=== PATIENT | male | born 1960 | race Hispanic/Latino ===

== ENCOUNTER 2017-04-09 13:18 | Inpatient (IN) | payer OTHER ==
[2017-04-09 13:51] VITALS: BMI 35.1
[2017-04-09] MEDS ORDERED: Albuterol-Ipratrop 3 mg / 0.5 (3 ml) UD IH STA ×2 (14:30→17:25)
--- NOTE | 2017-04-09 14:30 | ED PDOC ---
Arrival/HPI - General Chief Complaint: Flu-like Symptoms Time Seen by Provider: 04/09/17 13:49 Historian: Patient, Spouse - History of Present Illness Narrative History of Present Illness (Text): 04/09/17 14:07 A 56 year old male, whose past medical history includes diabetes mellitus, renal failure, CAD with stents, presents to the emergency department with a worsening cough. The patient and his report that they were in the [facility] on Tuesday (6 days ago) when the patient began to feel his first sign of sickness , which includes sneezing and coughing. His notes they were surrounded by family members who currently had URI, strep throat, and other sickness. 4-5 days ago the patient was asymptomatic, but 3 days ago he began to have rhinorrhea, temperature of 102.0 and chills around 16:00. 2 days ago the patient 's states that his fever broke and went back to normal 98.0. The patient went to the hospital in the [facility] 2 days ago and the doctor advised the patient to remain in the hospital, but the patient refused to stay because he wanted to go home. The patient states he had a fever of 101.4 this morning and has had diarrhea, which began today. Associated to the patient's cough he also has minor chest discomfort and back pain, he also feels shortness of breath. He denies any nausea, vomiting, palpitations, hemtauria, headache, sore throat, or any other complaints at this time. Distributor Sales Consultant: Dr. Cee Time/Duration: < week (6 days) Symptom Onset: Gradual Symptom Course: Unchanged Activities at Onset: Light Context: Other (Vacation in the [facility]) Past Medical History - Provider Review Nursing Documentation Reviewed: Yes - Infectious Disease Hx of Infectious Diseases: None - Tetanus Immunization Tetanus Immunization: Unknown - Cardiac Hx Hypertension: Yes Other/Comment: 2 cardiac stent 2002, 2004 - Neurological Hx Paralysis: No - Renal Hx Renal Disorder: Yes Other/Comment: membrane nephritis - Endocrine/Metabolic Hx Endocrine Disorders: Yes Hx Diabetes Mellitus Type 2: Yes - Hematological/Oncological Hx Blood Transfusions: Yes (2010) Hx Blood Transfusion Reaction: No - Musculoskeletal/Rheumatological Hx Musculoskeletal Disorders: No - Psychiatric Hx Emotional Abuse: No Hx Physical Abuse: No Hx Substance Use: No - Surgical History Hx Appendectomy: Yes Hx Joint Replacement: Yes (hip) - Anesthesia Hx Anesthesia Reactions: No Hx Malignant Hyperthermia: No - Suicidal Assessment Feels Threatened In Home Enviroment: No Family/Social History - Physician Review Nursing Documentation Reviewed: Yes Family/Social History: No Known Family HX, Unknown Family HX Smoking Status: Never Smoked Hx Alcohol Use: Yes (SOCIALLY) Hx Substance Use: No Hx Substance Use Treatment: No Allergies/Home Meds Allergies/Adverse Reactions: Allergies No Known Allergies Allergy (Verified 08/25/13 11:09) Home Medications: Home Meds Medication Instructions Recorded Confirmed Aspirin [Aspir 81] 81 tab PO DAILY 08/25/13 04/09/17 Cholecalciferol [Vitamin D 1000 IU] 5,000 units PO MWF 12/07/14 04/09/17 Clopidogrel [Plavix] 75 mg PO DAILY 12/07/14 04/09/17 Esomeprazole Magnesium [Nexium] 40 mg PO BRK 12/07/14 04/09/17 Febuxostat [Uloric] 40 mg PO DAILY 12/07/14 04/09/17 Furosemide [Lasix] 160 mg PO BID 12/07/14 04/09/17 Metoprolol Succinate [Toprol Xl] 50 mg PO DAILY 12/07/14 04/09/17 Folic Acid 1 mg PO DAILY 02/06/16 04/09/17 Insulin Degludec [Tresiba 20 unit SQ [facility] 02/06/16 04/09/17 Flextouch U-100] Liraglutide [Victoza 2-Ross] 1.8 mg SQ QAM 02/06/16 04/09/17 Magnesium Oxide [Magnesium] 800 mg PO DAILY 02/06/16 04/09/17 Rosuvastatin Calcium [Crestor] 20 mg PO DAILY 02/06/16 04/09/17 Cyanocobalamin (Vitamin B-12) 1,000 mcg SQ Q2W 04/22/16 04/09/17 [Cyanocobalamin Injection] Bumetanide [Bumex] 1 mg PO BID 04/09/17 04/09/17 Cyclosporine [Cyclosporine] 04/09/17 Sodium Bicarbonate [Sodium 2 tab PO BID 04/09/17 04/09/17 Bicarbonate] predniSONE [Prednisone] 40 mg PO Q2 04/09/17 04/09/17 Review of Systems - Review of Systems Constitutional: Fatigue, Fevers Eyes: absent: Vision Changes ENT: Rhinorrhea. absent: Hearing Changes, Sore Throat Respiratory: SOB, Cough Cardiovascular: Chest Pain, GORMAN Gastrointestinal: Diarrhea. absent: Abdominal Pain, Nausea, Vomiting Genitourinary Male: absent: Hematuria Musculoskeletal: Back Pain Neurological: absent: Headache, Dizziness Endocrine: absent: Diaphoresis Physical Exam - Physical Exam Narrative Physical Exam (Text): 04/09/17 14:20 Head: Atraumatic. Normocephalic. Eyes: PERRL. EOMI. Conjunctivae are not pale. ENT: Mucous membranes are moist and intact. Oropharynx is clear and symmetric. Neck: Supple. Full ROM. No JVD. No lymphadenopathy. Cardiovascular: Regular rate. Regular rhythm. Systolic murmur. Pulmonary/Chest: Diffuse bilateral rhonci. No respiratory distress. Abdominal: Soft and non-distended. There is no tenderness. No rebound, guarding, or rigidity. No organomegaly. Good bowel sounds. Back: No CVA tenderness. Extremities: Lower extremity is bilaterally equal, non pitting edema. No edema. No cyanosis. No clubbing. Full range of motion in all extremities. No calf tenderness. Skin: Skin is diaphoretic. No petechiae. No purpura. Neurological: Alert, awake, and oriented to person, place, time, and situation. Normal speech. Motor and sensory exam intact. Psychiatric: Good eye contact. Normal interaction, affect, and behavior. Vital Signs Reviewed: Yes Vital Signs Temp Pulse Resp BP Pulse Ox 04/09/17 20:40 99.9 F H 99 H 16 145/96 H 99 04/09/17 19:00 71 18 165/74 H 95 04/09/17 17:32 98.1 F 04/09/17 17:00 75 18 168/89 H 95 04/09/17 15:12 79 18 179/94 H 95 04/09/17 13:19 97.8 F 84 18 163/111 H 93 L Temperature: Afebrile Blood Pressure: Hypertensive Pulse: Regular Respiratory Rate: Normal Appearance: Positive for: Non-Toxic, Comfortable, Ill-Appearing Pain Distress: Mild Mental Status: Positive for: Alert and Oriented X 3 Medical Decision Making ED Course and Treatment: 04/09/17 14:36 Impression: A 56 year old male with a worsening cough. Differential Diagnosis included but are not limited to: CHF vs. Pneumonia vs. OH Plan: -- EKG -- Chest X-ray -- Labs -- Duoneb -- Urinalysis -- Reassess and disposition Prior Visits: Notes and results from previous visits were reviewed. The patient was last seen in the emergency department on 09/18/16 for flu like symptoms. The patient was discharged home. Progress Notes: Patient's history and exam reviewed. On exam he has diffuse rhonchi, sats 93% on room air but is breathing comfortably, although productive cough noted. Denies chest pain. Denies acute leg pain or edema, states "it's about the same" . Chest xray obtained. Patient placed on oxygen nasal cannula and nebulizer with improved sats. Chest X-ray Tree Sapper : Denny Zuluaga MD Report Date : 04/09/2017 15:08:13 HISTORY:cough, fever COMPARISON:09/18/2016 FINDINGS: LUNGS:Bilateral lower lobe opacities concerning for pneumonia. PLEURA:No significant pleural effusion identified. No pneumothorax apparent. CARDIOVASCULAR:Normal. OSSEOUS STRUCTURES:No significant abnormalities. VISUALIZED UPPER ABDOMEN:Normal. OTHER FINDINGS:Bilateral lower lobe opacities concerning for pneumonia. IMPRESSION:No active disease. 04/09/17 15:50 Paperwork provided by patient from [facility] on 04/07/17. Results show: -- BNP: 274 -- Toponin: 0.07 -- Glucose: 124 -- Blood Urea Nitrogen: 57 -- Creatinine: 2.40 -- Sodium: 139 -- Potassium: 4.2 -- Chloride: 111 -- Venous Total CO2: 18 -- Anion Gap: 10 -- Calcium: 8.3 -- Total Protein: 5.7 -- GFR: 30 -- Albumin: 2.7 -- Alkaline Phosphatase: 57 -- Total Bilirubin: 0.5 -- ALT: 14 -- AST: 13 -- White Blood Cell: 10.4 -- Red Blood Cell: 3.10 -- Hemoglobin: 10.0 -- Hematocrit: 28.8 -- Mean Corpusucular Volume: 93 -- Mean Corpusucular HGB: 32 -- Mean Corpusucular HGB Concentration: 35 -- Red Cell Distribution Width: 12.9 -- Platelet: 137 -- Mean Platelet Volume: 9.5 -- Granulocytes Percent: 78 -- Lymphocytes Percent: 13 -- Monocytes Percent: 8 -- Eosinophils percent: 1 -- Basophils Percent: 0 -- Nucleated RBCS: 0 -- Granulocytes Absolute Count: 8.1 -- Lymphocytes Absolute Count: 1.3 -- Monocytes Absolute Count: 0.8 -- Eosinophils Absolute Count: 0.1 -- Basophils Absolute Count: 0.0 On re-evaluation, patient resting comfortably, currently denies chest pain or discomfort. Chest xray reading reviewed with patient, discussed possibility of pneumonia, also cannot exclude component of pulmonary vascular congestion/chf. Labs reveal that patient has creatinine at his previous baseline. Troponin indeterminate, but no acute EKG changes or chest pain currently. IV antibiotics ordered. Initial lactate and WBC unremarkable, although hx of fevers suggestive of component of pneumonia. Case d/w Dr. Talavera, covering for PMD Dr. Prince. Patient admitted for pneumonia, r/o chf, cardiac disease given significant past risk factors. - Lab Interpretations Lab Results: 04/09/17 15:00 04/09/17 15:00 Lab Results 04/09/17 15:00: Sodium 139, Chloride 113 H, Potassium 4.2, Carbon Dioxide 16 L, Anion Gap 14, BUN 80 H, Creatinine 3.2 H, Est GFR ( Amer) 24, Est GFR ( Non-Af Amer) 20, Random Glucose 243 H, Calcium 8.5, Total Bilirubin 0.3, AST 22 , ALT 40, Alkaline Phosphatase 82, Lactate Dehydrogenase 832 H, Total Creatine Kinase 476 H, CK-MB (CK-2) 4.5 H, CK-MB (CK-2) % Cancelled, Troponin I 0.07 D, NT-Pro-B Natriuret Pep 2900 H, Total Protein 6.2, Albumin 3.0, Globulin 3.1, Albumin/Globulin Ratio 1.0 L 04/09/17 15:00: PT 10.5, INR 0.97, APTT 27.4 04/09/17 15:00: WBC 10.1 D, RBC 3.24 L, Hgb 10.2 L, Hct 29.8 L, MCV 92.0, MCH 31.5, MCHC 34.2, RDW 12.5, Plt Count 188, MPV 10.6, Gran % 73.8 H, Lymph % (Auto ) 15.4 L, Talbot % (Auto) 9.2 H, Eos % (Auto) 1.4 L, Baso % (Auto) 0.2, Gran # 7.45 H, Lymph # 1.6, Talbot # 0.9 H, Eos # 0.1, Baso # 0.02 04/09/17 14:45: pO2 77 H, VBG pH 7.32, VBG pCO2 31.0 L, VBG HCO3 16.0 L, VBG Total CO2 17.0 L, VBG O2 Sat (Calc) 97.2 H, VBG Base Excess -8.9 L, VBG Potassium 4.4, Sodium 138.0, Chloride 112.0 H, Glucose 253 H, Lactate 0.9, FiO2 21.0, Venous Blood Potassium 4.4 - RAD Interpretation Radiology Orders: 04/09/17 14:28 CHEST TWO VIEWS (PA/LAT) [RAD] Stat 04/09/17 15:49 DUPLEX LOWER EXTRM VEIN BILAT [US] Stat - Medication Orders Current Medication Orders: Albuterol/Ipratropium (Duoneb 3 Mg/0.5 Mg (3 Ml) Ud) 3 ml IH Q6H [facility] Last Admin: 04/10/17 08:14 Dose: 3 ml Aspirin (Ecotrin) 81 mg PO DAILY [facility] Last Admin: 04/10/17 09:43 Dose: 81 mg Bumetanide (Bumex) 1 mg PO BID [facility] Last Admin: 04/10/17 09:43 Dose: 1 mg Cholecalciferol (Vitamin D) 5,000 iu PO MWF [facility] Clopidogrel Bisulfate (Plavix) 75 mg PO DAILY [facility] Last Admin: 04/10/17 09:44 Dose: 75 mg Doxycycline Hyclate (Doryx) 100 mg PO Q12 [facility] PRN Reason: Protocol Stop: 04/19/17 22:01 Folic Acid (Folic Acid) 1 mg PO DAILY [facility] Last Admin: 04/10/17 09:44 Dose: 1 mg Cefepime HCl (Maxipime 1gm) 1 gm in 100 mls @ 100 mls/hr IVPB Q24H [facility] PRN Reason: Protocol Stop: 04/19/17 10:31 Insulin Detemir (Levemir) 20 unit SC [facility] Last Admin: 04/10/17 09:56 Dose: 20 unit Insulin Human Regular (Humulin R Low) 0 units SC [facility] PRN Reason: Protocol Losartan Potassium (Cozaar) 50 mg PO DAILY [facility] Magnesium Oxide (Mag-Ox) 800 mg PO DAILY [facility] Last Admin: 04/10/17 09:44 Dose: 800 mg Metoprolol Succinate (Toprol Xl) 50 mg PO DAILY [facility] Last Admin: 04/10/17 09:44 Dose: 50 mg Prednisone (Prednisone Tab) 10 mg PO QOTHERDAY [facility] Sodium Bicarbonate (Sodium Bicarbonate Tab) 1,300 mg PO BID [facility] Sodium Polystyrene Sulfonate (Kayexalate Oral Susp) 15 gm PO QOTHERDAY [facility] Discontinued Medications Albuterol/Ipratropium (Duoneb 3 Mg/0.5 Mg (3 Ml) Ud) 3 ml IH STAT STA Stop: 04/09/17 14:31 Last Admin: 04/09/17 14:40 Dose: 3 ml Albuterol/Ipratropium (Duoneb 3 Mg/0.5 Mg (3 Ml) Ud) 3 ml IH STAT STA Stop: 04/09/17 17:26 Last Admin: 04/09/17 17:30 Dose: 3 ml Furosemide (Lasix) 160 mg PO BID [facility] Azithromycin (Zithromax 500mg In Ns) 500 mg in 250 mls @ 166.667 mls/hr IVPB STAT [facility] PRN Reason: Protocol Stop: 04/09/17 16:51 Last Admin: 04/09/17 16:34 Dose: 166.667 mls/hr Ceftriaxone Sodium (Rocephin 1 Gram Ivpb) 1 gm in 100 mls @ 200 mls/hr IVPB ONCE [facility] PRN Reason: Protocol Stop: 04/09/17 15:52 Last Admin: 04/09/17 15:41 Dose: 200 mls/hr Sodium Bicarbonate (Sodium Bicarbonate Tab) 650 mg PO BID [facility] Last Admin: 04/10/17 09:44 Dose: 650 mg - PA / CONTENT DIRECTOR / Resident Statement / has reviewed & agrees with the documentation as recorded. MD/ has examined the patient and agrees with the treatment plan. - Scribe Statement The provider has reviewed the documentation as recorded by the Shira Wilson Provider Scribe Attestation: All medical record entries made by the Scribe were at my direction and personally dictated by me. I have reviewed the chart and agree that the record accurately reflects my personal performance of the history, physical exam, medical decision making, and the department course for this patient. I have also personally directed, reviewed, and agree with the discharge instructions and disposition. Disposition/Present on Arrival - Present on Arrival Any Indicators Present on Arrival: Yes History of DVT/PE: No History of Uncontrolled Diabetes: Yes Urinary Catheter: No History of Decub. Ulcer: No History Surgical Site Infection Following: None - Disposition Have Diagnosis and Disposition been Completed?: Yes Diagnosis: Pneumonia, CHF (congestive heart failure) Disposition: HOSPITALIZED Disposition Time: 15:30 Patient Plan: Admission Patient Problems: Current Active Problems Problem Status Onset CHF (congestive heart failure) Acute Pneumonia Acute Condition: SERIOUS
--- NOTE | 2017-04-09 15:09 | RAD ---
HISTORY: cough, fever COMPARISON: 09/18/2016 TECHNIQUE: Chest PA and lateral FINDINGS: LUNGS: Bilateral lower lobe opacities concerning for pneumonia. PLEURA: No significant pleural effusion identified. No pneumothorax apparent. CARDIOVASCULAR: Normal. OSSEOUS STRUCTURES: No significant abnormalities. VISUALIZED UPPER ABDOMEN: Normal. OTHER FINDINGS: Bilateral lower lobe opacities concerning for pneumonia. IMPRESSION: No active disease.
[2017-04-09] MEDS ORDERED: cefTRIAXone 1 gm 100 ML IVPB STA (15:19)
[2017-04-09] MEDS ORDERED: Azithromycin 500MG/NS 250ml 250 ML IVPB STA (15:19)
[2017-04-09 15:21] LABS: VENOUS BLOOD GAS BASE EXCESS -8.9 mmol/L (0.0-2.0); VENOUS BLOOD PH 7.32 (7.32-7.43)
[2017-04-09 15:22] LABS: BILIRUBIN,TOTAL 0.3 mg/dL (0.2-1.3); CALCIUM 8.5 mg/dL (8.4-10.5); POTASSIUM 4.2 mmol/L (3.6-5.0); TOTAL PROTEIN 6.2 g/dL (5.8-8.3)
[2017-04-09] MEDS ORDERED: Azithromycin 500MG/NS 250ml 500 MG/250 ML BAG IVPB STA (15:22)
[2017-04-09 15:23] LABS: BASO # 0.02 K/mm3 (0.0-2.0); BASO % 0.2 % (0.0-3.0); EOS # 0.1 (0.0-0.7); EOS % 1.4 % (1.5-5.0); GRAN # 7.45 (1.4-6.5); GRAN % 73.8 % (50.0-68.0); HEMATOCRIT 29.8 % (42.0-52.0); LYMPH # 1.6 (1.2-3.4); LYMPH % 15.4 % (22.0-35.0); MEAN CORPUSCULAR HEMOGLOBIN 31.5 pg (25.0-35.0); MEAN CORPUSCULAR HGB CONC 34.2 g/dl (31.0-37.0); MEAN PLATELET VOLUME 10.6 fl (7.0-11.0); MONO # 0.9 (0.1-0.6); MONO % 9.2 % (1.0-6.0); RED CELL DISTRIBUTION WIDTH 12.5 % (11.5-14.5); WHITE BLOOD COUNT 10.1 10^3/ul (4.5-11.0)
[2017-04-09] MEDS ORDERED: cefTRIAXone 1 gm 1 GM/100 ML BAG IVPB STA (15:23)
[2017-04-09 15:30] LABS: INR 0.97 (0.93-1.08); PARTIAL THROMBOPLASTIN TIME 27.4 Seconds (23.7-30.8)
[2017-04-09 15:32] LABS: TROPONIN I 0.07 ng/mL
[2017-04-09 16:26] LABS: ARTERIAL BLOOD GAS HCO3 13.6 mmol/L (21-28); ARTERIAL BLOOD GAS O2 CAPACITY 12.6 mL/dl (16-24); ARTERIAL BLOOD GAS O2 CONTENT 12.3 ML/dl (15-23); ARTERIAL BLOOD GAS PH 7.38 (7.35-7.45); ARTERIAL BLOOD HGB O2 SAT 96.4 % (95.0-98.0); CARBOXYHEMOGLOBIN 1.5 % (0.5-1.5); HHB 2.1 % (0-5)
[2017-04-09 16:56] LABS: URINE BILIRUBIN NEGATIVE (NEGATIVE); URINE BLOOD MODERATE (NEGATIVE); URINE GLUCOSE (UA) >=1000 mg/dL (NEGATIVE); URINE KETONE NEGATIVE (NEGATIVE); URINE LEUKOCYTE ESTERASE NEGATIVE Leu/uL (NEGATIVE); URINE PROTEIN >=300 mg/dL (<30 mg/dL); URINE UROBILINOGEN 0.2 E.U./dL (<1 E.U./dL)
[2017-04-09 16:57] LABS: URINE APPEARANCE CLEAR (CLEAR); URINE COLOR YELLOW (YELLOW)
[2017-04-09 17:20] LABS: URINE BACTERIA FEW (NEG)
[2017-04-09] MEDS: Albuterol-Ipratrop 3 mg / 0.5 (3 ml) UD IH SCH (19:30)
[2017-04-10] MEDS: Albuterol-Ipratrop 3 mg / 0.5 (3 ml) UD IH SCH ×4 (01:45→20:20)
--- NOTE | 2017-04-10 06:38 | HP ---
HISTORY OF PRESENT ILLNESS: The patient is seen in the emergency room. He is a white male. He presented with cough, fever, shortness of breath, neck pain, and chest pain. The patient feels sick. He had been treated for respiratory infection in the [facility] area two days ago. He was advised for hospitalization, but he refused at that time. In the emergency room, he complains of some distress with breathing associated with shortness of breath. The patient's past history is significant, in that he has history of appendectomy. The patient has had left hip replacement in the past. The patient has had 2 angioplasties according to his story. He has had chronic respiratory infection in the past, he has renal insufficiency and apparently, a suggestion of nephrotic syndrome in the past. He has been followed by recycling sorter in this town, I do not have the privilege of knowing his name right now. The patient's primary care physician is Dr. Kobe Prince; I am covering for Dr. Prince. The patient also has no allergies as far as I know. He is very pleasant and answers all questions. PHYSICAL EXAMINATION: GENERAL: The patient is a male who is about 266 pounds and his height is 6 feet and he is lying in the bed pretty much flat without much distress. He appears to be in some minimal distress, but his color is pale. VITAL SIGNS: Pulse is 98, blood pressure is 168/89, respirations 18, O2 saturation 95% on room air, his temperature as mentioned 98.1, even though the patient has had fever he says when he was at home. HEENT: Head is normocephalic. The patient's eyes and ears seem to be clinically normal. NECK: Thyroid is not enlarged. There is no elevation of the JVP. Carotid pulses are present. No lymphadenopathy noted in the neck. LUNGS: Trachea is central. Breath sounds are vesicular. There are rhonchi and crepitations bilaterally, left greater than right. HEART: NSR. S1 and S2 present. No clinical murmurs. ABDOMEN: Soft, no tenderness. Liver and spleen not palpable. The patient dose not have any symptoms such as rectal bleeding or symptoms of constipation. CENTRAL NERVOUS SYSTEM: He is conscious, rational, and oriented. His cranial nerves are intact. Sensory and motor functions are within normal limits. Cerebral function seem to be within normal limits, except that the patient has restless legs where he keeps flapping his legs constantly while lying down. LABORATORY DATA: His blood work that is done in the hospital in the emergency room shows a white count of 10,100, his hemoglobin is 10.2, the patient's differential shows shift to the left. The patient's chemistry; the blood sugar is 243, he is diabetic, he is on insulin and Victoza. The patient's BUN is 80, creatinine 3.2, which suggests that he has chronic renal insufficiency. The patient's natriuretic peptide is elevated to 1900. He has history of cardiac disease. He might be having superimposed congestive heart failure. The patient was being treated with a diuretic even prior to being in the hospital right now. MEDICATIONS: The patient's medication list consists of albuterol and ipratropium which is DuoNeb q.6 hours. The patient is getting Rocephin 1 g IV q.24 hours, azithromycin 500 mg IV daily. The patient's other medications, the patient will be placed on sodium bicarbonate 2 tablets p.o. b.i.d. The patient is on Bumex 1 mg b.i.d. The patient is on prednisone 40 mg q.12 hours, the patient is on vitamin B12, he is on Plavix 75 mg daily, he is on vitamin D, aspirin 81 mg daily, metoprolol 50 mg daily, magnesium oxide 800 mg daily. The patient is on Victoza 1.8 mg daily, the patient is on Lasix 160 mg p.o. b.i.d. and this is in addition to his Bumex. He is on Uloric for uric acid elevation and gout 40 mg daily. The patient is on Nexium 40 mg daily, calcium, rosuvastatin which is Crestor 20 mg daily, and cyclosporin which is an immunosuppressive medication. The patient's chest x-ray shows evidence of opacities on both lungs, lower base area of the lungs. IMPRESSION AND PLAN: The patient is admitted with diagnosis of pneumonia, congestive heart failure, renal failure. The patient has history of hypertension, and the patient has other diagnoses such as coronary artery disease, the patient has gout, the patient has general immune deficiency. He has had blood transfusion in the past, he admitted to that. He has had surgery as we know and his clinical condition seems to be stable at this time. He will be admitted to the telemetry floor. He will be seen by the consultants from infectious disease and also Dr. Chowdhury and Dr. Castillo, cardiologists, to follow up on his cardiac condition. We will probably consult a residential mortgage underwriter tomorrow to follow up on his pulmonary condition. We will see him in the morning tomorrow and continue current management. Caroline Ordonez MD [email or web address]
[2017-04-10] MEDS: Metoprolol Succinate 50 mg XL Tab PO SCH (09:44)
[2017-04-10] MEDS: Magnesium Oxide 400 mg Tab UD PO SCH (09:44)
[2017-04-10] MEDS: Insulin Detemir 100 units/ml Vial (Levemir) SC SCH ×2 (09:56→21:55)
--- NOTE | 2017-04-10 11:00 | CARD ---
APPROVED REPORT EKG Measurement Heart [id number] DC [id number] <Conclusion> Normal sinus rhythm T wave abnormality, consider inferior ischemia VS Repolarizing abnormality Abnormal ECG
[2017-04-10] MEDS: Insulin Reg-LOW-Coverage SC SCH ×3 (12:09→21:55)
[2017-04-10] MEDS: Cefepime 1gm in NS 100ml 1 GM/100 ML BAG IVPB SCH (12:09)
--- NOTE | 2017-04-10 14:37 | PN ---
DATE: LOCATION: The patient is in the room 270, bed 1. SUBJECTIVE: The patient was admitted yesterday with cold, shortness of breath, chest pain. The patient had evaluation in emergency room and found to have bilateral pneumonia. The patient has past history of renal failure, coronary artery disease. The patient has history of diabetes mellitus. The patient is being treated for renal insufficiency and nephrotic syndrome. This morning, the patient is resting in bed, relatively comfortable. PHYSICAL EXAMINATION: VITAL SIGNS: His pulse is 95, blood pressure 148/98, respirations are 20, O2 saturation is 90% oxygen on room air. The patient's temperature is 97.5. HEENT: Head is normocephalic. NECK: JVP is flat. LUNGS: Trachea is central, bilateral crepitations, rhonchi heard in basal parts of the lung bilaterally. HEART: Normal sinus rhythm. S1 and S2 present. Sinus tachycardia. ABDOMEN: Soft. Liver and spleen not palpable. No tenderness. CENTRAL NERVOUS SYSTEM: He is conscious, rational, oriented. No focal neurological deficits are noted at this time. MEDICATIONS: Consists of Bumex, the patient is on DuoNeb, aspirin, folic acid, Lasix, magnesium oxide, Plavix, sodium bicarbonate, metoprolol, and Vitamin D. ASSESSMENT AND PLAN: The patient is also treated with antibiotic. I think they discontinued antibiotic at this time, we will have to restart the patient on antibiotic. We will continue current management. We will have Pulmonary, Cardiac, infectious disease and Renal consultation on the patient. We will follow up. Caroline Ordonez MD ALLEGRA
--- NOTE | 2017-04-10 15:33 | US ---
HISTORY: Leg pain and swelling. Evaluate for DVT PHYSICIAN(S): Denny Julian MD. TECHNIQUE: Duplex sonography and color-flow Doppler with graded compression were used to evaluate the deep venous systems of both lower extremities. The tibial veins are not well seen due to edema FINDINGS: The visualized deep venous systems of both lower extremities are sonographically normal and compressible. Normal wave forms and augmentation are seen. There is no sonographic evidence for deep venous thrombosis in the visualized segments of both lower extremities. IMPRESSION: No sonographic evidence for deep venous thrombosis in the visualized segments of both lower extremities.
[2017-04-10] MEDS ORDERED: Levalbuterol 0.63 MG/3 ML Inhal Soln UD IH PRN (15:36)
[2017-04-10] MEDS: Atovaquone 750 mg/5 ml Susp UD PO SCH (17:13)
--- NOTE | 2017-04-11 01:19 | CON ---
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 Patient reports vacationing in the [facility] and having started to develop cough with shortness of breath about 6 days ago, also with associated fevers as high as 101, and chills. Went to ER in the [facility] and was advised to stay overnight for further evaluation for possible CHF exacerbation but patient declined and subsequently left this facility the same day. Patient also reporting chest tightness, worsening dyspnea on exertion, otherwise leg swelling has been relatively stable. Patient reports being compliant with all of his medications, although he does not know the names of them. Per patient's , the patient's pill box is for the most part empty indicating that he has been compliant with his medications. PAST MEDICAL HISTORY: As above. Patient with membranous nephropathy diagnosed several years ago, repeat biopsy, renal biopsy done in 2016 due to worsening renal function, again showing primary membranous nephropathy. Patient was at one point on Cytoxan, and has completed a full dose. Previous advertising intern attempted to treat membranous nephropathy with Rituxan last year, however, patient developed what appeared to be an anaphylactic reaction after either the second or third dose. Any further doses were currently held. Patient was then changed to tacrolimus which he has been on up until about 2 months ago when we took over his care and switched him to cyclosporin 100 mg q. 12 hours and prednisone 10 mg every other day with some improvement in proteinuria, however, renal function has overall worsened. Patient also restarted on ARB, Diovan about over a month ago 160 mg daily and put on Kayexalate every other day to manage hyperkalemia. SOCIAL HISTORY: Previous smoker. FAMILY HISTORY: Diabetes, father with kidney disease. REVIEW OF SYSTEMS: CONSTITUTIONAL: Fevers, chills. Appetite has been okay. HEENT: Reports blurry vision, reporting recent epistaxis. RESPIRATORY: As per HPI. CARDIOVASCULAR: As per HPI. GI: Has some episodes of diarrhea last week but was self limited. : No difficulty urinating, no dysuria. 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 No other joint pain or back pain. SKIN: Intermittent pruritus, none currently. No rashes. NEUROLOGICAL: Denies any dizziness. VITALS: This morning, blood pressure 148/98, heart rate 95, respirations 20, temperature 97.5, O2 sat 93% on room air. LABORATORY DATA: Labs from yesterday, CBC: WBC 10.1, hemoglobin 10.2, hematocrit 29.8, platelets 188. Chemistry panel: Sodium 139, potassium 4.2, chloride 113, bicarb 16, BUN 80, creatinine 3.2, glucose 243, calcium 8.5, LDH 832, proBNP 2900. ABG done on room air, pH 7.38, pCO2 23, pO2 71. Chest x-ray, directly visualized bilateral lower lobe opacities. ASSESSMENT AND PLAN: 1. Chronic kidney disease stage III B/IV. Relatively stable serum creatinine over the past 1 month. Volume status is also relatively stable. Mild metabolic acidosis in the setting of advanced chronic kidney disease. No indication for renal replacement therapy at this time. Continue to monitor renal function daily. Avoid NSAIDS. 2. Membranous nephropathy. Patient was biopsy proven primary membranous nephropathy with nephrotic range proteinuria. Currently on cyclosporin 100 mg q. 12 hours and prednisolone 10 mg every other day. Improvement in proteinuria from approximately 9 grams to 6 grams on random urine protein creatinine ratio. 3. We will hold cyclosporin for now in the setting of acute infection. Continue prednisone 10 mg every other day. Check cyclosporin level. 3. Hypertensive chronic kidney disease. Blood pressure elevated. Patient had been on Bumex 4 mg b.i.d., metoprolol XL 50 mg daily and losartan 160 mg daily at home. We will increase current Bumex dose to 2 mg b.i.d. We will restart ARB with losartan 50 mg daily. 4. Nephrotic syndrome. Appears to be improving. We will continue ARB with losartan 50 mg daily. We will restart Kayexalate at home dose 15 grams every other day starting tomorrow. 5. Chronic kidney disease mineral bone disease. Patient had been on bicarb supplementation, currently with metabolic acidosis, increased sodium bicarbonate to 650 mg 2 tablets b.i.d. 6. Anemia secondary to advanced chronic kidney disease. Recent iron studies showing patient is iron replete. Hemoglobin is at goal of 10 or 11 for advanced chronic kidney disease. We will hold off on any EPO for now. 7. Pneumonia/sepsis. Patient is currently on ceftriaxone and azithromycin. No renal dosages were needed. Discussed case with infectious disease advanced manufacturing consultant as patient has been on immunocompromising medications (cyclosporin). Infectious diseases to consider starting empiric treatment for PCP although appears unlikely as patient is already improving on current antibiotics. Stu Moses MD
[2017-04-11] MEDS: Albuterol-Ipratrop 3 mg / 0.5 (3 ml) UD IH SCH (01:37)
--- NOTE | 2017-04-11 04:32 | CON ---
DATE: 04/10/2017 REASON FOR THE CONSULTATION: Cardiac evaluation, 8 beats of VT, admitted with pneumonia, history of coronary artery disease. BRIEF CLINICAL HISTORY: This is a 56-year-old male with past medical history significant for coronary artery disease, status post stent 12 to 13 years ago, diabetes, hypertension, hyperlipidemia, obesity, body mass index 33.9 kg/m2, who was on vacation in [facility] He got first a runny nose, then nosebleed, and then got short of breath, went to the hospital, and was advised medical admission, but the patient refused and came here, admitted here with pneumonia and shortness of breath. Chest x-ray consistent with bilateral pneumonia. He had 8 beats of VT, so cardiac consult was called. PAST MEDICAL HISTORY: Significant for coronary artery disease, status post stent done by me 12 years ago, diabetes, hypertension, hyperlipidemia, obesity, chronic renal insufficiency. SOCIAL HISTORY: Quit smoking 12 years ago. Denies any history of alcohol abuse. FAMILY HISTORY: Significant for coronary artery disease, status post PTCA in the past. CURRENT MEDICATIONS: The patient was taking at home sodium bicarbonate, Bumex, prednisone, cyanocobalamin, Plavix 75 mg daily, aspirin 81 mg daily, magnesium oxide, insulin, and cyclosporine. PREVIOUS CARDIAC WORKUP: As follows: The patient's most recent echocardiogram on 06/28/2014 showed left ventricular size is normal, function is mildly impaired, calculated ejection fraction reported as 60%, apical hypokinesis noted, aortic valve is calcified with open valve, right ventricle reported as normal. PAST SURGICAL HISTORY: Significant for left hip replacement, appendectomy, history of two stents in the past, bilateral inguinal herniorrhaphy, colonoscopy, EGD, and renal biopsy. ALLERGIES: NO KNOWN DRUG ALLERGY. REVIEW OF SYSTEMS: As per HPI. PHYSICAL EXAMINATION VITAL SIGNS: Temperature afebrile, heart rate 88, and blood pressure 147/87. HEENT: PERRLA. Extraocular muscles intact. NECK: Supple. No carotid bruits or thyromegaly. CHEST: Clear to auscultation. HEART: S1 and S2 regular. ABDOMEN: Soft. EXTREMITIES: Clubbing and cyanosis negative. LABORATORY DATA: EKG shows normal sinus, no acute ST-T changes noted, 10 beats of VT noted. Blood workup as follows: WBC 10.8, hemoglobin 10.8, hematocrit 29.8, and platelet count 188. Chemistry shows sodium 139, potassium 4.0, chloride 113, carbon dioxide 16, anion gap of 14, BUN 80, creatinine 3.2. Troponin 0.07. In 2015, the patient's creatinine in January was 2. Since 2001, the patient has had renal insufficiency. Prior to that, in 2014, the patient's creatinine was 1.2. IMPRESSION: 1. Acute kidney injury on chronic renal insufficiency. As far as we go back on the labs, on 12/07/2014, creatinine was 1.2. On 02/09/2016, creatinine was 2 and creatinine clearance was 35 mL, now it is 20 mL, stage IV to V chronic kidney disease. 2. Diabetes. 3. Hypertension. 4. Hyperlipidemia. 5. Obesity. 6. Coronary artery disease, status post percutaneous transluminal coronary angioplasty 12 years ago. 7. Admitted with bilateral pneumonia, anemia, and diabetes. RECOMMENDATIONS: Aggressively treat pneumonia, we will give gentle diuretics, keep negative fluid balance. BNP is also elevated at 2900. Avoid DuoNeb treatment. We will put on Lovenox to prevent going into AFib/flutter and arrhythmia. Monitor electrolytes closely. Once the respiratory status stabilizes, consider stress test to rule out any ischemia. We will get lipid profile, TSH, hemoglobin A1c. We will follow with you. Thank you Dr. Ordonez for providing us the opportunity in taking care of the patient. Wanda Chowdhury MD
--- NOTE | 2017-04-11 05:41 | CON ---
DATE: 04/10/2017 CHIEF COMPLAINT: Weakness from several days. HISTORY OF PRESENT ILLNESS: This is a 56-year-old male with past medical history of diabetes mellitus, renal disease, coronary artery disease. He has been complaining of cough and weakness from several days and he states that he had low-grade fevers, no chills, no chest pain, cough is nonproductive. He did have a fever at home. He was in the hospital in [facility], he states approximately 2 days ago. He did not want to stay in the hospital and wanted to go home. He dined any abdomen pain, diarrhea or constipation, dysuria or frequency. PAST MEDICAL HISTORY: Significant for diabetes mellitus, coronary artery disease, renal disease. PAST SURGICAL HISTORY: Significant for appendectomy, cardiac cath, stent placement, inguinal hernia repair and left hip replacement. MEDICATIONS AT HOME: Patient is on prednisone 40 mg; vitamin B12; Plavix; aspirin; metoprolol; magnesium; Lasix, Nexium; Crestor, which is rosuvastatin; cyclosporine. Dr. Ordonez's history and physical examination is available and reviewed. PHYSICAL EXAMINATION GENERAL: The patient is in bed, no acute distress, appears washed out. VITAL SIGNS: Temperature of 99.9, hear rate of 118, respiratory rate of 20, blood pressure is 140/90. HEENT: Unremarkable. NECK: Supple. LUNGS: Decreased breath sounds. HEART: Normal S1 and S2. ABDOMEN: Soft, nontender, no organomegaly, no rebound, no guarding, no masses. LABORATORY EXAMINATION: Reveals a white count of 10,000, hemoglobin of 10, platelets of 188, and 73% granulocytosis. Chemistry reveals a BUN of 80, creatinine of 3.2, LDH is 832, CK is 476. The BNP is 2900. Glucose is 207. Urine analysis reveals 2 to 5 wbc's, greater than 300 protein, and moderate blood. The patient had a chest x-ray, bilateral lower opacities concerning for pneumonia. Blood cultures and urine cultures have been ordered. ASSESSMENT AND PLAN: This is a 56-year-old male with diabetes, coronary artery disease, renal disease, and nephrotic syndrome with congestive heart failure, obesity, history of kidney stones, and recent hospitalization, presenting with weakness, low-grade fevers, tachycardia, and hypoxia with: 1. Bilateral health-associated pneumonia. The urine Legionella antigen has been ordered. Blood culture, urine culture, and sputum cultures have been ordered and patient was given ceftriaxone, azithromycin. We will start the patient on Maxipime,doxycycline and ordered procalcitonin. Sputum cultures have been drawn and we will order complement levels. Pending initial workup results, we will order a C3 and C4, and we will make further recommendations upon availability of initial results. Patient does have an elevated BNP, CPK, and mildly elevated LDH, A 40 mg prednisone was recently started. The patient has not been on a prolonged prednisone use. We will make further recommendations. Brendon Walker MD
[2017-04-11] MEDS ORDERED: Metoprolol 1 mg/ml Inj IVP PRN (06:04)
[2017-04-11 07:39] LABS: BASO # 0.02 K/mm3 (0.0-2.0); BASO % 0.2 % (0.0-3.0); EOS # 0.2 (0.0-0.7); EOS % 2.7 % (1.5-5.0); GRAN # 6.08 (1.4-6.5); GRAN % 68.5 % (50.0-68.0); HEMATOCRIT 31.4 % (42.0-52.0); LYMPH # 1.8 (1.2-3.4); LYMPH % 20.3 % (22.0-35.0); MEAN CELL VOLUME 92.4 fl (80.0-105.0); MEAN CORPUSCULAR HEMOGLOBIN 31.8 pg (25.0-35.0); MEAN CORPUSCULAR HGB CONC 34.4 g/dl (31.0-37.0); MEAN PLATELET VOLUME 10.6 fl (7.0-11.0); MONO # 0.7 (0.1-0.6); MONO % 8.3 % (1.0-6.0); RED CELL DISTRIBUTION WIDTH 12.4 % (11.5-14.5); WHITE BLOOD COUNT 8.9 10^3/ul (4.5-11.0)
[2017-04-11 08:01] LABS: ALB/GLOB RATIO 0.9 (1.1-1.8); BILIRUBIN,TOTAL 0.2 mg/dL (0.2-1.3); CALCIUM 8.7 mg/dL (8.4-10.5); MAGNESIUM 2.3 mg/dL (1.7-2.2); PHOSPHOROUS 5.9 mg/dL (2.5-4.5); TOTAL PROTEIN 6.6 g/dL (5.8-8.3)
[2017-04-11] MEDS: Insulin Reg-LOW-Coverage SC SCH ×4 (08:27→22:52)
--- NOTE | 2017-04-11 09:10 | CP.PCM.PN ---
<Gabby Shoemaker - Last Filed: 04/11/17 13:18> Subjective - Date & Time of Evaluation Date of Evaluation: 04/11/17 Time of Evaluation: 09:06 - Subjective Subjective: PGY-2 Nephrology progress note for Dr. Moses Patient seen and examined at bedside. No acute distress. Patient states that he feels overall better. He continues to have cough ands congestion worst when laying down. He report bilateral lower extremity edema. He denies any dysuria, abd pain, n/v/d/c. Patient states that he is tolerating diet well. Objective - Vital Signs/Intake and Output Vital Signs (last 24 hours): Temp Pulse Resp BP Pulse Ox 97.9 F 80 22 173/91 H 95 04/11/17 06:00 04/11/17 06:21 04/11/17 06:00 04/11/17 06:21 04/11/17 06:00 Intake and Output: 04/11/17 04/11/17 06:59 18:59 Intake Total 240 Output Total 300 Balance -60 - Medications Medications: Current Medications Aspirin (Ecotrin) 81 mg PO DAILY [facility] Last Admin: 04/10/17 09:43 Dose: 81 mg Atovaquone (Mepron) 750 mg PO BID [facility] Stop: 04/19/17 18:01 Last Admin: 04/10/17 17:13 Dose: 750 mg Bumetanide (Bumex) 2 mg PO BID [facility] Last Admin: 04/10/17 17:23 Dose: 2 mg Cholecalciferol (Vitamin D) 5,000 iu PO F [facility] Clopidogrel Bisulfate (Plavix) 75 mg PO DAILY [facility] Last Admin: 04/10/17 09:44 Dose: 75 mg Doxycycline Hyclate (Doryx) 100 mg PO Q12 [facility] PRN Reason: Protocol Stop: 04/19/17 22:01 Last Admin: 04/10/17 21:55 Dose: 100 mg Folic Acid (Folic Acid) 1 mg PO DAILY [facility] Last Admin: 04/10/17 09:44 Dose: 1 mg Hydralazine HCl (Apresoline) 25 mg PO QID [facility] Cefepime HCl (Maxipime 1gm) 1 gm in 100 mls @ 100 mls/hr IVPB Q24H [facility] PRN Reason: Protocol Stop: 04/19/17 10:31 Last Admin: 04/10/17 12:09 Dose: 100 mls/hr Insulin Detemir (Levemir) 20 unit SC [facility] Last Admin: 04/10/17 21:55 Dose: 20 unit Insulin Human Regular (Humulin R Low) 0 units SC ACHS [facility] PRN Reason: Protocol Last Admin: 04/11/17 08:27 Dose: Not Given Levalbuterol HCl (Xopenex) 0.63 mg IH [id number] PRN PRN Reason: Shortness of Breath Last Admin: 04/11/17 06:10 Dose: 0.63 mg Losartan Potassium (Cozaar) 50 mg PO DAILY [facility] Last Admin: 04/10/17 12:09 Dose: 50 mg Magnesium Oxide (Mag-Ox) 800 mg PO DAILY [facility] Last Admin: 04/10/17 09:44 Dose: 800 mg Metoprolol Succinate (Toprol Xl) 50 mg PO DAILY [facility] Last Admin: 04/10/17 09:44 Dose: 50 mg Metoprolol Tartrate (Lopressor) 5 mg IVP Q6H PRN PRN Reason: Systolic Blood Pressure Last Admin: 04/11/17 06:21 Dose: 5 mg Prednisone (Prednisone Tab) 10 mg PO QOTHERDAY [facility] Last Admin: 04/10/17 12:09 Dose: 10 mg Sodium Bicarbonate (Sodium Bicarbonate Tab) 1,300 mg PO BID [facility] Last Admin: 04/10/17 17:12 Dose: 1,300 mg Sodium Polystyrene Sulfonate (Kayexalate Oral Susp) 15 gm PO QOTHERDAY [facility] - Labs Labs: 04/11/17 07:10 04/11/17 07:10 PT 10.5 Seconds (9.9-11.8) 04/09/17 15:00 INR 0.97 (0.93-1.08) 04/09/17 15:00 APTT 27.4 Seconds (23.7-30.8) 04/09/17 15:00 - Constitutional Appears: Well, No Acute Distress - Head Exam Head Exam: ATRAUMATIC, NORMOCEPHALIC - Eye Exam Eye Exam: Normal appearance - ENT Exam ENT Exam: Mucous Membranes Moist - Respiratory Exam Respiratory Exam: Rales, Rhonchi, NORMAL BREATHING PATTERN. absent: Respiratory Distress - Cardiovascular Exam Cardiovascular Exam: REGULAR RHYTHM, +S1, +S2. absent: Tachycardia, Murmur - GI/Abdominal Exam GI & Abdominal Exam: Soft, Normal Bowel Sounds. absent: Firm, Guarding, Tenderness - Extremities Exam Extremities Exam: absent: Tenderness Additional comments: +1 pitting edema bilaterally - Back Exam Back Exam: NORMAL INSPECTION. 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 Plan: 1. CKD stage IIIB - stable - mild metabolic acidosis - cont sodium bicarb - renal US official read pending, r/o thrombosis - cont to monitor renal function - avoid NSAIDs 2. membranous nephropathy - biopsy proven primary membranous nephropathy with nephrotic range proteinuria. - cont to hold cyclosporin 100mg q12 hr - cont prednisone 10mg every other day 3. HTN - BP elevated - increase bumex to 3mg BID - metoprolol XL 50mg daily and losartan 160mg daily - start hydralazine 25mg BID PO 4. nephrotic syndrome - cont lorsartan 50 daily - start kayexalate to maintain potassium level 5. CKD mineral bone disease - cont with sodium bicarb 650 2 tabs bid 6. anemia 2/2 CKD - stable, at goal - cont to monitor 7. PNE - cont abx, ceftriaxone and azithromycin, no renal dosage required - ID following <Stu Moses - Last Filed: 04/12/17 10:53> Objective - Vital Signs/Intake and Output Vital Signs (last 24 hours): Temp Pulse Resp BP Pulse Ox 98.4 F 64 19 157/79 H 97 04/12/17 06:00 04/12/17 06:00 04/12/17 06:00 04/12/17 06:00 04/12/17 06:00 Intake and Output: 04/12/17 04/12/17 06:59 18:59 Intake Total 240 Output Total 275 Balance -35 - Medications Medications: Current Medications Acetylcysteine (Acetylcysteine 20%) 4 ml [facility] [id number] [facility] Aspirin (Ecotrin) 81 mg PO DAILY [facility] Last Admin: 04/11/17 09:31 Dose: 81 mg Atorvastatin Calcium (Lipitor) 20 mg PO DIN [facility] Last Admin: 04/11/17 17:36 Dose: 20 mg Atovaquone (Mepron) 750 mg PO BID [facility] Stop: 04/19/17 18:01 Last Admin: 04/11/17 17:37 Dose: 750 mg Bumetanide (Bumex) 3 mg PO BID [facility] Last Admin: 04/11/17 17:36 Dose: 3 mg Calcium Acetate (Phoslo) 667 mg PO WM [facility] Cholecalciferol (Vitamin D) 5,000 iu PO MWF [facility] Last Admin: 04/11/17 09:29 Dose: 5,000 iu Clopidogrel Bisulfate (Plavix) 75 mg PO DAILY [facility] Last Admin: 04/11/17 09:31 Dose: 75 mg Doxycycline Hyclate (Doryx) 100 mg PO Q12 [facility] PRN Reason: Protocol Stop: 04/19/17 22:01 Last Admin: 04/11/17 22:38 Dose: 100 mg Folic Acid (Folic Acid) 1 mg PO DAILY [facility] Last Admin: 04/11/17 09:32 Dose: 1 mg Hydralazine HCl (Apresoline) 25 mg PO QID [facility] Last Admin: 04/11/17 22:38 Dose: 25 mg Cefepime HCl (Maxipime 1gm) 1 gm in 100 mls @ 100 mls/hr IVPB Q24H [facility] PRN Reason: Protocol Stop: 04/19/17 10:31 Last Admin: 04/11/17 09:32 Dose: 100 mls/hr Iron Sucrose 200 mg/ Sodium (Chloride) 110 mls @ 110 mls/hr IVPB DAILY [facility] Stop: 04/14/17 10:59 Insulin Detemir (Levemir) 20 unit SC [facility] Last Admin: 04/11/17 23:27 Dose: Not Given Insulin Human Regular (Humulin R Low) 0 units SC ACHS [facility] PRN Reason: Protocol Last Admin: 04/12/17 08:02 Dose: Not Given Levalbuterol HCl (Xopenex) 0.63 mg IH [id number] Levalbuterol HCl (Xopenex) 0.63 mg IH Q2H PRN PRN Reason: Shortness of Breath Losartan Potassium (Cozaar) 50 mg PO DAILY [facility] Last Admin: 04/11/17 09:32 Dose: 50 mg Metoprolol Succinate (Toprol Xl) 50 mg PO DAILY [facility] Last Admin: 04/11/17 09:31 Dose: 50 mg Metoprolol Tartrate (Lopressor) 5 mg IVP Q6H PRN PRN Reason: Systolic Blood Pressure Last Admin: 04/11/17 06:21 Dose: 5 mg Pantoprazole Sodium (Protonix Ec Tab) 40 mg PO 0600 [facility] Prednisone (Prednisone Tab) 10 mg PO QOTHERDAY [facility] Last Admin: 04/10/17 12:09 Dose: 10 mg Sodium Bicarbonate (Sodium Bicarbonate Tab) 1,300 mg PO BID [facility] Last Admin: 04/11/17 17:37 Dose: 1,300 mg Sodium Polystyrene Sulfonate (Kayexalate Oral Susp) 15 gm PO QOTHERDAY [facility] Last Admin: 04/11/17 09:33 Dose: 15 gm - Labs Labs: 04/12/17 06:50 04/12/17 06:50 PT 10.5 Seconds (9.9-11.8) 04/09/17 15:00 INR 0.97 (0.93-1.08) 04/09/17 15:00 APTT 27.4 Seconds (23.7-30.8) 04/09/17 15:00 Attending/Attestation - Attestation I have personally seen and examined this patient.: Yes I have fully participated in the care of the patient.: Yes I have reviewed all pertinent clinical information, including history, physical exam and plan: Yes Notes (Text): Patient seen and examined with resident; I agree with the note above with the following additions/edits: Patient being treated by us for membranous nephropathy, worsening renal function over past 1+ year; now admitted with pneumonia; Renal function remains at recent baseline; stable electrolyte status; HTN uncontrolled; 2+ leg edema but overall is improved; patient had been on higher doses of diuretics at home with bumex 4 mg bid; now increased to 3 mg bid ; hydralazine 25 mg QID added; On mepron empirically due to immunocompromised status; otherwise getting ceftriaxone and azithromycin for CAP, no renal dose adjustment needed; Renal duplex ordered to look for possibility of renal vein thrombosis in setting of worsening renal function but showed patent renal veins; Regarding membranous nephropathy, holding cyclosporine until PNA improved; continuing with prednisone every other day; Getting cardiac eval, will f/u;
[2017-04-11] MEDS: Magnesium Oxide 400 mg Tab UD PO SCH (09:28)
[2017-04-11] MEDS: Metoprolol Succinate 50 mg XL Tab PO SCH (09:31)
[2017-04-11] MEDS: Cefepime 1gm in NS 100ml 1 GM/100 ML BAG IVPB SCH (09:32)
[2017-04-11] MEDS: Atovaquone 750 mg/5 ml Susp UD PO SCH ×2 (09:33→17:37)
[2017-04-11] MEDS: Insulin Detemir 100 units/ml Vial (Levemir) SC SCH ×2 (09:33→23:27)
[2017-04-11] MEDS: Sod Polystyrene Sulf 15 gm/60 ml Oral Susp PO SCH (09:33)
--- NOTE | 2017-04-11 10:09 | CP.PCM.PN ---
Subjective - Date & Time of Evaluation Date of Evaluation: 04/11/17 Time of Evaluation: 06:50 - Subjective Subjective: Internal medicine progress note for Dr. Ordonez covering for Dr. Caridad Salinas, PGY-1 Pt S & E at bedside. Pt reports some chest tightness, improved cough, inability to sleep lying down/ poor sleep quality. Denies N/V/F/C, SOB, ab pain, CP. Tolerating diet, currently NPO for imaging. Objective - Vital Signs/Intake and Output Vital Signs (last 24 hours): Temp Pulse Resp BP Pulse Ox 97.9 F 85 22 169/93 H 95 04/11/17 06:00 04/11/17 09:32 04/11/17 06:00 04/11/17 09:32 04/11/17 06:00 Intake and Output: 04/11/17 04/11/17 06:59 18:59 Intake Total 240 Output Total 300 Balance -60 - Medications Medications: Current Medications Aspirin (Ecotrin) 81 mg PO DAILY [facility] Last Admin: 04/11/17 09:31 Dose: 81 mg Atovaquone (Mepron) 750 mg PO BID [facility] Stop: 04/19/17 18:01 Last Admin: 04/11/17 09:33 Dose: 750 mg Bumetanide (Bumex) 2 mg PO BID [facility] Last Admin: 04/11/17 09:28 Dose: 2 mg Cholecalciferol (Vitamin D) 5,000 iu PO MWF [facility] Last Admin: 04/11/17 09:29 Dose: 5,000 iu Clopidogrel Bisulfate (Plavix) 75 mg PO DAILY [facility] Last Admin: 04/11/17 09:31 Dose: 75 mg Doxycycline Hyclate (Doryx) 100 mg PO Q12 [facility] PRN Reason: Protocol Stop: 04/19/17 22:01 Last Admin: 04/11/17 09:30 Dose: 100 mg Folic Acid (Folic Acid) 1 mg PO DAILY [facility] Last Admin: 04/11/17 09:32 Dose: 1 mg Hydralazine HCl (Apresoline) 25 mg PO QID [facility] Last Admin: 04/11/17 09:32 Dose: 25 mg Cefepime HCl (Maxipime 1gm) 1 gm in 100 mls @ 100 mls/hr IVPB Q24H [facility] PRN Reason: Protocol Stop: 04/19/17 10:31 Last Admin: 04/11/17 09:32 Dose: 100 mls/hr Insulin Detemir (Levemir) 20 unit SC [facility] Last Admin: 04/11/17 09:33 Dose: 20 unit Insulin Human Regular (Humulin R Low) 0 units SC [facility] PRN Reason: Protocol Last Admin: 04/11/17 08:27 Dose: Not Given Levalbuterol HCl (Xopenex) 0.63 mg IH [id number] PRN PRN Reason: Shortness of Breath Last Admin: 04/11/17 06:10 Dose: 0.63 mg Losartan Potassium (Cozaar) 50 mg PO DAILY [facility] Last Admin: 04/11/17 09:32 Dose: 50 mg Magnesium Oxide (Mag-Ox) 800 mg PO DAILY [facility] Last Admin: 04/11/17 09:28 Dose: 800 mg Metoprolol Succinate (Toprol Xl) 50 mg PO DAILY [facility] Last Admin: 04/11/17 09:31 Dose: 50 mg Metoprolol Tartrate (Lopressor) 5 mg IVP Q6H PRN PRN Reason: Systolic Blood Pressure Last Admin: 04/11/17 06:21 Dose: 5 mg Prednisone (Prednisone Tab) 10 mg PO QOTHERDAY [facility] Last Admin: 04/10/17 12:09 Dose: 10 mg Sodium Bicarbonate (Sodium Bicarbonate Tab) 1,300 mg PO BID [facility] Last Admin: 04/11/17 09:28 Dose: 1,300 mg Sodium Polystyrene Sulfonate (Kayexalate Oral Susp) 15 gm PO QOTHERDAY [facility] Last Admin: 04/11/17 09:33 Dose: 15 gm - Labs Labs: 04/11/17 07:10 04/11/17 07:10 PT 10.5 Seconds (9.9-11.8) 04/09/17 15:00 INR 0.97 (0.93-1.08) 04/09/17 15:00 APTT 27.4 Seconds (23.7-30.8) 04/09/17 15:00 - Constitutional Appears: Non-toxic, No Acute Distress - Head Exam Head Exam: ATRAUMATIC, NORMAL INSPECTION, NORMOCEPHALIC - Eye Exam Eye Exam: EOMI, Normal appearance - ENT Exam ENT Exam: Mucous Membranes Moist, Normal Exam - Neck Exam Neck Exam: Full ROM - Respiratory Exam Respiratory Exam: Wheezes (mild, B/L), NORMAL BREATHING PATTERN. absent: Accessory Muscle Use, Decreased Breath Sounds, Clear to Ausculation Bilateral, Prolonged Expiratory Phase, Rales, Rhonchi, Respiratory Distress - Cardiovascular Exam Cardiovascular Exam: REGULAR RHYTHM, +S1, +S2 - GI/Abdominal Exam GI & Abdominal Exam: Soft, Normal Bowel Sounds. absent: Distended, Firm, Guarding, Tenderness, Hernia (diastasis recti) - Extremities Exam Extremities Exam: Pedal Edema (1+ pitting edema) - Neurological Exam Neurological Exam: Alert, Awake, CN II-XII Intact, Oriented x3 - Psychiatric Exam Psychiatric exam: Normal Affect, Normal Mood - Skin Skin Exam: Dry, Intact, Normal Color, Warm Assessment and Plan - Assessment and Plan (Free Text) Assessment: 56YO M w/PMH sig for DM, HTN, CAD, immune deficiency, CKD/renal failure admitted with SOB 2/2 pneumonia. Plan: Pneumonia No leukocytosis Afebrile D dimer 1.74 Procalc 0.44 Supplemental O2 w/humidifer Target SpO2>90% FU BD glucan assay Blood cx- G+ cocci clusters in anaerobic bottle only Urine cx- neg FU Sputum cx Legionella neg Cont Mepron Cont Doxycycline Cont Cefepime Xopenex Prednisone ID following Intermittent epistaxis Humidify O2 Monitor CKD/renal failure BUN 68 Cr 2.9 Hyperphosphatemia - 5.9 Hypermagnesemia-2.3 FU renal U/S FU random Cr FU microalbumin FU cyclosporin A trough FU total protein Cont Bumex Cont Vitamin D supplementation Cont Folic acid Mg Ox- holding Nephro following- Kayexelate Qeveryother day, NaHCO3 tabs HTN BP uncontrolled Hydralazine Cozaar Toprol XL Lopressor PRN CAD ASA Plavix Lipid panel: TG 280, Chol 230, LDL 112, HDL 41 TSH 1.30 FU A1c FU echo Cardio following LE pain- improved Doppler neg B/L DM Levemire ISS Accuchecks FU A1c Hx Immune deficiency C3 162- WNL C4 32.6- WNL ID following GI/DVT ppx SCDs TEDs Dispo OOBTC Ambulate Renal diet Will DW attending Rita, PGY-1
--- NOTE | 2017-04-11 13:52 | PN ---
DATE: 04/11/2017 SUBJECTIVE: The patient is in the [facility] in [place]. The patient was admitted with the diagnosis of pneumonia. The patient has history of coronary artery disease, renal failure. The patient is a diabetic also. The patient is seen this morning. He is lying comfortably in the bed. He says that he feels better than he did a couple of days ago. PHYSICAL EXAMINATION: VITAL SIGNS: His pulse is 80, blood pressure 173/91, respirations are 22, oxygen is 95% on room air, his temperature is 97.9. LUNGS: There are crepitations bilaterally. There is rhonchi. HEART: Normal sinus rhythm. S1 and S2 present. ABDOMEN: Soft. Liver and spleen not palpable. CENTRAL NERVOUS SYSTEM: No focal neurological deficits at this time. EXTREMITIES: The patient's leg edema is present, but it is less that it was at the time of admission. ASSESSMENT AND PLAN: The patient is continuing antibiotic treatment, oxygen, respiratory treatment, treatment for diabetes mellitus. The patient was evaluated by Dr. Stu Moses; he is a linux un[employer] administrator. He knows the patient and he will evaluate and treat the patient for the renal insufficiency, the patient has at this time. The oracle reports developer had seen the patient and advised conservative management at this point while the pneumonia is being treated. The patient's general condition is improving. The patient's overall prognosis is guarded, but we will continue current management. All his medications will be continued. The patient is on Bumex 2 mg b.i.d. The patient is on losartan 50 mg daily. The patient is on doxycycline q.12 hours, Duoneb q.6 hours, aspirin 81 mg daily, folic acid 1 mg daily. Insulin coverage for diabetes. The patient is on Kayexalate for renal conservation of potassium level. The patient has elevated potassium and Kayexalate is the medication that is used to remove the potassium from the body. The patient is on metoprolol IV q.6 hours p.r.n. for tachycardia, magnesium oxide, and Maxipime 1 g q.8 hours. The patient is on Mepron 750 mg b.i.d., Plavix 75 mg daily, prednisone 10 mg daily, sodium bicarbonate 1300 mg p.o. b.i.d., metoprolol 50 mg daily. The patient is on vitamin D. The patient is on Xopenex. We will have to clarify whether the patient is on Duoneb and Xopenex; one of which has to be discontinued, we will do that. Caroline Ordonez MD [email or web address]
--- NOTE | 2017-04-11 14:29 | US ---
PROCEDURE: Bilateral renal vein duplex ultrasound CLINICAL HISTORY: Evaluate for renal vein thrombosis. PHYSICIAN(S): Denny Julian M.D. TECHNIQUE: Duplex sonography with color-flow Doppler was used to evaluate the visualized segments of the main renal veins. FINDINGS: The kidneys are normal and symmetric in appearance. The renal parenchyma is normal in thickness but somewhat echogenic. No evidence of hydronephrosis or solid renal mass is appreciated. The main renal veins are well visualized and patent. No thrombus is seen. IMPRESSION: 1. Patent main hepatic veins bilaterally
--- NOTE | 2017-04-11 16:15 | CARD ---
APPROVED REPORT EXAM: Two-dimensional and M-mode echocardiogram with Doppler and color Doppler. INDICATION Cardiac Disease: CAD CMP,S/P PTCA 2D DIMENSIONS Left Atrium (2D)5.1 (1.6-4.0cm)IVSd1.2 (0.7-1.1cm) LVDd5.2 (3.9-5.9cm)LVOT Diameter2.1 (1.8-2.4cm) PWd1.3 (0.7-1.1cm)LVDs3.6 (2.5-4.0cm) FS (%) 31.4 %LVEF (%)59.0 (>50%) M-Mode DIMENSIONS Aortic Root3.40 (2.2-3.7cm)Aortic Cusp Exc.1.30 (1.5-2.0cm) Aortic Valve AoV Peak Zdyqklxn295.0cm/sAoV VTI59.7cmAO Peak GR.32mmHg LVOT Peak Dsoluuwk701.0cm/sLVOT VTI24.00cmAO Mean GR.20mmHg NIKO (VMAX)1.74fp2RGX (VTI)1.39cm2 Mitral Valve MV E Gxmvwuvj19.7cm/sMV A Sfhshqtw260.0cm/sE/A ratio0.9 TDI Lateral E' Peak V6.24cm/sMedial E' Peak V6.53cm/sE/Lateral E'15.8 E/Medial E'15.1 Pulmonary Valve PV Peak Emuwsabq13.1cm/sPV Peak Grad.4mmHg Tricuspid Valve TR Peak Bzgwxweu588tp/sRAP JCYZVMCX32ytIrYO Peak Gr.24mmHg [id number] LEFT VENTRICLE The left ventricle is normal size. There is mild concentric left ventricular hypertrophy. The left ventricular function is normal.EF-55-60% There is normal LV segmental wall motion. Transmitral Doppler flow pattern is Grade III-reversible restrictive diastolic dysfunction. No left ventricle thrombus noted on this study. There is no ventricular septal defect visualized. There is no left ventricular aneurysm. There is no mass noted in the left ventricle. RIGHT VENTRICLE The right ventricle is normal size. There is normal right ventricular wall thickness. The right ventricular systolic function is normal. ATRIA The left atrium is mildly dilated. The right atrium size is normal. The interatrial septum is intact with no evidence for an atrial septal defect. AORTIC VALVE The aortic valve is calcified but opens well. There is trace aortic regurgitation. There is mild to moderate valvular aortic stenosis.NIKO 1.4 cm2 There is no aortic valvular vegetation. MITRAL VALVE The mitral valve is thickened but opens well. Mitral annular calcification is mild. Mitral regurgitation is mild. There is no mitral valve stenosis. There is no evidence of mitral valve prolapse. TRICUSPID VALVE The tricuspid valve leaflets are thickened , but open well. There is mild tricuspid regurgitation.RVSP-34 mmof Hg. There is no tricuspid valve stenosis. There is no tricuspid valve prolapse or vegetation. PULMONIC VALVE The pulmonic valve is borderline thickened. There is trace pulmonic valvular regurgitation. There is no pulmonic valvular stenosis. GREAT VESSELS The aortic root is normal in size. The ascending aorta is normal in size. The pulmonary artery is normal. The IVC is normal in size and collapses >50% with inspiration. PERICARDIAL EFFUSION There is no pleural effusion. Trivial Pericardial effusion <Conclusion> The left ventricle is normal size. There is mild concentric left ventricular hypertrophy. The left ventricular function is normal.EF-55-60% There is trace aortic regurgitation. There is mild to moderate valvular aortic stenosis.NIKO 1.4 cm2 Mitral regurgitation is mild. There is mild tricuspid regurgitation.RVSP-34 mmof Hg. The IVC is normal in size and collapses >50% with inspiration. Trivial Pericardial effusion. no vegetation or thrombus noted.
--- NOTE | 2017-04-11 17:52 | PN ---
REASON FOR CONSULTATION: Followup cardiac evaluation, 8 beats of VT, admitted with pneumonia, history of coronary artery disease. SUBJECTIVE: The patient denies any chest pain. Denies any shortness of breath. Denies any palpitation. Shortness of breath is significantly improved. OBJECTIVE GENERAL: The patient is lying flat on the bed, is at the bedside, not in apparent distress. PHYSICAL EXAMINATION VITAL SIGNS: Temperature afebrile, heart rate 80, blood pressure 188/88. HEENT: PERRLA. Extraocular muscles intact. NECK: Supple. No carotid bruits or thyromegaly. CHEST: Clear to auscultation. HEART: S1 and S2 regular. ABDOMEN: Soft. EXTREMITIES: Clubbing and cyanosis negative. LABORATORY DATA: Blood workup as follows: WBC 8.9, hemoglobin 10.8, hematocrit 31.4, platelet count 199. Chemistry shows sodium 141, potassium 4, chloride 113, carbon dioxide 15, anion gap of 17, BUN 68, creatinine 2.9. Triglycerides 280, cholesterol 230, LDL 112, HDL 41. TSH 1.3. Troponin 0.07. IMPRESSION: A 56-year-old male with past medical history of coronary artery disease, status post percutaneous transluminal coronary angioplasty in the past, 2 stents; admitted with pneumonia, bilateral; [id number] renal insufficiency; hypertension; diabetes; noncompliance with the medication; so far, no evidence of acute KS; hypertension; hyperlipidemia; obesity; bilateral pneumonia. RECOMMENDATION: Continue DVT prophylaxis to 100, aggressive control of blood pressure, avoid nephrotoxic medication, continue hydralazine as ordered by Dr. Moses, robotic machine operator. We will put beta arlen, avoid Duoneb nebulizer treatment. We will put Xopenex to prevent tachycardia. Once the patient is stable, able to lay flat, we will get stress test for risk stratification noncompliance, possibly tomorrow. I discussed with the patient. Follow up echo. We will put 20 mg of atorvastatin daily. Keep n.p.o. after midnight for stress test in the morning. We will discontinue magnesium as today's mag level is 2.3. We will repeat lab in the morning. We will follow with you. Thank you, Dr. Talavera/Dr. Prince, for providing us the opportunity in taking care of the patient. Wanda Chowdhury MD [facility] # [id number]
[2017-04-12 03:14] LABS: CREATININE, RANDOM URINE 36 mg/dL (20-370)
--- NOTE | 2017-04-12 06:48 | CP.PCM.PN ---
<Giovana Esteban - Last Filed: 04/12/17 10:58> Subjective - Date & Time of Evaluation Date of Evaluation: 04/12/17 Time of Evaluation: 06:48 - Subjective Subjective: Medicine Progress Note for Dima Bonilla PGY2 Patient seen and examined at bedside. As per nursing, there were no acute overnight events. He reports having SOB when lying flat as well as dry cough. He denies CP, n/v/d, constipation, fever or chills. He is scheduled for stress test this am. Objective - Vital Signs/Intake and Output Vital Signs (last 24 hours): Temp Pulse Resp BP Pulse Ox 98.4 F 64 19 157/79 H 97 04/12/17 06:00 04/12/17 06:00 04/12/17 06:00 04/12/17 06:00 04/12/17 06:00 Intake and Output: 04/11/17 04/12/17 18:59 06:59 Intake Total 660 240 Output Total 275 Balance 660 -35 - Medications Medications: Current Medications Aspirin (Ecotrin) 81 mg PO DAILY [facility] Last Admin: 04/11/17 09:31 Dose: 81 mg Atorvastatin Calcium (Lipitor) 20 mg PO DIN [facility] Last Admin: 04/11/17 17:36 Dose: 20 mg Atovaquone (Mepron) 750 mg PO BID [facility] Stop: 04/19/17 18:01 Last Admin: 04/11/17 17:37 Dose: 750 mg Bumetanide (Bumex) 3 mg PO BID [facility] Last Admin: 04/11/17 17:36 Dose: 3 mg Cholecalciferol (Vitamin D) 5,000 iu PO MWF [facility] Last Admin: 04/11/17 09:29 Dose: 5,000 iu Clopidogrel Bisulfate (Plavix) 75 mg PO DAILY [facility] Last Admin: 04/11/17 09:31 Dose: 75 mg Doxycycline Hyclate (Doryx) 100 mg PO Q12 [facility] PRN Reason: Protocol Stop: 04/19/17 22:01 Last Admin: 04/11/17 22:38 Dose: 100 mg Folic Acid (Folic Acid) 1 mg PO DAILY [facility] Last Admin: 04/11/17 09:32 Dose: 1 mg Hydralazine HCl (Apresoline) 25 mg PO QID [facility] Last Admin: 04/11/17 22:38 Dose: 25 mg Cefepime HCl (Maxipime 1gm) 1 gm in 100 mls @ 100 mls/hr IVPB Q24H [facility] PRN Reason: Protocol Stop: 04/19/17 10:31 Last Admin: 04/11/17 09:32 Dose: 100 mls/hr Insulin Detemir (Levemir) 20 unit SC [facility] Last Admin: 04/11/17 23:27 Dose: Not Given Insulin Human Regular (Humulin R Low) 0 units SC [facility] PRN Reason: Protocol Last Admin: 04/11/17 22:52 Dose: Not Given Levalbuterol HCl (Xopenex) 0.63 mg IH [id number] PRN PRN Reason: Shortness of Breath Last Admin: 04/11/17 06:10 Dose: 0.63 mg Losartan Potassium (Cozaar) 50 mg PO DAILY [facility] Last Admin: 04/11/17 09:32 Dose: 50 mg Metoprolol Succinate (Toprol Xl) 50 mg PO DAILY [facility] Last Admin: 04/11/17 09:31 Dose: 50 mg Metoprolol Tartrate (Lopressor) 5 mg IVP Q6H PRN PRN Reason: Systolic Blood Pressure Last Admin: 04/11/17 06:21 Dose: 5 mg Prednisone (Prednisone Tab) 10 mg PO QOTHERDAY [facility] Last Admin: 04/10/17 12:09 Dose: 10 mg Sodium Bicarbonate (Sodium Bicarbonate Tab) 1,300 mg PO BID [facility] Last Admin: 04/11/17 17:37 Dose: 1,300 mg Sodium Polystyrene Sulfonate (Kayexalate Oral Susp) 15 gm PO QOTHERDAY [facility] Last Admin: 04/11/17 09:33 Dose: 15 gm - Labs Labs: 04/11/17 07:10 04/11/17 07:10 PT 10.5 Seconds (9.9-11.8) 04/09/17 15:00 INR 0.97 (0.93-1.08) 04/09/17 15:00 APTT 27.4 Seconds (23.7-30.8) 04/09/17 15:00 - Constitutional Appears: No Acute Distress - Head Exam Head Exam: ATRAUMATIC, NORMAL INSPECTION, NORMOCEPHALIC - Eye Exam Eye Exam: Normal appearance, PERRL Pupil Exam: NORMAL ACCOMODATION - ENT Exam ENT Exam: Mucous Membranes Moist - Respiratory Exam Respiratory Exam: Rhonchi (in all quadrants ), NORMAL BREATHING PATTERN. absent : Rales, Wheezes - Cardiovascular Exam Cardiovascular Exam: REGULAR RHYTHM, +S1, +S2. absent: Gallop, Rubs, Murmur - GI/Abdominal Exam GI & Abdominal Exam: Soft, Normal Bowel Sounds. absent: Rigid, Tenderness, Mass , Rebound - Extremities Exam Extremities Exam: Pedal Edema. absent: Calf Tenderness - Neurological Exam Neurological Exam: Alert, Awake, CN II-XII Intact, Oriented x3 - Psychiatric Exam Psychiatric exam: Normal Affect, Normal Mood - Skin Skin Exam: Dry, Normal Color, Warm Assessment and Plan - Assessment and Plan (Free Text) Assessment: This is a 56Y M with PMH of DM, HTN, CKD, CAD and immune deficiency admitted for SOB secondary to pneumonia. Patient also noted to have episode of V.tach 2 days ago. Plan: 1. Pneumonia - Repeat CXR showed improvement of pneumonia but some lung scarring on L- see full report for more detail - Afebrile, no leukocytosis - Continue Atovaquone, Cefepime and Doxy - ID Consulted- recs appreciated - Continue Xopenex, Mucomyst - Continue supplemental O2, Maintain spo2>90 2. Positive blood culture - second BC positive for staph - repeat BC, repeat septic work up (urine culture, u/a) - Follow up CT chest/abd/pelvis - ID consulted 3. Anemia - Hgb: 9.9, most likely anemia of chronic disease - Will obtain iron studies, folate, vit b12, EPO - Continue Folic Acid - no overt signs of bleeding - check stool for occult blood - Venofer x 3 days 4. Vtach - 8 beats 2 days ago - Stress test this am - Cardio consulted- recs appreciated - Continue Toprol - Echo showed EF 55-60%, mild- mod aortic stenosis, Mild MR, TR 5. Transaminitis - Hep panel ordered - GI consulted - CT abd/pelvis ordered - Abd U/S ordered 6. 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 CAD - Continue ASA, Plavix, Lipitor - Cardio consulted- recs appreciated - Stress test today 8. HTN - Continue Toprol, Bumex, Hydralazine, Cozaar - Lopressor Prn 9. DM - Levemir - BGM ACHS - ISS - HgbA1c 7.5 10. Vit D deficiency - Continue Vit D Gi ppx: Protonix DVT ppx: SCDs Dispo: Patient will have stress test today. Follow up septic work up. Upon d/c patient will follow up with Dr. Prince and cardiology. Case seen, discussed and reviewed with attending. Dima Esteban PGY2 <Kobe Prince U - Last Filed: 05/11/17 21:16> Objective - Vital Signs/Intake and Output Vital Signs (last 24 hours): Temp Pulse Resp BP Pulse Ox 97.8 F 94 H 20 124/79 95 04/14/17 12:00 04/14/17 12:00 04/14/17 12:00 04/14/17 12:00 04/14/17 06:00 - Labs Labs: 04/14/17 06:30 04/14/17 06:30 PT 10.5 Seconds (9.9-11.8) 04/09/17 15:00 INR 0.97 (0.93-1.08) 04/09/17 15:00 APTT 27.4 Seconds (23.7-30.8) 04/09/17 15:00 Attending/Attestation - Attestation I have personally seen and examined this patient.: Yes I have fully participated in the care of the patient.: Yes I have reviewed all pertinent clinical information, including history, physical exam and plan: Yes
[2017-04-12 07:11] LABS: HEMATOCRIT 29.3 % (42.0-52.0); MEAN CELL VOLUME 91.8 fl (80.0-105.0); MEAN CORPUSCULAR HGB CONC 33.8 g/dl (31.0-37.0); MEAN PLATELET VOLUME 10.2 fl (7.0-11.0); RED CELL DISTRIBUTION WIDTH 12.3 % (11.5-14.5); WHITE BLOOD COUNT 8.4 10^3/ul (4.5-11.0)
--- NOTE | 2017-04-12 07:24 | CP.PCM.PN ---
<Stu Moses - Last Filed: 04/12/17 16:07> Objective - Vital Signs/Intake and Output Vital Signs (last 24 hours): Temp Pulse Resp BP Pulse Ox 98.2 F 76 21 118/61 97 04/12/17 12:00 04/12/17 14:36 04/12/17 12:00 04/12/17 14:36 04/12/17 06:00 Intake and Output: 04/12/17 04/12/17 06:59 18:59 Intake Total 240 Output Total 275 Balance -35 - Medications Medications: Current Medications Acetylcysteine (Acetylcysteine 20%) 4 ml IH [id number] [facility] Last Admin: 04/12/17 14:08 Dose: 4 ml Aspirin (Ecotrin) 81 mg PO DAILY [facility] Last Admin: 04/12/17 11:26 Dose: 81 mg Atorvastatin Calcium (Lipitor) 20 mg PO DIN [facility] Last Admin: 04/11/17 17:36 Dose: 20 mg Atovaquone (Mepron) 750 mg PO BID [facility] Stop: 04/19/17 18:01 Last Admin: 04/12/17 11:27 Dose: 750 mg Bumetanide (Bumex) 3 mg PO BID [facility] Last Admin: 04/12/17 11:25 Dose: 3 mg Calcium Acetate (Phoslo) 667 mg PO WM [facility] Last Admin: 04/12/17 14:50 Dose: Not Given Cholecalciferol (Vitamin D) 5,000 iu PO MWF [facility] Last Admin: 04/11/17 09:29 Dose: 5,000 iu Clopidogrel Bisulfate (Plavix) 75 mg PO DAILY [facility] Last Admin: 04/12/17 11:24 Dose: 75 mg Doxycycline Hyclate (Doryx) 100 mg PO Q12 [facility] PRN Reason: Protocol Stop: 04/19/17 22:01 Last Admin: 04/12/17 11:24 Dose: 100 mg Folic Acid (Folic Acid) 1 mg PO DAILY [facility] Last Admin: 04/12/17 11:23 Dose: 1 mg Hydralazine HCl (Apresoline) 25 mg PO QID [facility] Last Admin: 04/12/17 14:36 Dose: 25 mg Cefepime HCl (Maxipime 1gm) 1 gm in 100 mls @ 100 mls/hr IVPB Q24H [facility] PRN Reason: Protocol Stop: 04/19/17 10:31 Last Admin: 04/12/17 11:23 Dose: 100 mls/hr Iron Sucrose 200 mg/ Sodium (Chloride) 110 mls @ 110 mls/hr IVPB DAILY [facility] Stop: 04/14/17 10:59 Last Admin: 04/12/17 14:37 Dose: 110 mls/hr Insulin Detemir (Levemir) 20 unit SC AMHS [facility] Last Admin: 04/12/17 11:57 Dose: Not Given Insulin Human Regular (Humulin R Low) 0 units SC ACHS [facility] PRN Reason: Protocol Last Admin: 04/12/17 12:00 Dose: Not Given Levalbuterol HCl (Xopenex) 0.63 mg IH [id number] [facility] Last Admin: 04/12/17 13:55 Dose: 0.63 mg Levalbuterol HCl (Xopenex) 0.63 mg IH Q2H PRN PRN Reason: Shortness of Breath Last Admin: 04/12/17 11:16 Dose: 0.63 mg Losartan Potassium (Cozaar) 100 mg PO DAILY [facility] Metoprolol Succinate (Toprol Xl) 50 mg PO DAILY [facility] Last Admin: 04/12/17 11:23 Dose: 50 mg Metoprolol Tartrate (Lopressor) 5 mg IVP Q6H PRN PRN Reason: Systolic Blood Pressure Last Admin: 04/11/17 06:21 Dose: 5 mg Pantoprazole Sodium (Protonix Ec Tab) 40 mg PO 0600 [facility] Prednisone (Prednisone Tab) 10 mg PO QOTHERDAY [facility] Last Admin: 04/12/17 11:26 Dose: 10 mg Sodium Bicarbonate (Sodium Bicarbonate Tab) 1,300 mg PO BID [facility] Last Admin: 04/12/17 11:26 Dose: 1,300 mg Sodium Polystyrene Sulfonate (Kayexalate Oral Susp) 15 gm PO QOTHERDAY [facility] Last Admin: 04/11/17 09:33 Dose: 15 gm - Labs Labs: 04/12/17 06:50 04/12/17 06:50 PT 10.5 Seconds (9.9-11.8) 04/09/17 15:00 INR 0.97 (0.93-1.08) 04/09/17 15:00 APTT 27.4 Seconds (23.7-30.8) 04/09/17 15:00 Attending/Attestation - Attestation I have personally seen and examined this patient.: Yes I have fully participated in the care of the patient.: Yes I have reviewed all pertinent clinical information, including history, physical exam and plan: Yes Notes (Text): Patient seen and examined; I agree with the resident's note as above with the following additions/edits: Patient being treated by us as outpatient for membranous nephropathy; has advanced CKD with renal function having worsened over past year; now admitted with PNA; Patient reporting cough and intermittent shortness of breath that prevented him from sleeping well overnight; Renal function stable during this admission; stable lytes; put on kayexalate due to hyperkalemia issues previously, will hold for now as K controlled; Hypertensive CKD, BP improved with addition of hydralazine although not at goal ; bumex increased to 3 mg bid (although was on 4 mg at home); will increase losartan to 100 mg daily; avoiding over-diuresis as this will worsen renal function; Patient underwent stress test today, awaiting results; Membranous nephropathy with nephrotic syndrome, cyclosporine currently on hold due to PNA; continuing prednisone 10 mg every other day; will speak to ID about timing of restarting cyclosporine; Currently on cefepime 1g q24h for PNA, correctly dosed for advanced renal insufficiency; 04/12/17 16:07 <Gabby Shoemaker - Last Filed: 04/13/17 08:53> Subjective - Date & Time of Evaluation Date of Evaluation: 04/12/17 Time of Evaluation: 07:21 - Subjective Subjective: PGY-2 Nephrology progress note for Dr. Moses Patient seen and examined at bedside. No acute distress. Patient states that over all he feels worse today. He states that he is more short of breath and cough has not improved. He denies fever, chills, n/v, abd pain, dysuria. Objective - Vital Signs/Intake and Output Vital Signs (last 24 hours): Temp Pulse Resp BP Pulse Ox 98.4 F 64 19 157/79 H 97 04/12/17 06:00 04/12/17 06:00 04/12/17 06:00 04/12/17 06:00 04/12/17 06:00 Intake and Output: 04/12/17 04/12/17 06:59 18:59 Intake Total 240 Output Total 275 Balance -35 - Medications Medications: Current Medications Aspirin (Ecotrin) 81 mg PO DAILY [facility] Last Admin: 04/11/17 09:31 Dose: 81 mg Atorvastatin Calcium (Lipitor) 20 mg PO DIN [facility] Last Admin: 04/11/17 17:36 Dose: 20 mg Atovaquone (Mepron) 750 mg PO BID [facility] Stop: 04/19/17 18:01 Last Admin: 04/11/17 17:37 Dose: 750 mg Bumetanide (Bumex) 3 mg PO BID [facility] Last Admin: 04/11/17 17:36 Dose: 3 mg Cholecalciferol (Vitamin D) 5,000 iu PO MWF [facility] Last Admin: 04/11/17 09:29 Dose: 5,000 iu Clopidogrel Bisulfate (Plavix) 75 mg PO DAILY [facility] Last Admin: 04/11/17 09:31 Dose: 75 mg Doxycycline Hyclate (Doryx) 100 mg PO Q12 [facility] PRN Reason: Protocol Stop: 04/19/17 22:01 Last Admin: 04/11/17 22:38 Dose: 100 mg Folic Acid (Folic Acid) 1 mg PO DAILY [facility] Last Admin: 04/11/17 09:32 Dose: 1 mg Hydralazine HCl (Apresoline) 25 mg PO QID [facility] Last Admin: 04/11/17 22:38 Dose: 25 mg Cefepime HCl (Maxipime 1gm) 1 gm in 100 mls @ 100 mls/hr IVPB Q24H [facility] PRN Reason: Protocol Stop: 04/19/17 10:31 Last Admin: 04/11/17 09:32 Dose: 100 mls/hr Insulin Detemir (Levemir) 20 unit SC AMHS [facility] Last Admin: 04/11/17 23:27 Dose: Not Given Insulin Human Regular (Humulin R Low) 0 units SC ACHS [facility] PRN Reason: Protocol Last Admin: 04/11/17 22:52 Dose: Not Given Levalbuterol HCl (Xopenex) 0.63 mg IH [id number] PRN PRN Reason: Shortness of Breath Last Admin: 04/11/17 06:10 Dose: 0.63 mg Losartan Potassium (Cozaar) 50 mg PO DAILY [facility] Last Admin: 04/11/17 09:32 Dose: 50 mg Metoprolol Succinate (Toprol Xl) 50 mg PO DAILY [facility] Last Admin: 04/11/17 09:31 Dose: 50 mg Metoprolol Tartrate (Lopressor) 5 mg IVP Q6H PRN PRN Reason: Systolic Blood Pressure Last Admin: 04/11/17 06:21 Dose: 5 mg Prednisone (Prednisone Tab) 10 mg PO QOTHERDAY [facility] Last Admin: 04/10/17 12:09 Dose: 10 mg Sodium Bicarbonate (Sodium Bicarbonate Tab) 1,300 mg PO BID [facility] Last Admin: 04/11/17 17:37 Dose: 1,300 mg Sodium Polystyrene Sulfonate (Kayexalate Oral Susp) 15 gm PO QOTHERDAY [facility] Last Admin: 04/11/17 09:33 Dose: 15 gm - Labs Labs: 04/12/17 06:50 04/11/17 07:10 PT 10.5 Seconds (9.9-11.8) 04/09/17 15:00 INR 0.97 (0.93-1.08) 04/09/17 15:00 APTT 27.4 Seconds (23.7-30.8) 04/09/17 15:00 - Constitutional Appears: No Acute Distress - Head Exam Head Exam: ATRAUMATIC, NORMOCEPHALIC - Eye Exam Eye Exam: Normal appearance - ENT Exam ENT Exam: Mucous Membranes Moist - Respiratory Exam Respiratory Exam: Wheezes, NORMAL BREATHING PATTERN. absent: Decreased Breath Sounds, Rhonchi, Respiratory Distress - Cardiovascular Exam Cardiovascular Exam: REGULAR RHYTHM, +S1, +S2. absent: Tachycardia, Murmur - GI/Abdominal Exam GI & Abdominal Exam: Soft, Normal Bowel Sounds. absent: Firm, Guarding, Tenderness - Extremities Exam Extremities Exam: absent: Tenderness Additional comments: +1 pitting edema bilateral LE - Neurological Exam Neurological Exam: Alert, Awake, Oriented x3 - Skin Skin Exam: Dry, Intact, Normal Color, Warm Assessment and Plan - Assessment and Plan (Free Text) Assessment: 56 yo male with PMH of CKD stage IIIb secondary to membranous nephropathy, HTN, DM present with pneumonia. Plan: 1. CKD stage IIIB - stable - metabolic acidosis improved - cont sodium bicarb - renal duplex showed patent main renal veins bilateral - cont to monitor renal function - avoid NSAIDs 2. 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 - cont to hold cyclosporin 100mg q12 hr - cont prednisone 10mg every other day 3. HTN - BP elevated - cont bumex to 3mg BID - cont home medications of metoprolol XL 50mg daily - cont losartan 160mg daily - cont hydralazine 25mg BID PO 4. nephrotic syndrome - cont lorsartan 50 daily - cont kayexalate every other day to maintain potassium level 5. CKD mineral bone disease - cont with sodium bicarb 650 2 tabs bid 6. anemia 2/2 CKD - stable, at goal - cont to monitor 7. PNE - cont abx, ceftriaxone and azithromycin, no renal dosage required - ID following
[2017-04-12 07:25] LABS: ALB/GLOB RATIO 0.9 (1.1-1.8); BILIRUBIN,TOTAL 0.2 mg/dL (0.2-1.3); CALCIUM 8.7 mg/dL (8.4-10.5); POTASSIUM 4.1 mmol/L (3.6-5.0); TOTAL PROTEIN 6.2 g/dL (5.8-8.3)
[2017-04-12] MEDS: Insulin Reg-LOW-Coverage SC SCH ×4 (08:02→22:05)
--- NOTE | 2017-04-12 08:13 | RAD ---
HISTORY: SOB/rhonchi on exam COMPARISON: 04/09/2017 FINDINGS: LUNGS: The patchy bibasilar opacities are largely cleared No interval consolidation suggested. Left inferolateral linear scarring and/or discoid atelectasis - similar. PLEURA: No significant pleural effusion identified, no pneumothorax apparent. CARDIOVASCULAR: Top-normal heart size. Central pulmonary venous congestion probable. Possibility of minimal bronchiectasis right suprahilar region and a tiny cystic emphysematous changes possible here and left perihilar region. Current appearance more notable OSSEOUS STRUCTURES: Moderate thoracic spondylosis VISUALIZED UPPER ABDOMEN: Normal. OTHER FINDINGS: None. IMPRESSION: The patchy bibasilar infiltrates have largely cleared. Minimal residual discoid atelectasis scarring left lung base. The central pulmonary venous status is probably minimally increased -possibly on a chronic basis. No william pleural effusion
[2017-04-12] MEDS ORDERED: Aminophylline 25 mg/ml Inj ONE (08:29)
[2017-04-12] MEDS ORDERED: Pantoprazole 40 mg EC Tab PO STA (08:30)
[2017-04-12 08:45] LABS: RETIC% 1.34 % (0.5-1.5)
[2017-04-12 09:01] LABS: ALB/GLOB RATIO 0.9 (1.1-1.8); ALKALINE PHOSPHATASE 90 U/L (38-133); ALT/SGPT 57 U/L (7-56); AST/SGOT 67 U/L (15-59); BILIRUBIN,DIRECT 0.2 mg/dL (0.0-0.4); BILIRUBIN,TOTAL 0.2 mg/dL (0.2-1.3); TOTAL PROTEIN 6.2 g/dL (5.8-8.3)
[2017-04-12 09:09] LABS: IRON 45 ug/dL (45-180)
[2017-04-12] MEDS: Levalbuterol 0.63 MG/3 ML Inhal Soln UD IH PRN ×2 (11:16→23:55)
[2017-04-12] MEDS: Acetylcysteine 20% Inhal Soln (4ml) IH SCH ×4 (11:16→23:54)
[2017-04-12] MEDS: Metoprolol Succinate 50 mg XL Tab PO SCH (11:23)
[2017-04-12] MEDS: Cefepime 1gm in NS 100ml 1 GM/100 ML BAG IVPB SCH (11:23)
[2017-04-12] MEDS: Atovaquone 750 mg/5 ml Susp UD PO SCH ×2 (11:27→17:58)
[2017-04-12] MEDS: Insulin Detemir 100 units/ml Vial (Levemir) SC SCH ×2 (11:57→22:04)
[2017-04-12 13:03] LABS: FOLATE > 20.0 ng/mL
--- NOTE | 2017-04-12 13:54 | US ---
HISTORY: transaminitis COMPARISON: None. TECHNIQUE: Sonographic evaluation of the abdomen. FINDINGS: LIVER: Measures 19 point sick cm. Increased echogenicity of the liver parenchyma. No mass. No intrahepatic bile duct dilatation. GALLBLADDER: Unremarkable. No gallstones. COMMON BILE DUCT: Measures 7 mm. No stones. No dilatation. PANCREAS: Unremarkable as visualized. Limited exam dated obscuring bowel gas No gross mass. No ductal dilatation. RIGHT KIDNEY: Measures 10.9 x 5.7 x 6.5cm. Normal echogenicity. No calculus, mass, or hydronephrosis. Midpole right renal cyst 10 x 8 x 10 mm LEFT KIDNEY: Measures 11.5 x 6.6 x 6.8cm. Normal echogenicity. No calculus, mass, or hydronephrosis. Two left renal cysts upper pole 18 x 13 x 14 mm and midpole 14 x 10 x 12 mm SPLEEN: Normal in size and contour. No mass. AORTA: No aneurysmal dilatation. Maximum dimension 1.8 cm IVC: Unremarkable. OTHER FINDINGS: None. IMPRESSION: Bilateral renal cysts. No hydronephrosis Hepatomegaly with diffuse increased echogenicity. Hepatic steatosis versus other hepatic parenchymal pathology. No focal mass is. No dilated ducts. No gallbladder pathology noted
[2017-04-12] MEDS: Levalbuterol 0.63 MG/3 ML Inhal Soln UD IH SCH ×2 (13:55→20:13)
--- NOTE | 2017-04-12 14:49 | CT ---
PROCEDURE: CT Chest, Abdomen and Pelvis without intravenous contrast HISTORY: ANEMIA/BACTEREMIA COMPARISON: None. TECHNIQUE: Radiation dose: Total exam DLP = 1312 mGy-cm. This CT exam was performed using one or more of the following dose reduction techniques: Automated exposure control, adjustment of the mA and/or kV according to patient size, and/or use of iterative reconstruction technique. FINDINGS: CT CHEST WITHOUT CONTRAST: LUNGS: Minimal patchy infiltrates are seen in the periphery of both lungs. There is also some peribronchial thickening. Findings are consistent with bronchitis and early pneumonia MEDIASTINUM: Unremarkable. Normal caliber aorta and pulmonary arterial trunk. Normal size heart. LYMPH NODES: Unremarkable. PLEURA: Unremarkable. No pneumothorax. No pleural fluid. BONES: Unremarkable. OTHER FINDINGS: None. CT ABDOMEN AND PELVIS: LIVER: Unremarkable. No gross lesion or ductal dilatation. GALLBLADDER AND BILE DUCTS: Unremarkable. PANCREAS: Unremarkable. No gross lesion or ductal dilatation. SPLEEN: Unremarkable. ADRENALS: Unremarkable. No mass. KIDNEYS AND URETERS: Unremarkable. No hydronephrosis. No solid mass. VASCULATURE: Unremarkable. No aortic aneurysm. BOWEL: Unremarkable. No obstruction. No gross mural thickening. APPENDIX: Normal appendix. PERITONEUM: Unremarkable. No free fluid. No free air. LYMPH NODES: Unremarkable. No enlarged lymph nodes. BLADDER: Unremarkable. REPRODUCTIVE: Unremarkable. BONES: No acute fracture. OTHER FINDINGS: None. IMPRESSION: Minimal patchy infiltrates are seen in the periphery of both lungs. There is also some peribronchial thickening. Findings are consistent with bronchitis and early pneumonia No intra-abdominal findings
--- NOTE | 2017-04-12 15:12 | PN ---
DATE: 04/12/2017 SUBJECTIVE: The patient is seen in stress lab sitting up in the wheelchair. Overnight nurse's notes were reviewed. PHYSICAL EXAMINATION: GENERAL: The patient is seen sitting up in the chair. VITAL SIGNS: T-max is 99.2. Telemetry shows sinus rhythm, sinus tachycardia, heart rate in the 90s, low 100s, 74, 72. Blood pressure was 173/91, 169/93, 188/89, 156/105, 156/90, 135/82. Respirations 18. O2 sat 93%. HEAD: Normocephalic, atraumatic. HEENT: Shows pinkish pale conjunctivae. Dry oral mucosa. NECK: No neck rigidity. CHEST: Kyphosis. LUNGS: Shows positive rhonchi, crepitus, crackles bilaterally; more pronounced at the base. ABDOMEN: Distended and obese. Positive bowel sounds. GENITALIA: Male. RECTAL: Deferred. EXTREMITIES: Shows 2+ pitting edema of the lower extremity. MUSCULOSKELETAL: Shows a body mass index of 34. NEUROLOGIC: Cranial nerves II-XII limited. Gait examination could not be tested. The patient is sitting up in the wheelchair. LABORATORY DATA: CBC shows WBC 8.4, hemoglobin and hematocrit 9.9 and 29.3, platelets 231. Reticulocyte 1.34. Sodium 140, potassium 4.1, chloride 109, CO2 24, anion gap 11, BUN 64, and creatinine 3.0. GFR of 26. Glucose 113, 166, 139, calcium 8.7, phosphorous 6.0, iron 45, TIBC 268, and saturation 17. AST is 67 from admission AST of 22. ALT is 57 from 35. Urine pH 6.0, specific gravity 1.225, protein greater than 300, and blood moderate. Blood cultures, Staph aureus coagulase negative. Chest x-ray on admission and from 04/12/2017 reviewed. Echocardiogram reviewed. IMPRESSION AND PLAN: 1. Bibasilar healthcare-associated pneumonia, atelectasis with bronchiectasis. 2. Questionable congestive heart failure. 3. Chronic kidney disease stage IIIB/IV. 4. Nephrotic syndrome with membranous nephropathy. 5. Hypertensive chronic kidney disease. 6. Questionable sepsis. 7. Sinus tachycardia. 8. Hypertension. 9. Hypoxemia. 10. Staphylococcus coagulase-negative bacteremia. 11. Normocytic anemia with granulocytosis. 12. Uncontrolled type I insulin requiring diabetes mellitus with hemoglobin A1c of 7.5. 13. Hyperphosphatemia. 14. Iron deficiency with anemia of chronic disease. 15. Transaminitis. 16. Hypertriglyceridemia and hypercholesterolemia with elevated LDL. 17. Questionable and possible volume overload versus. 18. Hypertensive cardiovascular disease. 19. Moderate aortic valvular stenosis. 20. Mild tricuspid regurgitation with right ventricular systolic pressure of 34 mmHg. 21. Concentric left ventricular hypertrophy. 22. Inferolateral coronary ischemia. 23. Proteinuria. 24. Microscopic hematuria. The patient has been ordered iron studies. We have ordered CMP, LFTs, magnesium, phosphorous, ESR, CBC ordered. Repeat blood cultures ordered. Current consultation of Infectious Disease, Nephrology, and Cardiology. The patient is on Xopenex and Mucomyst nebulizer. The patient is currently on hydralazine 25 q.i.d., Bumex 3 mg twice a day, Cozaar 50 mg daily, doxycycline 100 mg p.o. q.12 hours, Ecotrin 81 mg daily, folic acid 1 mg daily, Humulin low dose sliding scale coverage before meals and bedtime, IV Venofer started 200 mg daily 3 doses, Levemir 20 units twice a day, Lipitor 20 mg daily, Lopressor 5 mg IV q.6 hours p.r.n. cefepime 1 g IV q.24 hours, Mepron 750 mg twice a day, PhosLo 667 mg with meals, Plavix 75 mg daily, prednisone 10 mg every other day, Protonix 40 mg daily. The patient is on sodium bicarbonate 1300 mg twice a day, Toprol XL 50 mg, vitamin D 5000 units Tuesday, Tuesday, and Tuesday, and Xopenex 0.63 every 6 hours. The patient has been ordered ultrasound of the abdomen for the evaluation of transaminitis. CT chest, abdomen, and pelvis has been ordered for evaluation anemia and bacteremia. Chest PT. Incentive spirometry. Renal diet. Stool for occult blood ordered. At present, the patient's medications will be adjusted and titrated depending upon the patient's hemodynamics, clinical examination, and the patient's condition. The patient is presently undergoing stress test, which will be reviewed, when available. Dictated and electronically signed, not read. Kobe Prince MD
--- NOTE | 2017-04-12 16:05 | PN ---
DATE: 04/12/2017 REASON FOR CONSULTATION: Followup cardiac evaluation, 8 beats of VT, admitted with pneumonia, coronary artery disease and noncompliance to the medication. SUBJECTIVE: The patient denies any chest pain, any palpitation, mild shortness of breath, improving. OBJECTIVE: GENERAL: Lying flat on the bed. He is scheduled for a stress test today. VITAL SIGNS: Temperature afebrile, heart rate 64, blood pressure 157/79. HEENT: PERRLA. Extraocular muscles intact. NECK: Supple. No carotid bruits or thyromegaly. CHEST: Clear to auscultation. Air entry decreased at both bases. HEART: S1 and S2 regular. ABDOMEN: Soft. EXTREMITIES: Clubbing and cyanosis negative. Chest x-ray resolution of patchy infiltrate bilateral. LABORATORY DATA: Blood workup as follows; WBC 8.4, hemoglobin 9.8. hematocrit 29.3, platelet count 231. Chemistry shows sodium 140, potassium 4.2, chloride 109, carbon dioxide 24, anion gap of 11, BUN 64, creatinine 3. IMPRESSION: A 56-year-old male, noncompliant with the medication, admitted with bilateral pneumonia, history of coronary artery disease, status post stent 12 years ago. history of chronic kidney disease, acute on chronic renal insufficiency, hypertension, diabetes, noncompliance with medication. No evidence of acute myocardial infarction, hypertension, hyperlipidemia, anemia of the chronic disease. Admitted with bilateral pneumonia. Echo yesterday was done that showed ejection fraction 55%-60%, trace aortic regurgitation, [id number], aortic estimated valve area 1.4 cm2, mild mitral regurgitation, mild tricuspid regurgitation, systolic pressure 34. RECOMMENDATIONS: For risk stratification, we will do the stress test today even it is positive, at least we will get an idea how much this can be burdened. If the patient's stress test shows abnormality, we will hold the cardiac catheterization because of the acute on chronic renal insufficiency, but we will monitor closely. Aggressively treat pneumonia, insisted weight reduction, aggressive control of diabetes and hypertension. Lifestyle modification, risk factors and compliance with the medication is warranted. Monitor renal function closely. We will follow with you. In the interim, continue baby aspirin, continue losartan, continue metoprolol. We will follow with you. I will do a stress test today, further recommendation after the stress test. As mentioned, if the stress test is positive, but is not a significant ischemic burden,then will avoid cardiac catheterization because the patient has acute on chronic renal insufficiency, creatinine clearance was 20 mL like stage IV to V chronic kidney disease. We will hold off the catheterization if needed and remains asymptomatic because cardiac catheterization can throw the patient into acute renal failure and may need the dialysis. We will follow closely and monitor and follow the stress test. Further recommendation will be after the stress test. Wanda Chowdhury MD
--- NOTE | 2017-04-12 16:14 | CARD ---
APPROVED REPORT Protocol: LEXISCAN Test Type: Lexiscan Sestamibi Stress Test Attending Physician: Dr. Wanda Chowdhury Referring Physician: Dr. Kobe Prince Test Indications: Chest Pain Height:6 ft 0 in Weight:257lbs Medications: Aspirin, Lipitor, Mepron, Bumex, Maxipime, Plavix, Doryx, Folic Acid, Apresoline, Insulin, Xopenex, Cozaar, Toprol, Prednisone, Sodium Bicarb Medical History: 56 y/o male with a history of diabetes, htn, hyperlipidemia, former smoerk, s/p PTCA Target HR: 162 bpm Resting ECG: normal Resting Heart Rate: 64 bpm Resting Blood Pressure: 160/82mmHg Submaximum (85%): 138 bpm PROCEDURE Pharmacologic stress testing was performed using 0.4mg per 5ml of regadenoson given intravenously over 7-10 seconds. Reversal agent aminophyline 100 mg, given intravenously for Dyspnea. POST EXERCISE Reason for Termination: Protocol completed Target HR: No Max HR: 100 bpm 67% of Maximum Predicted HR: 162 bpm Exercise duration: 02:00 min:sec, 0 Stage Exercise capacity: 1.0METs Max Blood Pressure: 160/82mmHg Blood Pressure response to exercise: normal resting BP - appropriate response Heart Rate response to exercise: appropriate Chest Pain: No, none Angina index: 0 Arrhythmia: Yes, ventricular premature beats, occ ST Change: No, none Deviation: 0 mm INTERPRETATION Stress EKG Conclusion: Negative IV Lexiscan , nuclear scan to follow. Signed by Wanda Chowdhury Electronically Approved: 04/12/2017 11:05:59 EXAM: Myocardial Perfusion REST/STRESS Stress Test Type: Pharmacologic Imaging Protocol Rest Spect myocardial perfusion imaging was performed in supine position 45 minutes following the injection of 10.6 mCi of Tc-99 Myoview. At peak stress, the patient was injected intravenously with 30.7mCi of Tc-99 tetrofosmin after an infusion time of 0 minutes and 10 seconds. Gated Stress Spect was performed 80 minutes after intravenous Tc-99 Myoview injection. The images were gated to evaluate regional wall motion and calculate ventricular ejection fraction.Images were reconstructed using backfilter projection method in short horizontal and verticle long axis. Spect slices were generated. LV Perfusion The quality of the study is good. The left ventricle is mildly enlarged in size with thickened myocardium. The right ventricle is unremarkable. The lung uptake is normal. The distribution of tracer reveals moderately and diffusely decreased perfusion in the inferior wall on the stress study. The remainder of the LV myocardium is unremarkable. The rest myocardial perfusion study shows no significant change. Wall Motion Wall motion study shows good contractility of the left ventricle. LVEF = 59%. Conclusion 1. Essentially normal SPECT myocardial perfusion study. 2. Fixed, inferior defect is most likely due to diaphrgmatic attenuation. 3. Normal gated wall motion and thicknening of the left ventricle.
[2017-04-13] MEDS: Acetylcysteine 20% Inhal Soln (4ml) IH SCH ×5 (01:20→23:42)
[2017-04-13] MEDS: Levalbuterol 0.63 MG/3 ML Inhal Soln UD IH SCH ×4 (02:00→20:26)
[2017-04-13] MEDS: Pantoprazole 40 mg EC Tab PO SCH (05:18)
[2017-04-13 05:58] VITALS: O2SAT 95
[2017-04-13 06:51] LABS: HEMATOCRIT 27.2 % (42.0-52.0); MEAN CELL VOLUME 91.6 fl (80.0-105.0); MEAN CORPUSCULAR HEMOGLOBIN 31.3 pg (25.0-35.0); MEAN CORPUSCULAR HGB CONC 34.2 g/dl (31.0-37.0); RED CELL DISTRIBUTION WIDTH 12.2 % (11.5-14.5); WHITE BLOOD COUNT 6.9 10^3/ul (4.5-11.0)
--- NOTE | 2017-04-13 06:59 | CP.PCM.PN ---
<Giovana Esteban - Last Filed: 04/13/17 10:29> Subjective - Date & Time of Evaluation Date of Evaluation: 04/13/17 Time of Evaluation: 06:51 - Subjective Subjective: Medicine Progress Note for Dima Bonilla PGY2 Patient seen and examined at bedside. As per nursing, there were no acute overnight events. He reports his SOB has improved, but still has a cough. Patient also complains of constipation. He denies CP, n/v/d, numbness/tingling, palpitations, fever or chills. Objective - Vital Signs/Intake and Output Vital Signs (last 24 hours): Temp Pulse Resp BP Pulse Ox 97.6 F 94 H 18 153/86 H 95 04/13/17 05:57 04/13/17 05:57 04/13/17 05:57 04/13/17 05:57 04/13/17 05:57 Intake and Output: 04/12/17 04/13/17 18:59 06:59 Intake Total 540 Output Total 2 Balance 538 - Medications Medications: Current Medications Acetylcysteine (Acetylcysteine 20%) 4 ml IH [id number] [facility] Last Admin: 04/13/17 01:20 Dose: Not Given Aspirin (Ecotrin) 81 mg PO DAILY [facility] Last Admin: 04/12/17 11:26 Dose: 81 mg Atorvastatin Calcium (Lipitor) 20 mg PO DIN [facility] Last Admin: 04/12/17 17:57 Dose: 20 mg Atovaquone (Mepron) 750 mg PO BID [facility] Stop: 04/19/17 18:01 Last Admin: 04/12/17 17:58 Dose: 750 mg Bumetanide (Bumex) 3 mg PO BID [facility] Last Admin: 04/12/17 17:57 Dose: 3 mg Calcium Acetate (Phoslo) 667 mg PO WM [facility] Last Admin: 04/12/17 17:57 Dose: 667 mg Cholecalciferol (Vitamin D) 5,000 iu PO MWF [facility] Last Admin: 04/11/17 09:29 Dose: 5,000 iu Clopidogrel Bisulfate (Plavix) 75 mg PO DAILY [facility] Last Admin: 04/12/17 11:24 Dose: 75 mg Doxycycline Hyclate (Doryx) 100 mg PO Q12 [facility] PRN Reason: Protocol Stop: 04/19/17 22:01 Last Admin: 04/12/17 22:05 Dose: 100 mg Folic Acid (Folic Acid) 1 mg PO DAILY [facility] Last Admin: 04/12/17 11:23 Dose: 1 mg Hydralazine HCl (Apresoline) 25 mg PO QID [facility] Last Admin: 04/12/17 22:04 Dose: 25 mg Cefepime HCl (Maxipime 1gm) 1 gm in 100 mls @ 100 mls/hr IVPB Q24H [facility] PRN Reason: Protocol Stop: 04/19/17 10:31 Last Admin: 04/12/17 11:23 Dose: 100 mls/hr Iron Sucrose 200 mg/ Sodium (Chloride) 110 mls @ 110 mls/hr IVPB DAILY [facility] Stop: 04/14/17 10:59 Last Admin: 04/12/17 14:37 Dose: 110 mls/hr Insulin Detemir (Levemir) 20 unit SC AMHS [facility] Last Admin: 04/12/17 22:04 Dose: 20 unit Insulin Human Regular (Humulin R Low) 0 units SC ACHS [facility] PRN Reason: Protocol Last Admin: 04/12/17 22:05 Dose: Not Given Levalbuterol HCl (Xopenex) 0.63 mg IH [id number] [facility] Last Admin: 04/12/17 20:13 Dose: 0.63 mg Levalbuterol HCl (Xopenex) 0.63 mg IH Q2H PRN PRN Reason: Shortness of Breath Last Admin: 04/12/17 23:55 Dose: 0.63 mg Losartan Potassium (Cozaar) 100 mg PO DAILY [facility] Metoprolol Succinate (Toprol Xl) 50 mg PO DAILY [facility] Last Admin: 04/12/17 11:23 Dose: 50 mg Metoprolol Tartrate (Lopressor) 5 mg IVP Q6H PRN PRN Reason: Systolic Blood Pressure Last Admin: 04/11/17 06:21 Dose: 5 mg Pantoprazole Sodium (Protonix Ec Tab) 40 mg PO 0600 [facility] Last Admin: 04/13/17 05:18 Dose: 40 mg Prednisone (Prednisone Tab) 10 mg PO QOTHERDAY [facility] Last Admin: 04/12/17 11:26 Dose: 10 mg Sodium Bicarbonate (Sodium Bicarbonate Tab) 1,300 mg PO BID [facility] Last Admin: 04/12/17 17:57 Dose: 1,300 mg Sodium Polystyrene Sulfonate (Kayexalate Oral Susp) 15 gm PO QOTHERDAY [facility] Last Admin: 04/11/17 09:33 Dose: 15 gm - Labs Labs: 04/12/17 06:50 04/12/17 06:50 PT 10.5 Seconds (9.9-11.8) 04/09/17 15:00 INR 0.97 (0.93-1.08) 04/09/17 15:00 APTT 27.4 Seconds (23.7-30.8) 04/09/17 15:00 - Constitutional Appears: No Acute Distress - Head Exam Head Exam: ATRAUMATIC, NORMAL INSPECTION, NORMOCEPHALIC - Eye Exam Eye Exam: Normal appearance, PERRL Pupil Exam: NORMAL ACCOMODATION, PERRL - ENT Exam ENT Exam: Mucous Membranes Moist - Neck Exam Neck Exam: Full ROM - Respiratory Exam Respiratory Exam: Rales, Rhonchi, NORMAL BREATHING PATTERN. absent: Clear to Ausculation Bilateral - Cardiovascular Exam Cardiovascular Exam: Tachycardia, REGULAR RHYTHM, +S1, +S2. absent: Gallop, Rubs, Murmur - GI/Abdominal Exam GI & Abdominal Exam: Soft, Normal Bowel Sounds. absent: Rigid, Tenderness, Mass , Rebound - Extremities Exam Extremities Exam: Pedal Edema. absent: Calf Tenderness - Neurological Exam Neurological Exam: Alert, Awake, CN II-XII Intact, Oriented x3 - Psychiatric Exam Psychiatric exam: Normal Affect, Normal Mood - Skin Skin Exam: Dry, Intact, Normal Color, Warm Assessment and Plan - Assessment and Plan (Free Text) Assessment: This is a 56Y M with PMH of DM, HTN, CKD, CAD and immune deficiency admitted for SOB secondary to pneumonia. Patient also noted to have episode of V.tach a few days ago. Plan: 1. Pneumonia- improving - Afebrile, no leukocytosis - CT chest showed bronchitis/early pneumonia - Legionella negative - Continue Atovaquone, Cefepime and Doxy - ID Consulted- recs appreciated - Continue Xopenex, Mucomyst - Continue supplemental O2, Maintain spo2>90 2. Positive blood culture - second BC positive for staph- most likely contamination - repeat BC pending, repeat septic work up - CT chest/abd/pelvis positive for bronchitis/early pneumonia - ID consulted- recs appreciated - ESR elevated 3. Anemia - Hgb: 9.3 - Iron studies showed anemia of chronic disease - B12, Folate normal, EPO pending - Continue Folic Acid - no overt signs of bleeding - stool for occult blood - Venofer x 2 more days 4. Vtach - 8 beats a few days ago - no more episodes thus far - Stress test was negative - Cardio consulted- recs appreciated - Continue Toprol, Lipitor, ASA - Echo showed EF 55-60%, mild- mod aortic stenosis, Mild MR, TR 5. Transaminitis - resolved - Hep panel pending - GI consulted - CT abd/pelvis did not show any abnormalities - Abd U/S showed hepatomegaly with hepatic steatosis 6. CKD - Cr: 3.2 - secondary to membranous nephropathy seen on previous Bx - Nephro consulted- recs appreciated - Continue Prednisone every other day - Continue sodium bicarb, Phoslo - No NSAIDs as per nephro - Bumex and kayexylate d/c - Lasix 40q8h added for edema 7. CAD - Continue ASA, Plavix, Lipitor - Cardio consulted- recs appreciated - Cardio recommended diet and exercise - Stress test normal 8. HTN - Continue Toprol, Hydralazine - Cozaar increased - Lopressor Prn - Lasix 40q8h added 9. DM - Levemir 30U AM, 20U HS - BGM ACHS - ISS - HgbA1c 7.5 10. Vit D deficiency - Continue Vit D Gi ppx: Protonix DVT ppx: SCDs Dispo: Patient will need repeat blood cultures. He will be d/c home and follow up with Dr. Prince as outpatient. Case seen, discussed and reviewed with attending. Dima Esteban PGY2 <Kobe Prince U - Last Filed: 05/11/17 21:17> Objective - Vital Signs/Intake and Output Vital Signs (last 24 hours): Temp Pulse Resp BP Pulse Ox 97.8 F 94 H 20 124/79 95 04/14/17 12:00 04/14/17 12:00 04/14/17 12:00 04/14/17 12:00 04/14/17 06:00 - Labs Labs: 04/14/17 06:30 04/14/17 06:30 PT 10.5 Seconds (9.9-11.8) 04/09/17 15:00 INR 0.97 (0.93-1.08) 04/09/17 15:00 APTT 27.4 Seconds (23.7-30.8) 04/09/17 15:00 Attending/Attestation - Attestation I have personally seen and examined this patient.: Yes I have fully participated in the care of the patient.: Yes I have reviewed all pertinent clinical information, including history, physical exam and plan: Yes
[2017-04-13 07:15] LABS: BILIRUBIN,DIRECT 0.2 mg/dL (0.0-0.4); BILIRUBIN,TOTAL 0.2 mg/dL (0.2-1.3); CALCIUM 8.3 mg/dL (8.4-10.5); MAGNESIUM 1.8 mg/dL (1.7-2.2); PHOSPHOROUS 6.9 mg/dL (2.5-4.5); POTASSIUM 3.7 mmol/L (3.6-5.0); TOTAL PROTEIN 5.9 g/dL (5.8-8.3)
--- NOTE | 2017-04-13 08:47 | CP.PCM.PN ---
<Josesito Shoemakeriha - Last Filed: 04/13/17 11:19> Subjective - Date & Time of Evaluation Date of Evaluation: 04/13/17 Time of Evaluation: 08:44 - Subjective Subjective: PGY-2 Nephrology progress note for Dr. Moses Patient seen and examined at bedside. No acute distress. Patient states he fell mildly better. He reports improvement with cough and sob. He denies chest pain , fever, chills, abd pain, n/v, dysuria. Objective - Vital Signs/Intake and Output Vital Signs (last 24 hours): Temp Pulse Resp BP Pulse Ox 97.6 F 94 H 18 153/86 H 95 04/13/17 05:57 04/13/17 05:57 04/13/17 05:57 04/13/17 05:57 04/13/17 05:57 Intake and Output: 04/13/17 04/13/17 06:59 18:59 Intake Total 540 Output Total 2 Balance 538 - Medications Medications: Current Medications Acetylcysteine (Acetylcysteine 20%) 4 ml IH [id number] [facility] Last Admin: 04/13/17 07:40 Dose: 4 ml Aspirin (Ecotrin) 81 mg PO DAILY [facility] Last Admin: 04/12/17 11:26 Dose: 81 mg Atorvastatin Calcium (Lipitor) 20 mg PO DIN [facility] Last Admin: 04/12/17 17:57 Dose: 20 mg Atovaquone (Mepron) 750 mg PO BID [facility] Stop: 04/19/17 18:01 Last Admin: 04/12/17 17:58 Dose: 750 mg Bumetanide (Bumex) 3 mg PO BID [facility] Last Admin: 04/12/17 17:57 Dose: 3 mg Calcium Acetate (Phoslo) 667 mg PO WM [facility] Last Admin: 04/12/17 17:57 Dose: 667 mg Cholecalciferol (Vitamin D) 5,000 iu PO MWF [facility] Last Admin: 04/11/17 09:29 Dose: 5,000 iu Clopidogrel Bisulfate (Plavix) 75 mg PO DAILY [facility] Last Admin: 04/12/17 11:24 Dose: 75 mg Doxycycline Hyclate (Doryx) 100 mg PO Q12 [facility] PRN Reason: Protocol Stop: 04/19/17 22:01 Last Admin: 04/12/17 22:05 Dose: 100 mg Folic Acid (Folic Acid) 1 mg PO DAILY [facility] Last Admin: 04/12/17 11:23 Dose: 1 mg Hydralazine HCl (Apresoline) 25 mg PO QID [facility] Last Admin: 04/12/17 22:04 Dose: 25 mg Cefepime HCl (Maxipime 1gm) 1 gm in 100 mls @ 100 mls/hr IVPB Q24H [facility] PRN Reason: Protocol Stop: 04/19/17 10:31 Last Admin: 04/12/17 11:23 Dose: 100 mls/hr Iron Sucrose 200 mg/ Sodium (Chloride) 110 mls @ 110 mls/hr IVPB DAILY [facility] Stop: 04/14/17 10:59 Last Admin: 04/12/17 14:37 Dose: 110 mls/hr Insulin Detemir (Levemir) 20 unit SC AMHS [facility] Last Admin: 04/12/17 22:04 Dose: 20 unit Insulin Human Regular (Humulin R Low) 0 units SC [facility] PRN Reason: Protocol Last Admin: 04/12/17 22:05 Dose: Not Given Levalbuterol HCl (Xopenex) 0.63 mg IH [id number] [facility] Last Admin: 04/13/17 07:40 Dose: 0.63 mg Levalbuterol HCl (Xopenex) 0.63 mg IH Q2H PRN PRN Reason: Shortness of Breath Last Admin: 04/12/17 23:55 Dose: 0.63 mg Losartan Potassium (Cozaar) 100 mg PO DAILY [facility] Metoprolol Succinate (Toprol Xl) 50 mg PO DAILY [facility] Last Admin: 04/12/17 11:23 Dose: 50 mg Metoprolol Tartrate (Lopressor) 5 mg IVP Q6H PRN PRN Reason: Systolic Blood Pressure Last Admin: 04/11/17 06:21 Dose: 5 mg Pantoprazole Sodium (Protonix Ec Tab) 40 mg PO 0600 [facility] Last Admin: 04/13/17 05:18 Dose: 40 mg Prednisone (Prednisone Tab) 10 mg PO QOTHERDAY [facility] Last Admin: 04/12/17 11:26 Dose: 10 mg Sodium Bicarbonate (Sodium Bicarbonate Tab) 1,300 mg PO BID [facility] Last Admin: 04/12/17 17:57 Dose: 1,300 mg Sodium Polystyrene Sulfonate (Kayexalate Oral Susp) 15 gm PO QOTHERDAY [facility] Last Admin: 04/11/17 09:33 Dose: 15 gm - Labs Labs: 04/13/17 06:15 04/13/17 06:15 PT 10.5 Seconds (9.9-11.8) 04/09/17 15:00 INR 0.97 (0.93-1.08) 04/09/17 15:00 APTT 27.4 Seconds (23.7-30.8) 04/09/17 15:00 - Constitutional Appears: Well, No Acute Distress - Head Exam Head Exam: ATRAUMATIC, NORMOCEPHALIC - Eye Exam Eye Exam: Normal appearance - ENT Exam ENT Exam: Mucous Membranes Moist - Respiratory Exam Respiratory Exam: Rales, Rhonchi (bilateral bases ), NORMAL BREATHING PATTERN. absent: Decreased Breath Sounds, Wheezes, Respiratory Distress - Cardiovascular Exam Cardiovascular Exam: REGULAR RHYTHM, +S1, +S2. absent: Tachycardia, Murmur - GI/Abdominal Exam GI & Abdominal Exam: Soft, Normal Bowel Sounds. absent: Distended, Firm, Tenderness - Extremities Exam Additional comments: +1 pitting edema bilateral LE - Back Exam Back Exam: NORMAL INSPECTION. 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 Plan: 1. CKD stage IIIB - cr mildly elevtaed - metabolic acidosis improved - cont sodium bicarb - renal duplex showed patent main renal veins bilateral - cont to monitor renal function - avoid NSAIDs 2. 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 - cont to hold cyclosporin from 160mg q12 - cont prednisone 10mg every other day 3. HTN - BP elevated - cont bumex to 3mg BID - cont home medications of metoprolol XL 50mg daily - losartan increased to 100mg daily - cont hydralazine 25mg BID PO 4. nephrotic syndrome - cont lorsartan 50 daily - cont kayexalate every other day to maintain potassium level 5. CKD mineral bone disease - cont with sodium bicarb 650 2 tabs bid 6. anemia 2/2 CKD - mildly decreased - cont to monitor 7. PNE - cont abx, ceftriaxone and azithromycin, no renal dosage required - ID following - cxr from yesterday showed improvement of bibasilar infiltrates <Stu Moses - Last Filed: 04/13/17 19:39> Objective - Vital Signs/Intake and Output Vital Signs (last 24 hours): Temp Pulse Resp BP Pulse Ox 98 F 66 19 157/84 H 95 04/13/17 16:48 04/13/17 16:48 04/13/17 16:48 04/13/17 16:48 04/13/17 05:57 Intake and Output: 04/13/17 04/14/17 18:59 06:59 Intake Total 900 Output Total 402 Balance 498 - Medications Medications: Current Medications Acetylcysteine (Acetylcysteine 20%) 4 ml IH [id number] [facility] Last Admin: 04/13/17 13:21 Dose: 4 ml Aspirin (Ecotrin) 81 mg PO DAILY [facility] Last Admin: 04/13/17 09:57 Dose: 81 mg Atorvastatin Calcium (Lipitor) 20 mg PO DIN [facility] Last Admin: 04/13/17 17:54 Dose: 20 mg Atovaquone (Mepron) 750 mg PO BID [facility] Stop: 04/19/17 18:01 Last Admin: 04/13/17 17:54 Dose: 750 mg Calcium Acetate (Phoslo) 1,334 mg PO WM [facility] Cholecalciferol (Vitamin D) 5,000 iu PO MWF [facility] Last Admin: 04/13/17 09:57 Dose: 5,000 iu Clopidogrel Bisulfate (Plavix) 75 mg PO DAILY [facility] Last Admin: 04/13/17 09:56 Dose: 75 mg Docusate Sodium (Colace) 100 mg PO DAILY [facility] Last Admin: 04/13/17 09:57 Dose: 100 mg Doxycycline Hyclate (Doryx) 100 mg PO Q12 [facility] PRN Reason: Protocol Stop: 04/19/17 22:01 Last Admin: 04/13/17 10:24 Dose: 100 mg Folic Acid (Folic Acid) 1 mg PO DAILY [facility] Last Admin: 04/13/17 10:24 Dose: 1 mg Furosemide (Lasix) 40 mg IVP Q8 [facility] Last Admin: 04/13/17 15:30 Dose: 40 mg Hydralazine HCl (Apresoline) 25 mg PO QID [facility] Last Admin: 04/13/17 17:54 Dose: 25 mg Cefepime HCl (Maxipime 1gm) 1 gm in 100 mls @ 100 mls/hr IVPB Q24H [facility] PRN Reason: Protocol Stop: 04/19/17 10:31 Last Admin: 04/13/17 10:06 Dose: 100 mls/hr Iron Sucrose 200 mg/ Sodium (Chloride) 110 mls @ 110 mls/hr IVPB DAILY [facility] Stop: 04/14/17 10:59 Last Admin: 04/13/17 09:58 Dose: 110 mls/hr Insulin Detemir (Levemir) 30 unit SC QAM [facility] Last Admin: 04/13/17 10:56 Dose: 30 unit Insulin Detemir (Levemir) 20 unit SC HS [facility] Insulin Human Regular (Humulin R Low) 0 units SC ACHS [facility] PRN Reason: Protocol Last Admin: 04/13/17 17:57 Dose: 3 units Levalbuterol HCl (Xopenex) 0.63 mg IH [id number] [facility] Last Admin: 04/13/17 13:21 Dose: 0.63 mg Levalbuterol HCl (Xopenex) 0.63 mg IH Q2H PRN PRN Reason: Shortness of Breath Last Admin: 04/12/17 23:55 Dose: 0.63 mg Losartan Potassium (Cozaar) 50 mg PO DAILY [facility] Metoprolol Succinate (Toprol Xl) 50 mg PO DAILY [facility] Last Admin: 04/13/17 09:57 Dose: 50 mg Metoprolol Tartrate (Lopressor) 5 mg IVP Q6H PRN PRN Reason: Systolic Blood Pressure Last Admin: 04/11/17 06:21 Dose: 5 mg Pantoprazole Sodium (Protonix Ec Tab) 40 mg PO 0600 [facility] Last Admin: 04/13/17 05:18 Dose: 40 mg Polyethylene Glycol (Miralax) 17 gm PO BID [facility] Last Admin: 04/13/17 17:54 Dose: 17 gm Prednisone (Prednisone Tab) 10 mg PO QOTHERDAY [facility] Last Admin: 04/12/17 11:26 Dose: 10 mg Sodium Bicarbonate (Sodium Bicarbonate Tab) 1,300 mg PO BID [facility] Last Admin: 04/13/17 17:54 Dose: 1,300 mg - Labs Labs: 04/13/17 06:15 04/13/17 06:15 PT 10.5 Seconds (9.9-11.8) 04/09/17 15:00 INR 0.97 (0.93-1.08) 04/09/17 15:00 APTT 27.4 Seconds (23.7-30.8) 04/09/17 15:00 Attending/Attestation - Attestation I have personally seen and examined this patient.: Yes I have fully participated in the care of the patient.: Yes I have reviewed all pertinent clinical information, including history, physical exam and plan: Yes Notes (Text): Patient seen and examined; I agree with the resident's note as above with the following additions/edits: 56 yo M being managed by our outpatient nephrology service for membranous nephropathy and advanced CKD, admitted for PNA; nephrology following for CKD management; Patient with rhonchi bilaterally on exam but in no resp distress; lower ext edema is stable; CKD IV with renal function relatively stable; stable electrolyte status, kayexalate stopped; patient and his confirm gross dietary indiscretion as outpatient, likely explains why able to control K inpatient without need for kayexalate; patient counseled in this regard as he is on meds that will further pre-dispose to hyperkalemia; Hypertensive CKD; volume status relatively stable with BP control improved ( although not yet at goal); IMPORTANT NOT TO PUSH PATIENT INTO FURTHER RENAL FAILURE WITH AGGRESSIVE DIURESIS AND INCREASED WILLI BLOCKADE; patient will need to tolerate some degree of lower ext edema in this regard; will decrease losartan back to 50 mg daily (note that losartan dose wasn't charted yesterday) ; Regarding membranous nephropathy w/ nephrotic syndrome, cyclosporine was started in January with modest improvement in proteinuria from 9 g to 6 g; will need to restart as outpatient which will further increase serum creatinine; meds need to be balanced carefully with goal toward preserving renal function and temporarily holding off need for hemodialysis which will likely be needed within the next 6 mo to 1 yr; discussion already underway with patient regarding transplantation and HD; Renal function worsening since past year no other etiology apparent; normal complements essentially rule out any immune complex mediated process; CKD mineral bone disease with mild secondary hyperparathyroidism per levels earlier this month; phos elevated, increasing phoslo to 2 tabs; Anemia of CKD as well as iron deficiency; on IV iron, GI consulted for colonoscopy; we will start EPO once BP controlled; 04/13/17 19:37
[2017-04-13] MEDS: Insulin Reg-LOW-Coverage SC SCH ×4 (08:49→22:02)
[2017-04-13] MEDS: Metoprolol Succinate 50 mg XL Tab PO SCH (09:57)
[2017-04-13] MEDS: POLYETHYLENE GLYCOL 3350 17 GM/Dose PACKET PO SCH ×2 (09:57→17:54)
[2017-04-13] MEDS: Atovaquone 750 mg/5 ml Susp UD PO SCH ×2 (09:58→17:54)
[2017-04-13] MEDS: Sod Polystyrene Sulf 15 gm/60 ml Oral Susp PO SCH (10:05)
[2017-04-13] MEDS: Cefepime 1gm in NS 100ml 1 GM/100 ML BAG IVPB SCH (10:06)
[2017-04-13] MEDS: Insulin Detemir 100 units/ml Vial (Levemir) SC SCH (10:56)
--- NOTE | 2017-04-13 12:00 | CP.PCM.PN ---
Subjective - Date & Time of Evaluation Date of Evaluation: 04/13/17 Time of Evaluation: 09:55 - Subjective Subjective: Patient is feeling better, has less cough, no fevers overnight, no nausea, no SOB at rest. Objective - Vital Signs/Intake and Output Vital Signs (last 24 hours): Temp Pulse Resp BP Pulse Ox 97.6 F 94 H 18 153/86 H 95 04/13/17 05:57 04/13/17 05:57 04/13/17 05:57 04/13/17 10:14 04/13/17 05:57 Intake and Output: 04/13/17 04/13/17 06:59 18:59 Intake Total 540 Output Total 2 Balance 538 - Medications Medications: Current Medications Acetylcysteine (Acetylcysteine 20%) 4 ml IH [id number] [facility] Last Admin: 04/13/17 07:40 Dose: 4 ml Aspirin (Ecotrin) 81 mg PO DAILY [facility] Last Admin: 04/13/17 09:57 Dose: 81 mg Atorvastatin Calcium (Lipitor) 20 mg PO DIN [facility] Last Admin: 04/12/17 17:57 Dose: 20 mg Atovaquone (Mepron) 750 mg PO BID [facility] Stop: 04/19/17 18:01 Last Admin: 04/13/17 09:58 Dose: 750 mg Calcium Acetate (Phoslo) 667 mg PO WM [facility] Last Admin: 04/13/17 09:01 Dose: 667 mg Cholecalciferol (Vitamin D) 5,000 iu PO MWF [facility] Last Admin: 04/13/17 09:57 Dose: 5,000 iu Clopidogrel Bisulfate (Plavix) 75 mg PO DAILY [facility] Last Admin: 04/13/17 09:56 Dose: 75 mg Docusate Sodium (Colace) 100 mg PO DAILY [facility] Last Admin: 04/13/17 09:57 Dose: 100 mg Doxycycline Hyclate (Doryx) 100 mg PO Q12 [facility] PRN Reason: Protocol Stop: 04/19/17 22:01 Last Admin: 04/13/17 10:24 Dose: 100 mg Folic Acid (Folic Acid) 1 mg PO DAILY [facility] Last Admin: 04/13/17 10:24 Dose: 1 mg Furosemide (Lasix) 40 mg IVP Q8 [facility] Last Admin: 04/13/17 10:14 Dose: 40 mg Hydralazine HCl (Apresoline) 25 mg PO QID [facility] Last Admin: 04/13/17 10:24 Dose: 25 mg Cefepime HCl (Maxipime 1gm) 1 gm in 100 mls @ 100 mls/hr IVPB Q24H [facility] PRN Reason: Protocol Stop: 04/19/17 10:31 Last Admin: 04/13/17 10:06 Dose: 100 mls/hr Iron Sucrose 200 mg/ Sodium (Chloride) 110 mls @ 110 mls/hr IVPB DAILY [facility] Stop: 04/14/17 10:59 Last Admin: 04/13/17 09:58 Dose: 110 mls/hr Insulin Detemir (Levemir) 30 unit SC QAM [facility] Last Admin: 04/13/17 10:56 Dose: 30 unit Insulin Detemir (Levemir) 20 unit SC HS [facility] Insulin Human Regular (Humulin R Low) 0 units SC ACHS [facility] PRN Reason: Protocol Last Admin: 04/13/17 08:49 Dose: Not Given Levalbuterol HCl (Xopenex) 0.63 mg IH [id number] [facility] Last Admin: 04/13/17 07:40 Dose: 0.63 mg Levalbuterol HCl (Xopenex) 0.63 mg IH Q2H PRN PRN Reason: Shortness of Breath Last Admin: 04/12/17 23:55 Dose: 0.63 mg Losartan Potassium (Cozaar) 100 mg PO DAILY [facility] Last Admin: 04/13/17 09:57 Dose: 100 mg Metoprolol Succinate (Toprol Xl) 50 mg PO DAILY [facility] Last Admin: 04/13/17 09:57 Dose: 50 mg Metoprolol Tartrate (Lopressor) 5 mg IVP Q6H PRN PRN Reason: Systolic Blood Pressure Last Admin: 04/11/17 06:21 Dose: 5 mg Pantoprazole Sodium (Protonix Ec Tab) 40 mg PO 0600 [facility] Last Admin: 04/13/17 05:18 Dose: 40 mg Polyethylene Glycol (Miralax) 17 gm PO BID [facility] Last Admin: 04/13/17 09:57 Dose: 17 gm Prednisone (Prednisone Tab) 10 mg PO QOTHERDAY [facility] Last Admin: 04/12/17 11:26 Dose: 10 mg Sodium Bicarbonate (Sodium Bicarbonate Tab) 1,300 mg PO BID [facility] Last Admin: 04/13/17 09:56 Dose: 1,300 mg - Labs Labs: 04/13/17 06:15 04/13/17 06:15 PT 10.5 Seconds (9.9-11.8) 04/09/17 15:00 INR 0.97 (0.93-1.08) 04/09/17 15:00 APTT 27.4 Seconds (23.7-30.8) 04/09/17 15:00 - Constitutional Appears: Non-toxic, No Acute Distress - Head Exam Head Exam: NORMAL INSPECTION - ENT Exam ENT Exam: Mucous Membranes Moist - Neck Exam Neck Exam: absent: Meningismus - Respiratory Exam Respiratory Exam: Rales (scattered) - Cardiovascular Exam Cardiovascular Exam: +S1, +S2 - GI/Abdominal Exam GI & Abdominal Exam: Soft. absent: Tenderness Assessment and Plan - Assessment and Plan (Free Text) Plan: Assessment Bilateral healthcare-associated pneumonia with acute bronchitis, slowly improving coagulase negative staph in 1 out of 4 blood cx bottles, probably contamination DM HTN obesity with BMI 32 CAD chronic renal failure history of nephrolithiasis Plan continue Cefepime and Doxycycline (day 4) to complete 4-7 days of therapy; follow up Pulmonary evaluation follow up repeat blood cx which were taken yesterday will monitor clinically
--- NOTE | 2017-04-13 15:44 | CP.PCM.CON ---
<Yin Gorman - Last Filed: 04/13/17 16:00> History of Present Illness - History of Present Illness History of Present Illness: Gastroenterology Fellow/PGY5 Consult Note 56 year old male with history of prior polysubstance abuse, CAD s/p stents, CKD , and membranous nephropathy presenting with cough. Patient notes recent trip out of the country and sick contact with family members having similar symptoms of cough, runny nose, and shortness of breath. He notes improving shortness of breath and cough. Tolerating regular diet. Notes sobriety for fifteen years as well as tobacco and cocaine cessation. Denies nausea, vomiting, hematemesis, abdominal pain, distension, diarrhea, constipation, melena, hematochezia, or weight loss. Prior EGD and colonoscopy over five years ago endorsed to be normal. Family- mother-ovarian cancer; denies colorectal cancer Social -sobriety 15 years, prior "large amounts" of daily beer/liquor intake for over 10 years, prior tobacco use and snorting of cocaine- quit 15 years Surgery-cardiac stents, left hip replacement Review of Systems - Review of Systems Review of Systems: 12-point review of systems negative except for as above Past Patient History - Infectious Disease Hx of Infectious Diseases: None - Tetanus Immunizations Tetanus Immunization: Unknown - Past Social History Smoking Status: Never Smoked - CARDIAC Hx Hypertension: Yes Other/Comment: 2 cardiac stent 2002, 2004 - PULMONARY Hx Respiratory Disorders: Yes Hx Pneumonia: Yes - NEUROLOGICAL Hx Paralysis: No - HEENT Hx HEENT Problems: No - RENAL Hx Chronic Kidney Disease: Yes Other/Comment: membrane nephritis - ENDOCRINE/METABOLIC Hx Endocrine Disorders: Yes Hx Diabetes Mellitus Type 2: Yes - HEMATOLOGICAL/ONCOLOGICAL Hx Blood Transfusions: Yes (2010) Hx Blood Transfusion Reaction: No - INTEGUMENTARY Hx Dermatological Problems: No - MUSCULOSKELETAL/RHEUMATOLOGICAL Hx Musculoskeletal Disorders: No - GASTROINTESTINAL Hx Gastrointestinal Disorders: No - GENITOURINARY/GYNECOLOGICAL Hx Genitourinary Disorders: No - PSYCHIATRIC Hx Emotional Abuse: No Hx Physical Abuse: No Hx Substance Use: No - SURGICAL HISTORY Hx Appendectomy: Yes Hx Joint Replacement: Yes (hip) - ANESTHESIA Hx Anesthesia Reactions: No Hx Malignant Hyperthermia: No Meds Allergies/Adverse Reactions: Allergies Allergy/AdvReac Type Severity Reaction Status Date / Time No Known Allergies Allergy Verified 08/25/13 11:09 - Medications Medications: Current Medications Acetylcysteine (Acetylcysteine 20%) 4 ml IH [id number] [facility] Last Admin: 04/13/17 13:21 Dose: 4 ml Aspirin (Ecotrin) 81 mg PO DAILY [facility] Last Admin: 04/13/17 09:57 Dose: 81 mg Atorvastatin Calcium (Lipitor) 20 mg PO DIN [facility] Last Admin: 04/12/17 17:57 Dose: 20 mg Atovaquone (Mepron) 750 mg PO BID [facility] Stop: 04/19/17 18:01 Last Admin: 04/13/17 09:58 Dose: 750 mg Calcium Acetate (Phoslo) 667 mg PO WM [facility] Last Admin: 04/13/17 12:05 Dose: 667 mg Cholecalciferol (Vitamin D) 5,000 iu PO MWF [facility] Last Admin: 04/13/17 09:57 Dose: 5,000 iu Clopidogrel Bisulfate (Plavix) 75 mg PO DAILY [facility] Last Admin: 04/13/17 09:56 Dose: 75 mg Docusate Sodium (Colace) 100 mg PO DAILY [facility] Last Admin: 04/13/17 09:57 Dose: 100 mg Doxycycline Hyclate (Doryx) 100 mg PO Q12 [facility] PRN Reason: Protocol Stop: 04/19/17 22:01 Last Admin: 04/13/17 10:24 Dose: 100 mg Folic Acid (Folic Acid) 1 mg PO DAILY [facility] Last Admin: 04/13/17 10:24 Dose: 1 mg Furosemide (Lasix) 40 mg IVP Q8 [facility] Last Admin: 04/13/17 15:30 Dose: 40 mg Hydralazine HCl (Apresoline) 25 mg PO QID [facility] Last Admin: 04/13/17 15:29 Dose: 25 mg Cefepime HCl (Maxipime 1gm) 1 gm in 100 mls @ 100 mls/hr IVPB Q24H [facility] PRN Reason: Protocol Stop: 04/19/17 10:31 Last Admin: 04/13/17 10:06 Dose: 100 mls/hr Iron Sucrose 200 mg/ Sodium (Chloride) 110 mls @ 110 mls/hr IVPB DAILY [facility] Stop: 04/14/17 10:59 Last Admin: 04/13/17 09:58 Dose: 110 mls/hr Insulin Detemir (Levemir) 30 unit SC QAM [facility] Last Admin: 04/13/17 10:56 Dose: 30 unit Insulin Detemir (Levemir) 20 unit SC HS [facility] Insulin Human Regular (Humulin R Low) 0 units SC ACHS [facility] PRN Reason: Protocol Last Admin: 04/13/17 12:04 Dose: 3 units Levalbuterol HCl (Xopenex) 0.63 mg IH [id number] [facility] Last Admin: 04/13/17 13:21 Dose: 0.63 mg Levalbuterol HCl (Xopenex) 0.63 mg IH Q2H PRN PRN Reason: Shortness of Breath Last Admin: 04/12/17 23:55 Dose: 0.63 mg Losartan Potassium (Cozaar) 100 mg PO DAILY [facility] Last Admin: 04/13/17 09:57 Dose: 100 mg Metoprolol Succinate (Toprol Xl) 50 mg PO DAILY [facility] Last Admin: 04/13/17 09:57 Dose: 50 mg Metoprolol Tartrate (Lopressor) 5 mg IVP Q6H PRN PRN Reason: Systolic Blood Pressure Last Admin: 04/11/17 06:21 Dose: 5 mg Pantoprazole Sodium (Protonix Ec Tab) 40 mg PO 0600 [facility] Last Admin: 04/13/17 05:18 Dose: 40 mg Polyethylene Glycol (Miralax) 17 gm PO BID [facility] Last Admin: 04/13/17 09:57 Dose: 17 gm Prednisone (Prednisone Tab) 10 mg PO QOTHERDAY [facility] Last Admin: 04/12/17 11:26 Dose: 10 mg Sodium Bicarbonate (Sodium Bicarbonate Tab) 1,300 mg PO BID [facility] Last Admin: 04/13/17 09:56 Dose: 1,300 mg Physical Exam - Constitutional Appears: Non-toxic, No Acute Distress - Head Exam Head Exam: ATRAUMATIC, NORMOCEPHALIC - Eye Exam Eye Exam: EOMI, PERRL Pupil Exam: PERRL. absent: Miosis, Mydriatic - ENT Exam ENT Exam: Mucous Membranes Moist, Normal Oropharynx - Neck Exam Neck exam: Positive for: Full Rom, Normal Inspection - Respiratory Exam Respiratory Exam: Clear to Auscultation Bilateral. absent: Rales, Rhonchi, Wheezes - Cardiovascular Exam Cardiovascular Exam: RRR, +S1, +S2. absent: Gallop, Rubs - GI/Abdominal Exam GI & Abdominal Exam: Normal Bowel Sounds, Soft. absent: Distended, Firm, Guarding, Organomegaly, Rebound, Rigid, Tenderness - Extremities Exam Extremities exam: Positive for: normal inspection. Negative for: pedal edema - Neurological Exam Neurological exam: Alert - Psychiatric Exam Psychiatric exam: Normal Affect, Normal Mood - Skin Skin Exam: Dry, Intact, Normal Color, Warm Results - Vital Signs Recent Vital Signs: Last Vital Signs Temp 97.9 F 04/13/17 12:00 Pulse 68 04/13/17 13:20 Resp 19 04/13/17 12:00 BP 132/66 04/13/17 15:30 Pulse Ox 95 04/13/17 05:57 - Labs Result Diagrams: 04/13/17 06:15 04/13/17 06:15 Labs: Laboratory Results - last 24 hr 04/12/17 04/12/17 04/12/17 08:30 16:22 21:24 WBC RBC Hgb Hct MCV MCH MCHC RDW Plt Count MPV Sodium Potassium Chloride Carbon Dioxide Anion Gap BUN Creatinine Est GFR ( Amer) Est GFR (Non-Af Amer) POC Glucose (mg/dL) 257 H 250 H Random Glucose Calcium Phosphorus Magnesium Erythropoietin 10.4 Total Bilirubin Direct Bilirubin AST ALT Alkaline Phosphatase Total Protein Albumin Globulin Albumin/Globulin Ratio Hepatitis A IgM Ab Hep Bs Antigen Hep B Core IgM Ab Hepatitis C Antibody 04/13/17 04/13/17 04/13/17 06:15 06:15 06:15 WBC 6.9 RBC 2.97 L Hgb 9.3 L Hct 27.2 L MCV 91.6 MCH 31.3 MCHC 34.2 RDW 12.2 Plt Count 226 MPV 10.0 Sodium 139 Potassium 3.7 Chloride 106 Carbon Dioxide 25 Anion Gap 12 BUN 69 H Creatinine 3.2 H Est GFR ( Amer) 24 Est GFR (Non-Af Amer) 20 POC Glucose (mg/dL) Random Glucose 119 H Calcium 8.3 L Phosphorus 6.9 H Magnesium 1.8 Erythropoietin Total Bilirubin 0.2 Direct Bilirubin 0.2 AST 31 ALT 46 Alkaline Phosphatase 80 Total Protein 5.9 Albumin 2.9 L Globulin 3.0 Albumin/Globulin Ratio 1.0 L Hepatitis A IgM Ab Negative Hep Bs Antigen Negative Hep B Core IgM Ab Negative Hepatitis C Antibody Negative 04/13/17 07:18 WBC RBC Hgb Hct MCV MCH MCHC RDW Plt Count MPV Sodium Potassium Chloride Carbon Dioxide Anion Gap BUN Creatinine Est GFR ( Amer) Est GFR (Non-Af Amer) POC Glucose (mg/dL) 140 H Random Glucose Calcium Phosphorus Magnesium Erythropoietin Total Bilirubin Direct Bilirubin AST ALT Alkaline Phosphatase Total Protein Albumin Globulin Albumin/Globulin Ratio Hepatitis A IgM Ab Hep Bs Antigen Hep B Core IgM Ab Hepatitis C Antibody Assessment & Plan - Assessment and Plan (Free Text) Assessment: 56 year old male with history of prior polysubstance abuse, CAD s/p stents, CKD , and membranous nephropathy presenting with cough. Active treatment of HCAP with GI consultation for anemia. Prior EGD and colonoscopy over five years ago endorsed to be normal. Plan: >no overt GI blood loss >continue to monitor H/H >iron panel normal >on cefepime and doxycyline for HCAP >prior EGD/colonoscopy over 5 years ago >would benefit from elective outpatient EGD /colonoscopy once medically optimized and pulmonary status improved >will require cardiac clearance to hold Plavix for elective endoscopy evaluation >will follow clinical course <Paz Hansen MD - Last Filed: 04/13/17 17:04> Meds - Medications Medications: Current Medications Acetylcysteine (Acetylcysteine 20%) 4 ml IH [id number] [facility] Last Admin: 04/13/17 13:21 Dose: 4 ml Aspirin (Ecotrin) 81 mg PO DAILY [facility] Last Admin: 04/13/17 09:57 Dose: 81 mg Atorvastatin Calcium (Lipitor) 20 mg PO DIN [facility] Last Admin: 04/12/17 17:57 Dose: 20 mg Atovaquone (Mepron) 750 mg PO BID [facility] Stop: 04/19/17 18:01 Last Admin: 04/13/17 09:58 Dose: 750 mg Calcium Acetate (Phoslo) 667 mg PO WM [facility] Last Admin: 04/13/17 12:05 Dose: 667 mg Cholecalciferol (Vitamin D) 5,000 iu PO MWF [facility] Last Admin: 04/13/17 09:57 Dose: 5,000 iu Clopidogrel Bisulfate (Plavix) 75 mg PO DAILY [facility] Last Admin: 04/13/17 09:56 Dose: 75 mg Docusate Sodium (Colace) 100 mg PO DAILY [facility] Last Admin: 04/13/17 09:57 Dose: 100 mg Doxycycline Hyclate (Doryx) 100 mg PO Q12 [facility] PRN Reason: Protocol Stop: 04/19/17 22:01 Last Admin: 04/13/17 10:24 Dose: 100 mg Folic Acid (Folic Acid) 1 mg PO DAILY [facility] Last Admin: 04/13/17 10:24 Dose: 1 mg Furosemide (Lasix) 40 mg IVP Q8 [facility] Last Admin: 04/13/17 15:30 Dose: 40 mg Hydralazine HCl (Apresoline) 25 mg PO QID [facility] Last Admin: 04/13/17 15:29 Dose: 25 mg Cefepime HCl (Maxipime 1gm) 1 gm in 100 mls @ 100 mls/hr IVPB Q24H [facility] PRN Reason: Protocol Stop: 04/19/17 10:31 Last Admin: 04/13/17 10:06 Dose: 100 mls/hr Iron Sucrose 200 mg/ Sodium (Chloride) 110 mls @ 110 mls/hr IVPB DAILY [facility] Stop: 04/14/17 10:59 Last Admin: 04/13/17 09:58 Dose: 110 mls/hr Insulin Detemir (Levemir) 30 unit SC QAM [facility] Last Admin: 04/13/17 10:56 Dose: 30 unit Insulin Detemir (Levemir) 20 unit SC HS [facility] Insulin Human Regular (Humulin R Low) 0 units SC ACHS [facility] PRN Reason: Protocol Last Admin: 04/13/17 12:04 Dose: 3 units Levalbuterol HCl (Xopenex) 0.63 mg IH [id number] [facility] Last Admin: 04/13/17 13:21 Dose: 0.63 mg Levalbuterol HCl (Xopenex) 0.63 mg IH Q2H PRN PRN Reason: Shortness of Breath Last Admin: 04/12/17 23:55 Dose: 0.63 mg Losartan Potassium (Cozaar) 100 mg PO DAILY [facility] Last Admin: 04/13/17 09:57 Dose: 100 mg Metoprolol Succinate (Toprol Xl) 50 mg PO DAILY [facility] Last Admin: 04/13/17 09:57 Dose: 50 mg Metoprolol Tartrate (Lopressor) 5 mg IVP Q6H PRN PRN Reason: Systolic Blood Pressure Last Admin: 04/11/17 06:21 Dose: 5 mg Pantoprazole Sodium (Protonix Ec Tab) 40 mg PO 0600 [facility] Last Admin: 04/13/17 05:18 Dose: 40 mg Polyethylene Glycol (Miralax) 17 gm PO BID [facility] Last Admin: 04/13/17 09:57 Dose: 17 gm Prednisone (Prednisone Tab) 10 mg PO QOTHERDAY [facility] Last Admin: 04/12/17 11:26 Dose: 10 mg Sodium Bicarbonate (Sodium Bicarbonate Tab) 1,300 mg PO BID [facility] Last Admin: 04/13/17 09:56 Dose: 1,300 mg Results - Vital Signs Recent Vital Signs: Last Vital Signs Temp 98 F 04/13/17 16:48 Pulse 66 04/13/17 16:48 Resp 19 04/13/17 16:48 BP 157/84 H 04/13/17 16:48 Pulse Ox 95 04/13/17 05:57 - Labs Result Diagrams: 04/13/17 06:15 04/13/17 06:15 Labs: Laboratory Results - last 24 hr 04/12/17 04/12/17 04/12/17 08:30 16:22 21:24 WBC RBC Hgb Hct MCV MCH MCHC RDW Plt Count MPV Sodium Potassium Chloride Carbon Dioxide Anion Gap BUN Creatinine Est GFR ( Amer) Est GFR (Non-Af Amer) POC Glucose (mg/dL) 257 H 250 H Random Glucose Calcium Phosphorus Magnesium Erythropoietin 10.4 Total Bilirubin Direct Bilirubin AST ALT Alkaline Phosphatase C-React Prot High Sens Total Protein Albumin Globulin Albumin/Globulin Ratio Hepatitis A IgM Ab Hep Bs Antigen Hep B Core IgM Ab Hepatitis C Antibody 04/13/17 04/13/17 04/13/17 06:15 06:15 06:15 WBC 6.9 RBC 2.97 L Hgb 9.3 L Hct 27.2 L MCV 91.6 MCH 31.3 MCHC 34.2 RDW 12.2 Plt Count 226 MPV 10.0 Sodium 139 Potassium 3.7 Chloride 106 Carbon Dioxide 25 Anion Gap 12 BUN 69 H Creatinine 3.2 H Est GFR ( Amer) 24 Est GFR (Non-Af Amer) 20 POC Glucose (mg/dL) Random Glucose 119 H Calcium 8.3 L Phosphorus 6.9 H Magnesium 1.8 Erythropoietin Total Bilirubin 0.2 Direct Bilirubin 0.2 AST 31 ALT 46 Alkaline Phosphatase 80 C-React Prot High Sens Total Protein 5.9 Albumin 2.9 L Globulin 3.0 Albumin/Globulin Ratio 1.0 L Hepatitis A IgM Ab Negative Hep Bs Antigen Negative Hep B Core IgM Ab Negative Hepatitis C Antibody Negative 04/13/17 04/13/17 04/13/17 07:18 10:52 11:01 WBC RBC Hgb Hct MCV MCH MCHC RDW Plt Count MPV Sodium Potassium Chloride Carbon Dioxide Anion Gap BUN Creatinine Est GFR ( Amer) Est GFR (Non-Af Amer) POC Glucose (mg/dL) 140 H 276 H Random Glucose Calcium Phosphorus Magnesium Erythropoietin Total Bilirubin Direct Bilirubin AST ALT Alkaline Phosphatase C-React Prot High Sens > 15.00 H Total Protein Albumin Globulin Albumin/Globulin Ratio Hepatitis A IgM Ab Hep Bs Antigen Hep B Core IgM Ab Hepatitis C Antibody 04/13/17 04/13/17 16:01 16:07 WBC RBC Hgb Hct MCV MCH MCHC RDW Plt Count MPV Sodium Potassium Chloride Carbon Dioxide Anion Gap BUN Creatinine Est GFR ( Amer) Est GFR (Non-Af Amer) POC Glucose (mg/dL) 103 251 H Random Glucose Calcium Phosphorus Magnesium Erythropoietin Total Bilirubin Direct Bilirubin AST ALT Alkaline Phosphatase C-React Prot High Sens Total Protein Albumin Globulin Albumin/Globulin Ratio Hepatitis A IgM Ab Hep Bs Antigen Hep B Core IgM Ab Hepatitis C Antibody Attending/Attestation - Attestation I have personally seen and examined this patient.: Yes I have fully participated in the care of the patient.: Yes I have reviewed all pertinent clinical information: Yes Notes (Text): 04/13/17 17:02 Patient seen with GI fellow on rounds. This is s a 56 year old male with history of prior poly substance abuse, CAD s/p stents, CKD, and membranous nephropathy presenting with cough. in setting of treatment of HCAP. GI consultation for anemia. Prior EGD and colonoscopy over five years ago endorsed to be normal. Currently no overt signs or symptoms of GI bleeding. Consider outpatient EGD/ colonoscopy once medically optimized. Will require to hold plavix for 5-7 days for the procedures
--- NOTE | 2017-04-13 15:55 | PN ---
DATE: 04/13/2017 SUBJECTIVE: The patient is seen in room 270, bed 1. The patient was sitting up in the bed. The patient does not appear to be in any distress. Telemetry shows sinus rhythm. OBJECTIVE: VITAL SIGNS: T-max is 98.7. Heart rate is 94, 58, 62 and 74. Blood pressure of 153/86, 145/70, 144/80, and 138/74. Yesterday his blood pressure was 177/103. Yesterday's blood pressure 190/98 and 160/91. Respirations 18 and O2 saturations 95%, 93%, and 97%. INTAKE AND OUTPUT: Intake and output is not documented correctly. HEENT: Head examination is normocephalic and atraumatic. HEENT examination shows pinkish pale conjunctivae. No oropharyngeal lesion. No neck rigidity. CHEST: Kyphosis. LUNGS: Still sores, crackles, rales, bronchi bilaterally. CARDIOVASCULAR: S1 and S2, regular rhythm. ABDOMEN: Protuberant. Positive bowel sounds. GENITALIA: Male. RECTAL: Deferred. EXTREMITIES: Dense pitting edema of the lower extremity. MUSCULOSKELETAL: Shows a body mass index of 32. GAIT: Not tested. DIAGNOSTIC STUDIES: 04/13, WBC 6.9, hemoglobin/hematocrit of 9.3 and 27.2. ESR is 141. Sodium is 139, potassium is 3.7, chloride is 106, CO2 of 25, anion gap of 12, BUN of 69, creatinine of 3.2, and GFR of 24. Glucose of 140, 250, 257, calcium of 8.3, phosphorus of 6.9, and magnesium of 1.8. Iron of 45, TIBC of 260, saturation of 17, transferrin of 231 and transferrin to a ferritin of 236. Repeat blood cultures are pending. Blood cultures from 04/09/[address] chest, abdomen, and pelvis, stress test, abdominal sonogram reviewed and explained to the patient. IMPRESSION AND PLAN: The patient was seen by Cardiology and Infectious Diseases. 1. Bibasilar bilateral community acquired versus healthcare-associated pneumonia, infiltrated with peribronchial thickening, and bronchitis. 2. Left ventricular ejection fraction of 59% on stress test. 3. Hepatomegaly with hepatic steatosis and bilateral renal cysts. 4. Concentric left ventricular hypertrophy. 5. Moderate valvular aortic stenosis. 6. Mild mitral regurgitation. 7. Mild tricuspid regurgitation with right ventricular systolic pressure of 34 mmHg. 8. Moderate valvular aortic stenosis. 9. Coagulase-negative Staphylococcus bacteremia versus contamination. 10. Hypertension. 11. Hypoxemia. 12. Low grade fever. 13. Normocytic anemia with granulocytosis. 14. Elevated erythrocyte sedimentation rate of 141. 15. Hypoxemia. 16. Uncontrolled insulin requiring diabetes mellitus with hemoglobin A1c of 7.5. 17. Chronic kidney disease stage III/IV. 18. Hyperphosphatemia. 19. Secondary hyperparathyroidism. 20. Transaminitis. 21. Hypercholesterolemia. 22. Hypertriglyceridemia. 23. Proteinuria, microscopic hematuria, and nephrotic range proteinuria. 24. Questionable coagulase negative Staphylococcus bacteremia versus contamination. 25. Morbid obesity. 26. Questionable inferior ischemic changes on the electrocardiogram. 27. History of noncompliance. 28. Insulin requiring diabetes mellitus. 1. Bibasilar healthcare-associated pneumonia, atelectasis with bronchiectasis. 2. Questionable congestive heart failure. 3. Chronic kidney disease stage IIIB/IV. 4. Nephrotic syndrome with membranous nephropathy. 5. Hypertensive chronic kidney disease. 6. Questionable sepsis. 7. Sinus tachycardia. 8. Hypertension. 9. Hypoxemia. 10. Staphylococcus coagulase-negative bacteremia. 11. Normocytic anemia with granulocytosis. 12. Uncontrolled type I insulin requiring diabetes mellitus with hemoglobin A1c of 7.5. 13. Hyperphosphatemia. 14. Iron deficiency with anemia of chronic disease. 15. Transaminitis. 16. Hypertriglyceridemia and hypercholesterolemia with elevated LDL. 17. Questionable and possible volume overload versus. 18. Hypertensive cardiovascular disease. 19. Moderate aortic valvular stenosis. 20. Mild tricuspid regurgitation with right ventricular systolic pressure of 34 mmHg. 21. Concentric left ventricular hypertrophy. 22. Inferolateral coronary ischemia. 23. Proteinuria. 24. Microscopic hematuria. PLAN: The patient has been ordered CRP, hepatitis serology has been ordered. CMP, LFT, magnesium, phosphorus, RICK, erythropoietin, PTH, and rheumatoid factor has been ordered. Repeat CBC ordered. Repeat blood culture results pending and consults of Infectious Disease, Nephrology, Cardiology, and Gastroenterology, the patient has requested from Gastroenterology. CURRENT MEDICATIONS: Mucomyst nebulizer every 6 hours with Xopenex nebulizer every 6 hours and Xopenex q. 2 hours. p.r.n., hydralazine 25 q.i.d., Colace 100 daily, Cozaar 100 mg daily, doxycycline 100 mg p.o. q. 12 hours, Ecotrin 81 mg daily, folic acid 1 mg daily, Humulin low dose sliding scale coverage before meals and bedtime, Venofer 200 mg daily x3, the patient's Bumex is changed to Lasix 40 IV q. 8 hours, Levemir 30 units q. a.m., and Levemir 20 units at bedtime has been increased because of persistent hyperglycemia. Lipitor 20 mg daily, Lopressor 5 mg IV q. 6 hours p.r.n., cefepime 1 g IV q. 24 hours, Mepron 750 mg twice a day, Miralax 17 grams twice a day, PhosLo 667 mg with meals, Plavix 75 mg daily, prednisone 10 mg every other day, Protonix 40 mg daily, sodium bicarbonate 1300 mg twice a day, Toprol XL 50 mg daily, vitamin D 5000 units Tuesday, Tuesday, and Tuesday. The patient chest PT. Incentive spirometry. Renal diet. SCDs, SUSAN stockings, and out of bed. Occult blood ordered. The patient has been updated about his condition, diagnoses, treatment plan, and management plan which he acknowledged an understanding. The patient has been advised about and updated about his diagnostic test results and recommendations by all the physicians involved in the care of the patient. We will await further recommendations from Infectious Disease, Nephrology, and Gastroenterology. Dictated and electronically signed, not read. Kobe Prince MD [email or web address]
--- NOTE | 2017-04-13 17:53 | CON ---
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 I have been asked to see this patient for colonoscopy. The patient was found to be anemic. He denies any abdominal pain, nausea, vomiting, rectal bleeding, melena, chest pain, hematuria. Chest x-ray in the emergency room revealed bilateral lower lobe infiltrates, possibly secondary to pneumonia. 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 PAST SURGICAL HISTORY: Notable for right hip replacement. SOCIAL HISTORY: He consumes alcohol socially. He denies cigarette smoking. FAMILY HISTORY: Noncontributory. REVIEW OF SYSTEMS: A 14-point review of systems is notable for cough and fever. PHYSICAL EXAMINATION: GENERAL: Well-developed male lying in bed, in no acute distress. VITAL SIGNS: Reveal temperature of 97.6, blood pressure 153/86, heart rate 94. HEENT: Reveal sclerae to be white. Conjunctivae pale. NECK: Supple. CHEST: Lungs reveal scattered rhonchi at the bases. HEART: Exam reveals regular rate and rhythm. ABDOMEN: Soft, protuberant, nontender. EXTREMITIES: Show no edema. LABORATORY DATA: Reveal hemoglobin 9.3, white blood cell count 6.9. Chemistries reveal BUN 69, creatinine 3.2. AST, ALT, alk phos were all normal. Ferritin is normal at 236. Iron saturation is at 17. 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 He has not had a colonoscopy in many years. RECOMMENDATIONS: I will arrange for the patient to have an elective colonoscopy once his pneumonia is completely treated and this can be done electively as an outpatient. Rojelio Lucas MD [facility] # [id number] [employer]
[2017-04-13 20:21] LABS: (1-3)-B-D GLUCAN <31 pg/mL
[2017-04-13] MEDS ORDERED: Insulin Detemir 100 units/ml Vial (Levemir) SC SCH (22:00)
[2017-04-13] MEDS: Levalbuterol 0.63 MG/3 ML Inhal Soln UD IH PRN (23:43)
[2017-04-14 01:08] VITALS: RESP 20
[2017-04-14] MEDS: Levalbuterol 0.63 MG/3 ML Inhal Soln UD IH SCH ×3 (01:35→14:12)
[2017-04-14] MEDS: Acetylcysteine 20% Inhal Soln (4ml) IH SCH ×3 (01:35→14:11)
--- NOTE | 2017-04-14 02:09 | PN ---
DATE: 04/13/2017 LOCATION: Room 270, bed 1. REASON FOR CONSULTATION: Follow up of coronary artery disease, 8-beat VT, noncompliant with medication. SUBJECTIVE: The patient is sitting comfortably in bed without any chest pain, shortness of breath, or palpitations. PHYSICAL EXAMINATION: VITAL SIGNS: Blood pressure 132/66, respirations 18, pulse 70. The patient is afebrile. HEENT: Head is normocephalic. Eyes: Pupils are normal, conjunctivae are slightly pale. NECK: JVP low. Carotids equal. THORAX: AP diameter normal. LUNGS: Clear. CARDIOVASCULAR: S1 and S2. ABDOMEN: Soft. No tenderness. No organomegaly. Bowel sounds normal. EXTREMITIES: No clubbing, no cyanosis. LABORATORY DATA: WBC 6.9, hemoglobin 9.3, hematocrit 27.2, platelets 226. Sodium is 139, potassium is 3.7, BUN 69, creatinine 3.2, random sugar 251. Calcium of 8.3, phosphorus of 6.9, and magnesium of 1.8. Total protein 5.9, albumin 2.9. The patient had stress test on 04/12/2017 which showed normal myocardial perfusion study with LV ejection fraction of 59%. Echo was done on 04/11/2017 which showed normal-sized LV, mild concentric LV hypertrophy, trace aortic regurgitation, mild to moderate valvular aortic stenosis, aortic valve area of 1.4 cm2, mild mitral regurgitation, mild tricuspid regurgitation, RVSP 34 mmHg. DIAGNOSES: Bilateral pneumonia; history of coronary artery disease, status post stent 12 years ago; acute on chronic renal insufficiency; hypertension; diabetes; anemia; noncompliant patient, does not follow with physician and also with medications; and mild to moderate aortic stenosis. RECOMMENDATION AND PLAN: The patient's stress test is negative. Continue to treat the pneumonia. Also advised the patient to lose weight, aggressive control of diabetes and hypertension, lifestyle modifications, risk factor modification, and compliance with medication and followup. The patient is on hydralazine 25 q.i.d., Cozaar 100 daily, Doryx 100 mg q.12 hours, aspirin 81 mg daily, folic acid 1 mg daily, Venofer 200 mg IV piggyback daily, furosemide 40 mg IV q.8 hours, insulin as ordered, Lipitor 20 mg daily, Mepron 750 p.o. b.i.d., Plavix 75 daily, prednisone 10 mg p.o. alternate days, Protonix 40 daily, Toprol XL 50 mg daily, and Xopenex hand nebulizer therapy. We will follow. Wanda Castillo MD
[2017-04-14] MEDS: Pantoprazole 40 mg EC Tab PO SCH (05:39)
--- NOTE | 2017-04-14 07:02 | CP.PCM.PN ---
Subjective - Date & Time of Evaluation Date of Evaluation: 04/14/17 Time of Evaluation: 07:02 - Subjective Subjective: Medicine Progress Note for Dima Bonilla PGY2 Patient seen and examined at bedside. As per nursing, there were no acute overnight events. He feels well today. His SOB is much better and has a cough with clear mucus. He denies CP, SOB, n/v/d, numbness/tingling, palpitations, constipation, fever or chills. Objective - Vital Signs/Intake and Output Vital Signs (last 24 hours): Temp Pulse Resp BP Pulse Ox 98.5 F 56 L 20 142/73 95 04/14/17 06:00 04/14/17 06:00 04/14/17 06:00 04/14/17 06:00 04/14/17 06:00 Intake and Output: 04/14/17 04/14/17 06:59 18:59 Intake Total 120 Balance 120 - Medications Medications: Current Medications Acetylcysteine (Acetylcysteine 20%) 4 ml IH [id number] [facility] Last Admin: 04/14/17 01:35 Dose: Not Given Aspirin (Ecotrin) 81 mg PO DAILY [facility] Last Admin: 04/13/17 09:57 Dose: 81 mg Atorvastatin Calcium (Lipitor) 20 mg PO DIN [facility] Last Admin: 04/13/17 17:54 Dose: 20 mg Atovaquone (Mepron) 750 mg PO BID [facility] Stop: 04/19/17 18:01 Last Admin: 04/13/17 17:54 Dose: 750 mg Calcium Acetate (Phoslo) 1,334 mg PO [facility] Cholecalciferol (Vitamin D) 5,000 iu PO MWF [facility] Last Admin: 04/13/17 09:57 Dose: 5,000 iu Clopidogrel Bisulfate (Plavix) 75 mg PO DAILY [facility] Last Admin: 04/13/17 09:56 Dose: 75 mg Docusate Sodium (Colace) 100 mg PO DAILY [facility] Last Admin: 04/13/17 09:57 Dose: 100 mg Doxycycline Hyclate (Doryx) 100 mg PO Q12 [facility] PRN Reason: Protocol Stop: 04/19/17 22:01 Last Admin: 04/13/17 22:00 Dose: 100 mg Folic Acid (Folic Acid) 1 mg PO DAILY [facility] Last Admin: 04/13/17 10:24 Dose: 1 mg Furosemide (Lasix) 40 mg IVP Q8 [facility] Last Admin: 04/13/17 15:30 Dose: 40 mg Hydralazine HCl (Apresoline) 25 mg PO QID [facility] Last Admin: 04/13/17 22:01 Dose: 25 mg Cefepime HCl (Maxipime 1gm) 1 gm in 100 mls @ 100 mls/hr IVPB Q24H [facility] PRN Reason: Protocol Stop: 04/19/17 10:31 Last Admin: 04/13/17 10:06 Dose: 100 mls/hr Iron Sucrose 200 mg/ Sodium (Chloride) 110 mls @ 110 mls/hr IVPB DAILY [facility] Stop: 04/14/17 10:59 Last Admin: 04/13/17 09:58 Dose: 110 mls/hr Insulin Detemir (Levemir) 30 unit SC QAM [facility] Last Admin: 04/13/17 10:56 Dose: 30 unit Insulin Detemir (Levemir) 20 unit SC HS [facility] Last Admin: 04/13/17 22:01 Dose: 20 unit Insulin Human Regular (Humulin R Low) 0 units SC ACHS [facility] PRN Reason: Protocol Last Admin: 04/13/17 22:02 Dose: Not Given Levalbuterol HCl (Xopenex) 0.63 mg IH [id number] [facility] Last Admin: 04/14/17 01:35 Dose: Not Given Levalbuterol HCl (Xopenex) 0.63 mg IH Q2H PRN PRN Reason: Shortness of Breath Last Admin: 04/13/17 23:43 Dose: 0.63 mg Losartan Potassium (Cozaar) 50 mg PO DAILY [facility] Metoprolol Succinate (Toprol Xl) 50 mg PO DAILY [facility] Last Admin: 04/13/17 09:57 Dose: 50 mg Metoprolol Tartrate (Lopressor) 5 mg IVP Q6H PRN PRN Reason: Systolic Blood Pressure Last Admin: 04/11/17 06:21 Dose: 5 mg Pantoprazole Sodium (Protonix Ec Tab) 40 mg PO 0600 [facility] Last Admin: 04/14/17 05:39 Dose: 40 mg Polyethylene Glycol (Miralax) 17 gm PO BID [facility] Last Admin: 04/13/17 17:54 Dose: 17 gm Prednisone (Prednisone Tab) 10 mg PO QOTHERDAY [facility] Last Admin: 04/12/17 11:26 Dose: 10 mg Sodium Bicarbonate (Sodium Bicarbonate Tab) 1,300 mg PO BID [facility] Last Admin: 04/13/17 17:54 Dose: 1,300 mg - Labs Labs: 04/13/17 06:15 04/13/17 06:15 PT 10.5 Seconds (9.9-11.8) 04/09/17 15:00 INR 0.97 (0.93-1.08) 04/09/17 15:00 APTT 27.4 Seconds (23.7-30.8) 04/09/17 15:00 - Constitutional Appears: No Acute Distress - Head Exam Head Exam: ATRAUMATIC, NORMAL INSPECTION, NORMOCEPHALIC - Eye Exam Eye Exam: Normal appearance, PERRL Pupil Exam: NORMAL ACCOMODATION - ENT Exam ENT Exam: Mucous Membranes Moist - Neck Exam Neck Exam: Full ROM - Respiratory Exam Respiratory Exam: Rales, Rhonchi, NORMAL BREATHING PATTERN. absent: Wheezes - Cardiovascular Exam Cardiovascular Exam: REGULAR RHYTHM, +S1, +S2. absent: Gallop, Rubs, Murmur - GI/Abdominal Exam GI & Abdominal Exam: Soft, Normal Bowel Sounds. absent: Rigid, Tenderness, Mass , Rebound - Extremities Exam Extremities Exam: Pedal Edema (trace). absent: Calf Tenderness - Neurological Exam Neurological Exam: Alert, Awake, CN II-XII Intact, Oriented x3 - Psychiatric Exam Psychiatric exam: Normal Affect, Normal Mood - Skin Skin Exam: Dry, Normal Color, Warm Assessment and Plan - Assessment and Plan (Free Text) Assessment: This is a 56Y M with PMH of DM, HTN, CKD, CAD and immune deficiency admitted for SOB secondary to pneumonia. Patient also noted to have episode of V.tach a few days ago without any further episodes. Plan: 1. Pneumonia- improving - Afebrile, no leukocytosis - CT chest showed bronchitis/early pneumonia - Legionella negative - Continue Atovaquone, Cefepime and Doxy - ID Consulted- recs appreciated - Continue Xopenex, Mucomyst - Continue supplemental O2, Maintain spo2>90 2. Positive blood culture - second BC positive for staph- most likely contamination - repeat BC pending, repeat septic work up - CT chest/abd/pelvis positive for bronchitis/early pneumonia - ID consulted- recs appreciated - ESR elevated 3. Anemia - Hgb: 9.3 - Iron studies showed anemia of chronic disease - B12, Folate normal, EPO pending - Continue Folic Acid - no overt signs of bleeding - stool for occult blood - Venofer x 2 more days 4. Vtach - 8 beats a few days ago - no more episodes thus far - Stress test was negative - Cardio consulted- recs appreciated - Continue Toprol, Lipitor, ASA - Echo showed EF 55-60%, mild- mod aortic stenosis, Mild MR, TR 5. Transaminitis - resolved - Hep panel pending - GI consulted - CT abd/pelvis did not show any abnormalities - Abd U/S showed hepatomegaly with hepatic steatosis 6. CKD - Cr: 3.2 - secondary to membranous nephropathy seen on previous Bx - Nephro consulted- recs appreciated - Continue Prednisone every other day - Continue sodium bicarb, Phoslo - No NSAIDs as per nephro - Bumex and kayexylate d/c - Lasix 40q8h added for edema 7. CAD - Continue ASA, Plavix, Lipitor - Cardio consulted- recs appreciated - Cardio recommended diet and exercise - Stress test normal 8. HTN - Continue Toprol, Hydralazine - Cozaar increased - Lopressor Prn - Lasix 40q8h added 9. DM - Levemir 30U AM, 20U HS - BGM ACHS - ISS - HgbA1c 7.5 10. Vit D deficiency - Continue Vit D Gi ppx: Protonix DVT ppx: SCDs Dispo: Patient will need repeat blood cultures. He will be d/c home and follow up with Dr. Prince as outpatient. Case seen, discussed and reviewed with attending. Dima Esteban PGY2
[2017-04-14 07:22] LABS: HEMATOCRIT 28.6 % (42.0-52.0); MEAN CELL VOLUME 91.7 fl (80.0-105.0); MEAN CORPUSCULAR HEMOGLOBIN 31.1 pg (25.0-35.0); MEAN CORPUSCULAR HGB CONC 33.9 g/dl (31.0-37.0); MEAN PLATELET VOLUME 10.1 fl (7.0-11.0); RED CELL DISTRIBUTION WIDTH 12.3 % (11.5-14.5)
[2017-04-14 07:37] LABS: ALB/GLOB RATIO 0.9 (1.1-1.8); BILIRUBIN,DIRECT 0.3 mg/dL (0.0-0.4); BILIRUBIN,TOTAL 0.3 mg/dL (0.2-1.3); CALCIUM 8.5 mg/dL (8.4-10.5); MAGNESIUM 1.8 mg/dL (1.7-2.2); POTASSIUM 3.7 mmol/L (3.6-5.0); TOTAL PROTEIN 6.1 g/dL (5.8-8.3)
[2017-04-14 07:43] LABS: PHOSPHOROUS 6.3 mg/dL (2.5-4.5)
[2017-04-14] MEDS: Insulin Reg-LOW-Coverage SC SCH ×2 (08:50→11:54)
--- NOTE | 2017-04-14 09:33 | CP.PCM.PN ---
Subjective - Date & Time of Evaluation Date of Evaluation: 04/14/17 Time of Evaluation: 09:30 - Subjective Subjective: PGY-2 Nephrology progress note for Dr. Moses Patient was seen and examined at bedside. No acute distress. Patient states he feels better, his cough and sob have improved. He denies fever, chills, n/v. Patient is tolerating diet. Objective - Vital Signs/Intake and Output Vital Signs (last 24 hours): Temp Pulse Resp BP Pulse Ox 98.5 F 56 L 20 142/73 95 04/14/17 06:00 04/14/17 06:00 04/14/17 06:00 04/14/17 06:00 04/14/17 06:00 Intake and Output: 04/14/17 04/14/17 06:59 18:59 Intake Total 120 Balance 120 - Medications Medications: Current Medications Acetylcysteine (Acetylcysteine 20%) 4 ml IH [id number] [facility] Last Admin: 04/14/17 08:03 Dose: 4 ml Aspirin (Ecotrin) 81 mg PO DAILY [facility] Last Admin: 04/13/17 09:57 Dose: 81 mg Atorvastatin Calcium (Lipitor) 20 mg PO DIN [facility] Last Admin: 04/13/17 17:54 Dose: 20 mg Atovaquone (Mepron) 750 mg PO BID [facility] Stop: 04/19/17 18:01 Last Admin: 04/13/17 17:54 Dose: 750 mg Calcium Acetate (Phoslo) 1,334 mg PO WM [facility] Last Admin: 04/14/17 08:52 Dose: 1,334 mg Cholecalciferol (Vitamin D) 5,000 iu PO MWF [facility] Last Admin: 04/13/17 09:57 Dose: 5,000 iu Clopidogrel Bisulfate (Plavix) 75 mg PO DAILY [facility] Last Admin: 04/13/17 09:56 Dose: 75 mg Docusate Sodium (Colace) 100 mg PO DAILY [facility] Last Admin: 04/13/17 09:57 Dose: 100 mg Doxycycline Hyclate (Doryx) 100 mg PO Q12 [facility] PRN Reason: Protocol Stop: 04/19/17 22:01 Last Admin: 04/13/17 22:00 Dose: 100 mg Folic Acid (Folic Acid) 1 mg PO DAILY [facility] Last Admin: 04/13/17 10:24 Dose: 1 mg Furosemide (Lasix) 40 mg IVP Q8 [facility] Last Admin: 04/13/17 15:30 Dose: 40 mg Hydralazine HCl (Apresoline) 25 mg PO QID [facility] Last Admin: 04/13/17 22:01 Dose: 25 mg Cefepime HCl (Maxipime 1gm) 1 gm in 100 mls @ 100 mls/hr IVPB Q24H [facility] PRN Reason: Protocol Stop: 04/19/17 10:31 Last Admin: 04/13/17 10:06 Dose: 100 mls/hr Iron Sucrose 200 mg/ Sodium (Chloride) 110 mls @ 110 mls/hr IVPB DAILY [facility] Stop: 04/14/17 10:59 Last Admin: 04/13/17 09:58 Dose: 110 mls/hr Insulin Detemir (Levemir) 30 unit SC QAM [facility] Last Admin: 04/13/17 10:56 Dose: 30 unit Insulin Detemir (Levemir) 20 unit SC HS [facility] Last Admin: 04/13/17 22:01 Dose: 20 unit Insulin Human Regular (Humulin R Low) 0 units SC ACHS [facility] PRN Reason: Protocol Last Admin: 04/14/17 08:50 Dose: Not Given Levalbuterol HCl (Xopenex) 0.63 mg IH [id number] [facility] Last Admin: 04/14/17 08:03 Dose: 0.63 mg Levalbuterol HCl (Xopenex) 0.63 mg IH Q2H PRN PRN Reason: Shortness of Breath Last Admin: 04/13/17 23:43 Dose: 0.63 mg Losartan Potassium (Cozaar) 50 mg PO DAILY [facility] Metoprolol Succinate (Toprol Xl) 50 mg PO DAILY [facility] Last Admin: 04/13/17 09:57 Dose: 50 mg Metoprolol Tartrate (Lopressor) 5 mg IVP Q6H PRN PRN Reason: Systolic Blood Pressure Last Admin: 04/11/17 06:21 Dose: 5 mg Pantoprazole Sodium (Protonix Ec Tab) 40 mg PO 0600 [facility] Last Admin: 04/14/17 05:39 Dose: 40 mg Polyethylene Glycol (Miralax) 17 gm PO BID [facility] Last Admin: 04/13/17 17:54 Dose: 17 gm Prednisone (Prednisone Tab) 10 mg PO QOTHERDAY [facility] Last Admin: 04/12/17 11:26 Dose: 10 mg Sodium Bicarbonate (Sodium Bicarbonate Tab) 1,300 mg PO BID [facility] Last Admin: 04/13/17 17:54 Dose: 1,300 mg - Labs Labs: 04/14/17 06:30 04/14/17 06:30 PT 10.5 Seconds (9.9-11.8) 04/09/17 15:00 INR 0.97 (0.93-1.08) 04/09/17 15:00 APTT 27.4 Seconds (23.7-30.8) 04/09/17 15:00 - Constitutional Appears: Well, No Acute Distress - Head Exam Head Exam: ATRAUMATIC, NORMOCEPHALIC - Eye Exam Eye Exam: Normal appearance - ENT Exam ENT Exam: Mucous Membranes Moist - Respiratory Exam Respiratory Exam: Rhonchi, Wheezes, NORMAL BREATHING PATTERN. absent: Decreased Breath Sounds, Respiratory Distress - Cardiovascular Exam Cardiovascular Exam: REGULAR RHYTHM, +S1, +S2. absent: Tachycardia, Murmur - GI/Abdominal Exam GI & Abdominal Exam: Soft, Normal Bowel Sounds. absent: Distended, Firm, Tenderness - Extremities Exam Additional comments: trace pitting edema - Back Exam Back Exam: NORMAL INSPECTION. 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 Plan: 1. CKD stage IIIB - cr mildly elevated from yesterday, most likely due to lasix or increased cozaar - cont sodium bicarb - renal duplex showed patent main renal veins bilateral - cont to monitor renal function - avoid NSAIDs 2. 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 - cont to hold cyclosporin from 160mg q12 - cont prednisone 10mg every other day 3. HTN - BP improved - patient was started on lasix IV, evening dose held yesterday - upon discharge will cont bumex PO - home medications of metoprolol XL 50mg daily - losartan 50mg daily - hydralazine 25mg BID PO 4. nephrotic syndrome - lorsartan 50mg daily - home med kayexalate held, potassium wnl - cont to monitor 5. CKD mineral bone disease - cont with sodium bicarb 650 2 tabs bid 6. anemia 2/2 CKD - cont to monitor 7. PNE - cont abx, ceftriaxone and azithromycin, no renal dosage required - ID following - cxr on 04/12 showed improvement of bibasilar infiltrates
--- NOTE | 2017-04-14 10:13 | CP.PCM.PN ---
Subjective - Date & Time of Evaluation Date of Evaluation: 04/14/17 Time of Evaluation: 08:40 - Subjective Subjective: Comfortable in bed, breathing better, still having cough but slowly getting better, no fevers overnight. Objective - Vital Signs/Intake and Output Vital Signs (last 24 hours): Temp Pulse Resp BP Pulse Ox 98.6 F 92 H 20 143/78 95 04/14/17 00:01 04/14/17 06:00 04/14/17 00:01 04/14/17 00:01 04/13/17 05:57 Intake and Output: 04/13/17 04/14/17 18:59 06:59 Intake Total 900 120 Output Total 402 Balance 498 120 - Medications Medications: Current Medications Acetylcysteine (Acetylcysteine 20%) 4 ml IH [id number] [facility] Last Admin: 04/14/17 01:35 Dose: Not Given Aspirin (Ecotrin) 81 mg PO DAILY [facility] Last Admin: 04/13/17 09:57 Dose: 81 mg Atorvastatin Calcium (Lipitor) 20 mg PO DIN [facility] Last Admin: 04/13/17 17:54 Dose: 20 mg Atovaquone (Mepron) 750 mg PO BID [facility] Stop: 04/19/17 18:01 Last Admin: 04/13/17 17:54 Dose: 750 mg Calcium Acetate (Phoslo) 1,334 mg PO WM [facility] Cholecalciferol (Vitamin D) 5,000 iu PO MWF [facility] Last Admin: 04/13/17 09:57 Dose: 5,000 iu Clopidogrel Bisulfate (Plavix) 75 mg PO DAILY [facility] Last Admin: 04/13/17 09:56 Dose: 75 mg Docusate Sodium (Colace) 100 mg PO DAILY [facility] Last Admin: 04/13/17 09:57 Dose: 100 mg Doxycycline Hyclate (Doryx) 100 mg PO Q12 [facility] PRN Reason: Protocol Stop: 04/19/17 22:01 Last Admin: 04/13/17 22:00 Dose: 100 mg Folic Acid (Folic Acid) 1 mg PO DAILY [facility] Last Admin: 04/13/17 10:24 Dose: 1 mg Furosemide (Lasix) 40 mg IVP Q8 [facility] Last Admin: 04/13/17 15:30 Dose: 40 mg Hydralazine HCl (Apresoline) 25 mg PO QID [facility] Last Admin: 04/13/17 22:01 Dose: 25 mg Cefepime HCl (Maxipime 1gm) 1 gm in 100 mls @ 100 mls/hr IVPB Q24H [facility] PRN Reason: Protocol Stop: 04/19/17 10:31 Last Admin: 04/13/17 10:06 Dose: 100 mls/hr Iron Sucrose 200 mg/ Sodium (Chloride) 110 mls @ 110 mls/hr IVPB DAILY [facility] Stop: 04/14/17 10:59 Last Admin: 04/13/17 09:58 Dose: 110 mls/hr Insulin Detemir (Levemir) 30 unit SC QAM [facility] Last Admin: 04/13/17 10:56 Dose: 30 unit Insulin Detemir (Levemir) 20 unit SC HS [facility] Last Admin: 04/13/17 22:01 Dose: 20 unit Insulin Human Regular (Humulin R Low) 0 units SC ACHS [facility] PRN Reason: Protocol Last Admin: 04/13/17 22:02 Dose: Not Given Levalbuterol HCl (Xopenex) 0.63 mg IH [id number] [facility] Last Admin: 04/14/17 01:35 Dose: Not Given Levalbuterol HCl (Xopenex) 0.63 mg IH Q2H PRN PRN Reason: Shortness of Breath Last Admin: 04/13/17 23:43 Dose: 0.63 mg Losartan Potassium (Cozaar) 50 mg PO DAILY [facility] Metoprolol Succinate (Toprol Xl) 50 mg PO DAILY [facility] Last Admin: 04/13/17 09:57 Dose: 50 mg Metoprolol Tartrate (Lopressor) 5 mg IVP Q6H PRN PRN Reason: Systolic Blood Pressure Last Admin: 04/11/17 06:21 Dose: 5 mg Pantoprazole Sodium (Protonix Ec Tab) 40 mg PO 0600 [facility] Last Admin: 04/14/17 05:39 Dose: 40 mg Polyethylene Glycol (Miralax) 17 gm PO BID [facility] Last Admin: 04/13/17 17:54 Dose: 17 gm Prednisone (Prednisone Tab) 10 mg PO QOTHERDAY [facility] Last Admin: 04/12/17 11:26 Dose: 10 mg Sodium Bicarbonate (Sodium Bicarbonate Tab) 1,300 mg PO BID [facility] Last Admin: 04/13/17 17:54 Dose: 1,300 mg - Labs Labs: 04/13/17 06:15 04/13/17 06:15 PT 10.5 Seconds (9.9-11.8) 04/09/17 15:00 INR 0.97 (0.93-1.08) 04/09/17 15:00 APTT 27.4 Seconds (23.7-30.8) 04/09/17 15:00 - Constitutional Appears: Non-toxic, No Acute Distress - Head Exam Head Exam: NORMAL INSPECTION - ENT Exam ENT Exam: Mucous Membranes Moist - Neck Exam Neck Exam: absent: Lymphadenopathy, Meningismus - Respiratory Exam Respiratory Exam: Decreased Breath Sounds, Rales (scattered) - Cardiovascular Exam Cardiovascular Exam: +S1, +S2 - GI/Abdominal Exam GI & Abdominal Exam: Soft. absent: Tenderness Assessment and Plan - Assessment and Plan (Free Text) Plan: Assessment Bilateral healthcare-associated pneumonia with acute bronchitis, slowly improving coagulase negative staph in 1 out of 4 blood cx bottles, probably contamination DM HTN obesity with BMI 32 CAD chronic renal failure history of nephrolithiasis Plan continue Cefepime and Doxycycline (day 5) to complete 4-7 days of therapy; continue systemic steroids and nebulizer treatment repeat blood cx are negative will continue to monitor clinically
--- NOTE | 2017-04-14 10:48 | CP.PCM.DIS ---
<Giovana Esteban - Last Filed: 04/14/17 10:37> Provider - Provider Date of Admission: 04/09/17 15:57 Attending physician: Kobe Prince MD Primary care physician: NO PRIMARY CARE PROVIDER Consults: GI: Azael Heme: Druck ID: [id number] Nephro: Josué Time Spent in preparation of Discharge (in minutes): 35 Hospital Course - Lab Results Lab Results: Micro Results 04/12/17 14:00 Blood-Venous Blood Culture - Preliminary NO GROWTH AFTER 24 HOURS 04/12/17 14:11 Blood-Venous Blood Culture - Preliminary NO GROWTH AFTER 24 HOURS 04/09/17 16:39 Urine Urine Culture - Final No Growth (<1,000 CFU/ML) Most Recent Lab Values WBC 7.0 10^3/ul (4.5-11.0) 04/14/17 06:30 RBC 3.12 10^6/uL (3.5-6.1) L 04/14/17 06:30 Hgb 9.7 g/dL (14.0-18.0) L 04/14/17 06:30 Hct 28.6 % (42.0-52.0) L 04/14/17 06:30 MCV 91.7 fl (80.0-105.0) 04/14/17 06:30 MCH 31.1 pg (25.0-35.0) 04/14/17 06:30 MCHC 33.9 g/dl (31.0-37.0) 04/14/17 06:30 RDW 12.3 % (11.5-14.5) 04/14/17 06:30 Plt Count 241 10^3/uL (120.0-450.0) 04/14/17 06:30 MPV 10.1 fl (7.0-11.0) 04/14/17 06:30 Gran % 68.5 % (50.0-68.0) H 04/11/17 07:10 Lymph % (Auto) 20.3 % (22.0-35.0) L 04/11/17 07:10 [place] % (Auto) 8.3 % (1.0-6.0) H 04/11/17 07:10 Eos % (Auto) 2.7 % (1.5-5.0) 04/11/17 07:10 Baso % (Auto) 0.2 % (0.0-3.0) 04/11/17 07:10 Gran # 6.08 (1.4-6.5) 04/11/17 07:10 Lymph # 1.8 (1.2-3.4) 04/11/17 07:10 [place] # 0.7 (0.1-0.6) H 04/11/17 07:10 Eos # 0.2 (0.0-0.7) 04/11/17 07:10 Baso # 0.02 K/mm3 (0.0-2.0) 04/11/17 07:10 ESR 141 mm/hr (0.00-15.0) H 04/12/17 07:30 Retic Count 1.34 % (0.5-1.5) 04/12/17 06:30 PT 10.5 Seconds (9.9-11.8) 04/09/17 15:00 INR 0.97 (0.93-1.08) 04/09/17 15:00 APTT 27.4 Seconds (23.7-30.8) 04/09/17 15:00 D-Dimer, Quantitative 1.74 mg/L FEU (0-0.50) H 04/10/17 12:03 pCO2 23 mm/Hg (35-45) L 04/09/17 16:15 pO2 71.0 mm/Hg (80-100) L 04/09/17 16:15 HCO3 13.6 mmol/L (21-28) L 04/09/17 16:15 ABG pH 7.38 (7.35-7.45) 04/09/17 16:15 ABG Total CO2 14.3 mmol.L (22-28) L 04/09/17 16:15 ABG O2 Saturation 97.9 % (95-98) 04/09/17 16:15 ABG O2 Content 12.3 ML/dl (15-23) L 04/09/17 16:15 ABG Base Excess -10.1 mmol/L (-2.0-3.0) L 04/09/17 16:15 ABG Hemoglobin 9.0 g/dL (11.7-17.4) L 04/09/17 16:15 ABG Carboxyhemoglobin 1.5 % (0.5-1.5) 04/09/17 16:15 POC ABG HHb (Measured) 2.1 % (0-5) 04/09/17 16:15 ABG Methemoglobin 0.0 % (0.0-3.0) 04/09/17 16:15 ABG O2 Capacity 12.6 mL/dl (16-24) L 04/09/17 16:15 VBG pH 7.32 (7.32-7.43) 04/09/17 14:45 VBG pCO2 31.0 (40-60) L 04/09/17 14:45 VBG HCO3 16.0 mmol/l (21-28) L 04/09/17 14:45 VBG Total CO2 17.0 mmol.L (22-28) L 04/09/17 14:45 VBG O2 Sat (Calc) 97.2 % (40-65) H 04/09/17 14:45 VBG Base Excess -8.9 mmol/L (0.0-2.0) L 04/09/17 14:45 VBG Potassium 4.4 mmol/L (3.6-5.2) 04/09/17 14:45 Hgb O2 Saturation 96.4 % (95.0-98.0) 04/09/17 16:15 Sodium 138.0 mmol/L (132-148) 04/09/17 14:45 Chloride 112.0 mmol/L (98-107) H 04/09/17 14:45 Glucose 253 mg/dl (75-110) H 04/09/17 14:45 Lactate 0.9 mmol/L (0.7-2.1) 04/09/17 14:45 FiO2 21.0 % 04/09/17 16:15 Sodium 140 mmol/L (132-148) 04/14/17 06:30 Potassium 3.7 mmol/L (3.6-5.0) 04/14/17 06:30 Chloride 107 mmol/L (95-110) 04/14/17 06:30 Carbon Dioxide 24 mmol/L (21-33) 04/14/17 06:30 Anion Gap 13 (10-20) 04/14/17 06:30 BUN 71 mg/dL (7-21) H 04/14/17 06:30 Creatinine 3.5 mg/dL (0.5-1.4) H 04/14/17 06:30 Est GFR ( Amer) 22 04/14/17 06:30 Est GFR (Non-Af Amer) 18 04/14/17 06:30 POC Glucose (mg/dL) 114 mg/dL (65-110) H 04/14/17 07:16 Random Glucose 85 mg/dL (70-110) 04/14/17 06:30 Hemoglobin A1c 7.5 % (4.2-6.5) H 04/11/17 07:20 Calcium 8.5 mg/dL (8.4-10.5) 04/14/17 06:30 Phosphorus 6.3 mg/dL (2.5-4.5) H 04/14/17 06:30 Magnesium 1.8 mg/dL (1.7-2.2) 04/14/17 06:30 Iron 45 ug/dL (45-180) 04/12/17 08:30 TIBC 268 ug/dL (261-462) 04/12/17 08:30 % Saturation 17 % (20-55) L 04/12/17 08:30 Transferrin 231.38 mg/dL (206-381) 04/12/17 08:30 Erythropoietin 10.4 mIU/mL (2.6-18.5) 04/12/17 08:30 Ferritin 236.0 ng/mL 04/12/17 08:30 Total Bilirubin 0.3 mg/dL (0.2-1.3) 04/14/17 06:30 Direct Bilirubin 0.3 mg/dL (0.0-0.4) 04/14/17 06:30 AST 33 U/L (15-59) 04/14/17 06:30 ALT 50 U/L (7-56) 04/14/17 06:30 Alkaline Phosphatase 89 U/L (38-133) 04/14/17 06:30 Lactate Dehydrogenase 832 U/L (333-699) H 04/09/17 15:00 Total Creatine Kinase 476 U/L (35-230) H 04/09/17 15:00 CK-MB (CK-2) 4.5 ng/mL (0.0-3.6) H 04/09/17 15:00 CK-MB (CK-2) % Cancelled 04/09/17 15:00 Troponin I 0.07 ng/mL D 04/09/17 15:00 C-React Prot High Sens > 15.00 mg/L (1.00-3.00) H 04/13/17 10:52 NT-Pro-B Natriuret Pep 2900 pg/mL (0-450) H 04/09/17 15:00 Total Protein 6.1 g/dL (5.8-8.3) 04/14/17 06:30 Albumin 3.0 g/dL (3.0-4.8) 04/14/17 06:30 Globulin 3.1 gm/dL 04/14/17 06:30 Albumin/Globulin Ratio 0.9 (1.1-1.8) L 04/14/17 06:30 Triglycerides 280 mg/dL (35-160) H 04/11/17 07:10 Cholesterol 230 mg/dL (130-200) H 04/11/17 07:10 LDL Cholesterol Direct 112 mg/dL (0-129) 04/11/17 07:10 HDL Cholesterol 41 mg/dL (29-60) 04/11/17 07:10 Vitamin B12 913 pg/mL (239-931) 04/12/17 08:30 Folate > 20.0 ng/mL 04/12/17 08:30 Procalcitonin 0.44 NG/ML (0.19-0.49) 04/10/17 12:03 TSH 3rd Generation 1.30 mIU/mL (0.46-4.68) 04/11/17 07:10 Venous Blood Potassium 4.4 mmol/L (3.6-5.2) 04/09/17 14:45 Urine Color Yellow (YELLOW) 04/09/17 16:39 Urine Appearance Clear (CLEAR) 04/09/17 16:39 Urine pH 6.0 (4.7-8.0) 04/09/17 16:39 Ur Specific [place] 1.025 (1.005-1.035) 04/09/17 16:39 Urine Protein >=300 mg/dL (<30 mg/dL) H 04/09/17 16:39 Urine Glucose (UA) >=1000 mg/dL (NEGATIVE) 04/09/17 16:39 Urine Ketones Negative mg/dL (NEGATIVE) 04/09/17 16:39 Urine Blood Moderate (NEGATIVE) H 04/09/17 16:39 Urine Nitrate Negative (NEGATIVE) 04/09/17 16:39 Urine Bilirubin Negative (NEGATIVE) 04/09/17 16:39 Urine Urobilinogen 0.2 E.U./dL (<1 E.U./dL) 04/09/17 16:39 Ur Leukocyte Esterase Negative Nadine/uL (NEGATIVE) 04/09/17 16:39 Urine RBC 2 - 5 /hpf (0-2) 04/09/17 16:39 Urine WBC 2 - 5 /hpf (0-6) 04/09/17 16:39 Ur Epithelial Cells 1 - 3 /hpf (0-5) 04/09/17 16:39 Urine Bacteria Few (NEG) 04/09/17 16:39 U Random Total Protein 8036 mg/g creat (22-128) H 04/10/17 20:50 Cyclosporine 59.2 mcg/L L 04/10/17 12:03 Complement C3 162.0 mg/dL (88.0-165.0) 04/10/17 12:03 Complement C4 32.6 mg/dL (14.0-44.0) 04/10/17 12:03 Hepatitis A IgM Ab Negative (NEGATIVE) 04/13/17 06:15 Hep Bs Antigen Negative (NEGATIVE) 04/13/17 06:15 Hep B Core IgM Ab Negative (NEGATIVE) 04/13/17 06:15 Hepatitis C Antibody Negative (NEGATIVE) 04/13/17 06:15 Ur L.pneumophila Ag Negative (NEGATIVE) 04/10/17 03:30 Beta-(1,3)-D-Glucan <31 pg/mL 04/10/17 12:03 B-(1,3)-D-Glucan Intrp Negative 04/10/17 12:03 - Hospital Course Hospital Course: This is a 56Y M with PMH of DM, HTN, CKD, CAD and immune deficiency admitted for SOB secondary to pneumonia. ID was consulted for the pneumonia. Patient was placed on antibiotics and improved. Chest CT showed bronchitis/early pneumonia bibasilar. Patient was also on nebulizer as well. Of note, patient had one positive blood culture. This could have been secondary to contamination. Repeat blood cultures were negative. Septic work up was negative. He was also noted to have anemia which was found to be anemia of chronic disease. GI was consulted said patient's previous colonoscopy was negative, but recommends outpatient colonoscopy. He also had transaminitis which resolved, hep panel was negative, He was also noted to have an episode of V.tach. Echo showed showed EF 55-60%, mild- mod aortic stenosis, Mild MR, TR. He had a stress test which was also negative. Cardiology was consulted and recommended to continue current medications as well as diet and exercise. 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 He sees Josué regularly. Dr. Moses recommended patient can be d/c home and continue his home medications. He has an appointment with Josué on next Tuesday. As per ID, patient will be d/c on Vantin and Doxycycline for 5 more days. He will follow up with Dr. Prince (PMD) next week. Medications as per OCT. - Date & Time of H&P Date of H&P: 04/09/17 Time of H&P: 21:00 Discharge Exam - Head Exam Head Exam: NORMAL INSPECTION - Eye Exam Eye Exam: Normal appearance, PERRL Pupil Exam: NORMAL ACCOMODATION - ENT Exam ENT Exam: Mucous Membranes Moist - Respiratory Exam Respiratory Exam: Rhonchi (diffuse but improved), NORMAL BREATHING PATTERN. absent: Wheezes, Respiratory Distress - Cardiovascular Exam Cardiovascular Exam: REGULAR RHYTHM, +S1, +S2. absent: Gallop, Rubs, Systolic Murmur - GI/Abdominal Exam GI & Abdominal Exam: Normal Bowel Sounds, Soft, Unremarkable. absent: Guarding , Mass, Rebound, Rigid, Tenderness - Extremities Exam Extremities exam: normal inspection - Neurological Exam Neurological exam: Alert, CN II-XII Intact, Normal Gait, Oriented x3 - Psychiatric Exam Psychiatric exam: Normal Affect, Normal Mood - Skin Skin Exam: Dry, Intact, Normal Color, Warm Discharge Plan - Discharge Medications Prescriptions: Acetylcysteine 20% 4 ml IH [id number] #60 Losartan [Cozaar] 50 mg PO DAILY #30 tab Doxycycline Hyclate [Doryx] 100 mg PO BID #10 cap Doxycycline Hyclate [Doryx] 100 mg PO Q12 #10 cap Atovaquone [Mepron] 750 mg PO BID #14 packet Polyethylene Glycol 3350 [Miralax] 17 gm PO BID #120 packet Calcium Acetate [Phoslo] 1,334 mg PO WM #120 tab Sodium Bicarbonate Tab 1,300 mg PO BID #120 tab Cefpodoxime [Vantin] 200 mg PO BID #10 tab Levalbuterol [Xopenex] 0.63 mg IH [id number] #120 - Follow Up Plan Condition: SERIOUS Disposition: HOME/ ROUTINE Instructions: Heart Failure (DC), Viral Pneumonia (DC) Additional Instructions: DISCHARGE HOME FOLLOW UP , , WITHIN 1 WEEK DISCHARGE MEDS PER UPDATED AMBULATORY ORDERS. COPY OF RENAL, MODERATE CARB, LOW CHOLESTEROL DIET TO PATIENT UPON DISCHARGE. Referrals: Alli Yun MD [Medical Doctor] - Kobe Prince MD [Staff Provider] - 1 Week (DISCHARGE HOME FOLLOW UP , , WITHIN 1 WEEK DISCHARGE MEDS PER UPDATED AMBULATORY ORDERS. COPY OF RENAL, MODERATE CARB, LOW CHOLESTEROL DIET TO PATIENT UPON DISCHARGE.) Derek Addison MD [Staff Provider] - <Kobe Prince - Last Filed: 05/11/17 21:17> Provider - Provider Date of Admission: 04/09/17 15:57 Attending physician: Kobe Prince MD Primary care physician: NO PRIMARY CARE PROVIDER Hospital Course - Lab Results Lab Results: Micro Results 04/12/17 14:00 Blood-Venous Blood Culture - Final NO GROWTH AFTER 5 DAYS 04/12/17 14:00 Blood-Venous Gram Stain - Final TEST NOT PERFORMED 04/12/17 14:11 Blood-Venous Blood Culture - Final NO GROWTH AFTER 5 DAYS 04/12/17 14:11 Blood-Venous Gram Stain - Final TEST NOT PERFORMED 04/09/17 16:39 Urine Urine Culture - Final No Growth (<1,000 CFU/ML) Most Recent Lab Values WBC 7.0 10^3/ul (4.5-11.0) 04/14/17 06:30 RBC 3.12 10^6/uL (3.5-6.1) L 04/14/17 06:30 Hgb 9.7 g/dL (14.0-18.0) L 04/14/17 06:30 Hct 28.6 % (42.0-52.0) L 04/14/17 06:30 MCV 91.7 fl (80.0-105.0) 04/14/17 06:30 MCH 31.1 pg (25.0-35.0) 04/14/17 06:30 MCHC 33.9 g/dl (31.0-37.0) 04/14/17 06:30 RDW 12.3 % (11.5-14.5) 04/14/17 06:30 Plt Count 241 10^3/uL (120.0-450.0) 04/14/17 06:30 MPV 10.1 fl (7.0-11.0) 04/14/17 06:30 Gran % 68.5 % (50.0-68.0) H 04/11/17 07:10 Lymph % (Auto) 20.3 % (22.0-35.0) L 04/11/17 07:10 [place] % (Auto) 8.3 % (1.0-6.0) H 04/11/17 07:10 Eos % (Auto) 2.7 % (1.5-5.0) 04/11/17 07:10 Baso % (Auto) 0.2 % (0.0-3.0) 04/11/17 07:10 Gran # 6.08 (1.4-6.5) 04/11/17 07:10 Lymph # 1.8 (1.2-3.4) 04/11/17 07:10 [place] # 0.7 (0.1-0.6) H 04/11/17 07:10 Eos # 0.2 (0.0-0.7) 04/11/17 07:10 Baso # 0.02 K/mm3 (0.0-2.0) 04/11/17 07:10 ESR 141 mm/hr (0.00-15.0) H 04/12/17 07:30 Retic Count 1.34 % (0.5-1.5) 04/12/17 06:30 PT 10.5 Seconds (9.9-11.8) 04/09/17 15:00 INR 0.97 (0.93-1.08) 04/09/17 15:00 APTT 27.4 Seconds (23.7-30.8) 04/09/17 15:00 D-Dimer, Quantitative 1.74 mg/L FEU (0-0.50) H 04/10/17 12:03 pCO2 23 mm/Hg (35-45) L 04/09/17 16:15 pO2 71.0 mm/Hg (80-100) L 04/09/17 16:15 HCO3 13.6 mmol/L (21-28) L 04/09/17 16:15 ABG pH 7.38 (7.35-7.45) 04/09/17 16:15 ABG Total CO2 14.3 mmol.L (22-28) L 04/09/17 16:15 ABG O2 Saturation 97.9 % (95-98) 04/09/17 16:15 ABG O2 Content 12.3 ML/dl (15-23) L 04/09/17 16:15 ABG Base Excess -10.1 mmol/L (-2.0-3.0) L 04/09/17 16:15 ABG Hemoglobin 9.0 g/dL (11.7-17.4) L 04/09/17 16:15 ABG Carboxyhemoglobin 1.5 % (0.5-1.5) 04/09/17 16:15 POC ABG HHb (Measured) 2.1 % (0-5) 04/09/17 16:15 ABG Methemoglobin 0.0 % (0.0-3.0) 04/09/17 16:15 ABG O2 Capacity 12.6 mL/dl (16-24) L 04/09/17 16:15 VBG pH 7.32 (7.32-7.43) 04/09/17 14:45 VBG pCO2 31.0 (40-60) L 04/09/17 14:45 VBG HCO3 16.0 mmol/l (21-28) L 04/09/17 14:45 VBG Total CO2 17.0 mmol.L (22-28) L 04/09/17 14:45 VBG O2 Sat (Calc) 97.2 % (40-65) H 04/09/17 14:45 VBG Base Excess -8.9 mmol/L (0.0-2.0) L 04/09/17 14:45 VBG Potassium 4.4 mmol/L (3.6-5.2) 04/09/17 14:45 Hgb O2 Saturation 96.4 % (95.0-98.0) 04/09/17 16:15 Sodium 138.0 mmol/L (132-148) 04/09/17 14:45 Chloride 112.0 mmol/L (98-107) H 04/09/17 14:45 Glucose 253 mg/dl (75-110) H 04/09/17 14:45 Lactate 0.9 mmol/L (0.7-2.1) 04/09/17 14:45 FiO2 21.0 % 04/09/17 16:15 Sodium 140 mmol/L (132-148) 04/14/17 06:30 Potassium 3.7 mmol/L (3.6-5.0) 04/14/17 06:30 Chloride 107 mmol/L (95-110) 04/14/17 06:30 Carbon Dioxide 24 mmol/L (21-33) 04/14/17 06:30 Anion Gap 13 (10-20) 04/14/17 06:30 BUN 71 mg/dL (7-21) H 04/14/17 06:30 Creatinine 3.5 mg/dL (0.5-1.4) H 04/14/17 06:30 Est GFR ( Amer) 22 04/14/17 06:30 Est GFR (Non-Af Amer) 18 04/14/17 06:30 POC Glucose (mg/dL) 232 mg/dL (65-110) H 04/14/17 11:31 Random Glucose 85 mg/dL (70-110) 04/14/17 06:30 Hemoglobin A1c 7.5 % (4.2-6.5) H 04/11/17 07:20 Calcium 8.5 mg/dL (8.4-10.5) 04/14/17 06:30 Phosphorus 6.3 mg/dL (2.5-4.5) H 04/14/17 06:30 Magnesium 1.8 mg/dL (1.7-2.2) 04/14/17 06:30 Iron 45 ug/dL (45-180) 04/12/17 08:30 TIBC 268 ug/dL (261-462) 04/12/17 08:30 % Saturation 17 % (20-55) L 04/12/17 08:30 Transferrin 231.38 mg/dL (206-381) 04/12/17 08:30 Erythropoietin 10.4 mIU/mL (2.6-18.5) 04/12/17 08:30 Ferritin 236.0 ng/mL 04/12/17 08:30 Total Bilirubin 0.3 mg/dL (0.2-1.3) 04/14/17 06:30 Direct Bilirubin 0.3 mg/dL (0.0-0.4) 04/14/17 06:30 AST 33 U/L (15-59) 04/14/17 06:30 ALT 50 U/L (7-56) 04/14/17 06:30 Alkaline Phosphatase 89 U/L (38-133) 04/14/17 06:30 Lactate Dehydrogenase 832 U/L (333-699) H 04/09/17 15:00 Total Creatine Kinase 476 U/L (35-230) H 04/09/17 15:00 CK-MB (CK-2) 4.5 ng/mL (0.0-3.6) H 04/09/17 15:00 CK-MB (CK-2) % Cancelled 04/09/17 15:00 Troponin I 0.07 ng/mL D 04/09/17 15:00 C-React Prot High Sens > 15.00 mg/L (1.00-3.00) H 04/13/17 10:52 NT-Pro-B Natriuret Pep 2900 pg/mL (0-450) H 04/09/17 15:00 Total Protein 6.1 g/dL (5.8-8.3) 04/14/17 06:30 Albumin 3.0 g/dL (3.0-4.8) 04/14/17 06:30 Globulin 3.1 gm/dL 04/14/17 06:30 Albumin/Globulin Ratio 0.9 (1.1-1.8) L 04/14/17 06:30 Triglycerides 280 mg/dL (35-160) H 04/11/17 07:10 Cholesterol 230 mg/dL (130-200) H 04/11/17 07:10 LDL Cholesterol Direct 112 mg/dL (0-129) 04/11/17 07:10 HDL Cholesterol 41 mg/dL (29-60) 04/11/17 07:10 Vitamin B12 913 pg/mL (239-931) 04/12/17 08:30 25-OH Vitamin D Total 13.0 NG/ML (30.0-100.0) L 04/14/17 06:30 Folate > 20.0 ng/mL 04/12/17 08:30 Procalcitonin 0.44 NG/ML (0.19-0.49) 04/10/17 12:03 TSH 3rd Generation 1.30 mIU/mL (0.46-4.68) 04/11/17 07:10 PTH Intact Whole Molec 81 pg/mL (14-64) H 04/13/17 10:58 Venous Blood Potassium 4.4 mmol/L (3.6-5.2) 04/09/17 14:45 Urine Color Yellow (YELLOW) 04/09/17 16:39 Urine Appearance Clear (CLEAR) 04/09/17 16:39 Urine pH 6.0 (4.7-8.0) 04/09/17 16:39 Ur Specific [place] 1.025 (1.005-1.035) 04/09/17 16:39 Urine Protein >=300 mg/dL (<30 mg/dL) H 04/09/17 16:39 Urine Glucose (UA) >=1000 mg/dL (NEGATIVE) 04/09/17 16:39 Urine Ketones Negative mg/dL (NEGATIVE) 04/09/17 16:39 Urine Blood Moderate (NEGATIVE) H 04/09/17 16:39 Urine Nitrate Negative (NEGATIVE) 04/09/17 16:39 Urine Bilirubin Negative (NEGATIVE) 04/09/17 16:39 Urine Urobilinogen 0.2 E.U./dL (<1 E.U./dL) 04/09/17 16:39 Ur Leukocyte Esterase Negative Nadine/uL (NEGATIVE) 04/09/17 16:39 Urine RBC 2 - 5 /hpf (0-2) 04/09/17 16:39 Urine WBC 2 - 5 /hpf (0-6) 04/09/17 16:39 Ur Epithelial Cells 1 - 3 /hpf (0-5) 04/09/17 16:39 Urine Bacteria Few (NEG) 04/09/17 16:39 U Random Total Protein 8036 mg/g creat (22-128) H 04/10/17 20:50 Cyclosporine 59.2 mcg/L L 04/10/17 12:03 Rheumatoid Factor 12 IU/mL (<14) 04/13/17 10:52 RICK Screen Negative (Negative) 04/13/17 10:52 Complement C3 162.0 mg/dL (88.0-165.0) 04/10/17 12:03 Complement C4 32.6 mg/dL (14.0-44.0) 04/10/17 12:03 Hepatitis A IgM Ab Negative (NEGATIVE) 04/13/17 06:15 Hep Bs Antigen Negative (NEGATIVE) 04/13/17 06:15 Hep B Core IgM Ab Negative (NEGATIVE) 04/13/17 06:15 Hepatitis C Antibody Negative (NEGATIVE) 04/13/17 06:15 Ur L.pneumophila Ag Negative (NEGATIVE) 04/10/17 03:30 Beta-(1,3)-D-Glucan <31 pg/mL 04/10/17 12:03 B-(1,3)-D-Glucan Intrp Negative 04/10/17 12:03 Attending/Attestation - Attestation I have personally seen and examined this patient.: Yes I have fully participated in the care of the patient.: Yes I have reviewed all pertinent clinical information, including history, physical exam and plan: Yes
[2017-04-14] MEDS: Metoprolol Succinate 50 mg XL Tab PO SCH (11:27)
[2017-04-14] MEDS: Cefepime 1gm in NS 100ml 1 GM/100 ML BAG IVPB SCH (11:28)
[2017-04-14] MEDS: POLYETHYLENE GLYCOL 3350 17 GM/Dose PACKET PO SCH (11:29)
[2017-04-14] MEDS: Atovaquone 750 mg/5 ml Susp UD PO SCH (11:29)
[2017-04-14 11:31] VITALS: BP 124/79
--- NOTE | 2017-04-14 11:39 | CP.PCM.PN ---
<SherifYin - Last Filed: 04/14/17 11:35> Subjective - Date & Time of Evaluation Date of Evaluation: 04/14/17 Time of Evaluation: 11:35 - Subjective Subjective: Gastroenterology Fellow/PGY5 Progress Note Patient denies abdominal pain. Tolerating regular diet. Bowel movement yesterday. 12-point review of systems negative except for as above. Objective - Vital Signs/Intake and Output Vital Signs (last 24 hours): Temp Pulse Resp BP Pulse Ox 98.5 F 102 H 20 124/79 95 04/14/17 06:00 04/14/17 11:27 04/14/17 06:00 04/14/17 11:27 04/14/17 06:00 Intake and Output: 04/14/17 04/14/17 06:59 18:59 Intake Total 120 Balance 120 - Medications Medications: Current Medications Acetylcysteine (Acetylcysteine 20%) 4 ml IH [id number] [facility] Last Admin: 04/14/17 08:03 Dose: 4 ml Aspirin (Ecotrin) 81 mg PO DAILY [facility] Last Admin: 04/14/17 11:27 Dose: 81 mg Atorvastatin Calcium (Lipitor) 20 mg PO DIN [facility] Last Admin: 04/13/17 17:54 Dose: 20 mg Atovaquone (Mepron) 750 mg PO BID [facility] Stop: 04/19/17 18:01 Last Admin: 04/14/17 11:29 Dose: 750 mg Calcium Acetate (Phoslo) 1,334 mg PO WM [facility] Last Admin: 04/14/17 08:52 Dose: 1,334 mg Cholecalciferol (Vitamin D) 5,000 iu PO MWF [facility] Last Admin: 04/13/17 09:57 Dose: 5,000 iu Clopidogrel Bisulfate (Plavix) 75 mg PO DAILY [facility] Last Admin: 04/14/17 11:26 Dose: 75 mg Docusate Sodium (Colace) 100 mg PO DAILY [facility] Last Admin: 04/14/17 11:26 Dose: 100 mg Doxycycline Hyclate (Doryx) 100 mg PO Q12 [facility] PRN Reason: Protocol Stop: 04/19/17 22:01 Last Admin: 04/14/17 11:26 Dose: 100 mg Folic Acid (Folic Acid) 1 mg PO DAILY [facility] Last Admin: 04/14/17 11:27 Dose: 1 mg Furosemide (Lasix) 40 mg IVP Q8 [facility] Last Admin: 04/13/17 15:30 Dose: 40 mg Hydralazine HCl (Apresoline) 25 mg PO QID [facility] Last Admin: 04/14/17 11:27 Dose: 25 mg Cefepime HCl (Maxipime 1gm) 1 gm in 100 mls @ 100 mls/hr IVPB Q24H [facility] PRN Reason: Protocol Stop: 04/19/17 10:31 Last Admin: 04/14/17 11:28 Dose: 100 mls/hr Insulin Detemir (Levemir) 30 unit SC QAM [facility] Last Admin: 04/13/17 10:56 Dose: 30 unit Insulin Detemir (Levemir) 20 unit SC HS [facility] Last Admin: 04/13/17 22:01 Dose: 20 unit Insulin Human Regular (Humulin R Low) 0 units SC ACHS [facility] PRN Reason: Protocol Last Admin: 04/14/17 08:50 Dose: Not Given Levalbuterol HCl (Xopenex) 0.63 mg IH [id number] [facility] Last Admin: 04/14/17 08:03 Dose: 0.63 mg Levalbuterol HCl (Xopenex) 0.63 mg IH Q2H PRN PRN Reason: Shortness of Breath Last Admin: 04/13/17 23:43 Dose: 0.63 mg Losartan Potassium (Cozaar) 50 mg PO DAILY [facility] Last Admin: 04/14/17 11:26 Dose: 50 mg Metoprolol Succinate (Toprol Xl) 50 mg PO DAILY [facility] Last Admin: 04/14/17 11:27 Dose: 50 mg Metoprolol Tartrate (Lopressor) 5 mg IVP Q6H PRN PRN Reason: Systolic Blood Pressure Last Admin: 04/11/17 06:21 Dose: 5 mg Pantoprazole Sodium (Protonix Ec Tab) 40 mg PO 0600 [facility] Last Admin: 04/14/17 05:39 Dose: 40 mg Polyethylene Glycol (Miralax) 17 gm PO BID [facility] Last Admin: 04/14/17 11:29 Dose: 17 gm Prednisone (Prednisone Tab) 10 mg PO QOTHERDAY [facility] Last Admin: 04/14/17 11:29 Dose: 10 mg Sodium Bicarbonate (Sodium Bicarbonate Tab) 1,300 mg PO BID [facility] Last Admin: 04/14/17 11:26 Dose: 1,300 mg - Labs Labs: 04/14/17 06:30 04/14/17 06:30 PT 10.5 Seconds (9.9-11.8) 04/09/17 15:00 INR 0.97 (0.93-1.08) 04/09/17 15:00 APTT 27.4 Seconds (23.7-30.8) 04/09/17 15:00 - Constitutional Appears: Non-toxic, No Acute Distress - Head Exam Head Exam: ATRAUMATIC, NORMOCEPHALIC - Eye Exam Eye Exam: EOMI, PERRL Pupil Exam: PERRL. absent: Miosis, Mydriatic - ENT Exam ENT Exam: Mucous Membranes Moist, Normal Oropharynx - Neck Exam Neck Exam: Full ROM, Normal Inspection - Respiratory Exam Respiratory Exam: Clear to Ausculation Bilateral. absent: Rales, Rhonchi, Wheezes - Cardiovascular Exam Cardiovascular Exam: RRR, +S1. absent: Gallop, Rubs - GI/Abdominal Exam GI & Abdominal Exam: Soft, Normal Bowel Sounds. absent: Distended, Firm, Guarding, Rigid, Tenderness, Organomegaly, Rebound - Extremities Exam Extremities Exam: Normal Inspection. absent: Pedal Edema - Neurological Exam Neurological Exam: Alert, Awake - Psychiatric Exam Psychiatric exam: Normal Affect, Normal Mood - Skin Skin Exam: Dry, Intact, Normal Color, Warm Assessment and Plan - Assessment and Plan (Free Text) Assessment: 56 year old male with history of prior polysubstance abuse, CAD s/p stents, CKD , and membranous nephropathy presenting with cough. Active treatment of HCAP with GI consultation for anemia. Prior EGD and colonoscopy over five years ago endorsed to be normal. Plan: >H/H stable >no overt GI blood loss >tolerating diet >outpatient EGD /colonoscopy once medically optimized and pulmonary status improved >will require cardiac clearance to hold Plavix for elective endoscopy evaluation >thank you for opportunity to participate in the care of this patient. Contact with questions or concerns. <Basil Steele - Last Filed: 04/14/17 11:50> Objective - Vital Signs/Intake and Output Vital Signs (last 24 hours): Temp Pulse Resp BP Pulse Ox 98.5 F 102 H 20 124/79 95 04/14/17 06:00 04/14/17 11:27 04/14/17 06:00 04/14/17 11:27 04/14/17 06:00 Intake and Output: 04/14/17 04/14/17 06:59 18:59 Intake Total 120 Balance 120 - Medications Medications: Current Medications Acetylcysteine (Acetylcysteine 20%) 4 ml IH [id number] [facility] Last Admin: 04/14/17 08:03 Dose: 4 ml Aspirin (Ecotrin) 81 mg PO DAILY [facility] Last Admin: 04/14/17 11:27 Dose: 81 mg Atorvastatin Calcium (Lipitor) 20 mg PO DIN [facility] Last Admin: 04/13/17 17:54 Dose: 20 mg Atovaquone (Mepron) 750 mg PO BID [facility] Stop: 04/19/17 18:01 Last Admin: 04/14/17 11:29 Dose: 750 mg Calcium Acetate (Phoslo) 1,334 mg PO WM [facility] Last Admin: 04/14/17 08:52 Dose: 1,334 mg Cholecalciferol (Vitamin D) 5,000 iu PO MWF [facility] Last Admin: 04/13/17 09:57 Dose: 5,000 iu Clopidogrel Bisulfate (Plavix) 75 mg PO DAILY [facility] Last Admin: 04/14/17 11:26 Dose: 75 mg Docusate Sodium (Colace) 100 mg PO DAILY [facility] Last Admin: 04/14/17 11:26 Dose: 100 mg Doxycycline Hyclate (Doryx) 100 mg PO Q12 [facility] PRN Reason: Protocol Stop: 04/19/17 22:01 Last Admin: 04/14/17 11:26 Dose: 100 mg Folic Acid (Folic Acid) 1 mg PO DAILY [facility] Last Admin: 04/14/17 11:27 Dose: 1 mg Furosemide (Lasix) 40 mg IVP Q8 [facility] Last Admin: 04/13/17 15:30 Dose: 40 mg Hydralazine HCl (Apresoline) 25 mg PO QID [facility] Last Admin: 04/14/17 11:27 Dose: 25 mg Cefepime HCl (Maxipime 1gm) 1 gm in 100 mls @ 100 mls/hr IVPB Q24H [facility] PRN Reason: Protocol Stop: 04/19/17 10:31 Last Admin: 04/14/17 11:28 Dose: 100 mls/hr Insulin Detemir (Levemir) 30 unit SC QAM [facility] Last Admin: 04/13/17 10:56 Dose: 30 unit Insulin Detemir (Levemir) 20 unit SC HS [facility] Last Admin: 04/13/17 22:01 Dose: 20 unit Insulin Human Regular (Humulin R Low) 0 units SC ACHS [facility] PRN Reason: Protocol Last Admin: 04/14/17 08:50 Dose: Not Given Levalbuterol HCl (Xopenex) 0.63 mg IH [id number] [facility] Last Admin: 04/14/17 08:03 Dose: 0.63 mg Levalbuterol HCl (Xopenex) 0.63 mg IH Q2H PRN PRN Reason: Shortness of Breath Last Admin: 04/13/17 23:43 Dose: 0.63 mg Losartan Potassium (Cozaar) 50 mg PO DAILY [facility] Last Admin: 04/14/17 11:26 Dose: 50 mg Metoprolol Succinate (Toprol Xl) 50 mg PO DAILY [facility] Last Admin: 04/14/17 11:27 Dose: 50 mg Metoprolol Tartrate (Lopressor) 5 mg IVP Q6H PRN PRN Reason: Systolic Blood Pressure Last Admin: 04/11/17 06:21 Dose: 5 mg Pantoprazole Sodium (Protonix Ec Tab) 40 mg PO 0600 [facility] Last Admin: 04/14/17 05:39 Dose: 40 mg Polyethylene Glycol (Miralax) 17 gm PO BID [facility] Last Admin: 04/14/17 11:29 Dose: 17 gm Prednisone (Prednisone Tab) 10 mg PO QOTHERDAY [facility] Last Admin: 04/14/17 11:29 Dose: 10 mg Sodium Bicarbonate (Sodium Bicarbonate Tab) 1,300 mg PO BID [facility] Last Admin: 04/14/17 11:26 Dose: 1,300 mg - Labs Labs: 04/14/17 06:30 04/14/17 06:30 PT 10.5 Seconds (9.9-11.8) 04/09/17 15:00 INR 0.97 (0.93-1.08) 04/09/17 15:00 APTT 27.4 Seconds (23.7-30.8) 04/09/17 15:00 Attending/Attestation - Attestation I have personally seen and examined this patient.: Yes I have fully participated in the care of the patient.: Yes I have reviewed all pertinent clinical information, including history, physical exam and plan: Yes Notes (Text): 04/14/17 11:49 56 year old male with h/o substance abuse, cad s/p stents, on plavix with chronic anemia without bleeding. 1. Anemia Plan: -recommend outpatient egd/colonoscopcy when he can stop plavix for 5-7 days preop -advised re: possible etiologies of anemia including malignancy and he agrees to pursue evaluation
[2017-04-14] MEDS: Insulin Detemir 100 units/ml Vial (Levemir) SC SCH (11:54)
[2017-04-14 12:22] VITALS: PULSE 94; TEMP 97.8
--- NOTE | 2017-04-14 21:14 | DS ---
HISTORY OF PRESENT ILLNESS: The patient is seen ambulating in the [facility] where the patient is accompanied by his . The patient states that all his symptoms since the day of admission when he presented on with cough and shortness of breath, sneezing and coughing symptoms have improved. The patient's overnight nurses' notes were reviewed. The patient is seen and examined with the registered medical transcriptionist. PHYSICAL EXAMINATION: VITAL SIGNS: T-max 98.6, telemetry shows sinus rhythm, heart rate in the 70s, 80s, blood pressure 143/72, 157/84, 132/66, respiration 20, O2 saturation is 95%. HEENT: Head examination is normocephalic, atraumatic. HEENT examination shows pinkish pale conjunctivae, anicteric sclerae. No oropharyngeal lesion. NECK: No neck rigidity. CHEST: Kyphosis. LUNGS: Examination shows significant improvement in rhonchi, crackles and rales. The patient has significantly reduced rales, rhonchi and crackles. No wheezing. CARDIOVASCULAR: Shows S1 and S2, regular rhythm. ABDOMEN: Obese, protuberant. Positive bowel sounds. GENITALIA: Male. RECTAL: Deferred. EXTREMITIES: Show significantly reduced pitting edema of the lower extremities, down to less than 1+ pitting edema as compared to 2+ pitting edema yesterday. MUSCULOSKELETAL: Shows a body mass index of 32.5. NEUROLOGIC: Cranial nerves II through XII intact. Gait examination is independent. DIAGNOSTICS: April 14: WBC 7.0, hemoglobin and hematocrit are 9.7 and 28.6, platelets 241. ESR is 141. Sodium 140, potassium 3.7, chloride 107, CO2 of 24, anion gap 13, BUN 71, creatinine 3.5, GFR is 22. Glucose 114, 245, 85, 188, 251, 103. Phosphorus 6.3. C-reactive protein is greater than 15. Hepatitis A, B and C serologies are negative. Urine, Legionella and pneumophila was negative. Repeat blood cultures are negative. Home IV milrinone. FINAL IMPRESSION, PLAN AND DISCHARGE DIAGNOSES: 1. Bilateral healthcare-associated pneumonia with acute bronchitis. 2. Coagulase-negative Staphylococcus aureus bacteremia versus contamination. 3. Morbid obesity. 4. Hypertension. 5. Tachycardia. 6. Normocytic iron deficiency anemia. 7. Chronic kidney disease, stage IIIB/IV. 8. Elevated C-reactive protein of greater than 15. 9. Transaminitis. 10. Hypercholesterolemia, hypertriglyceridemia. 11. Elevated beta-natriuretic peptide, questionable diastolic congestive heart failure. 12. Proteinuria. 13. Microscopic hematuria. 14. Nephrotic range proteinuria. 15. Hematuria. 16. Bilateral renal cysts. 17. Hepatic steatosis and hepatomegaly. 18. Left ventricular ejection fraction of 59% with concentric left ventricular hypertrophy. 19. Moderate valvular aortic stenosis with aortic valve area of 1.4 cm2. 20. Mild mitral annular calcification and mild mitral regurgitation. 21. Mild tricuspid regurgitation with right ventricular systolic pressure of 34 mmHg. 22. Moderate valvular aortic stenosis. 23. Bibasilar patchy infiltrate pneumonia with peribronchial thickening and bronchitis. 1. Bibasilar bilateral community acquired versus healthcare-associated pneumonia, infiltrated with peribronchial thickening, and bronchitis. 2. Left ventricular ejection fraction of 59% on stress test. 3. Hepatomegaly with hepatic steatosis and bilateral renal cysts. 4. Concentric left ventricular hypertrophy. 5. Moderate valvular aortic stenosis. 6. Mild mitral regurgitation. 7. Mild tricuspid regurgitation with right ventricular systolic pressure of 34 mmHg. 8. Moderate valvular aortic stenosis. 9. Coagulase-negative Staphylococcus bacteremia versus contamination. 10. Hypertension. 11. Hypoxemia. 12. Low grade fever. 13. Normocytic anemia with granulocytosis. 14. Elevated erythrocyte sedimentation rate of 141. 15. Hypoxemia. 16. Uncontrolled insulin requiring diabetes mellitus with hemoglobin A1c of 7.5. 17. Chronic kidney disease stage III/IV. 18. Hyperphosphatemia. 19. Secondary hyperparathyroidism. 20. Transaminitis. 21. Hypercholesterolemia. 22. Hypertriglyceridemia. 23. Proteinuria, microscopic hematuria, and nephrotic range proteinuria. 24. Questionable coagulase negative Staphylococcus bacteremia versus contamination. 25. Morbid obesity. 26. Questionable inferior ischemic changes on the electrocardiogram. 27. History of noncompliance. 28. Insulin requiring diabetes mellitus. 1. Bibasilar healthcare-associated pneumonia, atelectasis with bronchiectasis. 2. Questionable congestive heart failure. 3. Chronic kidney disease stage IIIB/IV. 4. Nephrotic syndrome with membranous nephropathy. 5. Hypertensive chronic kidney disease. 6. Questionable sepsis. 7. Sinus tachycardia. 8. Hypertension. 9. Hypoxemia. 10. Staphylococcus coagulase-negative bacteremia. 11. Normocytic anemia with granulocytosis. 12. Uncontrolled type I insulin requiring diabetes mellitus with hemoglobin A1c of 7.5. 13. Hyperphosphatemia. 14. Iron deficiency with anemia of chronic disease. 15. Transaminitis. 16. Hypertriglyceridemia and hypercholesterolemia with elevated LDL. 17. Questionable and possible volume overload versus. 18. Hypertensive cardiovascular disease. 19. Moderate aortic valvular stenosis. 20. Mild tricuspid regurgitation with right ventricular systolic pressure of 34 mmHg. 21. Concentric left ventricular hypertrophy. 22. Inferolateral coronary ischemia. 23. Proteinuria. 24. Microscopic hematuria. DISCHARGE MEDICATIONS: As per ambulatory orders, Mucomyst nebulizer every 6 hours, aspirin 81 mg daily, Mepron 750 mg twice a day, Bumex 1 mg twice a day, PhosLo 1334 mg with meals, Vantin 200 mg twice a day for 5 days, vitamin D 5000 units Tuesday, Tuesday and Tuesday, Plavix 75 mg daily, vitamin B12 at 1000 mcg once a month, cyclosporine [address] Redmond, doxycycline 100 mg twice a day, Nexium 40 mg daily, Uloric 40 mg daily, folic acid 1 mg daily, Tresiba insulin 20 units a.m. and at bedtime, Xopenex nebulizer 0.63 mg every 6 hours, Victoza 1.8 mg daily, Cozaar 50 mg daily, magnesium 800 mg daily, Toprol-XL 50 mg daily, MiraLax 17 g twice a day, prednisone 20 mg every other day, Crestor 20 mg daily, sodium bicarbonate 1300 mg twice a day. The patient's prednisone has been decreased to 10 mg every other day. The patient is discharged home with all discharge instructions, medications and treatment plan. Treatment plan explained to the patient and the patient's at length. All questions and concerns answered. Time spent in the entire discharge process more than 45 minutes. Dictated and electronically signed, not read. Kobe Prince MD [facility]
--- NOTE | 2017-04-14 22:50 | PN ---
DATE: 04/14/2017 LOCATION: The patient in room 270, bed 1. REASON FOR CONSULTATION: Followup coronary artery disease, 8 beats of ventricular tachycardia, noncompliant. SUBJECTIVE: The patient is sitting in bed comfortably without chest pain, shortness of breath, palpitation. PHYSICAL EXAMINATION: VITAL SIGNS: Blood pressure 124/79, respirations 20, pulse 94, temperature 97.8. HEENT: Head is normocephalic. Eyes; pupils are normal. Conjunctiva slightly pale. NECK: JVP low. Carotids equal. Thorax; AP diameter normal. LUNGS: Clear. CARDIOVASCULAR: S1 and S2. ABDOMEN: Protuberant. No organomegaly. EXTREMITIES: No clubbing, no cyanosis. LABORATORY DATA: WBC 7.0, hemoglobin 9.7, hematocrit 28.6, platelets 241. Sodium is 140, potassium is 3.7, BUN 71 and creatinine 3.5. Random sugar 232. AST, ALT normal. Total protein and albumin normal. DIAGNOSES: Bilateral pneumonia, history of coronary artery disease, status post stent 12 years ago, acute on chronic renal insufficiency, hypertension, diabetes, anemia, obesity, noncompliant patient. PLAN: The patient's nuclear stress test is negative with normal ejection fraction and the patient has been advised to lose weight and to be complaint with medication and followup. In the meantime, we will continue present therapy and we will follow with you. Wanda Castillo MD
== END 2017-04-14 15:10 | disposition home or self-care (01) | DRG 194 ==
LOC: ED 13:18 → ERH 15:57 → 2RSO 21:06
PROVIDERS: ADMIT Internal Medicine; ATTEND Internal Medicine
PROC: 3E0F7GC Introduction of Other Therapeutic Substance into Respiratory Tract, Via Natural or Artificial Opening (ICD-10-PCS; principal; 2017-04-10)
DX: J18.9 Pneumonia, unspecified organism (principal); N17.9 Acute kidney failure, unspecified; I47.2 Ventricular tachycardia; D84.9 Immunodeficiency, unspecified; E87.2 Acidosis; I13.0 Hypertensive heart and chronic kidney disease with heart failure and stage 1 through stage 4 chronic kidney disease, or unspecified chronic kidney disease; N18.4 Chronic kidney disease, stage 4 (severe); I50.30 Unspecified diastolic (congestive) heart failure; R16.0 Hepatomegaly, not elsewhere classified; J47.0 Bronchiectasis with acute lower respiratory infection; N25.81 Secondary hyperparathyroidism of renal origin; N02.2 Recurrent and persistent hematuria with diffuse membranous glomerulonephritis; I08.3 Combined rheumatic disorders of mitral, aortic and tricuspid valves; E11.22 Type 2 diabetes mellitus with diabetic chronic kidney disease; I25.10 Atherosclerotic heart disease of native coronary artery without angina pectoris; D63.1 Anemia in chronic kidney disease; R09.02 Hypoxemia; K59.00 Constipation, unspecified; E83.39 Other disorders of phosphorus metabolism; E83.41 Hypermagnesemia; E87.5 Hyperkalemia; E11.65 Type 2 diabetes mellitus with hyperglycemia; E78.1 Pure hyperglyceridemia; E78.00 Pure hypercholesterolemia, unspecified; N28.1 Cyst of kidney, acquired; K76.0 Fatty (change of) liver, not elsewhere classified; D50.9 Iron deficiency anemia, unspecified; R79.82 Elevated C-reactive protein (CRP); Y95 Nosocomial condition; Z79.4 Long term (current) use of insulin; E66.01 Morbid (severe) obesity due to excess calories; Z68.33 Body mass index [BMI] 33.0-33.9, adult; Z91.14 Patient's other noncompliance with medication regimen; Z91.19 Patient's noncompliance with other medical treatment and regimen; Z79.02 Long term (current) use of antithrombotics/antiplatelets; Z96.642 Presence of left artificial hip joint; Z87.442 Personal history of urinary calculi; Z95.5 Presence of coronary angioplasty implant and graft; Z87.891 Personal history of nicotine dependence

== ENCOUNTER 2017-09-01 15:53 | Inpatient (IN) | payer BC, OTHER ==
[2017-09-01 16:22] VITALS: BMI 35.9
--- NOTE | 2017-09-01 16:45 | ED PDOC ---
Arrival/HPI - General Chief Complaint: Lower Extremity Problem/Injury Time Seen by Provider: 09/01/17 16:30 Historian: Patient - History of Present Illness Narrative History of Present Illness (Text): 09/01/17 16:42 A 57 year old male, whose past medical history includes kidney failure, chronic edema and anemia on iron injections, sent into the emergency department by PMD for worsening lower extremity swelling. Patient denies any fever, chills, nausea , vomiting, abdominal pain, chest pain, shortness of breath or any other complaints. PMD: Dr. Prince Time/Duration: Prior to Arrival Symptom Course: Unchanged Context: Other Past Medical History - Provider Review Nursing Documentation Reviewed: Yes - Infectious Disease Hx of Infectious Diseases: None - Tetanus Immunization Tetanus Immunization: Unknown - Cardiac Hx Cardiac Disorders: Yes Hx Congestive Heart Failure: Yes Hx Hypertension: Yes Hx Pacemaker: No - Pulmonary Hx Respiratory Disorders: Yes Hx Pneumonia: Yes - Neurological Hx Paralysis: No - HEENT Hx HEENT Disorder: No - Renal Hx Renal Disorder: Yes Other/Comment: membrane nephritis - Endocrine/Metabolic Hx Endocrine Disorders: Yes Hx Diabetes Mellitus Type 2: Yes - Hematological/Oncological Hx Blood Transfusions: Yes (2010) Hx Blood Transfusion Reaction: No - Integumentary Hx Dermatological Disorder: No - Musculoskeletal/Rheumatological Hx Musculoskeletal Disorders: No - Gastrointestinal Hx Gastrointestinal Disorders: No - Genitourinary/Gynecological Hx Genitourinary Disorders: No - Psychiatric Hx Emotional Abuse: No Hx Physical Abuse: No Hx Substance Use: No - Surgical History Hx Cardiac Catheterization: Yes Hx Coronary Stent: Yes (x2) - Anesthesia Hx Anesthesia: Yes Hx Anesthesia Reactions: No Hx Malignant Hyperthermia: No - Suicidal Assessment Feels Threatened In Home Enviroment: No Family/Social History - Physician Review Nursing Documentation Reviewed: Yes Family/Social History: No Known Family HX Smoking Status: Never Smoked Hx Alcohol Use: Yes (SOCIALLY) Hx Substance Use: No Hx Substance Use Treatment: No Allergies/Home Meds Allergies/Adverse Reactions: Allergies rituximab Allergy (Mild, Verified 09/01/17 16:22) RASH Home Medications: Home Meds Medication Instructions Recorded Confirmed Aspirin [Aspir 81] 81 tab PO DAILY 08/25/13 09/01/17 Cholecalciferol [Vitamin D 1000 IU] 50,000 units PO MWF 12/07/14 09/01/17 Clopidogrel [Plavix] 75 mg PO DAILY 12/07/14 09/01/17 Febuxostat [Uloric] 40 mg PO PRN 12/07/14 09/01/17 Folic Acid 1 mg PO DAILY 02/06/16 09/01/17 Insulin Degludec [Tresiba 20 unit SQ AMHS 02/06/16 09/01/17 Flextouch U-100] Liraglutide [Victoza 2-Ross] 1.8 mg SQ QAM 02/06/16 09/01/17 Rosuvastatin Calcium [Crestor] 10 mg PO QAM 02/06/16 09/01/17 Cyanocobalamin (Vitamin B-12) 1,000 mcg SQ Q30D 04/22/16 09/01/17 [Cyanocobalamin Injection] Bumetanide [Bumex] 2 mg PO BID 04/09/17 09/01/17 Cyclosporine 200 mg PO BID 04/09/17 09/01/17 predniSONE [predniSONE Tab] 10 mg PO QOTHERDAY 04/09/17 09/01/17 Colesevelam HCl [Welchol] 3 tab PO BID 06/20/17 09/01/17 Patiromer Calcium Sorbitex 16.8 gm PO DAILY 06/20/17 09/01/17 [Veltassa] Sodium Bicarbonate Tab 650 mg PO BID 06/20/17 09/01/17 Carvedilol [Coreg] 12.5 mg PO BID 06/23/17 09/01/17 Esomeprazole Magnesium [Nexium] 40 mg PO DAILY 06/23/17 09/01/17 Magnesium Oxide [Mag-Oxide 200 mg PO BID 07/18/17 09/01/17 Magnesium] Review of Systems - Physician Review All systems were reviewed & negative as marked: Yes - Review of Systems Constitutional: absent: Fevers, Night Sweats Respiratory: absent: SOB Cardiovascular: Edema (Bilateral lower extremity swelling). absent: Chest Pain Gastrointestinal: absent: Abdominal Pain, Nausea, Vomiting Physical Exam Vital Signs Reviewed: Yes Vital Signs Temp Pulse Resp BP Pulse Ox 09/01/17 18:09 60 18 160/70 H 98 09/01/17 16:18 98.7 F 60 18 155/77 H 98 Temperature: Afebrile Blood Pressure: Hypertensive Pulse: Regular Respiratory Rate: Normal Appearance: Positive for: Well-Appearing, Non-Toxic, Comfortable Pain Distress: None Mental Status: Positive for: Alert and Oriented X 3 - Systems Exam Head: Present: Atraumatic, Normocephalic Pupils: Present: PERRL Extroacular Muscles: Present: EOMI Conjunctiva: Present: Normal Ears: Present: Normal Mouth: Present: Moist Mucous Membranes Pharnyx: Present: Normal. No: ERYTHEMA, EXUDATE Neck: Present: Normal Range of Motion Respiratory/Chest: Present: Clear to Auscultation, Good Air Exchange. No: Respiratory Distress, Accessory Muscle Use Cardiovascular: Present: Regular Rate and Rhythm, Normal S1, S2. No: Murmurs Abdomen: Present: Normal Bowel Sounds. No: Tenderness, Distention, Peritoneal Signs Back: Present: Normal Inspection Upper Extremity: Present: Normal Inspection. No: Cyanosis, Edema Lower Extremity: Present: NORMAL PULSES, Swelling (Extreme swelling to bilateral lower extremities up to thighs, Lower ankles weeping clear fluid, skin thickened ), Neurovascularly Intact. No: Temperature Abnormalties Neurological: Present: GCS=15, CN II-XII Intact, Speech Normal Skin: Present: Warm, Dry, Normal Color. No: Rashes Psychiatric: Present: Alert, Oriented x 3, Normal Insight, Normal Concentration Medical Decision Making ED Course and Treatment: 09/01/17 16:42 Impression: A 57 year old male with worsening lower extremity swelling. Plan: -- Chest xray -- Labs -- Urinalysis -- Reassess and disposition Progress Notes: EKG shows sinus bradycardia at [address] changes. Interpreted by me. 09/01/17 18:[address] Prince, and then Dr MONTERO NO BLOOD TRANSFUSION, PT ON TRANSPLANT LIST, EPOGEN INSTEAD IV LASIX OBSERVATION ADMISSION, RNF - Lab Interpretations Lab Results: 09/01/17 17:10 09/01/17 17:10 Lab Results 09/01/17 18:05: Urine Color Yellow, Urine Appearance Sl cloudy, Urine pH 6.0, Ur Specific [place] 1.025, Urine Protein 100 H, Urine Glucose (UA) 100 H, Urine Ketones Negative, Urine Blood Small H, Urine Nitrate Negative, Urine Bilirubin Negative, Urine Urobilinogen 0.2, Ur Leukocyte Esterase Negative, Urine RBC Pending, Urine WBC Pending 09/01/17 17:10: Blood Type O POSITIVE, Antibody Screen Negative, Crossmatch See Detail, BBK History Checked No verified bt 09/01/17 17:10: Sodium 140, Potassium 4.2, Chloride 107, Carbon Dioxide 26, Anion Gap 11, BUN 58 H, Creatinine 2.8 H, Est GFR ( Amer) 28, Est GFR ( Non-Af Amer) 23, Random Glucose 120 H, Calcium 8.8, Total Bilirubin 0.3, AST 24 , ALT 27, Alkaline Phosphatase 74, Lactate Dehydrogenase 624, Total Creatine Kinase 156, Troponin I 0.04 D, NT-Pro-B Natriuret Pep 2100 H, Total Protein 5.9 , Albumin 3.2, Globulin 2.7, Albumin/Globulin Ratio 1.2 09/01/17 17:10: PT 12.5, INR 1.09 H 09/01/17 17:10: WBC 7.2, RBC 2.54 L, Hgb 8.2 L, Hct 23.8 L, MCV 93.7, MCH 32.3, MCHC 34.5, RDW 12.9, Plt Count 143, MPV 9.7, Gran % 68.7 H, Lymph % (Auto) 19.6 L, [place] % (Auto) 10.1 H, Eos % (Auto) 1.2 L, Baso % (Auto) 0.4, Gran # 4.95, Lymph # 1.4, [place] # 0.7 H, Eos # 0.1, Baso # 0.03 - RAD Interpretation Radiology Orders: 09/01/17 16:48 CHEST PORTABLE [RAD] Stat - Medication Orders Current Medication Orders: Discontinued Medications Furosemide (Lasix) 80 mg IVP STAT STA Stop: 09/01/17 18:43 - Scribe Statement The provider has reviewed the documentation as recorded by the Scribe Lindsey Anderson Provider Scribe Attestation: All medical record entries made by the Scribe were at my direction and personally dictated by me. I have reviewed the chart and agree that the record accurately reflects my personal performance of the history, physical exam, medical decision making, and the department course for this patient. I have also personally directed, reviewed, and agree with the discharge instructions and disposition. Disposition/Present on Arrival - Present on Arrival Any Indicators Present on Arrival: No History of DVT/PE: No History of Uncontrolled Diabetes: Yes Urinary Catheter: No History of Decub. Ulcer: No History Surgical Site Infection Following: None - Disposition Have Diagnosis and Disposition been Completed?: Yes Diagnosis: Lymphedema, ESRD (end stage renal disease), Profound anemia Disposition: HOSPITALIZED Disposition Time: 18:52 Patient Plan: Admission Condition: GOOD Forms: [employer] (Bulgarian)
--- NOTE | 2017-09-01 17:29 | RAD ---
HISTORY: dyspnea COMPARISON: 08/30/2017 FINDINGS: LUNGS: No active pulmonary disease. PLEURA: No significant pleural effusion identified, no pneumothorax apparent. CARDIOVASCULAR: There is mild cardiomegaly and moderate vascular congestion OSSEOUS STRUCTURES: No significant abnormalities. VISUALIZED UPPER ABDOMEN: Normal. OTHER FINDINGS: None. IMPRESSION: Moderate vascular congestion
[2017-09-01 17:56] LABS: BASO # 0.03 K/mm3 (0.0-2.0); BASO % 0.4 % (0.0-3.0); EOS # 0.1 (0.0-0.7); EOS % 1.2 % (1.5-5.0); GRAN # 4.95 (1.4-6.5); GRAN % 68.7 % (50.0-68.0); HEMOGLOBIN 8.2 g/dL (14.0-18.0); LYMPH # 1.4 (1.2-3.4); LYMPH % 19.6 % (22.0-35.0); MEAN CELL VOLUME 93.7 fl (80.0-105.0); MEAN CORPUSCULAR HEMOGLOBIN 32.3 pg (25.0-35.0); MEAN CORPUSCULAR HGB CONC 34.5 g/dl (31.0-37.0); MEAN PLATELET VOLUME 9.7 fl (7.0-11.0); MONO # 0.7 (0.1-0.6); MONO % 10.1 % (1.0-6.0); RBC 2.54 10^6/uL (3.5-6.1); RED CELL DISTRIBUTION WIDTH 12.9 % (11.5-14.5); WHITE BLOOD COUNT 7.2 10^3/ul (4.5-11.0)
[2017-09-01 18:04] LABS: INR 1.09 (0.93-1.08); PROTHROMBIN TIME 12.5 SECONDS (9.4-12.5)
[2017-09-01 18:36] LABS: URINE BILIRUBIN NEGATIVE (NEGATIVE); URINE BLOOD SMALL (NEGATIVE); URINE GLUCOSE (UA) 100 mg/dL (NEGATIVE); URINE LEUKOCYTE ESTERASE NEGATIVE Leu/uL (NEGATIVE); URINE NITRATE NEGATIVE (NEGATIVE); URINE PROTEIN 100 mg/dL (<30 mg/dL); URINE UROBILINOGEN 0.2 E.U./dL (<1 E.U./dL)
[2017-09-01 18:39] LABS: ALB/GLOB RATIO 1.2 (1.1-1.8); ALBUMIN 3.2 g/dL (3.0-4.8); CALCIUM 8.8 mg/dL (8.4-10.5)
[2017-09-01 18:42] LABS: TROPONIN I 0.04 ng/mL
[2017-09-01 18:43] LABS: URINE COLOR YELLOW (YELLOW)
[2017-09-01 18:44] LABS: URINE APPEARANCE SL CLOUDY (CLEAR)
[2017-09-01 18:49] LABS: URINE BACTERIA FEW (NEG); URINE EPITHELIAL CELLS 0 - 2 /hpf (0-5)
[2017-09-01] MEDS ORDERED: Darbepoetin Alfa 100 mcg/ml Inj SC ONE (19:27)
[2017-09-01 21:57] LABS: HDL CHOLESTEROL 38 mg/dL (29-60); IRON 58 ug/dL (45-180)
[2017-09-01 22:06] LABS: % IRON SATURATION 18 % (20-55); TOTAL IRON BINDING CAPACITY 320 ug/dL (261-462)
[2017-09-01 22:07] LABS: LDL CHOLESTEROL 93 mg/dL (0-129)
[2017-09-01 22:37] LABS: FREE T4 0.69 ng/dL (0.78-2.19)
[2017-09-01] MEDS: Cefepime 1gm in NS 100ml 1 GM/100 ML BAG IVPB SCH (23:48)
[2017-09-01] MEDS: INSULIN DEGLUDEC 20 UNIT SQ SCH (23:49)
--- NOTE | 2017-09-02 03:29 | CP.PCM.HP ---
History of Present Illness - History of Present Illness History of Present Illness: Mr. 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 Patient reports that he was at his regularly scheduled appointment with his PMD, who noted his progressive lower extremity swelling and recommended patient be seen in the ED for further evaluation. Patient reports that his legs have been swollen in the past but not to the point that they are swollen currently. He reports that the swelling began one week ago with no inciting event or associated symptoms at the time of onset and have been progressively swelling since that time. He denies fever, chills, headache, changes in his vision, rhinorrhea, ear pain/discharge, sore throat, dysphagia, chest pain, palpitations, orthopnea, SOB, cough, wheezing, hemoptysis , abdominal pain, N/V, diarrhea, constipation, melena, hematochezia, burning/ pain with urination, urinary frequency, hematuria, skin changes, joint pain, or any numbness/tingling/weakness of any extremity. In the ED, patient was afebrile and hemodynamically stable, although hypertension was noted. Patient was noted to have moderate vascular congestion on chest x-ray and to have sinus bradycardia at 58bpm on EKG. No significant changes from patients baseline values were noted on CMP or coagulation studies but patient was found to be anemic with an H/H of 8.2/23.8. Nephrology was consulted and recommended patient start EPO therapy. 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 Prince Present on Admission - Present on Admission Any Indicators Present on Admission: No Review of Systems - Review of Systems Review of Systems: As stated in HPI, otherwise negative Past Patient History - Infectious Disease Hx of Infectious Diseases: None - Tetanus Immunizations Tetanus Immunization: Unknown - Past Social History Smoking Status: Never Smoked - CARDIAC Hx Cardiac Disorders: Yes Hx Congestive Heart Failure: Yes Hx Hypertension: Yes Hx Pacemaker: No - PULMONARY Hx Respiratory Disorders: Yes Hx Pneumonia: Yes - NEUROLOGICAL Hx Paralysis: No - HEENT Hx HEENT Problems: No - RENAL Hx Chronic Kidney Disease: Yes Other/Comment: membrane nephritis - ENDOCRINE/METABOLIC Hx Endocrine Disorders: Yes Hx Diabetes Mellitus Type 2: Yes - HEMATOLOGICAL/ONCOLOGICAL Hx Blood Transfusions: Yes (2010) Hx Blood Transfusion Reaction: No - INTEGUMENTARY Hx Dermatological Problems: No - MUSCULOSKELETAL/RHEUMATOLOGICAL Hx Musculoskeletal Disorders: No - GASTROINTESTINAL Hx Gastrointestinal Disorders: No - GENITOURINARY/GYNECOLOGICAL Hx Genitourinary Disorders: No - PSYCHIATRIC Hx Emotional Abuse: No Hx Physical Abuse: No Hx Substance Use: No - SURGICAL HISTORY Hx Cardiac Catheterization: Yes Hx Coronary Stent: Yes (x2) - ANESTHESIA Hx Anesthesia: Yes Hx Anesthesia Reactions: No Hx Malignant Hyperthermia: No Meds Allergies/Adverse Reactions: Allergies Allergy/AdvReac Type Severity Reaction Status Date / Time rituximab Allergy Mild RASH Verified 09/01/17 16:22 Physical Exam - Constitutional Appears: Non-toxic, No Acute Distress - Head Exam Head Exam: ATRAUMATIC, NORMAL INSPECTION, NORMOCEPHALIC - Eye Exam Eye Exam: EOMI, Normal appearance, PERRL. absent: Conjunctival injection, Nystagmus, Periorbital swelling, Periorbital tenderness, Scleral icterus Pupil Exam: NORMAL ACCOMODATION, PERRL. absent: Fixed, Irregular, Miosis, Mydriatic, Unequal - ENT Exam ENT Exam: Mucous Membranes Moist, Normal Exam, Normal External Ear Exam, Normal Oropharynx. absent: Mucous Membranes Dry - Neck Exam Neck exam: Positive for: Full Rom, Normal Inspection. Negative for: Lymphadenopathy, Meningismus, Tenderness, Thyromegaly - Respiratory Exam Respiratory Exam: Clear to Auscultation Bilateral, NORMAL BREATHING PATTERN. absent: Accessory Muscle Use, Chest Wall Tenderness, Decreased Breath Sounds, Prolonged Expiratory Phase, Rales, Rhonchi, Wheezes, Respiratory Distress, Stridor - Cardiovascular Exam Cardiovascular Exam: REGULAR RHYTHM, RRR, +S1, +S2. absent: Bradycardia, Tachycardia, Clicks, Diastolic murmur, Gallop, Irregular Rhythm, JVD, Rubs, +S4 , Systolic Murmur - GI/Abdominal Exam GI & Abdominal Exam: Normal Bowel Sounds, Soft. absent: Bruit, Diminished Bowel Sounds, Distended, Firm, Guarding, Hernia, Hyperactive Bowel Sounds, Hypoactive Bowel Sounds, Mass, Organomegaly, Pulsatile Mass, Rebound, Rigid, Tenderness - Extremities Exam Extremities exam: Positive for: full ROM, normal capillary refill, pedal edema ( 2+ pitting edema to bilateral LE's extending to knees), pedal pulses present. Negative for: calf tenderness, normal inspection - Back Exam Back exam: FULL ROM, NORMAL INSPECTION. absent: CVA tenderness (L), CVA tenderness (R), muscle spasm, paraspinal tenderness, rash noted, tenderness, vertebral tenderness - Neurological Exam Neurological exam: Alert, CN II-XII Intact, Oriented x3 - Psychiatric Exam Psychiatric exam: Normal Affect, Normal Mood - Skin Skin Exam: Dry, Intact, Normal Color, Warm Results - Vital Signs Recent Vital Signs: Last Vital Signs Temp 98.7 F 09/01/17 16:18 Pulse 68 09/01/17 20:00 Resp 18 09/01/17 20:00 BP 160/75 H 09/01/17 20:00 Pulse Ox 100 09/01/17 20:00 - Labs Result Diagrams: 09/01/17 17:10 09/01/17 17:10 Labs: Laboratory Results - last 24 hr 09/01/17 09/01/17 09/01/17 21:30 21:30 21:30 POC Glucose (mg/dL) Uric Acid Iron 58 TIBC 320 % Saturation 18 L Triglycerides 207 H Cholesterol 181 LDL Cholesterol Direct 93 HDL Cholesterol 38 Free T4 0.69 L Thyroxine (T4) 5.0 L TSH 3rd Generation 2.35 09/01/17 09/01/17 21:30 22:58 POC Glucose (mg/dL) 122 H Uric Acid 4.4 Iron TIBC % Saturation Triglycerides Cholesterol LDL Cholesterol Direct HDL Cholesterol Free T4 Thyroxine (T4) TSH 3rd Generation - EKG Data EKG shows normal: Sinus rhythm Rate: Bradycardia Assessment & Plan - Assessment and Plan (Free Text) Assessment: 57 year old male with a past medical history significant for 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 In the ED, patient was afebrile and hemodynamically stable, although hypertension was noted. Patient was noted to have moderate vascular congestion on chest x-ray and to have sinus bradycardia at 58bpm on EKG. No significant changes from patients baseline values were noted on CMP or coagulation studies but patient was found to be anemic with an H/H of 8.2/23.8. Nephrology was consulted and recommended patient start EPO therapy. Plan: 1. LE Swelling -Lasix 40mg IVP Q8H -Echo and MUGA scan pending -Nephrology and Cardio consulted 2. Anemia -H/H at 8.2/23.8 -Aranesp 100mcg SC ONCE pending nephrology approval -Daily CBC -Iron Studies, Vitamin B12, and Folate pending 3. 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 History of DM2 -Insulin Lispro-LOW AC with POC blood glucose ACHS -Continue home medications -A1C pending 5. History of CAD -Continue home ASA, Plavix and Coreg -Cardiology consulted -Lipid panel pending GI Prophylaxis: Protonix DVT Prophylaxis: SCD's Patient seen and case discussed with attending, Dr. Prince. - Date & Time Date: 09/01/17 Time: 21:35 Decision To Admit - Pt Status Changed To: Hospital Disposition Of: Observation - . Bed Request Type: Med/Surg
[2017-09-02] MEDS: Pantoprazole 40 mg EC Tab PO SCH (06:09)
[2017-09-02] MEDS ORDERED: Barium Sulfate Susp 2.1% w/v, 2.0% w/w 450 mL Bottle PO ONE (06:30)
[2017-09-02 07:50] LABS: BASO # 0.02 K/mm3 (0.0-2.0); BASO % 0.2 % (0.0-3.0); EOS # 0.2 (0.0-0.7); GRAN # 5.61 (1.4-6.5); GRAN % 65.9 % (50.0-68.0); HEMOGLOBIN 8.7 g/dL (14.0-18.0); LYMPH % 23.9 % (22.0-35.0); MEAN CELL VOLUME 92.3 fl (80.0-105.0); MEAN CORPUSCULAR HEMOGLOBIN 31.8 pg (25.0-35.0); MEAN CORPUSCULAR HGB CONC 34.4 g/dl (31.0-37.0); MEAN PLATELET VOLUME 9.1 fl (7.0-11.0); MONO # 0.7 (0.1-0.6); RBC 2.74 10^6/uL (3.5-6.1); RED CELL DISTRIBUTION WIDTH 12.8 % (11.5-14.5); WHITE BLOOD COUNT 8.5 10^3/ul (4.5-11.0)
[2017-09-02] MEDS: Insulin Lispro (humaLOG) LOW Coverage SC SCH ×3 (08:00→16:38)
[2017-09-02 08:04] LABS: ALB/GLOB RATIO 1.2 (1.1-1.8); ALBUMIN 3.4 g/dL (3.0-4.8); BILIRUBIN,DIRECT 0.4 mg/dL (0.0-0.4); CALCIUM 8.9 mg/dL (8.4-10.5); MAGNESIUM 1.5 mg/dL (1.7-2.2)
[2017-09-02] MEDS ORDERED: PATIROMER CALCIUM SORBITEX 16.8 GM PO SCH ×2 (10:00→13:52)
[2017-09-02] MEDS ORDERED: LIRAGLUTIDE 1.8 MG SQ SCH (10:00)
[2017-09-02] MEDS ORDERED: Cholecalciferol 1,000 INTLU TAB PO SCH (10:00)
[2017-09-02] MEDS ORDERED: Non Formulary Medication (Colesevelam Hcl [Welchol] 3 TAB) PO SCH (10:00)
[2017-09-02] MEDS ORDERED: Non Formulary Medication (Febuxostat [Uloric] 40 MG) PO SCH (10:00)
[2017-09-02] MEDS: INSULIN DEGLUDEC 20 UNIT SQ SCH (10:00)
--- NOTE | 2017-09-02 10:00 | HP ---
HISTORY OF PRESENT ILLNESS: Patient is a 57-year-old morbidly obese male, came to the office 2 days ago, complaining of fatigue; tiredness; weakness, pain in the left side of the body, left rib cage and left side of the abdomen; difficulty walking; significantly increasing bilateral lower extremity swelling and edema; and difficulty walking. There was also questionable mention of shortness of breath and fatigue and tired. With worsening of the patient's symptoms, according to the patient and the patient's , patient was started on new medications in end of June 2017 and over the last 6 weeks, patient's symptoms have been progressively worsened. Patient was recently seen by the care consultant. Patient's Bumex was increased and patient's medications were altered and new medication, which was started in June was discontinued, but patient's symptoms did not improve much. REVIEW OF SYSTEMS: Thirteen system review was done, pertinent positive and negative dictated above. CODE STATUS: Full code. LIVING WILL AND ADVANCE DIRECTIVE: None. HEIGHT: 6 feet. WEIGHT: 265. BODY MASS INDEX: 36. During the last office visit, patient was noted to have gained more than 24 pounds in the period of 6 weeks with an increasing bilateral lower extremity lymphedema. SOCIAL HISTORY: Positive for former smoker and social alcohol user. Denies communicable transmissible disease. FAMILY HISTORY: Positive for diabetes. Positive for renal failure. Positive for coronary artery disease. Positive for hypertension. Positive for dyslipidemia. HOME MEDICATIONS: Patient is on sodium, aspirin 81 mg daily, Bumex 2 mg twice a day, Coreg 12.5 twice a day, Crestor 10 mg daily, vitamin B12 1000 mcg monthly, cyclosporine 200 mg twice a day, folic acid 1 mg daily, magnesium oxide 200 mg twice a day, Nexium 40 mg daily, Plavix 75 mg daily, prednisone 10 mg every other day, sodium bicarbonate 650 mg twice a day, Tresiba 20 units twice a day, Uloric 40 mg daily, Vantin 200 twice a day, Veltassa 16.8 g daily, Victoza 1.8 mg subcu daily, Drisdol 50,000 units three times a week, Welchol 3 tablets twice a day. PAST MEDICAL AND SURGICAL HISTORY: History of nephrotic syndrome, status post rituximab treatment, but found to be allergic to rituximab; history of massive proteinuria; history of hypoalbuminemia; history of morbid obesity; history of former nicotine dependence; history of hypertension; history of coronary artery disease; history of coronary angioplasty; history of dyslipidemia; history of vitamin B12 deficiency, history of insulin-requiring diabetes mellitus; history of worsening renal failure; history of chronic kidney disease, stage IV; history of noncompliance; history of dietary noncompliance; history of hyperuricemia; history of bilateral lower extremity cellulitis; history of hypovitaminosis D. The patient's past medical history is also significant for iron-deficiency anemia, history of nephrotic syndrome, history of osteoarthritis of the right hip, history of right hip replacement. Past medical history is also significant for appendectomy, hernia surgery, history of degenerative joint disease, history of social alcohol use, history of chronic obstructive pulmonary disease, history of packed red blood cell transfusion. Past medical history is also significant for refractory anemia, history of elevated erythrocyte sedimentation rate in 90s. Past medical history is also significant for questionable possible diastolic right-sided congestive heart failure, history of testosterone deficiency, history of secondary hyperparathyroidism, history of hypertriglyceridemia, hypercholesterolemia. Past medical history is also significant for history of hepatic steatosis and hepatomegaly and bilateral renal cysts, history of stress test done in March 2017 with ejection fraction of 59% and normal stress test. Past medical history is also significant for history of bibasilar pneumonia and bronchitis, history of CT-guided left renal biopsy,history of lumbar spine degenerative disc disease, history of venous stasis of the lower extremity, history of degenerative joint disease of the hips. 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 Patient's past medical history also significant for history of interstitial fibrosis, history of endoscopy and colonoscopy done in 06/2017, history of diverticulosis, history of transverse colon tubular adenoma, history of hepatic flexure colon lipoma. Past medical history is also significant for history of concentric left ventricular hypertrophy; history of grade 3 reversible restrictive diastolic dysfunction; history of mildly dilated left atrium; history of trace aortic regurgitation; moderate valvular aortic stenosis; history of mild mitral regurgitation; history of mild tricuspid regurgitation with right ventricular systolic pressure of 34 mmHg; history of colonic angiectasia, status post argon plasma coagulation; history of sigmoid and descending colon diverticulosis; history of transverse colon polyps; history of internal hemorrhoids; history of duodenal diverticulum; history of gastritis; history of coronary artery disease; history of myocardial infarction, inferior wall; history of nephrolithiasis; history of last cardiac catheterization done in 2007, history of right PDA coronary artery disease with 100% in-stent stenosis; history of single-vessel coronary artery disease of right posterior descending artery, well collateralized from left anterior descending; history of 40% stenosis of the first right ventricular branch; history of 100% in-stent restenosis of the upper division of the right posterior descending artery filling via the left anterior descending collateral. Past medical history is also significant for history of unstable angina, history of 40% to 50% stenosis of the mid left anterior descending artery for the midportion, history of 30% to 40% stenosis of the ostial diagonal 2 branch, history of 99% stenosis of the proximal right posterior descending artery, history of percutaneous angioplasty and stent placement of the right posterior descending artery. 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 The patient is seen in stretcher #2 in the emergency room. The patient was also seen in the office today. PHYSICAL EXAMINATION: VITAL SIGNS: T-max 98.7, pulse 60 to 68, blood pressure 150/77 and 182/82, respirations 18, O2 sat 100%. HEAD: Normocephalic, atraumatic. EENT: Shows pale conjunctivae, anicteric sclerae. No oropharyngeal lesion. NECK: No neck rigidity. Questionable jugular venous distention. No audible carotid bruit. CHEST: Kyphosis. LUNGS: Shows decreased breath sound at the bases, questionable crackles at the right base. CARDIOVASCULAR: S1, S2, regular rhythm. Positive systolic murmur, left sternal border, left second intercostal space, right second intercostal space. ABDOMEN: Morbidly obese, protuberant, unable to appreciate any hepatosplenomegaly. No guarding. No rigidity, no rebound tenderness. Patient complained of diffuse abdominal pain, left-sided pain; left rib cage pain, left-sided abdominal pain. GENITALIA: Male. RECTAL: Examination is deferred. EXTREMITIES: Shows massive lymphedema with erythema of the bilateral lower extremities, nonpalpable pulses. MUSCULOSKELETAL: Examination shows a body mass index of 36. The patient has a recent weight gain of more than 23 to 24 pounds in 6 weeks. NEUROLOGIC: The patient is alert, awake, oriented x3. Cranial nerves II-XII intact. Gait examination is independent. VASCULAR: Unable to palpate pulses. PSYCHIATRIC: Negative. NEUROLOGIC: Without any gross deficit. DIAGNOSTICS: Hemoglobin and hematocrit 8.2 and 23.8, platelets 143,000, WBC 7.2, granulocytes 68% segs. PT/INR 12.5/1.09. Sodium 140, potassium 4.2, chloride 107, CO2 26, anion gap 11, BUN 58, creatinine 0.8, GFR 28, glucose 120, calcium 8.8, iron 58, TIBC 320, saturation 18. LFTs are negative. Troponin 0.04. BNP 2100, triglycerides 207, cholesterol 181, LDL 93, HDL 38, TSH 2.35, T4 5.0. Urine pH 6.0, specific gravity 1.225, 100 protein, glucose 100, small blood, a few bacteria. Chest x-ray shows cardiomegaly and vascular congestion. EKG shows sinus bradycardia. The patient was seen in the Emergency Room by the ER physician. Nephrology consultation was requested. Product Development Assistant has recommended no packed RBC transfusion as the patient is undergoing renal transplant evaluation at [facility], but admit the patient for IV diuretic treatment and IV Epogen treatment. IMPRESSION AND PLAN: A 57-year-old male with multiple complicated medical history, has a recent weight gain of more than 24 plus pounds in the last 6 weeks secondary to starting new medication. The patient recently presented with fatigue, tiredness, pain on the left side of the body with shortness of breath. Two days ago, patient's chest x-ray and venous Doppler was done, which was negative. The patient was sent for repeat lab work, which showed decreasing hemoglobin and hematocrit and the patient was brought to the ER for evaluation for above with increasing lymphedema of the lower extremity and erythema. 1. Questionable and possible bilateral lower extremity cellulitis. 2. Massive bilateral lower extremity lymphedema. 3. Significant weight gain. 4. Uncontrolled hypertension. 5. Morbid obesity. 6. Possible acute exacerbation of nephrotic syndrome. 7. Decreasing hemoglobin and hematocrit. 8. Granulocytosis. 9. Anemia. 10. Chronic kidney disease stage IV. 11. Insulin-requiring diabetes mellitus. 12. Possible congestive heart failure with elevated brain natriuretic peptide of 2100. 13. Hypertriglyceridemia, hypercholesteremia. 14. Questionable subclinical hyperthyroidism with morbid obesity. 15. Proteinuria, glycosuria, bacteriuria. 16. Sinus bradycardia. 17. Left ventricular hypertrophy. 18. Congestive heart failure following pulmonary vascular congestion with cardiomegaly. 19. Possible diastolic right-sided congestive heart failure with pulmonary vascular congestion. 20. History of hypoalbuminemia and severe nephrotic syndrome. 21. Dyslipidemia. 22. Vitamin B12 deficiency. 23. Gastroesophageal reflux. 24. Insulin-requiring diabetes mellitus. 25. Hyperuricemia. 26. History of non-hemolyzed hyperkalemia. 27. Hypovitaminosis D. PLAN: At this time, the patient has been admitted to as per Nephrology recommendation for IV diuretic therapy treatment. Lasix 80 mg IV was ordered in the ER by the ER physician as per the Nephrology recommendation. The patient has been ordered repeat labs. Consultation with Cardiology, Nephrology ordered. The patient has been ordered Aranesp 100 mcg x1 dose subcu. Patient is on Coreg 12.5 mg daily, decreased from twice a day because of bradycardia, Ecotrin 81 mg daily, Uloric 40 mg daily, folic acid 1 mg daily, Humalog low-dose sliding scale coverage. The patient is on Tresiba 20 units in the morning and at bedtime. The patient is started on Lasix 40 mg IV q.8. Victoza 1.8 mg subcu daily. Patient is empirically started on cefepime 1 g IV daily. Patient is on Veltassa 16.8 g daily, Plavix 75 mg daily, prednisone 10 mg every other day, cyclosporin (Sandimmune) 200 mg twice a day, sodium bicarbonate 650 mg twice a day, vitamin D 1000 units Tuesday, Tuesday and Tuesday. The patient has been additionally ordered a CT abdomen and pelvis for evaluation of anemia, nephrotic syndrome, and lymphedema. Echo with Doppler ordered for evaluation of congestive heart failure with elevated BNP. Renal diet ordered. Fingerstick blood sugar before meals at bedtime ordered, out of bed, SCDs ordered, MUGA scan has also been ordered. At present, the patient is awaiting for a bed assignment. The patient's condition, diagnosis, management discussed and explained to the patient and the patient's at length and all questions and concern answered. At present, the patient's further management will be dependent upon the patient's clinical condition, hemodynamic status and as per the patient response to therapeutic intervention, as per the patient's diagnostic test results and as per recommendation by all the physicians involved in the care of the patient. Kobe Prince MD
[2017-09-02] MEDS ORDERED: Magnesium Sulfate 2 GM in Sodium Chloride 0.9% 100 ML IVPB SCH (10:45)
[2017-09-02] MEDS ORDERED: metOLazone 5 MG TAB PO SCH ×2 (12:45→14:45)
[2017-09-02] MEDS: Magnesium Sulfate 1 gm in D5W 1 GM/100 ML BAG IVPB SCH (13:38)
[2017-09-02 13:50] LABS: FOLATE > 20.0 ng/mL
[2017-09-02] MEDS: Magnesium Oxide 400 mg Tab UD PO SCH ×2 (14:47→18:14)
--- NOTE | 2017-09-02 20:00 | CON ---
DATE: NEPHROLOGY CONSULTATION HISTORY OF PRESENT ILLNESS: A 57-year-old male with past medical history of CKD stage IV secondary to membranous nephropathy with nephrotic syndrome, hypertension, diabetes, CHF with diastolic dysfunction, CAD status post remote stent placement, nephrolithiasis presented to ED with worsening leg swelling being admitted for decompensated CHF. Nephrology is being consulted for advanced CKD care. The patient presented to our office 4 days ago with worsening leg swelling and having gained 15 pounds since prior visit 6 weeks ago; the patient had a prior visit in late June. The patient was started on amlodipine 5 mg daily for blood pressure control; the patient in the interim did not inform anyone that his weight and leg swelling was increasing. The patient was evaluated in our office and we increased his Bumex dosage as well as stopped amlodipine. However, the patient notes that he only lost 1 pound in the ensuing few days. Otherwise, the patient denies any shortness of breath, chest pain or palpitations. Has been having difficulty walking due to the leg pain, but has been going to work. The patient was started on IV diuretics last night having gotten 80 mg in the ED and continued on 40 mg q.8 hours. The patient reports increased urination since being started on IV diuretics. PAST MEDICAL HISTORY: As above. The patient with primary membranous nephropathy with repeat renal biopsy in 2016 again showing the same diagnosis. The patient was at one point on Cytoxan and had completed full dose. The patient was subsequently tried on Rituxan due to persistent nephrotic range proteinuria. However, after either the second or third dose, he developed anaphylactic reaction and therefore further doses were held. The patient was started on tacrolimus subsequently, but trough levels were persistently low. He was subsequently switched to cyclosporine in January 2016 and has been on this medication since then. The patient also with persistent hyperkalemia, which has improved significantly after being put on Veltassa 16.8 g daily. SOCIAL HISTORY: Previous smoker. FAMILY HISTORY: Diabetes; father with kidney disease. REVIEW OF SYSTEMS: CONSTITUTIONAL: Denies any fevers or chills. Appetite has been well. HEENT: Reports blurry vision previously. Reporting burning of eyes. RESPIRATORY: Denies any cough currently; however, just coming off of upper respiratory infection. CARDIOVASCULAR: As per HPI. GASTROINTESTINAL: No nausea, vomiting or diarrhea. GENITOURINARY: No difficulty urinating. No dysuria. MUSCULOSKELETAL: Reporting right-sided flank pain since past few days, possibly due to lifting heavy objects. SKIN: No itching or rashes. NEUROLOGIC: Reporting pain in feet. PHYSICAL EXAMINATION: VITAL SIGNS: This morning, blood pressure 162/80, heart rate 58, respirations 20, temperature 98.7, O2 sat 95% on room air. GENERAL: No distress. Conversing coherently in full sentences. HEENT: Moist mucous membranes. Elevated JVD. RESPIRATORY: Lungs clear to auscultation bilaterally. No rales or rhonchi. No wheezes. CARDIOVASCULAR: Heart sounds S1 is soft systolic murmur present, otherwise regular rate and rhythm. GASTROINTESTINAL: Abdomen is soft, nontender, nondistended. GENITOURINARY: No bladder distention. EXTREMITIES: 3+ bilateral lower leg edema extending to thighs, mildly improved. NEUROLOGIC: No significant tremor of outstretched hands. SKIN: Warm, no cyanosis. PSYCHIATRIC: Normal mood, normal affect. LABORATORY DATA: This morning, CBC: WBC 8.5, hemoglobin 8.7, hematocrit 25.3, platelets 162. Chemistry panel, sodium 140, potassium 3.9, chloride 106, bicarb 26, BUN 51, creatinine 2.6, glucose 67, calcium 8.9, magnesium 1.5, albumin 3.4. UA, urine protein 100 mg/dL, glucose 100 mg/dL, small blood, leukocyte esterase negative, few bacteria. Chest x-ray: Pulmonary venous congestion noted. ASSESSMENT AND PLAN: 1. Acute decompensated congestive heart failure, diastolic dysfunction on previous echo; possibly caused by fluid retention from amlodipine. The patient is admitted for IV diuretic therapy; appears to be responding well. Continue IV Lasix 40 mg q.8h. Daily weights with goal to lose 2 to 3 pounds per day. 2. Chronic kidney disease stage IV secondary to membranous nephropathy. Renal function has been stable of late; relatively stable electrolyte status; volume overloaded, but responding well to IV diuretics. Avoid nephrotoxic agents. See below for management of nephrotic syndrome. 3. Membranous nephropathy with nephrotic syndrome. The patient most recently with approximately 7 g proteinuria by spot urine protein to creatinine ratio; has been on cyclosporine with dose being tapered slowly to avoid worsening of proteinuria. Goal is to avoid nephrotoxic effects of cyclosporin as well. We will continue cyclosporine at 100 mg q.12h. Continue prednisone 10 mg every other day. We will start low-dose valsartan 40 mg daily. 4. Hypertensive chronic kidney disease. Blood pressure has been difficult to control. He was responding well to amlodipine, however, discontinued due to excessive fluid retention. Currently on Coreg 12.5 mg b.i.d. and diuretics (most recently on Bumex 2 mg b.i.d.). Starting valsartan as above. 5. Anemia of chronic kidney disease. Patient is status post IV iron loading, which completed in the middle of July. Current drop in hemoglobin partially due to hemodilution due to excess fluid retention. The patient started on Aranesp 100 mcg by PMD today. We will continue the same as outpatient. No need for blood transfusion unless hemoglobin drops below 7. It is very important not to transfuse the patient in order to avoid development of antibodies, which will hinder his ability to get an appropriate renal transplant match. 6. Chronic kidney disease mineral bone disease. PTH has been mildly elevated. No need to initiate calcitriol at this time. No need for phosphate binders currently. Thank you for this consult. We will be following up closely. Stu Moses MD
--- NOTE | 2017-09-02 20:39 | CARD ---
APPROVED REPORT EKG Measurement Heart [id number] <Conclusion> Sinus bradycardia Otherwise normal ECG
[2017-09-02] MEDS: Cefepime 1gm in NS 100ml 1 GM/100 ML BAG IVPB SCH (22:40)
[2017-09-02] MEDS: INSULIN DEGLUDEC SQ SCH (22:42)
--- NOTE | 2017-09-03 02:02 | CON ---
DATE: 09/02/2017 LOCATION: The patient is in room 576, bed 1. REASON FOR CONSULTATION: Bilateral edema of the legs, coronary artery disease, history of stent insertion, diabetes, hypertension, hyperlipidemia, renal failure, membranous nephropathy, and obesity. HISTORY OF PRESENT ILLNESS: The patient states since last few weeks, he noted that his leg started getting edema, which got worse. The patient denies chest pain, shortness of breath, or palpitation associated with the swelling. He sleeps on one pillow. Denies any PND. The patient has a history of coronary artery disease, status post stent 12 to 13 years ago, history of diabetes, hypertension, hyperlipidemia, obesity, renal insufficiency, and membranous glomerulonephropathy, recently was admitted with pneumonia. PAST MEDICAL HISTORY: Significant for coronary artery disease, status post stent 12 years ago, diabetes, hypertension, hyperlipidemia, obesity, renal insufficiency, membranous glomerulonephropathy, right hip replacement, and appendectomy. PERSONAL HISTORY: He stopped smoking 12 years ago. Denies drinking alcohol. Used to use cocaine, but stopped 15 years ago. FAMILY HISTORY: Significant for coronary artery disease. ALLERGIES: THE PATIENT IS ALLERGIC TO RITUXIMAB. LIST OF HOME MEDICATIONS: The patient is taking sodium bicarb 650 p.o. b.i.d., Nexium 40 daily, cyclosporine 200 mg b.i.d., Bumex 2 mg b.i.d., aspirin 81 mg daily, prednisone 10 mg every other day, Crestor 10 mg daily, Veltassa 16.8 g p.o. daily, magnesium oxide 200 mg b.i.d., Victoza 1.8 mg subcutaneously q.a.m., insulin 20 units subcutaneously a.m. and at bedtime, folic acid 1 mg daily, Uloric 40 mg p.o. p.r.n., vitamin B12 of 1000 mcg subcutaneously monthly, Welchol 3 tablets p.o. b.i.d., Plavix 75 daily, vitamin D 1000 international units 50,000 units p.o. Tuesday, Tuesday, and Tuesday, Vantin 200 mg b.i.d., and Coreg 12.5 mg b.i.d. PHYSICAL EXAMINATION: VITAL SIGNS: Blood pressure 162/80, respirations 20, pulse 58, and temperature 98.7. HEENT: Head is normocephalic. Eyes; pupils are normal. Conjunctivae slightly pale. NECK: JVP low. Carotids are equal. THORAX: AP diameter is normal. LUNGS: Clear. CARDIOVASCULAR: S1 and S2. ABDOMEN: Soft. No tenderness. No organomegaly. Bowel sounds are normal. EXTREMITIES: A 4+ bilateral edema with redness on the both lower legs. No clubbing. No cyanosis. LABORATORY DATA: WBC of 8.5, hemoglobin 8.7, hematocrit 25.3, and platelets 162. Sodium of 140, potassium 3.9, BUN 51, and creatinine 2.6. Sugar 101. Magnesium 1.5 and calcium 8.9. AST, ALT, and bilirubin are normal. Total protein and albumin normal. Prothrombin time 12.5. INR 1.09. Chest x-ray slight vascular prominence. EKG showed sinus bradycardia 58 per minute, otherwise normal EKG. The patient had a stress test on 04/12/2017, it shows normal myocardial scan with normal LV ejection fraction of 59%. The patient's echocardiogram on 04/11/2017, which showed normal size LV mild concentric left ventricular hypertrophy, ejection fraction 55% to 60%, trace aortic regurgitation, [id number] valvular aortic stenosis with valve area 1.4 cm2, mild mitral regurgitation, mild tricuspid regurgitation, RVSP 34 mmHg, and trivial pericardial effusion. DIAGNOSES: Bilateral edema of the legs, fluid overload, renal dysfunction, coronary artery disease, history of stent insertion 12 years ago, hypertension, diabetes mellitus, anemia, obesity, renal dysfunction, and membranous nephropathy. PLAN: The patient is on Coreg 12.5 mg p.o. daily, aspirin 81 mg daily, furosemide 40 mg IV q.8 hours, magnesium oxide 400 mg b.i.d., Maxipime 1 g IV at bedtime, Plavix 75 mg daily, prednisone 10 mg p.o. every other day, and Protonix 40 daily. I will add Zofran 5 mg daily for the next 3 days to edema on the legs. We will monitor intake, output, electrolytes, BUN. We will follow with you. Wanda Castillo MD
--- NOTE | 2017-09-03 05:45 | CT ---
PROCEDURE: CT Abdomen and Pelvis without intravenous contrast HISTORY: COMPARISON: None. TECHNIQUE: Technique. Contrast Dose: Radiation dose: Total exam DLP = mGy-cm. This CT exam was performed using one or more of the following dose reduction techniques: Automated exposure control, adjustment of the mA and/or kV according to patient size, and/or use of iterative reconstruction technique. FINDINGS: LOWER THORAX: Unremarkable. LIVER: Unremarkable. No gross lesion or ductal dilatation. GALLBLADDER AND BILE DUCTS: Unremarkable. PANCREAS: Unremarkable. No gross lesion or ductal dilatation. SPLEEN: Unremarkable. ADRENALS: Unremarkable. No mass. KIDNEYS AND URETERS: 14 millimeter left renal cyst.. No hydronephrosis. No solid mass. VASCULATURE: Unremarkable. No aortic aneurysm. BOWEL: Mild colonic diverticulosis. No obstruction. No gross mural thickening. APPENDIX: Unremarkable. Normal appendix. PERITONEUM: Unremarkable. No free fluid. No free air. LYMPH NODES: Unremarkable. No enlarged lymph nodes. BLADDER: Unremarkable. REPRODUCTIVE: Unremarkable. BONES: Status post right hip arthroplasty. Associated streak artifact limits assessment of the pelvis. OTHER FINDINGS: None. IMPRESSION: Mild colonic diverticulosis. Small left renal cyst.
[2017-09-03] MEDS: Pantoprazole 40 mg EC Tab PO SCH (05:49)
[2017-09-03 07:41] LABS: ALB/GLOB RATIO 1.2 (1.1-1.8); ALBUMIN 3.4 g/dL (3.0-4.8); BILIRUBIN,DIRECT 0.4 mg/dL (0.0-0.4); MAGNESIUM 1.9 mg/dL (1.7-2.2)
[2017-09-03] MEDS: Insulin Lispro (humaLOG) LOW Coverage SC SCH ×3 (08:29→16:51)
[2017-09-03] MEDS: Magnesium Oxide 400 mg Tab UD PO SCH ×2 (09:05→18:12)
[2017-09-03] MEDS: INSULIN DEGLUDEC SQ SCH ×2 (09:07→21:56)
[2017-09-03] MEDS: Febuxostat [Uloric] 40 MG (HOME MED) PO SCH (09:07)
[2017-09-03] MEDS: LIRAGLUTIDE 1.8 MG SQ SCH (09:09)
[2017-09-03] MEDS: Cholecalciferol 1,000 INTLU TAB PO SCH (12:45)
--- NOTE | 2017-09-03 13:03 | PN ---
DATE: 09/03/2017 LOCATION: Room 576, bed 1. REASON FOR CONSULTATION: Bilateral edema of the legs, coronary artery disease, history of stent insertion, diabetes, hypertension, renal failure, membranous nephropathy, and obesity. SUBJECTIVE: Edema on legs is less as compared to yesterday. The patient denies any chest pain, palpitations, or shortness of breath, lying in flat in bed. PHYSICAL EXAMINATION: VITAL SIGNS: Blood pressure 145/90, respirations 20, pulse is 60, temperature 98.8. HEENT: Head is normocephalic. Eyes, pupils normal, conjunctivae slightly pale. NECK: JVP low. Carotids equal. THORAX: AP diameter normal. LUNGS: Clear. CARDIOVASCULAR: S1 and S2. ABDOMEN: Soft. No tenderness. No organomegaly. EXTREMITIES: Edema of the legs is less as compared to yesterday. No clubbing. No cyanosis. DIAGNOSTIC DATA: WBC 8.5, hemoglobin 8.7, hematocrit 25.3. Sodium 139, potassium 4.0, BUN 51, creatinine 2.9, random sugar 116. AST and ALT are normal. Total protein and albumin are normal. The patient's stress test on 04/12/2017, normal myocardial scan with normal LV ejection fraction of 59%. Echocardiogram on 04/11/2017 which showed normal size LV, mild concentric left ventricular hypertrophy, ejection fraction 55% to 60%, trace aortic regurgitation, [id number] valvular aortic stenosis with valve area 1.4 cm2, mild mitral regurgitation, mild tricuspid regurgitation, RVSP 34 mmHg, and trivial pericardial effusion. Diagnosis: Bilateral Oedema Legs, Fluid Overload, Renal Dysfunction, Membranous Nephropathy, CAD Stent insertion 12 Years Ago, HTN, DM,Anaemia, Obesity. PLAN: Clinically, no evidence of CHF at present and the patient is diuresing good with present therapy. The patient is on Coreg 12.5 daily, losartan 25 daily, aspirin 81 daily, furosemide 40 IV q. 8 hours, Plavix 75 daily, Zaroxolyn 5 mg daily, and cefepime 1 g IV daily. We will continue present therapy. We will continue diuresis and we will follow. Wanda Castillo MD [facility] # [id number] MTDD
[2017-09-03 14:59] LABS: GLYCOMARK(R) 1.5 mcg/mL (7.3-36.6)
--- NOTE | 2017-09-03 15:53 | PN ---
DATE: 09/03/2017 SUBJECTIVE: The patient is seen in room 576, bed 1. The patient is sitting up in the bed keeping his legs down. The patient's is at bedside. The patient is alert, awake, and responsive. The patient's 13-system review was done, pertinent positive negative dictated above. The patient states that he is making much more urine since he has been on IV Lasix, but leg swelling has not improved since last 24-48 hours. OBJECTIVE: VITAL SIGNS: T-max 98.8, pulse 60, blood pressures 145/90 and 172/91, respirations 20, O2 sat is 95%. INTAKE AND OUTPUT: Not dictated. HEENT: Head: Normocephalic, atraumatic. HEENT examination shows pinkish pale conjunctivae. Anicteric sclerae. No oropharyngeal lesion. NECK: No neck rigidity. No audible carotid bruit. No jugular vein distention. CHEST: Kyphosis. LUNGS: Shows decreased breath sound at the bases. CARDIOVASCULAR: Shows S1 and S2, regular rhythm. Positive systolic murmur at right second intercostal space, left second intercostal space, and left sternal border. ABDOMEN: Obese, protuberant. Positive bowel sounds. No appreciable hepatosplenomegaly secondary to obesity. No guarding. No rigidity, no rebound tenderness. GENITALIA: Male. RECTAL: Deferred. EXTREMITIES: Shows 3 to 4+ pitting edema. Decreasing cellulitis and edema of the bilateral lower extremity. MUSCULOSKELETAL: Shows body mass index of 36. NEUROLOGIC: The patient is alert, awake, and oriented x3. Cranial nerves II-XII intact. Gait examination not tested. DIAGNOSTIC STUDIES: 09/03/2017, sodium 139, potassium 4.0, chloride 101, CO2 26, anion gap 16, BUN 51, creatinine 2.9, GFR 27, glucose 125, 116, and 122, calcium 9.0, and magnesium 1.9. LFTs are normal. CAT scan of the abdomen and pelvis p.o. contrast noted. IMPRESSION: 1. Bilateral lower extremity cellulitis. 2. Most probably right-sided diastolic congestive heart failure with elevated BNP. 3. Chronic kidney disease stage IV, secondary to membranous nephropathy and nephrotic syndrome. 4. Insulin-requiring diabetes mellitus. 5. Coronary artery disease with history of angioplasty and stent placement. 6. Possible decompensated right-sided diastolic congestive heart failure. 7. More than 24 pounds weight gain. 8. Acute decompensated diastolic right-sided congestive heart failure with venous stasis with lymphedema and venous stasis of the lower extremity. 9. Massive proteinuria. 10. Hypertensive chronic kidney disease. 11. Anemia of chronic kidney disease. 12. Chronic kidney disease, mineral bone disease, secondary hyperthyroidism. 13. Colonic diverticulosis. 14. Status post right hip arthroplasty. 15. Small left renal cyst. The patient's echocardiogram counseled by cardiology, Dr. Castillo. PLAN: At this time, the patient has been ordered repeat labs. The patient has been ordered 24-hour creatinine clearance. The patient has been ordered 24-hour protein collection. Current consultation Cardiology and Nephrology. CURRENT MEDICATIONS: 1. Coreg 12.5 mg twice a day. 2. Cozaar started by Dr. Moses 25 mg daily. 3. Ecotrin 81 mg daily. 4. Uloric 40 mg daily. 5. Folic acid 1 mg daily. 6. Humalog low-dose sliding scale coverage a.c. 7. Tresiba FlexTouch 20 units a.m. and at bedtime. 8. Venofer 100 mg one dose given. 9. Lasix 40 mg IV q.8 hours. 10. Victoza 1.8 mg daily. 11. Magnesium oxide 400 mg twice a day. 12. Maxipime cefepime 1 g IV at bedtime. 13. Veltassa one 16.8 g daily. 14. Plavix 75 mg daily. 15. Prednisone 10 mg every other day. 16. Protonix 40 mg daily. 17. Cyclosporin Sandimmune 100 mg q.12 hours. 18. Sodium bicarb 650 mg twice a day. 19. Vitamin D 2000 International Units daily. 20. The patient was started on Zaroxolyn 5 mg daily by carton forming machine tender. The patient is on renal diet, out of bed, SCDs. MUGA scan pending. The patient will be continued on the above therapeutic intervention till the patient has significant improvement. The patient's PRBC transfusion held as the patient has been evaluated for possible renal transplant. The the patient and the patient's updated about the patient's condition, diagnosis. The patient was advised to continue SCDs and elevate lower extremity on two pillows lying and sitting and to continue above diuretics. The patient's repeat lab work will be monitored in the a.m. We will await further recommendation by Cardiology and Nephrology. Kobe Prince MD
[2017-09-03] MEDS: Cefepime 1gm in NS 100ml 1 GM/100 ML BAG IVPB SCH (21:55)
--- NOTE | 2017-09-03 22:18 | CP.PCM.PN ---
Subjective - Date & Time of Evaluation Date of Evaluation: 09/03/17 Time of Evaluation: 12:00 - Subjective Subjective: 57 yo M w/ pmh of htn, dm, CKD IV secondary to membranous nephropathy w/ nephrotic syndrome, admitted with acute decompensated diastolic CHF; Reports feeling well; urinating well; tolerating diet; no shortness of breath; thinks leg swelling improved; Objective - Vital Signs/Intake and Output Vital Signs (last 24 hours): Temp Pulse Resp BP Pulse Ox 98.4 F 60 20 163/84 H 97 09/03/17 16:01 09/03/17 21:36 09/03/17 16:01 09/03/17 21:54 09/03/17 16:01 Intake and Output: 09/03/17 09/04/17 18:59 06:59 Intake Total 640 Balance 640 - Medications Medications: Current Medications Aspirin (Ecotrin) 81 mg PO DAILY [facility] Last Admin: 09/03/17 09:05 Dose: 81 mg Carvedilol (Coreg) 12.5 mg PO DAILY [facility] Last Admin: 09/03/17 09:05 Dose: 12.5 mg Cholecalciferol (Vitamin D) 2,000 intlu PO DAILY [facility] Last Admin: 09/03/17 12:45 Dose: 2,000 intlu Clopidogrel Bisulfate (Plavix) 75 mg PO DAILY [facility] Last Admin: 09/03/17 09:05 Dose: 75 mg Cyclosporine (Sandimmune) 100 mg PO Q12H [facility] Last Admin: 09/03/17 21:55 Dose: 100 mg Folic Acid (Folic Acid) 1 mg PO DAILY [facility] Last Admin: 09/03/17 09:05 Dose: 1 mg Furosemide (Lasix) 40 mg IVP Q8H [facility] Last Admin: 09/03/17 21:54 Dose: 40 mg Cefepime HCl (Maxipime 1gm) 1 gm in 100 mls @ 100 mls/hr IVPB HS [facility] PRN Reason: Protocol Last Admin: 09/03/17 21:55 Dose: 100 mls/hr Insulin Human Lispro (Humalog Low) 0 units SC AC [facility] PRN Reason: Protocol Last Admin: 09/03/17 16:51 Dose: Not Given Losartan Potassium (Cozaar) 25 mg PO DAILY [facility] Last Admin: 09/03/17 09:05 Dose: 25 mg Magnesium Oxide (Mag-Ox) 400 mg PO BID [facility] Last Admin: 09/03/17 18:12 Dose: 400 mg Metolazone (Zaroxolyn) 5 mg PO DAILY [facility] Stop: 09/05/17 20:00 Last Admin: 09/02/17 14:58 Dose: 5 mg Febuxostat [Uloric] (40 Mg (Home Med)) 40 mg PO DAILY [facility] Last Admin: 09/03/17 09:07 Dose: 40 mg Patiromer Calcium Sorbitex [Veltassa] 16.8 Gm (Home) 16.8 gm PO DAILY [facility] Liraglutide [Victoza 2-Ross] 1.8 Mg) ( Home Med) 1.8 mg SQ QAM [facility] Last Admin: 09/03/17 09:09 Dose: 1.8 mg Insulin Degludec [ Tresiba Flextouch U- 100] (Home) 20 unit SQ AMHS [facility] Last Admin: 09/03/17 21:56 Dose: 20 unit Pantoprazole Sodium (Protonix Ec Tab) 40 mg PO 0600 [facility] Last Admin: 09/03/17 05:49 Dose: 40 mg Prednisone (Prednisone Tab) 10 mg PO QOTHERDAY [facility] Last Admin: 09/03/17 09:05 Dose: 10 mg Sodium Bicarbonate (Sodium Bicarbonate Tab) 650 mg PO BID [facility] Last Admin: 09/02/17 10:52 Dose: 650 mg - Labs Labs: 09/03/17 07:00 PT 12.5 SECONDS (9.4-12.5) 09/01/17 17:10 INR 1.09 (0.93-1.08) H 09/01/17 17:10 - Constitutional Appears: Non-toxic, No Acute Distress - Eye Exam Eye Exam: absent: Scleral icterus - ENT Exam ENT Exam: Mucous Membranes Moist - Respiratory Exam Respiratory Exam: Clear to Ausculation Bilateral. absent: Respiratory Distress - Cardiovascular Exam Cardiovascular Exam: RRR Additional comments: systolic murmur present; - GI/Abdominal Exam GI & Abdominal Exam: Soft. absent: Distended, Tenderness - Extremities Exam Additional comments: 3+ b/l lower leg edema; - Neurological Exam Neurological Exam: Alert, Awake - Psychiatric Exam Psychiatric exam: Normal Affect, Normal Mood - Skin Skin Exam: Warm. absent: Cyanosis Assessment and Plan (1) CHF (congestive heart failure) Assessment & Plan: Acute diastolic CHF exacerbation; diuresing well on current regimen of lasix 40 mg IV q8h, continuing same; will switch to PO bumex 2 mg bid before d/c home; Status: Acute (2) CKD (chronic kidney disease), stage IV Assessment & Plan: Mild worsening of renal function in the setting of aggressive diuresis; otherwise relatively stable electrolyte status, holding veltassa (K exchange resin) for now but will likely need to restart with ARB being restarted; Status: Acute (3) Nephrotic syndrome Assessment & Plan: 9g proteinuria on 24 hr collection, likely worsened by decreased cyclosporine dose (proteinuria was down to ~5g at one point); starting losartan 25 mg daily for anti-proteinuric effect; Status: Acute (4) Hypertensive CKD (chronic kidney disease) Assessment & Plan: BP elevated, likely due to aranesp; losartan being started, will attempt to increase dose as tolerated; continue coreg 12.5 mg bid and diuretics; Status: Acute (5) Anemia of renal disease Assessment & Plan: Hgb below goal for CKD (10-11g); started on aranesp, will continue as outpatient ; iron sat still low despite IV iron loading last month; will give IV venofer 100 mg daily while admitted; Status: Acute - Assessment and Plan (Free Text) Assessment: Thank you for this referral, we will continue to monitor closely;
[2017-09-04] MEDS: Pantoprazole 40 mg EC Tab PO SCH (05:55)
[2017-09-04 07:34] LABS: BASO # 0.04 K/mm3 (0.0-2.0); BASO % 0.5 % (0.0-3.0); EOS # 0.2 (0.0-0.7); EOS % 2.4 % (1.5-5.0); GRAN # 5.57 (1.4-6.5); GRAN % 62.8 % (50.0-68.0); HEMOGLOBIN 10.2 g/dL (14.0-18.0); LYMPH # 2.2 (1.2-3.4); LYMPH % 24.4 % (22.0-35.0); MEAN CELL VOLUME 94.9 fl (80.0-105.0); MEAN CORPUSCULAR HEMOGLOBIN 32.3 pg (25.0-35.0); MONO # 0.9 (0.1-0.6); MONO % 9.9 % (1.0-6.0); RBC 3.16 10^6/uL (3.5-6.1); RED CELL DISTRIBUTION WIDTH 12.5 % (11.5-14.5); WHITE BLOOD COUNT 8.9 10^3/ul (4.5-11.0)
[2017-09-04] MEDS: Insulin Lispro (humaLOG) LOW Coverage SC SCH ×3 (08:11→16:28)
[2017-09-04] MEDS: Cholecalciferol 1,000 INTLU TAB PO SCH (09:32)
[2017-09-04] MEDS: Magnesium Oxide 400 mg Tab UD PO SCH ×2 (09:32→17:30)
[2017-09-04] MEDS: Febuxostat [Uloric] 40 MG (HOME MED) PO SCH (09:33)
[2017-09-04] MEDS: INSULIN DEGLUDEC SQ SCH ×2 (09:34→21:16)
[2017-09-04] MEDS: LIRAGLUTIDE 1.8 MG SQ SCH (09:35)
[2017-09-04 10:13] LABS: URINE CREATININE 23.6 mg/dL
[2017-09-04 10:15] LABS: ALB/GLOB RATIO 1.2 (1.1-1.8); ALBUMIN 3.8 g/dL (3.0-4.8); BILIRUBIN,DIRECT 0.4 mg/dL (0.0-0.4); CALCIUM 9.5 mg/dL (8.4-10.5)
--- NOTE | 2017-09-04 12:03 | RAD ---
HISTORY: Compare to see improvement of Congestion. COMPARISON: 09/01/2017 TECHNIQUE: Chest PA and lateral FINDINGS: LUNGS: No active pulmonary disease. PLEURA: No significant pleural effusion identified. No pneumothorax apparent. CARDIOVASCULAR: Normal. OSSEOUS STRUCTURES: No significant abnormalities. VISUALIZED UPPER ABDOMEN: Normal. OTHER FINDINGS: None. IMPRESSION: No active disease. Resolved vascular congestion
--- NOTE | 2017-09-04 13:57 | CP.PCM.PN ---
Subjective - Date & Time of Evaluation Date of Evaluation: 09/04/17 Time of Evaluation: 13:41 - Subjective Subjective: 57 yo M w/ pmh of htn, dm, CKD IV secondary to membranous nephropathy w/ nephrotic syndrome, admitted with acute decompensated diastolic CHF; Reports feeling tired but otherwise well; no shortness of breath; Objective - Vital Signs/Intake and Output Vital Signs (last 24 hours): Temp Pulse Resp BP Pulse Ox 97.9 F 61 20 167/91 H 98 09/04/17 09:28 09/04/17 09:28 09/04/17 09:28 09/04/17 09:31 09/04/17 09:28 Intake and Output: 09/04/17 09/04/17 06:59 18:59 Intake Total 1800 Balance 1800 - Medications Medications: Current Medications Aspirin (Ecotrin) 81 mg PO DAILY [facility] Last Admin: 09/04/17 09:31 Dose: 81 mg Carvedilol (Coreg) 12.5 mg PO DAILY [facility] Last Admin: 09/04/17 09:31 Dose: 12.5 mg Cholecalciferol (Vitamin D) 2,000 intlu PO DAILY [facility] Last Admin: 09/04/17 09:32 Dose: 2,000 intlu Clopidogrel Bisulfate (Plavix) 75 mg PO DAILY [facility] Last Admin: 09/04/17 09:31 Dose: 75 mg Cyclosporine (Sandimmune) 100 mg PO Q12H [facility] Last Admin: 09/04/17 09:31 Dose: 100 mg Folic Acid (Folic Acid) 1 mg PO DAILY [facility] Last Admin: 09/04/17 09:31 Dose: 1 mg Furosemide (Lasix) 40 mg IVP BID [facility] Cefepime HCl (Maxipime 1gm) 1 gm in 100 mls @ 100 mls/hr IVPB HS [facility] PRN Reason: Protocol Last Admin: 09/03/17 21:55 Dose: 100 mls/hr Insulin Human Lispro (Humalog Low) 0 units SC AC [facility] PRN Reason: Protocol Last Admin: 09/04/17 12:03 Dose: Not Given Losartan Potassium (Cozaar) 25 mg PO DAILY [facility] Last Admin: 09/04/17 09:30 Dose: 25 mg Magnesium Oxide (Mag-Ox) 400 mg PO BID [facility] Last Admin: 09/04/17 09:32 Dose: 400 mg Metolazone (Zaroxolyn) 5 mg PO DAILY [facility] Stop: 09/05/17 20:00 Last Admin: 09/02/17 14:58 Dose: 5 mg Febuxostat [Uloric] (40 Mg (Home Med)) 40 mg PO DAILY [facility] Last Admin: 09/04/17 09:33 Dose: 40 mg Patiromer Calcium Sorbitex [Veltassa] 16.8 Gm (Home) 16.8 gm PO DAILY [facility] Liraglutide [Victoza 2-Ross] 1.8 Mg) ( Home Med) 1.8 mg SQ QAM [facility] Last Admin: 09/04/17 09:35 Dose: 1.8 mg Insulin Degludec [ Tresiba Flextouch U- 100] (Home) 20 unit SQ [facility]HS [facility] Last Admin: 09/04/17 09:34 Dose: 20 unit Pantoprazole Sodium (Protonix Ec Tab) 40 mg PO 0600 [facility] Last Admin: 09/04/17 05:55 Dose: 40 mg Prednisone (Prednisone Tab) 10 mg PO QOTHERDAY [facility] Last Admin: 09/03/17 09:05 Dose: 10 mg Sodium Bicarbonate (Sodium Bicarbonate Tab) 650 mg PO BID [facility] Last Admin: 09/02/17 10:52 Dose: 650 mg - Labs Labs: 09/04/17 06:30 09/04/17 06:30 PT 12.5 SECONDS (9.4-12.5) 09/01/17 17:10 INR 1.09 (0.93-1.08) H 09/01/17 17:10 - Constitutional Appears: Well, No Acute Distress - Eye Exam Eye Exam: Normal appearance. absent: Scleral icterus - ENT Exam ENT Exam: Mucous Membranes Moist - Respiratory Exam Respiratory Exam: Clear to Ausculation Bilateral. absent: Respiratory Distress - Cardiovascular Exam Cardiovascular Exam: RRR. absent: JVD Additional comments: systolic murmur - GI/Abdominal Exam GI & Abdominal Exam: Soft. absent: Distended, Tenderness - Extremities Exam Additional comments: 3+ b/l lower leg edema, improving; - Neurological Exam Neurological Exam: Alert, Awake - Psychiatric Exam Psychiatric exam: Normal Affect, Normal Mood. absent: Agitated - Skin Skin Exam: Warm. absent: Cyanosis Additional comments: mild b/l melo erythema Assessment and Plan (1) CHF (congestive heart failure) Assessment & Plan: Acute decompensated diastolic CHF; due to starting norvasc 5 mg? Nevertheless, patient is responding well to diuretics with weight having decreased from 265 lbs on admission to 246.6 lbs standing today; will decrease lasix IV 40 mg to bid as patient is developing contraction alkalosis and decreased renal perfusion ; Status: Acute (2) CKD (chronic kidney disease), stage IV Assessment & Plan: CrCl from 24 hr urine 28 ml/min; indicates patient has some leeway for further WILLI blockade even perhaps even increasing dose of cyclosporine; will titrate losartan dose upward slowly; Status: Acute (3) Nephrotic syndrome Assessment & Plan: 9g proteinuria, increased after decreasing dose of cyclosporine due to concern for residential nephrotoxic effects; losartan 25 mg started yesterday, will increase to 50 mg; continue cyclosporine 100 mg q12h and prednisone 10 mg every other day for now; Status: Acute (4) Hypertensive CKD (chronic kidney disease) Assessment & Plan: BP elevated in the setting of having started aranesp; increasing losartan dose, continue rest of BP meds; Status: Acute (5) Anemia of renal disease Assessment & Plan: H/H improved after aggressive diuresis; iron sat low, giving another dose of IV iron; will continue aranesp 100 mcg monthly as outpatient; Status: Acute
--- NOTE | 2017-09-04 14:18 | PN ---
DATE: 09/04/2017 LOCATION: The patient is seen in room 576, bed 1. REASON FOR CONSULTATION: Followup bilateral edema of the legs, coronary artery disease, history of stent insertion, diabetes, hypertension, renal failure, membranous nephropathy, and obesity. SUBJECTIVE: The patient is lying flat in the bed without chest pain, shortness of breath, or palpitation. Edema of the leg continues to decrease. PHYSICAL EXAMINATION: VITAL SIGNS: Blood pressure 161/90, respirations 20, pulse is 61, and temperature 97.9. HEENT: Head is normocephalic. Eyes, pupils normal, conjunctivae slightly pale. NECK: JVP low. Carotids equal. THORAX: AP diameter normal. LUNGS: Clear. CARDIOVASCULAR: S1 and S2. ABDOMEN: Soft, nontender. No organomegaly. Bowel sounds normal. EXTREMITIES: No clubbing, no cyanosis. LABORATORY DATA: WBC 8.9, hemoglobin 10.2, hematocrit 30.0, and platelets 208,000. Sodium is 138, potassium is pending, BUN 58, creatinine 3.2, and sugar 61. Total bilirubin, protein, and albumin normal. DIAGNOSES: Bilateral edema of the legs, fluid overload, renal dysfunction, membranous nephropathy, coronary artery disease, status stent insertion 12 years ago, hypertension, diabetes, anemia, and obesity. PLAN: The patient is on Coreg 12.5 mg daily, losartan 25 daily, and aspirin 81 mg daily. The patient is getting iron sucrose IV therapy, furosemide 40 mg IV q.8 hours, magnesium oxide 400 mg b.i.d., cefepime 1 g IV daily, Plavix 75 mg daily, prednisone 10 mg every other day, Protonix 40 daily, and Zaroxolyn 5 mg daily. We will do repeat chest x-ray this morning and will follow with you. Wanda Castillo MD
[2017-09-04] MEDS ORDERED: PATIROMER CALCIUM SORBITEX 16.8 GM PO SCH (17:07)
[2017-09-04] MEDS ORDERED: PATIROMER CALCIUM SORBITEX 16.8 GM PO ONE (17:15)
[2017-09-04] MEDS: Cefepime 1gm in NS 100ml 1 GM/100 ML BAG IVPB SCH (21:16)
[2017-09-04] MEDS ORDERED: Sodium Chloride 0.9% 500 ML IV STA (22:46)
[2017-09-05] MEDS: Pantoprazole 40 mg EC Tab PO SCH (05:29)
[2017-09-05] MEDS: Insulin Lispro (humaLOG) LOW Coverage SC SCH (07:30)
[2017-09-05 08:17] LABS: ALB/GLOB RATIO 1.1 (1.1-1.8); ALBUMIN 3.7 g/dL (3.0-4.8); BILIRUBIN,DIRECT 0.6 mg/dL (0.0-0.4); CALCIUM 8.8 mg/dL (8.4-10.5); MAGNESIUM 2.1 mg/dL (1.7-2.2)
--- NOTE | 2017-09-05 08:29 | PN ---
DATE: 09/02/2017 LOCATION: The patient is seen in room 576, bed 1. SUBJECTIVE: The patient is sitting up in the bed. The patient states that she has diuresed more than 4 full urinals since last night and the patient has noticed significantly decreased leg swelling and edema. The patient states that he still has right-sided abdominal pain and left-sided abdominal pain and abdominal wall pain. Denies shortness of breath. Denies any bleeding. PHYSICAL EXAMINATION: VITAL SIGNS: T-max 98.7, pulse 59 to 58 to 68, blood pressure 160/80, 165/75, respirations 20, and O2 saturation 100%. HEAD: Normocephalic, atraumatic. HEENT: Shows pale conjunctivae. Anicteric sclerae. No oropharyngeal lesion. No jugular venous distention. No audible carotid bruit. CHEST: Kyphosis. LUNGS: Shows decreased breath sounds. No audible crackles, rales, or wheezing. CARDIOVASCULAR: S1 and S2, regular rhythm. Positive soft murmur at left sternal border, right second intercostal space, and left second intercostal space. ABDOMEN: More protuberant, obese. No organomegaly noted. No costovertebral angle tenderness. No guarding. No rigidity. No rebound tenderness. GENITALIA: Male. RECTAL: Deferred. EXTREMITIES: Shows 3 to 4+ pitting edema. Decreasing erythema of the bilateral lower extremity. MUSCULOSKELETAL: Shows a body mass index of 36. NEUROLOGIC: The patient is alert, awake, oriented x3. Cranial nerves II through XII intact. Gait examination is independent. VASCULAR: Nonpalpable pulses due to lymphedema. PSYCHIATRIC: Negative. DIAGNOSTICS: From 09/02/2017, WBC 8.5, hemoglobin/hematocrit 8.7/25.3, platelet 162, granulocytes normal. Sodium 40, potassium 3.9, chloride 106, CO2 26, anion gap 12, BUN 51, creatinine 2.6, GFR 31, glucose 65, 122, calcium 8.9, magnesium 1.5, and uric acid 4.4. Iron studies noted. Triglyceride 207, cholesterol 181, and LDL 93. T4 is 5.0. TSH is 2.35. Free T4 is low. Cyclosporin level test not performed. Blood type O+. IMPRESSION AND PLAN: 1. Severe symptomatic anemia with decreasing hemoglobin/hematocrit. 2. Questionable congestive heart failure with elevated BNP. 3. Bilateral lower extremity cellulitis, slow resolving. 4. Massive bilateral lower extremity lymphedema. 5. Hypertension. 6. Morbid obesity with elevated body mass index of 36. 7. Insulin-requiring diabetes mellitus. 8. History of coronary artery disease. 9. Membranous nephropathy. 10. Bradycardia. 11. Chronic kidney disease stage IV. 12. Hypertriglyceridemia, hypercholesteremia. 13. Questionable subclinical hypothyroidism. 14. Hypomagnesemia. 15. Proteinuria, glycosuria, microscopic hematuria, bacteriuria. 16. O+ blood type. Plan at this time, the patient is ordered repeat labs. Current consultation Nephrology and Cardiology. CURRENT MEDICATIONS: 1. Aranesp 100 mcg x1 given yesterday. 2. Coreg 12.5 mg daily. 3. Ecotrin 81 mg daily. 4. Uloric 40 mg daily. 5. Folic acid 1 mg daily. 6. Humalog low-dose sliding scale coverage before meals. 7. Tresiba 20 units a.m. and at bedtime. 8. Lasix 40 mg IV q.8 hours. 9. Victoza 1.8 mg subcutaneously daily. 10. The patient is on ordered magnesium sulfate riders x2. 11. The patient is on cefepime 1 g IV at bedtime. 12. Veltassa 16.8 g daily. 13. Plavix 75 mg daily. 14. Prednisone 10 mg every other day. 15. Protonix 40 mg daily. 16. Cyclosporin 100 mg twice a day. 17. Sodium bicarbonate 650 mg twice a day. 18. Vitamin D 1000 units Tuesday, Tuesday and Tuesday. The patient's CT of the abdomen and pelvis is pending. Echo with Doppler pending. MUGA scan pending. The patient has also been ordered elevation of the lower extremity on 2 pillows, continuous lying and sitting. The patient has been ordered SCDs. The patient has been updated about the patient's clinical diagnosis, test results, and need for further therapeutic diagnostic intervention needed. All questions concerned answered, which he acknowledged to understand. Dictated and electronically signed, not read. Kobe Prince MD
[2017-09-05 09:46] VITALS: BP 162/80; PULSE 95; RESP 18; TEMP 98.3; O2SAT 96
--- NOTE | 2017-09-05 10:31 | PN ---
DATE: 09/04/2017 LOCATION: The patient is seen in room 576, bed 1. SUBJECTIVE: The patient is comfortable. improved and increased diuresis. The patient states that he has been diuresing much more since the use of IV Lasix. The patient denies chest pain. Denies shortness of breath. Denies nausea, vomiting. . Denies hematochezia. Denies syncope. Denies loss of consciousness. Denies chest pain. PHYSICAL EXAMINATION: VITAL SIGNS: T-max is 98.6, pulse 61 and 58, blood pressure 167/91, 163/84, and 165/65, respirations 18, O2 sat is 96%. HEENT: Head: Normocephalic, atraumatic. HEENT examination shows pinkish pale conjunctivae. Anicteric sclerae. No oropharyngeal lesion. NECK: No neck rigidity. No audible carotid bruit. No jugular vein distention. CHEST: The patient has kyphosis. LUNGS: Shows no rales, crackles, or wheezing. CARDIOVASCULAR: Shows S1, S2, regular rhythm. Questionable soft systolic murmur in left sternal border, left second intercostal space, right second intercostal space. ABDOMEN: Obese and protuberant. Positive bowel sounds. GENITALIA: Male. RECTAL: Deferred. EXTREMITIES: Shows greater than 2 to 3+ pitting edema. ____ cellulitis of the lower extremity. pulses. MUSCULOSKELETAL: Shows a body mass index of 34. NEUROLOGIC: The patient is alert, awake, oriented x3. Cranial nerves II through XII grossly intact. GAIT: Not tested. VASCULAR: Could not be assessed. PSYCHIATRIC: Negative. DIAGNOSTIC STUDIES: On 09/04/2017, WBC 8.9, hemoglobin and hematocrit 10.2 and 30, and platelets 208,000. Sodium 138, potassium 4.9, chloride 99, CO2 30, anion gap 14, BUN 58, 3.2, GFR is 24, glucose 80, calcium 9.5, magnesium 2.0. LFTs are normal. Urine total volume 5700 . Creatinine clearance 28. Urine protein 24-hour 9063. IMPRESSION AND PLAN: 1. Bilateral lower extremity cellulitis, this is resolving. 2. Morbidly obese with significant weight gain. 3. 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 4. Acute decompensated diastolic congestive heart failure with elevated BNP. 5. Bilateral lower extremity venous stasis, greater than 3+ pitting edema. 6. Hypertensive chronic kidney disease. 7. Anemia of chronic kidney disease. 8. Morbid obesity with elevated body mass index of 34. 9. Hypertension. 10. Insulin-requiring diabetes mellitus. 11. History of coronary artery disease, coronary angioplasty. 12. Fluid volume overload. 13. status post Aranesp treatment. 14. Hypomagnesemia. 15. Questionable history of clinical hypothyroidism. 16. Well-controlled insulin requiring diabetes mellitus with hemoglobin A1c of 6.5. 17. Diastolic right-sided congestive heart failure with elevated BNP. 18. Urine creatinine clearance of 28 mL. 19. 24-hour urine protein of 9063. PLAN: At this time, the patient has improved significantly. The patient has been ordered repeat labs. CURRENT MEDICATIONS: Coreg 12.5 mg once a day, which decreased from twice a day because of bradycardia. The patient is maintained on Coreg 25 mg . The patient is started on Cozaar 50 mg daily by Nephrology, Ecotrin 81 mg daily, Uloric 40 mg daily, folic acid daily, Humalog low-dose sliding scale coverage a.c. The patient is on Tresiba FlexTouch 20 units a.m. and at bedtime, Venofer 100 mg one dose given by . Lasix decreased to 40 mg IV twice a day by Dr. Moses today. The patient is on Victoza 1.8 mg daily, magnesium oxide 400 mg twice a day, Veltassa 16.8 g once daily, Plavix 75 mg daily, prednisone 10 mg every other day, Protonix 40 mg daily, 650 mg twice a day, vitamin D 2000 International Units daily, Plavix 75 mg daily which was read by ____ from Cardiology, The patient has been bed. The patient's MUGA scan was given. The patient was requesting for . The patient's cardiology and nephrology recommendations were noted. The patient was ordered a repeat chest x-ray infection. The patient is most likely going to be discharged ____ resume all her medications. Kobe Prince MD
[2017-09-05] MEDS: Magnesium Oxide 400 mg Tab UD PO SCH (10:37)
[2017-09-05] MEDS: Cholecalciferol 1,000 INTLU TAB PO SCH (10:38)
[2017-09-05] MEDS: Febuxostat [Uloric] 40 MG (HOME MED) PO SCH (10:39)
[2017-09-05] MEDS: LIRAGLUTIDE 1.8 MG SQ SCH (10:41)
[2017-09-05] MEDS: INSULIN DEGLUDEC SQ SCH (10:41)
[2017-09-05] MEDS ORDERED: Pneumococcal 23-Valent Vaccine IM ONE (12:27)
[2017-09-05] MEDS ORDERED: PATIROMER CALCIUM SORBITEX 16.8 GM PO SCH (17:00)
--- NOTE | 2017-09-05 18:25 | PN ---
DATE: 09/05/2017 LOCATION: The patient is in room 576, bed 1. REASON FOR CONSULTATION: Bilateral edema of the legs, coronary artery disease, history of stent insertion, diabetes, hypertension, renal failure, membranous nephropathy, and obesity. SUBJECTIVE: The patient is lying flat in bed without any chest pain, shortness of breath, or palpitation. Now, edema of the legs is improving with diuresis. PHYSICAL EXAMINATION: VITAL SIGNS: Blood pressure 162/80; yesterday, blood pressure was 104/37; respirations 18; pulse 95; temperature 98.3. HEENT: Head is normocephalic. Pupils normal. Conjunctivae slightly pale. NECK: JVP low. Carotids equal. THORAX: AP diameter normal. LUNGS: Clear. CARDIOVASCULAR: S1 and S2. ABDOMEN: Protuberant. No organomegaly. EXTREMITIES: Edema of the legs are decreasing. No clubbing. No cyanosis. LABORATORY DATA: WBC 8.9, hemoglobin 10.2, hematocrit 30.0, and platelet 208. Sodium 138, potassium 4.2, BUN 69, creatinine 3.2, random sugar 142, direct bilirubin is 0.6. AST and ALT normal. Total protein and albumin normal. Chest x-ray repeated on 09/04/2017, I reviewed the chest x-ray, clear lungs. DIAGNOSES: Bilateral edema of the legs, fluid overload, renal dysfunction, membranous nephropathy, coronary artery disease, history of stent insertion 12 years ago, hypertension, diabetes, anemia, and obesity. PLAN: Told the patient to lose weight. In the meantime, we will continue present therapy with Coreg 12.5 mg daily, losartan 50 mg daily, aspirin 81 mg daily, and folic acid 1 mg daily. The patient on insulin lispro and insulin degludec. Venofer 100 mg IV once was given. Furosemide 40 IV b.i.d. Metolazone 5 mg p.o. daily. We will continue present therapy. We will follow. Wanda Castillo MD
--- NOTE | 2017-09-05 18:45 | CP.PCM.PN ---
Objective - Vital Signs/Intake and Output Vital Signs (last 24 hours): Temp Pulse Resp BP Pulse Ox 98.3 F 95 H 18 162/80 H 96 09/05/17 08:00 09/05/17 10:38 09/05/17 08:00 09/05/17 10:38 09/05/17 08:00 Intake and Output: 09/05/17 09/05/17 06:59 18:59 Intake Total 640 Balance 640 - Labs Labs: 09/04/17 06:30 09/05/17 05:00 PT 12.5 SECONDS (9.4-12.5) 09/01/17 17:10 INR 1.09 (0.93-1.08) H 09/01/17 17:10 Assessment and Plan (1) CHF (congestive heart failure) Status: Acute (2) CKD (chronic kidney disease), stage IV Status: Acute (3) Nephrotic syndrome Status: Acute (4) Hypertensive CKD (chronic kidney disease) Status: Acute (5) Anemia of renal disease Status: Acute
--- NOTE | 2017-09-06 09:21 | DS ---
SUBJECTIVE: The patient is seen in room 576, bed 1. The patient is seen lying in the bed. The patient is up in about. REVIEW OF SYSTEMS: The patient's 13 system review was done, pertinent positive negative dictated above. The patient stated that he is urinating more than 3 liters over the last 24 hours. PHYSICAL EXAMINATION: VITAL SIGNS: T-max 98.3, heart rate 95, blood pressure 162/80, respiration 18, O2 sat 96%. HEAD: Normocephalic, atraumatic. HEENT: Shows pinkish conjunctivae. Anicteric sclerae. No oropharyngeal lesion. No neck rigidity. No audible carotid bruit. CHEST: Kyphosis. LUNGS: Shows no rales, crackles or wheezing. CARDIOVASCULAR: Shows S1, S2, regular rhythm. Questionable soft systolic murmur, left sternal border, right second intercostal space, left second intercostal space. ABDOMEN: Morbidly obese, protuberant. Positive bowel sounds. No hepatosplenomegaly noted. No guarding. No costovertebral angle tenderness. No rigidity. No rebound tenderness. GENITALIA: Male. RECTAL: Deferred. LOWER EXTREMITY: Shows complete resolution of erythema and cellulitis, but lymphedema noted which is improved since her hospitalization. MUSCULOSKELETAL: Shows a body mass index of 33.4. NEUROLOGIC: The patient is alert, awake, oriented x3. Cranial nerves II-XII grossly intact. Gait examination is independent. VASCULAR: Unable to palpate lower extremity pulses. DIAGNOSTICS: 09/04/2017, WBC 8.9, hemoglobin/hematocrit 10.2/30.0, platelet 208. Sodium 138, potassium 4.2, chloride 101, CO2 28, anion gap 14, BUN 69, creatinine 3.2, GFR 24, glucose 142, 117, 77, calcium 8.8, magnesium 2.1. LFTs are normal. Blood type O+. The patient's MUGA scan report is pending. FINAL IMPRESSION, PLAN AND DISCHARGE DIAGNOSES: 1. Diastolic congestive heart failure with bilateral lower extremity lymphedema. 2. Morbid obesity with elevated body mass index of 34. 3. Diastolic right-sided congestive heart failure. 4. Chronic kidney disease stage IV. 5. Nephrotic syndrome. 6. Hypertensive chronic kidney disease. 7. Anemia of renal disease. 8. Hypertension. 9. Insulin-requiring diabetes mellitus. 10. Sinus bradycardia. 11. Normocytic anemia. 12. Granulocytosis. 13. Chronic kidney disease stage IV. 14. Right-sided diastolic congestive heart failure with elevated BNP. 15. Hypertriglyceridemia, hypercholesteremia with elevated LDL. 16. Questionable and possible subclinical hypothyroidism. 17. Well-controlled insulin-requiring diabetes mellitus with hemoglobin A1c of 6.5. 18. Proteinuria, glycosuria, microscopic hematuria. 19. Creatinine clearance of 28. 20. Massive proteinuria of greater than 9000 mg per 24 hours. 21. O+ blood type. 22. Status post MUGA scan results pending. The patient is discharged home. The patient is advised discharge follow up within 1 week. Discharge medications are as per updated ambulatory orders, which are as follows. The patient is discharged home on aspirin 81 mg daily, Bumex 2 mg twice a day, Coreg 12.5 mg once or twice a day, vitamin D2 50,000 units two to three times a week, Plavix 75 mg daily, vitamin B12 injection 1000 mcg monthly, cyclosporin 100-200 mg twice a day, Nexium 40 mg daily, Uloric 40 mg daily, folic acid 1 mg daily, Tarceva or whichever insurance is covered 20 units a.m. and at bedtime, Victoza 1.8 mg subcu daily, Cozaar 50 mg daily, ordered by Dr. Moses, magnesium oxide 200 mg twice a day, Veltassa 16.8 g daily, prednisone 10 mg every other day, Crestor 10 mg daily, sodium bicarb 650 mg twice a day. The patient's MUGA scan results pending. The patient is discharged home. Discharge followup with Dr. Prince within 1 week and discharge followup with Dr. Moses within 1 week. The patient discharge medications as dictated above. Copy of non-dialysis renal diet, moderate carbohydrate diet and heart-healthy diet copy was given to the patient upon discharge. During this hospitalization, the patient's condition, diagnosis, diagnostic test results, recommendation by all the physicians involved in the care of the patient was extensively explained to the patient and the patient's Bre Valencia on a daily basis in layman's language. All questions concerned answered, which they acknowledged. Time spent in the entire discharge process more than 45 minutes. Dictated and electronically signed, not read. Signing off, Kobe MD Suresh
--- NOTE | 2017-09-06 22:04 | CARD ---
APPROVED REPORT INDICATION BILATERAL LYMPHODEMA,ESRD,???CHF/???CMP PROCEDURE The above named patient recieved 28.1 millicuries of Tc99m tagged red blood cells intravenously. After achieving equilibrium, gated imaging of 16/frame/cycle was performed utillizing Gamma camera interfaced with a digital computer and gated device. Gated imaging was then performed in the left anterior oblique, anterior, and the left lateral projections. Findings Left Ventricle: The quality of the study is good. The left ventricle is mildly enlarged. The right ventricle is normal in size. There is photopenic area surrounding the heart suggestive of pericardial effusion. Wall motion study shows good contractility of the left ventricle. RV wall motion is normal. The right atrium is dynamic. The spleen appears miidly enlarged. The remainder of the study is unremarkable. Impressions Normal gated wall motion of left ventricle wall. LVEF = 59%. Normal RV wall motion. Pericardial effusion.
== END 2017-09-05 14:33 | disposition home or self-care (01) | DRG 291 ==
LOC: ED 15:53 → ERH 18:45 → 5RSO 22:25 → OBSVTOIN 09-02 21:52
PROVIDERS: ADMIT Internal Medicine; ATTEND Internal Medicine
PROC: 3E0234Z Introduction of Serum, Toxoid and Vaccine into Muscle, Percutaneous Approach (ICD-10-PCS; principal; 2017-09-05)
DX: I13.0 Hypertensive heart and chronic kidney disease with heart failure and stage 1 through stage 4 chronic kidney disease, or unspecified chronic kidney disease (principal); I50.33 Acute on chronic diastolic (congestive) heart failure; E11.22 Type 2 diabetes mellitus with diabetic chronic kidney disease; N18.4 Chronic kidney disease, stage 4 (severe); E66.01 Morbid (severe) obesity due to excess calories; E83.42 Hypomagnesemia; L03.115 Cellulitis of right lower limb; L03.116 Cellulitis of left lower limb; N02.2 Recurrent and persistent hematuria with diffuse membranous glomerulonephritis; N04.9 Nephrotic syndrome with unspecified morphologic changes; D63.1 Anemia in chronic kidney disease; E05.90 Thyrotoxicosis, unspecified without thyrotoxic crisis or storm; E53.8 Deficiency of other specified B group vitamins; E55.9 Vitamin D deficiency, unspecified; E78.00 Pure hypercholesterolemia, unspecified; E78.1 Pure hyperglyceridemia; E78.5 Hyperlipidemia, unspecified; I25.10 Atherosclerotic heart disease of native coronary artery without angina pectoris; I87.8 Other specified disorders of veins; I89.0 Lymphedema, not elsewhere classified; J44.9 Chronic obstructive pulmonary disease, unspecified; K21.9 Gastro-esophageal reflux disease without esophagitis; K57.30 Diverticulosis of large intestine without perforation or abscess without bleeding; K76.0 Fatty (change of) liver, not elsewhere classified; M16.0 Bilateral primary osteoarthritis of hip; N28.1 Cyst of kidney, acquired; Z68.36 Body mass index [BMI] 36.0-36.9, adult; Z79.02 Long term (current) use of antithrombotics/antiplatelets; Z79.4 Long term (current) use of insulin; Z79.82 Long term (current) use of aspirin; Z79.899 Other long term (current) drug therapy; Z84.1 Family history of disorders of kidney and ureter; Z87.01 Personal history of pneumonia (recurrent); Z87.441 Personal history of nephrotic syndrome; Z87.442 Personal history of urinary calculi; Z87.891 Personal history of nicotine dependence; Z91.11 Patient's noncompliance with dietary regimen; Z91.19 Patient's noncompliance with other medical treatment and regimen; Z95.5 Presence of coronary angioplasty implant and graft; Z96.641 Presence of right artificial hip joint; Z23 Encounter for immunization

== ENCOUNTER 2017-11-22 10:43 | Emergency (ER) | payer OTHER ==
[2017-11-22 10:43] VITALS: BMI 35.9
[2017-11-22 11:08] VITALS: TEMP 98.6
--- NOTE | 2017-11-22 11:41 | ED PDOC ---
Arrival/HPI - General Chief Complaint: ENT Problem Time Seen by Provider: 11/22/17 11:14 Historian: Patient - History of Present Illness Narrative History of Present Illness (Text): 11/22/17 11:30 57yo male with Past medical history of ESRD, hypertension and anemia who present with complaint of intermittent nosebleed since this morning. Patient notes previous history of nosebleed intermittently. States he was told by his line palletizer and PMD that it is related to his ESRD. He also notes nasal congestion sine last night. States the nose bleed started after he blew his nose. He states the bleeding stopped before coming to the Emergency department. He denies any chest pain, dizziness, shortness of breath, nausea, vomiting, abdominal pain, any other complaint. Past Medical History - Provider Review Nursing Documentation Reviewed: Yes - Infectious Disease Hx of Infectious Diseases: None - Tetanus Immunization Tetanus Immunization: Unknown - Cardiac Hx Cardiac Disorders: Yes Hx Congestive Heart Failure: Yes Hx Hypertension: Yes - Pulmonary Hx Respiratory Disorders: Yes Hx Pneumonia: Yes - Neurological Hx Neurological Disorder: No - HEENT Hx HEENT Disorder: No - Renal Hx Renal Disorder: Yes Other/Comment: membrane nephritis - Endocrine/Metabolic Hx Endocrine Disorders: Yes Hx Diabetes Mellitus Type 2: Yes - Hematological/Oncological Hx Blood Disorders: Yes Hx Anemia: Yes (with blood transfusion) - Integumentary Hx Dermatological Disorder: No - Musculoskeletal/Rheumatological Hx Musculoskeletal Disorders: Yes Hx Back Pain: Yes - Gastrointestinal Hx Gastrointestinal Disorders: No - Genitourinary/Gynecological Hx Genitourinary Disorders: No - Psychiatric Hx Emotional Abuse: No Hx Physical Abuse: No Hx Substance Use: Yes - Surgical History Hx Cardiac Catheterization: Yes Hx Coronary Stent: Yes (x2) - Anesthesia Hx Anesthesia: Yes Hx Anesthesia Reactions: No Hx Malignant Hyperthermia: No - Suicidal Assessment Feels Threatened In Home Enviroment: No Family/Social History - Physician Review Nursing Documentation Reviewed: Yes Family/Social History: Unknown Family HX Smoking Status: Former Smoker Hx Alcohol Use: Yes (SOCIALLY) Hx Substance Use: Yes Hx Substance Use Treatment: No Allergies/Home Meds Allergies/Adverse Reactions: Allergies rituximab Allergy (Mild, Verified 11/22/17 10:54) RASH Home Medications: Home Meds Medication Instructions Recorded Confirmed Aspirin [Aspir 81] 81 tab PO DAILY 08/25/13 11/22/17 Cholecalciferol [Vitamin D 1000 IU] 50,000 units PO MWF 12/07/14 11/22/17 Clopidogrel [Plavix] 75 mg PO DAILY 12/07/14 11/22/17 Folic Acid 1 mg PO DAILY 02/06/16 11/22/17 Liraglutide [Victoza 2-Ross] 1.8 mg SQ QAM 02/06/16 11/22/17 Rosuvastatin Calcium [Crestor] 10 mg PO QAM 02/06/16 11/22/17 Cyanocobalamin (Vitamin B-12) 1,000 mcg SQ Q30D 04/22/16 11/22/17 [Cyanocobalamin Injection] Cyclosporine 150 mg PO BID 04/09/17 11/22/17 predniSONE [predniSONE Tab] 10 mg PO QOTHERDAY 04/09/17 11/22/17 Patiromer Calcium Sorbitex 16.8 gm PO DAILY 06/20/17 11/22/17 [Veltassa] Sodium Bicarbonate Tab 650 mg PO BID 06/20/17 11/22/17 Carvedilol [Coreg] 12.5 mg PO BID 06/23/17 11/22/17 Esomeprazole Magnesium [Nexium] 40 mg PO DAILY 06/23/17 11/22/17 Magnesium Oxide [Mag-Oxide 200 mg PO BID 07/18/17 11/22/17 Magnesium] Allopurinol [Zyloprim] 100 mg PO DAILY 11/22/17 11/22/17 Bumetanide [Bumex] 0.5 mg PO .PM 11/22/17 11/22/17 Bumetanide [Bumex] 2 mg PO AMHS 11/22/17 11/22/17 Insulin Glargine, Recombina 20 unit SC BID 11/22/17 11/22/17 [Lantus] Review of Systems - Physician Review All systems were reviewed & negative as marked: Yes - Review of Systems Constitutional: Normal Eyes: Normal ENT: Epistaxis Respiratory: Normal Cardiovascular: Normal Gastrointestinal: Normal Genitourinary Male: Normal Musculoskeletal: Normal Skin: Normal Neurological: Normal Endocrine: Normal Hemo/Lymphatic: Normal Psychiatric: Normal Physical Exam Vital Signs Reviewed: Yes Vital Signs Temp Pulse Resp BP Pulse Ox 11/22/17 15:11 65 17 139/87 99 11/22/17 13:43 57 L 17 140/92 H 99 11/22/17 11:03 98.6 F 61 16 192/96 H 97 Temperature: Afebrile Blood Pressure: Normal Pulse: Regular Respiratory Rate: Normal Appearance: Positive for: Well-Appearing, Non-Toxic, Comfortable Pain Distress: None Mental Status: Positive for: Alert and Oriented X 3 - Systems Exam Head: Present: Atraumatic, Normocephalic Pupils: Present: PERRL Extroacular Muscles: Present: EOMI Conjunctiva: Present: Normal Mouth: Present: Moist Mucous Membranes Nose (Internal): Present: Boggy (B/L nares). No: No Active Bleeding Neck: Present: Normal Range of Motion Respiratory/Chest: Present: Clear to Auscultation, Good Air Exchange. No: Respiratory Distress, Accessory Muscle Use Cardiovascular: Present: Regular Rate and Rhythm, Normal S1, S2. No: Murmurs Abdomen: No: Tenderness, Distention, Peritoneal Signs Back: Present: Normal Inspection Upper Extremity: Present: Normal Inspection. No: Cyanosis, Edema Lower Extremity: Present: Normal Inspection. No: Edema Neurological: Present: GCS=15, CN II-XII Intact, Speech Normal Skin: Present: Warm, Dry, Normal Color. No: Rashes Psychiatric: Present: Alert, Oriented x 3, Normal Insight, Normal Concentration Medical Decision Making ED Course and Treatment: 11/22/17 19:52 Pt in Emergency department for stated history. No active bleeding was noted while pt was in Emergency department. Lab was noted with hyperkalemia which is comparable to pt's lab form 10/20 and 10/28. Both pt and the states that pt's Veltass was recently increased secondary to the hyperkalemia and his Optometrist Assistant is aware of it. He is also anemic with 2.5 Cr, this is his baseline. He gets Procrit. I tried to notify both pt's PMD and Neprhologist, but different Doctors was covering for both . Pt's lab result was given to him and he was advised to f/u with his PMD/Optometrist Assistant. - Lab Interpretations Lab Results: 11/22/17 11:45 11/22/17 11:45 Lab Results 11/22/17 13:01: POC Glucose (mg/dL) 80 11/22/17 12:00: Urine Color Yellow, Urine Appearance Sl cloudy, Urine pH 6.0, Ur Specific [place] 1.025, Urine Protein >=300 H, Urine Glucose (UA) 250 H, Urine Ketones Negative, Urine Blood Small H, Urine Nitrate Negative, Urine Bilirubin Negative, Urine Urobilinogen 0.2, Ur Leukocyte Esterase Negative, Urine RBC 1 - 3, Urine WBC 2 - 5, Ur Epithelial Cells 3 - 4, Urine Bacteria Mod 11/22/17 11:45: Sodium 142, Potassium 5.5 H, Chloride 113 H, Carbon Dioxide 22, Anion Gap 12, BUN 71 H, Creatinine 2.9 H, Est GFR ( Amer) 27, Est GFR ( Non-Af Amer) 22, Random Glucose 97, Calcium 8.9, Magnesium 2.1, Total Bilirubin 0.3, AST 20, ALT 27, Alkaline Phosphatase 64, Lactate Dehydrogenase 764 H, Total Creatine Kinase 198, Troponin I 0.03 D, Total Protein 6.1, Albumin 3.3, Globulin 2.8, Albumin/Globulin Ratio 1.2 11/22/17 11:45: PT 11.6, INR 1.01, APTT 28.4 11/22/17 11:45: WBC 7.7, RBC 3.01 L, Hgb 9.6 L, Hct 28.6 L, MCV 95.0, MCH 31.9, MCHC 33.6, RDW 12.9, Plt Count 140, MPV 10.5, Gran % 67.2, Lymph % (Auto) 19.8 L , [place] % (Auto) 10.1 H, Eos % (Auto) 2.5, Baso % (Auto) 0.4, Gran # 5.19, Lymph # (Auto) 1.5, [place] # (Auto) 0.8 H, Eos # (Auto) 0.2, Baso # (Auto) 0.03 Disposition/Present on Arrival - Present on Arrival Any Indicators Present on Arrival: No History of DVT/PE: No History of Uncontrolled Diabetes: No Urinary Catheter: No History of Decub. Ulcer: No History Surgical Site Infection Following: None - Disposition Have Diagnosis and Disposition been Completed?: Yes Diagnosis: Epistaxis, recurrent Disposition: HOME/ ROUTINE Disposition Time: 14:55 Patient Plan: Discharge Condition: STABLE Discharge Instructions (ExitCare): Nosebleeds Additional Instructions: Follow up with your doctor Return to Emergency department for any new or worsening symptoms Referrals: [facility] Profile Req, [Non-Staff] - Follow up with primary Kobe Prince MD [Primary Care Provider] - Follow up with primary Forms: [employer] (Welsh)
[2017-11-22 11:57] LABS: BASO # 0.03 K/mm3 (0.0-2.0); BASO % 0.4 % (0.0-3.0); EOS # 0.2 (0.0-0.7); EOS % 2.5 % (1.5-5.0); GRAN # 5.19 (1.4-6.5); GRAN % 67.2 % (50.0-68.0); HEMOGLOBIN 9.6 g/dL (14.0-18.0); LYMPH # 1.5 (1.2-3.4); LYMPH % 19.8 % (22.0-35.0); MEAN CORPUSCULAR HEMOGLOBIN 31.9 pg (25.0-35.0); MEAN CORPUSCULAR HGB CONC 33.6 g/dl (31.0-37.0); MEAN PLATELET VOLUME 10.5 fl (7.0-11.0); MONO # 0.8 (0.1-0.6); MONO % 10.1 % (1.0-6.0); RBC 3.01 10^6/uL (3.5-6.1); RED CELL DISTRIBUTION WIDTH 12.9 % (11.5-14.5); WHITE BLOOD COUNT 7.7 10^3/ul (4.5-11.0)
[2017-11-22 12:05] LABS: INR 1.01 (0.93-1.08); PARTIAL THROMBOPLASTIN TIME 28.4 Seconds (25.1-36.5); PROTHROMBIN TIME 11.6 SECONDS (9.4-12.5)
[2017-11-22 12:08] LABS: URINE BILIRUBIN NEGATIVE (NEGATIVE); URINE BLOOD SMALL (NEGATIVE); URINE GLUCOSE (UA) 250 mg/dL (NEGATIVE); URINE LEUKOCYTE ESTERASE NEGATIVE Leu/uL (NEGATIVE); URINE PROTEIN >=300 mg/dL (<30 mg/dL); URINE UROBILINOGEN 0.2 E.U./dL (<1 E.U./dL)
[2017-11-22 12:10] LABS: URINE APPEARANCE SL CLOUDY (CLEAR); URINE COLOR YELLOW (YELLOW)
[2017-11-22 12:18] LABS: TROPONIN I 0.03 ng/mL
[2017-11-22 12:24] LABS: URINE BACTERIA MOD (NEG)
[2017-11-22 13:23] LABS: ALB/GLOB RATIO 1.2 (1.1-1.8); ALBUMIN 3.3 g/dL (3.0-4.8); CALCIUM 8.9 mg/dL (8.4-10.5)
[2017-11-22 13:43] VITALS: RESP 17; O2SAT 99
[2017-11-22] MEDS ORDERED: Sod Polystyrene Sulf 15 gm/60 ml Susp PO STA (14:45)
[2017-11-22 15:13] VITALS: BP 139/87; PULSE 65
== END 2017-11-22 15:11 | disposition home or self-care (01) ==
LOC: ED 10:43
DX: R04.0 Epistaxis (principal); I12.0 Hypertensive chronic kidney disease with stage 5 chronic kidney disease or end stage renal disease; N18.6 End stage renal disease; E11.9 Type 2 diabetes mellitus without complications; Z87.891 Personal history of nicotine dependence

== ENCOUNTER 2018-01-26 13:36 | Emergency (ER) | payer OTHER ==
[2018-01-26 13:37] VITALS: BMI 35.9
--- NOTE | 2018-01-26 15:38 | CT ---
PROCEDURE: CT Thoracic Spine without contrast HISTORY: point tenderness spine, assess for compression fx COMPARISON: None. TECHNIQUE: Axial computed tomography images were obtained of the thoracic spine without intravenous contrast. Coronal and sagittal reformatted images were created and reviewed. Radiation dose: Total exam DLP = 982 mGy-cm. This CT exam was performed using one or more of the following dose reduction techniques: Automated exposure control, adjustment of the mA and/or kV according to patient size, and/or use of iterative reconstruction technique. FINDINGS: VERTEBRAE: Unremarkable. No fracture. Normal alignment. DISCS/SPINAL CANAL/NEURAL FORAMINA: Within the limits of the CT technique, no disc herniation seen. No central canal or neural foraminal stenosis.. PARASPINAL SOFT TISSUES: Unremarkable. OTHER FINDINGS: There is partial ossification of the posterior spinous ligaments and ligamentum flavum. There is also partial ossification of the anterior longitudinal ligament. IMPRESSION: No evidence of vertebral compression fracture.
--- NOTE | 2018-01-26 15:42 | CT ---
PROCEDURE: CT Lumbar Spine without contrast HISTORY: point tenderness spine, assess for compression fx COMPARISON: None. TECHNIQUE: Axial computed tomography images were obtained of the lumbar spine without the use of intravenous contrast. Coronal and sagittal reformatted images were created and reviewed. Radiation dose: Total exam DLP = 1420.24 mGy-cm. This CT exam was performed using one or more of the following dose reduction techniques: Automated exposure control, adjustment of the mA and/or kV according to patient size, and/or use of iterative reconstruction technique. FINDINGS: VERTEBRAE: Normal lumbar curvature is appreciate without acute fracture or spondylolisthesis appreciated. Multilevel spondylosis apparent. Multilevel facet joint degenerative arthropathy is also appreciated. No destructive bony lesion is identified. Visualization of the prevertebral paraspinal soft tissues reveals an atherosclerotic but nonaneurysmal abdominal aorta. DISCS/SPINAL CANAL/NEURAL FORAMINA: L1-2: A minimal disc osteophyte complex is appreciate without significant central canal stenosis. Borderline bilateral neural foraminal stenosis identified bilaterally. L2-3: A mild disc osteophyte complex is identified circumferential combining with marked facet degenerative change results in mild central canal stenosis concentrated at the lateral recesses symmetrically with [id number] bilateral neural foraminal stenosis appreciated. L3-4: A large circumferential disc osteophyte complex is present combined with facet arthropathy to cause moderate central canal stenosis and moderate bilateral neural foraminal stenosis symmetrically. L4-5: Large circumferential disc osteophyte complex combines with gross facet joint degenerative change to cause severe central canal stenosis and moderate bilateral neural foraminal stenosis. L5-S1: A circumferential disc osteophyte complex inverts the ventral thecal sac here causing bilateral lateral recess stenosis without generalized central canal stenosis. Moderate left and moderate to severe right degenerative neural foraminal stenosis identified. No gross disc herniation throughout the exam however MRI is more sensitive. OTHER FINDINGS: None. IMPRESSION: Advanced multilevel degenerative disc and facet joint changes are identified resulting in multilevel spinal stenosis seen worst at L4-5 where a severe central stenosis identified follow by moderate central stenosis at L3-4 and other lesser changes as described above. No fracture or spondylolisthesis appreciated acutely.
--- NOTE | 2018-01-26 15:50 | ED PDOC ---
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 Reports present on waking, worse when moving from sitting -> standing and when standing -> sitting, worse when sitting down low. Denies any trauma to back, falls, hx of spinal fractures, osteoperosis, substance abuse. CMP obtained yesterday by Dr. Moses (Nephro) reviewed, only notable for baseline elevated BUN/Cr and mildly low serum calcium (8.0, corrects to 8.4) . Patient denies any systemic symptoms, including fevers, chills, diaphoresis, weakness. Does report slowed gait due to the back pain, and some urinary and bowel accidents due to being unable to reach the bathroom in time, but denies any bowel/bladder incontinence, radiating pain to either leg, saddle anesthesia , or any upper or lower extremities paresis. Denies chest pain, shortness of breath, diarrhea, constipation, dysuria, hematuria, nausea, emesis. Reports compliance with home medication regimen, denies any new polysubstance abuse. Some improvement in pain briefly with heating pad at home, hasn't tried any medications for the pain. All other ROS in 12-system review negative. 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 Prince Nephvaleriano: Dr. Moses Past Medical History - Infectious Disease Hx of Infectious Diseases: None - Tetanus Immunization Tetanus Immunization: Unknown - Cardiac Hx Cardiac Disorders: Yes Hx Congestive Heart Failure: Yes Hx Hypertension: Yes - Pulmonary Hx Respiratory Disorders: Yes Hx Pneumonia: Yes - Neurological Hx Neurological Disorder: No - HEENT Hx HEENT Disorder: No - Renal Hx Renal Disorder: Yes Other/Comment: membrane nephritis - Endocrine/Metabolic Hx Endocrine Disorders: Yes Hx Diabetes Mellitus Type 2: Yes - Hematological/Oncological Hx Blood Disorders: Yes Hx Anemia: Yes (with blood transfusion) - Integumentary Hx Dermatological Disorder: No - Musculoskeletal/Rheumatological Hx Musculoskeletal Disorders: Yes Hx Back Pain: Yes - Gastrointestinal Hx Gastrointestinal Disorders: No - Genitourinary/Gynecological Hx Genitourinary Disorders: No - Psychiatric Hx Emotional Abuse: No Hx Physical Abuse: No Hx Substance Use: Yes - Surgical History Hx Cardiac Catheterization: Yes Hx Coronary Stent: Yes (x2) - Anesthesia Hx Anesthesia: Yes Hx Anesthesia Reactions: No Hx Malignant Hyperthermia: No - Suicidal Assessment Feels Threatened In Home Enviroment: No Family/Social History Family/Social History: Neoplasm/Cancer (ovarian cancer - mother) Smoking Status: Former Smoker Hx Alcohol Use: Yes (SOCIALLY) Hx Substance Use: Yes Hx Substance Use Treatment: No Allergies/Home Meds Allergies/Adverse Reactions: Allergies rituximab Allergy (Mild, Verified 01/26/18 14:19) RASH Home Medications: Home Meds Medication Instructions Recorded Confirmed Aspirin [Aspir 81] 81 tab PO DAILY 08/25/13 11/22/17 Cholecalciferol [Vitamin D 1000 IU] 50,000 units PO MWF 12/07/14 11/22/17 Clopidogrel [Plavix] 75 mg PO DAILY 12/07/14 11/22/17 Folic Acid 1 mg PO DAILY 02/06/16 11/22/17 Liraglutide [Victoza 2-Ross] 1.8 mg SQ QAM 02/06/16 11/22/17 Rosuvastatin Calcium [Crestor] 10 mg PO QAM 02/06/16 11/22/17 Cyanocobalamin (Vitamin B-12) 1,000 mcg SQ Q30D 04/22/16 11/22/17 [Cyanocobalamin Injection] Cyclosporine 150 mg PO BID 04/09/17 11/22/17 predniSONE [predniSONE Tab] 10 mg PO QOTHERDAY 04/09/17 11/22/17 Patiromer Calcium Sorbitex 16.8 gm PO DAILY 06/20/17 11/22/17 [Veltassa] Sodium Bicarbonate Tab 650 mg PO BID 06/20/17 11/22/17 Carvedilol [Coreg] 12.5 mg PO BID 06/23/17 11/22/17 Esomeprazole Magnesium [Nexium] 40 mg PO DAILY 06/23/17 11/22/17 Magnesium Oxide [Mag-Oxide 200 mg PO BID 07/18/17 11/22/17 Magnesium] Allopurinol [Zyloprim] 100 mg PO DAILY 11/22/17 11/22/17 Bumetanide [Bumex] 0.5 mg PO .PM 11/22/17 11/22/17 Bumetanide [Bumex] 2 mg PO AMHS 11/22/17 11/22/17 Insulin Glargine, Recombina 20 unit SC BID 11/22/17 11/22/17 [Lantus] Review of Systems - Physician Review All systems were reviewed & negative as marked: Yes (as per HPI) Physical Exam Vital Signs Reviewed: Yes Vital Signs Temp Pulse Resp BP Pulse Ox 01/26/18 14:14 99.1 F 77 17 150/84 96 Temperature: Afebrile Blood Pressure: Hypertensive Pulse: Regular Respiratory Rate: Normal Appearance: Positive for: Well-Appearing, Non-Toxic, Comfortable Pain Distress: Other (mild at rest, moderate to severe with position changes) Mental Status: Positive for: Alert and Oriented X 3 - Systems Exam Head: Present: Atraumatic, Normocephalic Pupils: No: Pinpoint Extroacular Muscles: Present: EOMI Conjunctiva: Present: Normal. No: Injected, Icteric Mouth: Present: Moist Mucous Membranes. No: Dry, Drooling Nose (External): Present: Atraumatic. No: Abrasion, Laceration Nose (Internal): Present: No Active Bleeding. No: Epistaxis Neck: Present: Normal Range of Motion. No: JVD Respiratory/Chest: Present: Clear to Auscultation, Good Air Exchange. No: Respiratory Distress, Accessory Muscle Use, Wheezes, Rales, Rhonchi Cardiovascular: Present: Regular Rate and Rhythm, Normal S1, S2. No: Murmurs, Irregular Rhythm, Tachycardic, Bradycardic Abdomen: Present: Normal Bowel Sounds. No: Tenderness, Distention, Peritoneal Signs, Mass/Organomegaly Back: Present: Paraspinal Tenderness (tight spastic paraspinals + spinal point tenderness at T11-L4 region). No: CVA Tenderness, Pain with Leg Raise, Decubitus Ulcer Upper Extremity: Present: Normal Inspection, Normal ROM, NORMAL PULSES. No: Cyanosis, Edema, Tenderness, Swelling, Erythema Lower Extremity: Present: Normal Inspection, NORMAL PULSES, Normal ROM. No: Edema, CALF TENDERNESS, Cyanosis, Tenderness, Swelling, Erythema Neurological: Present: GCS=15, Speech Normal, Motor Func Grossly Intact, Normal Sensory Function. No: Gait Normal (gait limited due to back pain, slowed and slightly hesitant/hunched, but stable) Skin: Present: Warm, Dry, Normal Color. No: Rashes Lymphatic: No: Cervical Adenopathy Psychiatric: Present: Alert, Oriented x 3, Normal Insight, Normal Concentration , Normal Affect, Normal Mood Medical Decision Making ED Course and Treatment: 01/26/18 15:15 Ddx: paraspinal muscle spasms vs back strain vs spinal compression fracture Tight paraspinal muscles that improve with heating pad at home, suggestive of muscle spasm Point tenderness in setting of ESRD patient and overweight patient concerning for possible compression fracture, will obtain CT of thoracic and lumbar spine to assess Valium 5mg x1 for back pain, will reassess after Obtained CMP yesterday, notable for mild hypocalcemia and baseline elevated Cr and BUN 01/26/18 16:31 CT thoracic spine negative for compression fracture CT lumbar spine negative for fracture, but notable for central canal stenosis, most prominently at L4-5 (please see full report for details). Pt reports some improvement in pain with Valium, script for PRN Valium given, instructed to not use when/before driving or operating machinery Given referral for Neurosurgery and copy of CT Lumbar spine report. Already pending follow up with his PMD, maintain appointment. Patient and at bedside express understanding and agreement, will discharge to home. Seen, reviewed, and discussed with Attending, Dr. De Los Santos Reassessment Condition: Re-examined, Improved - RAD Interpretation Radiology Orders: 01/26/18 14:37 LUMBAR SPINE W/O CONTRAST [CT] Stat THORACIC SPINE W/O CONT [CT] Stat - Medication Orders Current Medication Orders: Discontinued Medications Diazepam (Valium) 5 mg PO ONCE ONE PRN Reason: Protocol Stop: 01/26/18 14:41 Last Admin: 01/26/18 15:05 Dose: 5 mg Disposition/Present on Arrival - Present on Arrival Any Indicators Present on Arrival: No History of DVT/PE: No History of Uncontrolled Diabetes: No Urinary Catheter: No History of Decub. Ulcer: No History Surgical Site Infection Following: None - Disposition Have Diagnosis and Disposition been Completed?: Yes Diagnosis: Spinal stenosis at L4-L5 level, Paraspinal muscle spasm Disposition: HOME/ ROUTINE Disposition Time: 16:37 Patient Plan: Discharge Patient Problems: Current Active Problems Problem Status Onset Spinal stenosis at L4-L5 level Acute Condition: GOOD Discharge Instructions (ExitCare): Spinal Stenosis (DC), Spinal Stenosis Stretching Exercises Referrals: Kobe Prince MD [Primary Care Provider] - Follow up with primary Agusto Christiansen MD [Staff Provider] - Follow up with primary Forms: [email or web address] (Telugu)
[2018-01-26 18:10] VITALS: BP 142/72; PULSE 80; RESP 18; TEMP 98.9; O2SAT 98
== END 2018-01-26 18:09 | disposition home or self-care (01) ==
LOC: ED 13:36
DX: M48.061 Spinal stenosis, lumbar region without neurogenic claudication (principal); M62.830 Muscle spasm of back; I12.0 Hypertensive chronic kidney disease with stage 5 chronic kidney disease or end stage renal disease; N18.6 End stage renal disease; I25.10 Atherosclerotic heart disease of native coronary artery without angina pectoris; Z87.891 Personal history of nicotine dependence; E11.9 Type 2 diabetes mellitus without complications

== ENCOUNTER 2018-02-01 10:55 | Emergency (ER) | payer OTHER ==
[2018-02-01 11:09] VITALS: BMI 34.5
[2018-02-01 11:12] VITALS: RESP 18
[2018-02-01] MEDS ORDERED: Iohexol 240 (50 ml) ONE (11:49)
--- NOTE | 2018-02-01 11:56 | ED PDOC ---
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 Patient reports previously intermittent diarrhea, based on the cycling dose of his Veltassa (potassium binder) as directed by his Motor Equipment Sergeant, but this seems worse than before, and feels similar to when he had a prior bacterial infection in his stool (unable to remember if C. diff or not). Denies fevers or chills, but developed nausea yesterday evening and had 1x non-bloody/non-bilious emesis this AM. Reports still tolerating PO fluid intake without issue; emesis was ~7AM, took meds with water and juice at 10AM, no further emesis. Has not trialed solid food PO intake. Admits to abdominal soreness and sensation of mild distension, and excessive foul-smelling belching x2 days, but no acute abdominal tenderness or severe pain. Soreness predominantly along waistline region. Denies chest pain, shortness of breath, current nausea, dysuria, hematuria, focal weakness, syncope/near-syncope, vision changes, bowel/bladder incontinence, saddle anesthesia, falls, back trauma. All other ROS in 12-system review negative. Of note, was in ED 6 days prior with complaint of severe back pain, found to have severe lumbar central canal stenosis, discharged with Valium for muscle spasm/pain control. Reports well controlled on current regimen, offers no complaints of back pain or symptoms concerning for cauda equina syndrome at this time. PMH: as above PSH: Right hip replacement, Appendectomy Family History: Mother-Ovarian Cancer Social History: Denies tobacco, alcohol or current illicit drug use; previously abused cocaine but notes 15 years of sobriety PMD: Dr. Prince Nephro: Dr. Moses (Zechariah Shi) Modifying Factors (Text): 02/01/18 13:19 Worsening diarrhea, now presenting with new onset emesis (Zechariah Shi) Past Medical History - Provider Review Nursing Documentation Reviewed: Yes - Infectious Disease Hx of Infectious Diseases: None - Tetanus Immunization Tetanus Immunization: Unknown - Cardiac Hx Cardiac Disorders: Yes Hx Congestive Heart Failure: Yes Hx Hypertension: Yes - Pulmonary Hx Respiratory Disorders: Yes Hx Pneumonia: Yes - Neurological Hx Neurological Disorder: No - HEENT Hx HEENT Disorder: No - Renal Hx Renal Disorder: Yes Other/Comment: membrane nephritis - Endocrine/Metabolic Hx Endocrine Disorders: Yes Hx Diabetes Mellitus Type 2: Yes - Hematological/Oncological Hx Blood Disorders: Yes Hx Anemia: Yes (with blood transfusion) - Integumentary Hx Dermatological Disorder: No - Musculoskeletal/Rheumatological Hx Musculoskeletal Disorders: Yes Hx Back Pain: Yes - Gastrointestinal Hx Gastrointestinal Disorders: No - Genitourinary/Gynecological Hx Genitourinary Disorders: No - Psychiatric Hx Emotional Abuse: No Hx Physical Abuse: No Hx Substance Use: Yes - Surgical History Hx Cardiac Catheterization: Yes Hx Coronary Stent: Yes (x2) - Anesthesia Hx Anesthesia: Yes Hx Anesthesia Reactions: No Hx Malignant Hyperthermia: No - Suicidal Assessment Feels Threatened In Home Enviroment: No <Zechariah Shi - Last Filed: 02/01/18 19:14> Family/Social History - Physician Review Nursing Documentation Reviewed: Yes Family/Social History: Neoplasm/Cancer (mother - ovarian ca) Smoking Status: Former Smoker Hx Alcohol Use: Yes (SOCIALLY) Hx Substance Use: Yes Hx Substance Use Treatment: No <Zechariah Shi - Last Filed: 02/01/18 19:14> Allergies/Home Meds <Zechariah Shi - Last Filed: 02/01/18 19:14> <Darnell Milton - Last Filed: 02/01/18 21:48> Allergies/Adverse Reactions: Allergies rituximab Allergy (Mild, Verified 01/26/18 14:19) RASH Home Medications: Home Meds Medication Instructions Recorded Confirmed Aspirin [Aspir 81] 81 tab PO DAILY 08/25/13 02/01/18 Cholecalciferol [Vitamin D 1000 IU] 50,000 units PO Q7D 12/07/14 02/01/18 Clopidogrel [Plavix] 75 mg PO DAILY 12/07/14 02/01/18 Folic Acid 1 mg PO DAILY 02/06/16 02/01/18 Liraglutide [Victoza 2-Ross] 1.8 mg SQ QAM 02/06/16 02/01/18 Rosuvastatin Calcium [Crestor] 10 mg PO HS 02/06/16 02/01/18 Cyanocobalamin (Vitamin B-12) 1,000 mcg SQ Q30D 04/22/16 02/01/18 [Cyanocobalamin Injection] Cyclosporine 50 mg PO BID 04/09/17 02/01/18 predniSONE [predniSONE Tab] 10 mg PO QOTHERDAY 04/09/17 02/01/18 Patiromer Calcium Sorbitex 16.8 gm PO DAILY 06/20/17 02/01/18 [Veltassa] Sodium Bicarbonate Tab 3 tab PO BID 06/20/17 02/01/18 Carvedilol [Coreg] 6.125 mg PO BID 06/23/17 02/01/18 Magnesium Oxide [Mag-Oxide 400 mg PO BID 07/18/17 02/01/18 Magnesium] Bumetanide [Bumex] 1 mg PO HS 11/22/17 02/01/18 Bumetanide [Bumex] 2 mg PO DAILY 11/22/17 02/01/18 Calcium Acetate [Phoslo] 1 cap PO TID 02/01/18 02/01/18 Epoetin Richar [Procrit] 4,000 unit SC Q7D 02/01/18 02/01/18 Febuxostat [Uloric] 1 tab PO DAILY 02/01/18 02/01/18 Insulin Glargine, Recombina 20 units SC BID 02/01/18 02/01/18 [Lantus] Methocarbamol [Robaxin] 2 tab PO Q8H PRN 02/01/18 02/01/18 Review of Systems - Physician Review All systems were reviewed & negative as marked: Yes (as per HPI) - Review of Systems Constitutional: Normal. absent: Fatigue Eyes: Normal. absent: Vision Changes ENT: Normal. absent: Sore Throat, Rhinorrhea Respiratory: Normal. absent: SOB, Cough, Sputum Cardiovascular: Normal. absent: Chest Pain, Palpitations, Calf Pain, Syncope Gastrointestinal: Abdominal Pain (soreness predominantly), Stool Changes, Diarrhea, Nausea (now resolved), Vomiting (x1 this AM, nonbloody nonbilious). absent: Normal, Constipation, Hematochezia, Hematemesis, Food Intolerance Genitourinary Male: Normal (ESRD not on HD, does still make urine). absent: Dysuria, Frequency, Hematuria Musculoskeletal: Normal. absent: Back Pain, Neck Pain Skin: Normal. absent: Rash Neurological: Normal. absent: Headache, Dizziness, Focal Weakness <Zechariah Shi - Last Filed: 02/01/18 19:14> Physical Exam Vital Signs Reviewed: Yes Temperature: Afebrile Blood Pressure: Hypertensive Pulse: Bradycardic Respiratory Rate: Normal Appearance: Positive for: Well-Appearing, Non-Toxic, Uncomfortable Pain Distress: Mild Mental Status: Positive for: Alert and Oriented X 3 - Systems Exam Head: Present: Atraumatic, Normocephalic. No: Contusion, Swelling, Ecchymosis, Abrasion, Laceration Pupils: No: Pinpoint Extroacular Muscles: Present: EOMI Conjunctiva: Present: Normal. No: Injected, Icteric Mouth: Present: Moist Mucous Membranes, Normal Lips, Normal Tounge, Normal Teeth. No: Dry, Drooling Pharnyx: No: Muffled/Hoarse Voice, Strider Nose (External): Present: Atraumatic. No: Abrasion, Laceration Nose (Internal): Present: No Active Bleeding. No: Epistaxis Neck: Present: Normal Range of Motion, Trachea Midline. No: MIDLINE TENDERNESS , JVD Respiratory/Chest: Present: Clear to Auscultation, Good Air Exchange. No: Respiratory Distress, Accessory Muscle Use, Wheezes, Decreased Breath Sounds, Rales, Rhonchi, Tachypneic Cardiovascular: Present: Normal S1, S2, Peripheal Pulses Present (+2 radial and dorsalis pedis ), Bradycardic. No: Regular Rate and Rhythm, Murmurs, Irregular Rhythm, Tachycardic Abdomen: Present: Tenderness (mild tenderness to palpation, predominantly at groin region, no left or right sided tenderness, primary complaint is palpation increases sensation of needing to void bowels), Distention (mild distention but abd remains soft, not firm/rigid). No: Normal Bowel Sounds (hyperactive bowel sounds), Peritoneal Signs, Guarding, Mass/Organomegaly Back: Present: Normal Inspection, Paraspinal Tenderness (mild tenderness at T12- L4 region with palpation only, no static pain as per patient). No: CVA Tenderness Upper Extremity: Present: Normal Inspection, Normal ROM, NORMAL PULSES. No: Cyanosis, Edema, Tenderness, Swelling, Erythema, Deformity Lower Extremity: Present: Normal Inspection, NORMAL PULSES, Normal ROM. No: Edema, CALF TENDERNESS, Cyanosis, Tenderness, Swelling, Erythema, Deformity Neurological: Present: GCS=15, Speech Normal, Motor Func Grossly Intact, Normal Sensory Function Skin: Present: Warm, Dry, Normal Color. No: Rashes Lymphatic: No: Cervical Adenopathy Psychiatric: Present: Alert, Oriented x 3, Normal Insight, Normal Concentration , Normal Affect, Normal Mood <Zechariah Shi - Last Filed: 02/01/18 19:14> <Darnell Milton - Last Filed: 02/01/18 21:48> Vital Signs Temp Pulse Resp BP Pulse Ox 02/01/18 19:30 98.7 F 62 18 152/87 H 98 02/01/18 18:15 57 L 18 158/69 H 98 02/01/18 16:40 59 L 18 162/70 H 98 02/01/18 15:25 58 L 18 165/75 H 97 02/01/18 11:12 98.6 F 54 L 18 168/82 H 97 Medical Decision Making Re-evaluation Time: 17:48 Reassessment Condition: Re-examined, Improved <Zechariah Shi - Last Filed: 02/01/18 19:14> - Critical Care Critical Care Minutes: 30 minutes - RAD Interpretation Religion Professor: Radiologist <Darnell Milton - Last Filed: 02/01/18 21:48> ED Course and Treatment: 02/01/18 12:42 Ddx: C Diff infection vs new collitis vs diverticulitis vs enteritis vs 2/2 Veltassa medication Patient reports worse than prior episodes 2/2 Veltassa, similar to prior unspecified bacterial infection of stool, so need to rule out C. diff, stool C. diff ordered Given hx of diverticulosis on prior Abd CT, will bypass obtaining KUB x-ray and will instead order CT abd/pelvis with PO contrast CBC, CMP, Mag, Phos, and VBG with lactate ordered to assess for possible infectious etiology and assess for metabolic derangements 2/2 diarrhea NS at 100cc/hr for fluid replacement given recent diarrhea, avoid too aggressive fluid replacement given hx of ESRD (NOT on HD) f/u results and dispo 02/01/18 15:06 Labs reviewed, no leukocytosis suggestive of infectious process, baseline anemia (likely 2/2 ESRD), mildly elevated potassium at 5.3, baseline elevated BUN/Cr CT abd/pelvis with PO contrast negative for acute issue, no diverticulitis or collitis appreciated Stool C. Diff obtained, pending results Tolerating fluids well VBG with lactate notable for lactate 0.5, pH 7.16, serum bicarb 19 (below pt baseline) 02/01/18 15:46 Case discussed with patient's Motor Equipment Sergeant, Dr. Moses. Cannot stop Veltassa due to still elevated K (5.3) despite extensive diarrhea; elevated K may be due to Losartan, so instructed patient to stop Losartan (as per Nephro). Low pH on ABG and decreased serum bicarb likely 2/2 extensive diarrhea. Will give a bolus of 250cc 1/2 NS + 1 amp Bicarb as per Nephro. Will recheck VBG with lactate after 1/2 NS and bicarb bolus, if improved will discharge to home. Patient's reports can follow up with PMD (Dr. Prince) today or tomorrow, depending on what time he is discharged today. 02/01/18 19:14 Got 1 amp bicarb in 250cc D5W due to currently unavailable 1/2 NS as per pharmacy, Nephro aware. VBG pH improved from 7.16 to 7.23 on recheck, patient discharged to home. As per , he is going to follow up with Dr. Prince (PMD) tomorrow. Reminded pt and to stop Losartan as per Nephro, both express understanding and agreement again. Pt discharge to home. Pt seen, reviewed, and discussed with attending, Dr. Milton (Jose GuadalupeZechariah) 02/01/18 Patient Seen With Resident: In agreement with resident note which contains more details about the patient. Patient was seen and evaluated with resident. Came up with plan and treatment together. 02/01/18 CT Abdomen and Pelvis without contrast: Creator : Artur Cope MD COMPARISON: 09/02/2017 CT IMPRESSION: No acute intra-abdominal findings I discussed the case with Dr. Bee, Motor Equipment Sergeant, who knows patient very well. He has been adjusting his medications. He recommends 1 amp of bicarb in 250 cc and if pH improves then to discharge home with f/u. Labs improved. Patient will f/u with Dr. Bee and Dr. Prince as outpatient. will have close follow up with Dr. Prince tomorrow. On reevaluation, abdomen is soft and not tender. Patient was advised to return to the ED if symptoms worsen or any other concern. (Darnell Milton) - Lab Interpretations Microbiology Results: Microbiology Results 02/01/18 12:14 Stool C. difficile Antigen & Toxin A,B (M - Final Lab Results: 02/01/18 12:00 02/01/18 12:00 Lab Results 02/01/18 19:00: pO2 80 H, VBG pH 7.23 L, VBG pCO2 39.0 L, VBG HCO3 16.3 L, VBG Total CO2 17.5 L, VBG O2 Sat (Calc) 96.2 H, VBG Base Excess -10.6 L, VBG Potassium 4.8, Sodium 139.0, Chloride 118.0 H, Glucose 77, Lactate 0.5 L, FiO2 21.0, Venous Blood Potassium 4.8 02/01/18 12:00: Sodium 144, Chloride 117 H, Potassium 5.3 H, Carbon Dioxide 17 L , Anion Gap 15, BUN 68 H, Creatinine 3.0 H, Est GFR ( Amer) 26, Est GFR ( Non-Af Amer) 22, Random Glucose 105, Calcium 8.2 L, Phosphorus 3.7, Magnesium 2.4 H, Total Bilirubin 0.2, AST 27, ALT 31, Alkaline Phosphatase 70, Total Protein 6.0, Albumin 3.3, Globulin 2.7, Albumin/Globulin Ratio 1.2 02/01/18 12:00: pO2 38, VBG pH 7.16 L*, VBG pCO2 44.0, VBG HCO3 15.7 L, VBG Total CO2 17.1 L, VBG O2 Sat (Calc) 76.5 H, VBG Base Excess -12.6 L, VBG Potassium 5.3 H, Sodium 140.0, Chloride 118.0 H, Glucose 111 H, Lactate 0.5 L, FiO2 21.0, Venous Blood Potassium 5.3 H 02/01/18 12:00: WBC 7.9, RBC 3.39 L, Hgb 10.5 L, Hct 31.5 L, MCV 92.9, MCH 31.0 , MCHC 33.3, RDW 12.8, Plt Count 185, MPV 10.0, Gran % 69.8 H, Lymph % (Auto) 19.3 L, Conway % (Auto) 7.7 H, Eos % (Auto) 2.9, Baso % (Auto) 0.3, Gran # 5.54, Lymph # (Auto) 1.5, Conway # (Auto) 0.6, Eos # (Auto) 0.2, Baso # (Auto) 0.02 - RAD Interpretation Radiology Orders: 02/01/18 11:36 ABDOMEN & PELVIS [ABD & PELVIS PO CONTRAST ONLY] [CT] Stat - Medication Orders Current Medication Orders: Discontinued Medications Sodium Chloride (Sodium Chloride 0.9%) 1,000 mls @ 100 mls/hr IV .Q10H IRASEMA Last Admin: 02/01/18 12:22 Dose: 100 mls/hr eMAR Start Stop Document 02/01/18 12:22 HI (Rec[facility]01[facility]18 12:22 [id number] Intravenous Solution Start Date 02/01/18 Start Time 12:22 Sodium Bicarbonate 50 meq/ (Sodium Chloride) 300 mls @ 999 mls/hr IV .Q19M ONE Stop: 02/01/18 15:49 Last Admin: 02/01/18 17:00 Dose: Sodium Bicarbonate 50 meq/ (Dextrose) 300 mls @ 999 mls/hr IV .Q19M ONE Stop: 02/01/18 17:03 Last Admin: 02/01/18 16:59 Dose: 999 mls/hr eMAR Start Stop Document 02/01/18 16:59 HI (Rec: 02/01/18 16:59 [id number]) Intravenous Solution Start Date 02/01/18 Start Time 16:59 Disposition/Present on Arrival - Present on Arrival Any Indicators Present on Arrival: No History of DVT/PE: No History of Uncontrolled Diabetes: No Urinary Catheter: No History of Decub. Ulcer: No History Surgical Site Infection Following: None - Disposition Have Diagnosis and Disposition been Completed?: Yes Disposition Time: 19:16 Patient Plan: Discharge <Zechariah Shi - Last Filed: 02/01/18 19:14> <Darnell Milton - Last Filed: 02/01/18 21:48> - Disposition Diagnosis: Drug-induced diarrhea Disposition: HOME/ ROUTINE Condition: GOOD Discharge Instructions (ExitCare): Diarrhea in Adolescents and Adults Additional Instructions: JESSICA DE LA O, thank you for letting us take care of you today. Your providers were Dr. Yoan GONZALEZ and Dr. Jose Guadalupe GONZALEZ, and you were treated for VOMITTING/BACK PAIN/STOMACH PAIN/SEVERE DIAREEHA. The emergency medical care you received today was directed at your acute symptoms. If you were prescribed any medication , please fill it and take as directed. As per your Motor Equipment Sergeant (Dr. Moses), stop taking your Losartan until otherwise directed by one of your doctors. Please follow up with your PMD (Dr. Prince) tomorrow. It may take several days for your symptoms to resolve. Return to the Emergency Department if your symptoms worsen, do not improve, or if you have any other problems. Please contact your doctor or call one of the physicians/clinics you have been referred to that are listed on the Patient Visit Information form that is included in your discharge packet. Bring any paperwork you were given at discharge with you along with any medications you are taking to your follow up visit. Our treatment cannot replace ongoing medical care by a primary care provider outside of the emergency department. Thank you for allowing the [facility] team to be part of your care today. If you had an X-Ray or CT scan: A Radiologist will review the ED reading if any change in treatment is needed we will contact you. If you had a blood, urine, or wound culture: It will take several days for the results, if any change in treatment is needed we will contact you. If you had an STI test: It will take 48 hours for the results. Please call after 1 week if you have not heard back. Forms: [employer] ([place])
[2018-02-01] MEDS: Sodium Chloride 0.9% 1,000 ML IV SCH (12:22)
[2018-02-01 12:28] LABS: VENOUS BLOOD GAS BASE EXCESS -12.6 mmol/L (0.0-2.0); VENOUS BLOOD GAS PO2 38 mm/Hg (30-55)
[2018-02-01 12:31] LABS: BASO # 0.02 K/mm3 (0.0-2.0); BASO % 0.3 % (0.0-3.0); EOS # 0.2 (0.0-0.7); EOS % 2.9 % (1.5-5.0); GRAN # 5.54 (1.4-6.5); GRAN % 69.8 % (50.0-68.0); HEMOGLOBIN 10.5 g/dL (14.0-18.0); LYMPH # 1.5 (1.2-3.4); LYMPH % 19.3 % (22.0-35.0); MEAN CELL VOLUME 92.9 fl (80.0-105.0); MEAN CORPUSCULAR HGB CONC 33.3 g/dl (31.0-37.0); MONO # 0.6 (0.1-0.6); MONO % 7.7 % (1.0-6.0); RBC 3.39 10^6/uL (3.5-6.1); RED CELL DISTRIBUTION WIDTH 12.8 % (11.5-14.5); WHITE BLOOD COUNT 7.9 10^3/ul (4.5-11.0)
[2018-02-01 12:37] LABS: VENOUS BLOOD PH 7.16 (7.32-7.43)
[2018-02-01 12:39] LABS: ALB/GLOB RATIO 1.2 (1.1-1.8); ALBUMIN 3.3 g/dL (3.0-4.8); CALCIUM 8.2 mg/dL (8.4-10.5)
--- NOTE | 2018-02-01 14:41 | CT ---
PROCEDURE: CT Abdomen and Pelvis without intravenous contrast HISTORY: distention/diarrhea, r/o diverticulitis COMPARISON: 09/02/2017 CT TECHNIQUE: Without contrast.. Contrast dose: Radiation dose: Total exam DLP = 993 mGy-cm. This CT exam was performed using one or more of the following dose reduction techniques: Automated exposure control, adjustment of the mA and/or kV according to patient size, and/or use of iterative reconstruction technique. FINDINGS: LOWER THORAX: Unremarkable. LIVER: Unremarkable. No gross lesion or ductal dilatation. GALLBLADDER AND BILE DUCTS: Unremarkable. PANCREAS: Unremarkable. No gross lesion or ductal dilatation. SPLEEN: Unremarkable. ADRENALS: Unremarkable. No mass. KIDNEYS AND URETERS: Unremarkable. No hydronephrosis. No solid mass. VASCULATURE: Unremarkable. No aortic aneurysm. BOWEL: Mild diverticulosis of the sigmoid colon APPENDIX: Unremarkable. Normal appendix. PERITONEUM: Unremarkable. No free fluid. No free air. LYMPH NODES: Unremarkable. No enlarged lymph nodes. BLADDER: Unremarkable. REPRODUCTIVE: Unremarkable. BONES: No acute fracture. OTHER FINDINGS: None. IMPRESSION: No acute intra-abdominal findings
[2018-02-01] MEDS ORDERED: Sodium Chloride 0.9% 250 ML IV STA (14:58)
[2018-02-01 16:40] VITALS: O2SAT 98
[2018-02-01] MEDS: WATER IV ONE (16:59)
[2018-02-01] MEDS: SODIUM BICARBONATE IV ONE ×2 (16:59→17:00)
[2018-02-01] MEDS: DEXTROSE 5% IV ONE (16:59)
[2018-02-01] MEDS: SODIUM CHLORIDE 0.45% IV ONE (17:00)
[2018-02-01 19:06] LABS: VENOUS BLOOD GAS BASE EXCESS -10.6 mmol/L (0.0-2.0); VENOUS BLOOD GAS PO2 80 mm/Hg (30-55); VENOUS BLOOD PH 7.23 (7.32-7.43)
[2018-02-01 20:16] VITALS: BP 152/87; PULSE 62; TEMP 98.7
== END 2018-02-01 19:30 | disposition home or self-care (01) ==
LOC: ED 10:55
DX: K52.1 Toxic gastroenteritis and colitis (principal); T50.995A Adverse effect of other drugs, medicaments and biological substances, initial encounter; Y92.89 Other specified places as the place of occurrence of the external cause
CPT/HCPCS: 74176; 80053; 82803; 83735; 84100; 85025; 87324; 99285; J7030; J7060; Q9966

== ENCOUNTER 2018-08-24 14:41 | Outpatient (CLI) | payer OTHER | END 2018-08-24 14:42 | disposition home or self-care (01) | LOC: LAB 14:41 ==

== ENCOUNTER 2018-09-06 10:31 | Emergency (ER) | payer OTHER ==
[2018-09-06 10:32] VITALS: BMI 34.5
[2018-09-06 11:00] VITALS: RESP 18
[2018-09-06] MEDS ORDERED: Morphine 4 mg/ml ISec IVP STA (11:15)
--- NOTE | 2018-09-06 12:05 | ED PDOC ---
Arrival/HPI - General Chief Complaint: Lower Extremity Problem/Injury Time Seen by Provider: 09/06/18 10:32 Historian: Patient - History of Present Illness Narrative History of Present Illness (Text): 09/06/18 12:02 Harjeet Valencia is a 58 year old male, whose past medical history includes CKD, who presents to the Emergency department with 2 day history of left hip pain. Patient denies any trauma/injury. Patient states he has a history of arthritis for which he sees Dr. Melchor. Patient states for the past 2 days, he had pain to the lateral aspect of the hip, which shoots down his leg into his low back and buttock. Patient denies any numbness, weakness, tingling, fever chills, abdominal pain, urinary symptoms, or any other complaints. Patient took Valium at home for pain without improvement. Symptom Onset: Gradual Symptom Course: Unchanged Activities at Onset: Light Context: Home Past Medical History - Provider Review Nursing Documentation Reviewed: Yes - Infectious Disease Hx of Infectious Diseases: None - Tetanus Immunization Tetanus Immunization: Unknown - Cardiac Hx Hypertension: Yes - Pulmonary Hx Respiratory Disorders: Yes Hx Pneumonia: Yes - Neurological Hx Neurological Disorder: No - HEENT Hx HEENT Disorder: No - Renal Hx Renal Disorder: Yes Other/Comment: membrane nephritis - Endocrine/Metabolic Hx Endocrine Disorders: Yes Hx Diabetes Mellitus Type 2: Yes - Hematological/Oncological Hx Blood Disorders: Yes Hx Anemia: Yes (with blood transfusion) - Integumentary Hx Dermatological Disorder: No - Musculoskeletal/Rheumatological Hx Musculoskeletal Disorders: Yes Hx Back Pain: Yes - Gastrointestinal Hx Gastrointestinal Disorders: No - Genitourinary/Gynecological Hx Genitourinary Disorders: No - Psychiatric Hx Emotional Abuse: No Hx Physical Abuse: No Hx Substance Use: Yes - Surgical History Hx Cardiac Catheterization: Yes (2 stents) - Anesthesia Hx Anesthesia: Yes Hx Anesthesia Reactions: No Hx Malignant Hyperthermia: No - Suicidal Assessment Feels Threatened In Home Enviroment: No Family/Social History - Physician Review Nursing Documentation Reviewed: Yes Family/Social History: Unknown Family HX Smoking Status: Former Smoker Hx Alcohol Use: Yes (SOCIALLY) Hx Substance Use: Yes Hx Substance Use Treatment: No Allergies/Home Meds Allergies/Adverse Reactions: Allergies rituximab Allergy (Mild, Verified 01/26/18 14:19) RASH Home Medications: Home Meds Medication Instructions Recorded Confirmed Aspirin [Aspir 81] 81 tab PO DAILY 08/25/13 05/29/18 Cholecalciferol [Vitamin D 1000 IU] 50,000 units PO Q7D 12/07/14 05/29/18 Clopidogrel [Plavix] 75 mg PO DAILY 12/07/14 05/29/18 Folic Acid 1 mg PO DAILY 02/06/16 05/29/18 Liraglutide [Victoza 2-Ross] 1.8 mg SQ QAM 02/06/16 02/01/18 Rosuvastatin Calcium [Crestor] 10 mg PO HS 02/06/16 02/01/18 Cyanocobalamin (Vitamin B-12) 1,000 mcg SQ Q30D 04/22/16 02/01/18 [Cyanocobalamin Injection] Cyclosporine 50 mg PO BID 04/09/17 02/01/18 Patiromer Calcium Sorbitex 16.8 gm PO DAILY 06/20/17 05/29/18 [Veltassa] Sodium Bicarbonate Tab 3 tab PO BID 06/20/17 02/01/18 Carvedilol [Coreg] 6.125 mg PO BID 06/23/17 05/29/18 Magnesium Oxide [Mag-Oxide 400 mg PO BID 07/18/17 02/01/18 Magnesium] Bumetanide [Bumex] 2 mg PO DAILY 11/22/17 05/29/18 Calcium Acetate [Phoslo] 1 cap PO TID 02/01/18 05/29/18 Epoetin Rihcar [Procrit] 4,000 unit SC Q7D 02/01/18 02/01/18 Febuxostat [Uloric] 1 tab PO DAILY 02/01/18 05/29/18 Insulin Glargine, Recombina 20 units SC BID 02/01/18 02/01/18 [Lantus] Review of Systems - Physician Review All systems were reviewed & negative as marked: Yes - Review of Systems Constitutional: Normal. absent: Fevers Eyes: Normal ENT: Normal Respiratory: Normal. absent: SOB, Cough Cardiovascular: Normal. absent: Chest Pain Gastrointestinal: Normal. absent: Abdominal Pain, Diarrhea, Vomiting Genitourinary Male: Normal. absent: Dysuria, Frequency, Hematuria, Urinary Output Changes Musculoskeletal: Arthralgias (+left hip pain) Skin: Normal. absent: Rash Neurological: Normal. absent: Headache, Dizziness Endocrine: Normal Hemo/Lymphatic: Normal Psychiatric: Normal Physical Exam Vital Signs Reviewed: Yes Vital Signs Temp Pulse Resp BP Pulse Ox 09/06/18 10:57 98.1 F 65 18 146/69 98 Temperature: Afebrile Blood Pressure: Normal Pulse: Regular Respiratory Rate: Normal Appearance: Positive for: Well-Appearing, Non-Toxic, Comfortable Pain Distress: None Mental Status: Positive for: Alert and Oriented X 3 - Systems Exam Head: Present: Atraumatic, Normocephalic Pupils: Present: PERRL Extroacular Muscles: Present: EOMI Conjunctiva: Present: Normal Mouth: Present: Moist Mucous Membranes Neck: Present: Normal Range of Motion. No: Meningeal Signs, MIDLINE TENDERNESS, Paraspinal Tenderness Respiratory/Chest: Present: Clear to Auscultation, Good Air Exchange. No: Respiratory Distress, Accessory Muscle Use Cardiovascular: Present: Regular Rate and Rhythm, Murmurs, Normal S1, S2 Abdomen: No: Tenderness, Distention, Peritoneal Signs Back: Present: Pain with Leg Raise (Positive left straight leg raise). No: CVA Tenderness, Midline Tenderness, Paraspinal Tenderness, Other (No erythema) Upper Extremity: Present: Normal ROM (Full ROM of left hip), NORMAL PULSES (Sensation and distal pulses intact), Tenderness (Slight tenderness over left groin and medial/lateral aspect of left hip). No: Cyanosis, Edema, Erythema Lower Extremity: No: Edema Neurological: Present: GCS=15, CN II-XII Intact, Speech Normal Skin: Present: Warm, Dry, Normal Color. No: Rashes Psychiatric: Present: Alert, Oriented x 3, Normal Insight, Normal Concentration Medical Decision Making ED Course and Treatment: 09/06/18 12:02 Impression: 58 year old male complaining of left hip pain and back pain. Plan: -- US Duplex Lower Extremities -- XR Hip -- XR Lumbar Spine -- Morphine -- Reassess and disposition Prior Visits: Notes and results from previous visits were reviewed. Progress Notes: pt is non toxic well appearing; no distress. stable vitals. pt feeling better after medications. Duplex; no dvt verbal report from US tech xray left hip;FINDINGS: There is a CAM shaped femoral head and neck. This is associated with femoro acetabular impingement. There is mild joint space narrowing and bony sclerosis superiorly. There is a right hip prosthesis. There is heterotopic bone between the greater trochanter and pelvis. IMPRESSION: As above xray lS spine; FINDINGS: BONES: Normal alignment. No listhesis. No fracture. DISC SPACES: Anterior osteophytes are seen at L3-4 and L5-S1 OTHER FINDINGS: Aortic calcification IMPRESSION: Mild degenerative changes pt reassessment; pt feeling better. states pain is now 5/10. and patients states he is able to ambulate better. morphine added. valium added. pt reassessment; feeling better after medications. will d/c home to f/u with PMD and orthopedist/back specialist. All results discussed in depth with the patient stressed importance of follow-up with the PMD and orthopedist/back specialist return immediately if symptoms worsen persist or if new concerning symptoms develop case discussed with dr. rasheed; pt can see him in the office tomorrow at 1:[address] melchor who the patients orthopedist. pt can see him in the office tomorrow at 10am. Patient verbalizes understanding of discharge instructions and need for immediate followup. impression; back pain, hip pain percocet every 6 hours as needed for pain valium; 1 tablet every 8 hours as needed for muscle spasms. follow up with the primary care physician within the next 2 days Follow up with the orthopedist/back specialist return immediately if symptoms worsen, persist or if new symptoms develop. Reassessment Condition: Re-examined, Improved - RAD Interpretation Radiology Orders: 09/06/18 11:15 Hip Left [HIP MIN 2V W/ PELVIS LT] [RAD] Stat DUPLEX LOWER EXTRM VEIN LEFT [US] Stat 09/06/18 11:39 LS SPINE WITH OBL > 18 YRS OLD [RAD] Stat - Medication Orders Current Medication Orders: Discontinued Medications Morphine Sulfate (Morphine) 4 mg IVP STAT STA Stop: 09/06/18 11:16 Last Admin: 09/06/18 11:47 Dose: 4 mg MAR Pain Assessment Document 09/06/18 11:47 OCS (Rec: 09/06/18 11:47 OCS [id number]) Pain Reassessment Is this a pain reassessment? No Sleep Is patient sleeping during reassessment? No Presence of Pain Presence of Pain Yes Pain Scale Used Protocol: PSCALES Pain Scale Used Numeric Location Left, Right or Bilateral Left Upper or Lower Lower Pain Location Body Site Leg Description Description Constant Intensity of Pain at present 10 Pain Behavior Facial Grimacing Aggravating Factors ADL's IVP Administration Document 09/06/18 11:47 OCS (Rec: 09/06/18 11:47 OCS [id number]) Charges for Administration # of IVP Administrations 1 - Scribe Statement The provider has reviewed the documentation as recorded by the Fabioibantonella Quinn Provider Scribe Attestation: All medical record entries made by the Scribe were at my direction and personally dictated by me. I have reviewed the chart and agree that the record accurately reflects my personal performance of the history, physical exam, medical decision making, and the department course for this patient. I have also personally directed, reviewed, and agree with the discharge instructions and disposition. Disposition/Present on Arrival - Present on Arrival Any Indicators Present on Arrival: No History of DVT/PE: No History of Uncontrolled Diabetes: No Urinary Catheter: No History of Decub. Ulcer: No History Surgical Site Infection Following: None - Disposition Have Diagnosis and Disposition been Completed?: Yes Diagnosis: Hip pain, Back pain Disposition: HOME/ ROUTINE Disposition Time: 14:20 Patient Plan: Discharge Patient Problems: Current Active Problems Problem Status Onset Back pain Acute Hip pain Acute Condition: GOOD Discharge Instructions (ExitCare): Hip Pain (DC), Sciatica, Low Back Pain in Adults, Radiculopathy (DC) Additional Instructions: percocet every 6 hours as needed for pain valium; 1 tablet every 8 hours as needed for muscle spasms. follow up with the primary care physician within the next 2 days Follow up with the orthopedist/back specialist return immediately if symptoms worsen, persist or if new symptoms develop. Prescriptions: diaZEpam [Valium] 2 mg PO Q8H PRN #6 tab PRN Reason: muscle spasms oxyCODONE/Acetaminophen [Percocet 5/325 mg Tab] 1 tab PO Q6H PRN #10 tab PRN Reason: moderate to severe pain Referrals: Kobe Rasheed MD [Primary Care Provider] - Follow up with primary Blair Amaral MD [Staff Provider] - Follow up with primary Artur Melchor DO [Staff Provider] - Follow up with primary Forms: [employer] ([place]estinian), WORK NOTE
--- NOTE | 2018-09-06 13:07 | RAD ---
Date of service: 09/06/2018 PROCEDURE: Radiographs of the Lumbar Spine. HISTORY: back pain to left leg COMPARISON: No prior. FINDINGS: BONES: Normal alignment. No listhesis. No fracture. DISC SPACES: Anterior osteophytes are seen at L3-4 and L5-S1 OTHER FINDINGS: Aortic calcification IMPRESSION: Mild degenerative changes
--- NOTE | 2018-09-06 13:29 | RAD ---
Date of service: 09/06/2018 PROCEDURE: Pelvis and left hip HISTORY: hip pain COMPARISON: TECHNIQUE: Three views FINDINGS: There is a CAM shaped femoral head and neck. This is associated with femoro acetabular impingement. There is mild joint space narrowing and bony sclerosis superiorly. There is a right hip prosthesis. There is heterotopic bone between the greater trochanter and pelvis. IMPRESSION: As above
[2018-09-06] MEDS ORDERED: Morphine 2 mg/ml ISec IVP STA (13:45)
[2018-09-06 15:48] VITALS: BP 155/71; PULSE 63; TEMP 98; O2SAT 100
--- NOTE | 2018-09-06 18:49 | US ---
PROCEDURE: Left lower extremity venous US HISTORY: Leg pain and swelling. Evaluate for DVT. PHYSICIAN(S): Denny Julian MD. TECHNIQUE: Duplex sonography and color-flow Doppler with graded compression were used to evaluate the deep venous system of the left lower extremity. FINDINGS: The visualized deep venous system of the left lower extremity is sonographically normal and compressible. Normal wave forms and augmentation are seen. There is no sonographic evidence for deep venous thrombosis in the visualized segments of the left lower extremity. IMPRESSION: 1. No sonographic evidence for deep venous thrombosis in the visualized segments of the left lower extremity.
== END 2018-09-06 15:49 | disposition home or self-care (01) ==
LOC: ED 10:31
DX: M25.552 Pain in left hip (principal); M54.9 Dorsalgia, unspecified; I12.9 Hypertensive chronic kidney disease with stage 1 through stage 4 chronic kidney disease, or unspecified chronic kidney disease; N18.9 Chronic kidney disease, unspecified; E11.9 Type 2 diabetes mellitus without complications; Z87.891 Personal history of nicotine dependence
CPT/HCPCS: 72110; 73502; 93971; 96374; 96376; 99284; J2270

== ENCOUNTER 2018-09-18 13:20 | Outpatient (CLI) | payer OTHER | END 2018-09-18 13:21 | disposition home or self-care (01) | LOC: LAB 13:20 | DX: N18.4 Chronic kidney disease, stage 4 (severe) (principal); D63.1 Anemia in chronic kidney disease ==

== ENCOUNTER 2018-09-22 12:37 | Outpatient (CLI) | payer OTHER | END 2018-09-22 12:38 | disposition home or self-care (01) | LOC: RAD 12:38 | DX: M54.5 Low back pain (principal); M54.16 Radiculopathy, lumbar region ==

== ENCOUNTER 2018-10-17 11:43 | Outpatient (CLI) | payer OTHER | END 2018-10-17 11:44 | disposition home or self-care (01) | LOC: LAB 11:43 ==

== ENCOUNTER 2018-10-29 10:33 | Inpatient (IN) | payer OTHER ==
[2018-10-29 10:34] VITALS: BMI 34.5
[2018-10-29] MEDS ORDERED: Sodium Chloride 0.9% 1,000 ML IV STA (11:08)
[2018-10-29] MEDS ORDERED: Morphine 4 mg/ml ISec IVP STA (11:10)
[2018-10-29 11:23] LABS: VENOUS BLOOD GAS BASE EXCESS -4.4 mmol/L (0.0-2.0); VENOUS BLOOD GAS PO2 24 mm/Hg (30-55); VENOUS BLOOD PH 7.37 (7.32-7.43)
[2018-10-29 11:28] LABS: BASO # 0.03 K/mm3 (0.0-2.0); BASO % 0.6 % (0.0-3.0); EOS % 0.4 % (1.5-5.0); HEMOGLOBIN 10.1 g/dL (14.0-18.0); LYMPH # 1.1 (1.2-3.4); LYMPH % 23.5 % (22.0-35.0); MEAN CELL VOLUME 92.7 fl (80.0-105.0); MEAN CORPUSCULAR HEMOGLOBIN 30.8 pg (25.0-35.0); MEAN CORPUSCULAR HGB CONC 33.2 g/dl (31.0-37.0); MONO # 0.9 (0.1-0.6); MONO % 18.3 % (1.0-6.0); RBC 3.28 10^6/uL (3.5-6.1); RED CELL DISTRIBUTION WIDTH 12.5 % (11.5-14.5); WHITE BLOOD COUNT 4.8 10^3/uL (4.5-11.0)
--- NOTE | 2018-10-29 11:28 | ED PDOC ---
Arrival/HPI - General Chief Complaint: GI Problem Time Seen by Provider: 10/29/18 10:45 Historian: Patient - History of Present Illness Narrative History of Present Illness (Text): 10/29/18 11:26 58 year old male, with past medical history of CKD, presents to emergency department complaining of vomiting andf diarrhea for the past week. Patient reports associated fever, chills, and "yellow and watery stool." Patient states that in the last few days, his symptoms got better in the last day or so. Patient notes he has not been able to keep anything down for the past week and can't eat currently either. Patient denies any antibiotic use or recent sick contact. Patient denies any headache, dizziness, chest pain, shortness of breath cough, abdominal pain, back pain, neck pain, or any other complaints. Time/Duration: 1 week Symptom Onset: Gradual Symptom Course: Unchanged Activities at Onset: Light Context: Home Past Medical History - Provider Review Nursing Documentation Reviewed: Yes - Infectious Disease Hx of Infectious Diseases: None - Tetanus Immunization Tetanus Immunization: Unknown - Cardiac Hx Hypertension: Yes - Pulmonary Hx Respiratory Disorders: Yes Hx Pneumonia: Yes - Neurological Hx Neurological Disorder: No - HEENT Hx HEENT Disorder: No - Renal Hx Renal Disorder: Yes Other/Comment: membrane nephritis - Endocrine/Metabolic Hx Endocrine Disorders: Yes Hx Diabetes Mellitus Type 2: Yes - Hematological/Oncological Hx Blood Disorders: Yes Hx Anemia: Yes (with blood transfusion) - Integumentary Hx Dermatological Disorder: No - Musculoskeletal/Rheumatological Hx Musculoskeletal Disorders: Yes Hx Back Pain: Yes - Gastrointestinal Hx Gastrointestinal Disorders: No - Genitourinary/Gynecological Hx Genitourinary Disorders: No - Psychiatric Hx Emotional Abuse: No Hx Physical Abuse: No Hx Substance Use: No - Surgical History Hx Appendectomy: Yes Hx Cardiac Catheterization: Yes (2 stents) Other/Comment: Right hip replacement. Vastectomy - Anesthesia Hx Anesthesia: Yes Hx Anesthesia Reactions: No Hx Malignant Hyperthermia: No - Suicidal Assessment Feels Threatened In Home Enviroment: No Family/Social History - Physician Review Nursing Documentation Reviewed: Yes Family/Social History: Unknown Family HX Smoking Status: Former Smoker Hx Alcohol Use: Yes (SOCIALLY) Frequency of alcohol use: Socially Hx Substance Use: No Hx Substance Use Treatment: No Allergies/Home Meds Allergies/Adverse Reactions: Allergies rituximab Allergy (Mild, Verified 10/29/18 10:43) RASH Home Medications: Home Meds Medication Instructions Recorded Confirmed Aspirin [Aspir 81] 81 tab PO DAILY 08/25/13 10/29/18 Cholecalciferol [Vitamin D 1000 IU] 50,000 units PO Q7D 12/07/14 10/29/18 Clopidogrel [Plavix] 75 mg PO DAILY 12/07/14 10/29/18 Folic Acid 1 mg PO DAILY 02/06/16 10/29/18 Liraglutide [Victoza 2-Ross] 1.8 mg SQ QAM 02/06/16 10/29/18 Rosuvastatin Calcium [Crestor] 20 mg PO HS 02/06/16 10/29/18 Patiromer Calcium Sorbitex 16.8 gm PO DAILY 06/20/17 10/29/18 [Veltassa] Sodium Bicarbonate Tab 3 tab PO BID 06/20/17 10/29/18 Carvedilol [Coreg] 6.125 mg PO BID 06/23/17 10/29/18 Bumetanide [Bumex] 2 mg PO DAILY 11/22/17 10/29/18 Epoetin Richar [Procrit] 4,000 unit SC Q7D 02/01/18 10/29/18 Febuxostat [Uloric] 40 mg PO DAILY 02/01/18 10/29/18 Insulin Glargine, Recombina 15 units SC BID 02/01/18 10/29/18 [Lantus] Calcium Acetate [Phoslo] 667 mg PO DIN 10/29/18 10/29/18 Losartan [Cozaar] 75 mg PO DAILY 10/29/18 10/29/18 hydrALAZINE [Apresoline] 25 mg PO BID 10/29/18 10/29/18 Review of Systems - Physician Review All systems were reviewed & negative as marked: Yes - Review of Systems Constitutional: Fevers Respiratory: absent: SOB, Cough, Wheezing Cardiovascular: absent: Chest Pain Gastrointestinal: Diarrhea, Nausea, Vomiting. absent: Abdominal Pain Genitourinary Male: Other (yellow and watery stool) Musculoskeletal: absent: Back Pain, Neck Pain Skin: absent: Rash Neurological: absent: Headache, Dizziness Physical Exam Vital Signs Reviewed: Yes Vital Signs Temp Pulse Resp BP Pulse Ox 10/29/18 10:38 100.6 F H 97 H 18 166/89 H 95 Temperature: Febrile Blood Pressure: Normal Pulse: Regular Respiratory Rate: Normal Appearance: Positive for: Well-Appearing, Non-Toxic, Comfortable Pain Distress: Mild Mental Status: Positive for: Alert and Oriented X 3 Finger Stick Blood Glucose: 175 - Systems Exam Head: Present: Atraumatic, Normocephalic Pupils: Present: PERRL Extroacular Muscles: Present: EOMI Conjunctiva: Present: Normal Mouth: Present: Moist Mucous Membranes Neck: Present: Normal Range of Motion Respiratory/Chest: Present: Clear to Auscultation, Good Air Exchange. No: Respiratory Distress, Accessory Muscle Use Cardiovascular: Present: Murmurs (systolic ) Abdomen: Present: Tenderness (mild diffuse) Back: Present: Normal Inspection Upper Extremity: Present: Normal Inspection. No: Cyanosis, Edema Lower Extremity: Present: Normal Inspection. No: Edema Neurological: Present: GCS=15, CN II-XII Intact, Speech Normal Skin: Present: Warm, Dry, Normal Color. No: Rashes Psychiatric: Present: Alert, Oriented x 3, Normal Insight, Normal Concentration Medical Decision Making ED Course and Treatment: 10/29/18 11:37 Impression: 58 year old male presents to emergency department complaining of fever, chills, vomiting, and diarrhea for the past week. Plan: -- Labs -- Morphine -- IV Fluids, 1L bolus -- Zofran -- Urinalysis -- Reassess and disposition Prior Visits: Notes and results from previous visits were reviewed. Progress Notes: 10/29/18 9:54 EKG: Ordered, reviewed, and independently interpreted the EKG. Rate : 89 BPM Rhythm : NSR Interpretation : Normal axis, mildly widened qrs at 104, normal qtc, no st elevations, t wave inversions in inferior leads 10/29/18 12:[address] Prince, would like patient to hold diuretics and follow up in the office tomorrow. 10/29/18 14:35 Patient felt too weak to ambulate and felt uncomfortable with discharge. Spoke to Dr. Prince, accepts patient to his service for admission. Case discussed with medical claims analyst. - Lab Interpretations Lab Results: pO2 24 mm/Hg (30-55) L 10/29/18 11:17 VBG pH 7.37 (7.32-7.43) 10/29/18 11:17 VBG pCO2 35.0 (40-60) L 10/29/18 11:17 VBG HCO3 20.2 mmol/l (21-28) L 10/29/18 11:17 VBG Total CO2 21.3 mmol.L (22-28) L 10/29/18 11:17 VBG O2 Sat (Calc) 51.0 % (40-65) 10/29/18 11:17 VBG Base Excess -4.4 mmol/L (0.0-2.0) L 10/29/18 11:17 VBG Potassium 4.1 mmol/L (3.6-5.2) 10/29/18 11:17 Sodium 137.0 mmol/L (132-148) 10/29/18 11:17 Chloride 109.0 mmol/L (98-107) H 10/29/18 11:17 Glucose 174 mg/dl (75-110) H 10/29/18 11:17 Lactate 1.1 mmol/L (0.7-2.1) 10/29/18 11:17 FiO2 21.0 % 10/29/18 11:17 - Medication Orders Current Medication Orders: Sodium Chloride (Sodium Chloride 0.9%) 1,000 mls @ 999 mls/hr IV .Q1H1M STA Stop: 10/29/18 12:08 Discontinued Medications Morphine Sulfate (Morphine) 4 mg IVP STAT STA Stop: 10/29/18 11:11 Ondansetron HCl (Zofran Inj) 4 mg IVP STAT STA Stop: 10/29/18 11:09 - Scribe Statement The provider has reviewed the documentation as recorded by the Scribe Hiral Barth All medical record entries made by the Scribe were at my direction and pe rsonally dictated by me. I have reviewed the chart and agree that the record accurately reflects my personal performance of the history, physical exam, medical decision making, and the department course for this patient. I have also personally directed, reviewed, and agree with the discharge instructions and disposition. Disposition/Present on Arrival - Present on Arrival Any Indicators Present on Arrival: No History of DVT/PE: No History of Uncontrolled Diabetes: No Urinary Catheter: No History of Decub. Ulcer: No History Surgical Site Infection Following: None - Disposition Have Diagnosis and Disposition been Completed?: Yes Diagnosis: Gastroenteritis, Chronic renal failure Disposition: HOME/ ROUTINE Disposition Time: 13:20 Patient Plan: Discharge Patient Problems: Current Active Problems Problem Status Onset Chronic renal failure Acute Gastroenteritis Acute Condition: STABLE
[2018-10-29 11:38] LABS: ALB/GLOB RATIO 1.1 (1.1-1.8); ALBUMIN 3.9 g/dL (3.0-4.8); CALCIUM 8.6 mg/dL (8.4-10.5)
[2018-10-29 12:38] LABS: URINE BILIRUBIN NEGATIVE (NEGATIVE); URINE BLOOD LARGE (NEGATIVE); URINE GLUCOSE (UA) 500 mg/dL (NEGATIVE); URINE LEUKOCYTE ESTERASE NEGATIVE Leu/uL (NEGATIVE); URINE PROTEIN >=300 mg/dL (<30 mg/dL); URINE UROBILINOGEN 0.2 E.U./dL (<1 E.U./dL)
[2018-10-29 12:39] LABS: URINE APPEARANCE CLEAR (CLEAR); URINE COLOR YELLOW (YELLOW)
[2018-10-29 12:44] LABS: URINE EPITHELIAL CELLS 0 - 2 /hpf (0-5); URINE RBC 25 - 30 /hpf (0-2)
[2018-10-29 12:45] LABS: URINE AMORPHOUS SEDIMENT FEW /hpf; URINE BACTERIA MANY /hpf; URINE COARSE GRANULAR CAST SMALL /hpf; URINE HYALINE CAST 0 - 2 /hpf
[2018-10-29] MEDS ORDERED: Dextrose 50% SYRINGE Inj (50 ml) IV PRN (15:26)
[2018-10-29] MEDS ORDERED: Lactated Ringer's 1,000 ML IV SCH (15:30)
[2018-10-29] MEDS: Insulin Lispro (humaLOG) MEDIUM Coverage SC SCH (17:00)
--- NOTE | 2018-10-29 17:53 | CP.PCM.HP ---
History of Present Illness - History of Present Illness History of Present Illness: Bal Snider DO, PGY-1 Admission History and Physical for Dr. Prince's Service CC: nausea/vomiting/diarrhea x 1 week HPI: Mr. 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 He reports the symptoms started as yellow, watery stool but for the last few days he has also had fever/chills associated with the symptoms. He recalls eating a large bucket of fried chicken prior to symptom onset. Patient notes he has not been able to keep anything down and that he is also feeling weak. He otherwise denies CP, SOB, cough, BRYAN, blurred vision, syncope, dizziness, or new urinary complaints. PMD: Dr. 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, DM2, CAD (s/p two stents), and prior polysubstance abuse (including cocaine) Past Surgical History: Right hip replacement, Appendectomy Allergies: rituxan Home medications: hydralazine 25 mg BID, sodium bicarbonate BID, Crestor 20 mg HS, Veltassa 16.8 g daily, cozaar 75 mg daily, liraglutide 1.8 mg qam, Lantus 15 u SC BID, folic acid 1 mg daily, uloric 40 mg daily, Procrit 4000 u SC q7D, plavix 75 mg daily, vitamin D 50k units weekly, coreg 6.125 mg BID, Phoslo 667 mg DIN, Bumex 2 mg daily, ASA 81 mg daily Family History: Mother-Ovarian Cancer Social History: denies current or prior tobacco, EtOH use, previously used cocaine but states this was 15 years ago Pharmacy: [facility] [place] pharmacy Present on Admission - Present on Admission Any Indicators Present on Admission: No History of DVT/PE: No History of Uncontrolled Diabetes: No Urinary Catheter: No Decubitus Ulcer Present: No Review of Systems - Constitutional Constitutional: Chills, Fever - EENT Eyes: absent: Blurred Vision, Change in Vision - Cardiovascular Cardiovascular: absent: Chest Pain, Chest Pain with Activity, Dyspnea - Respiratory Respiratory: absent: Cough, Dyspnea - Gastrointestinal Gastrointestinal: Abdominal Pain, Diarrhea, Nausea, Vomiting. absent: Hematochezia, Melena - Genitourinary Genitourinary: absent: Change in Urinary Stream, Difficulty Urinating, Dysuria - Neurological Neurological: absent: Dizziness, Headaches, Syncope Past Patient History - Infectious Disease Hx of Infectious Diseases: None - Tetanus Immunizations Tetanus Immunization: Unknown - Past Social History Smoking Status: Former Smoker - CARDIAC Hx Hypertension: Yes - PULMONARY Hx Respiratory Disorders: Yes Hx Pneumonia: Yes - NEUROLOGICAL Hx Neurological Disorder: No - HEENT Hx HEENT Problems: No - RENAL Hx Chronic Kidney Disease: Yes Other/Comment: membrane nephritis - ENDOCRINE/METABOLIC Hx Endocrine Disorders: Yes Hx Diabetes Mellitus Type 2: Yes - HEMATOLOGICAL/ONCOLOGICAL Hx Blood Disorders: Yes Hx Anemia: Yes (with blood transfusion) - INTEGUMENTARY Hx Dermatological Problems: No - MUSCULOSKELETAL/RHEUMATOLOGICAL Hx Falls: No - GASTROINTESTINAL Hx Gastrointestinal Disorders: No - GENITOURINARY/GYNECOLOGICAL Hx Genitourinary Disorders: No - PSYCHIATRIC Hx Emotional Abuse: No Hx Physical Abuse: No - SURGICAL HISTORY Hx Appendectomy: Yes Hx Cardiac Catheterization: Yes (2 stents) Other/Comment: Right hip replacement. Vastectomy - ANESTHESIA Hx Anesthesia: Yes Hx Anesthesia Reactions: No Hx Malignant Hyperthermia: No Meds Home Medications: Home Medication List Medication Instructions Recorded Confirmed Type Ondansetron ODT [Zofran ODT] 8 mg PO Q8H PRN #9 odt 10/29/18 Rx Allergies/Adverse Reactions: Allergies Allergy/AdvReac Type Severity Reaction Status Date / Time rituximab Allergy Mild RASH Verified 10/29/18 10:43 Physical Exam - Constitutional Appears: Non-toxic, No Acute Distress - Head Exam Head Exam: ATRAUMATIC, NORMOCEPHALIC - Eye Exam Eye Exam: EOMI, PERRL - ENT Exam ENT Exam: Mucous Membranes Moist - Neck Exam Neck exam: Positive for: Full Rom, Normal Inspection - Respiratory Exam Respiratory Exam: Clear to Auscultation Bilateral, NORMAL BREATHING PATTERN. absent: Rales, Rhonchi, Wheezes - Cardiovascular Exam Cardiovascular Exam: REGULAR RHYTHM, RRR, +S1, +S2. absent: Diastolic murmur, Gallop, Rubs, Systolic Murmur - GI/Abdominal Exam GI & Abdominal Exam: Normal Bowel Sounds, Soft, Tenderness (mild diffuse tenderness to palpation, greatest LLQ). absent: Guarding, Rebound - Extremities Exam Extremities exam: Positive for: full ROM, normal inspection. Negative for: pedal edema - Back Exam Back exam: NORMAL INSPECTION - Neurological Exam Neurological exam: Alert, Oriented x3 - Psychiatric Exam Psychiatric exam: Normal Affect, Normal Mood - Skin Skin Exam: Dry, Intact, Warm Results - Vital Signs Recent Vital Signs: Last Vital Signs Temp 102.1 F H 10/29/18 16:21 Pulse 92 H 10/29/18 16:00 Resp 18 10/29/18 16:00 BP 168/80 H 10/29/18 16:00 Pulse Ox 95 10/29/18 16:00 - Labs Result Diagrams: 10/29/18 11:15 10/29/18 11:15 Labs: Laboratory Results - last 24 hr 10/29/18 10/29/18 10/29/18 10:52 11:15 11:15 WBC 4.8 RBC 3.28 L Hgb 10.1 L Hct 30.4 L MCV 92.7 MCH 30.8 MCHC 33.2 RDW 12.5 Plt Count 188 MPV 10.0 Neut % (Auto) 57.2 Lymph % (Auto) 23.5 Bay % (Auto) 18.3 H Eos % (Auto) 0.4 L Baso % (Auto) 0.6 Lymph # (Auto) 1.1 L Bay # (Auto) 0.9 H Eos # (Auto) 0.0 Baso # (Auto) 0.03 Absolute Neuts (auto) 2.74 pO2 VBG pH VBG pCO2 VBG HCO3 VBG Total CO2 VBG O2 Sat (Calc) VBG Base Excess VBG Potassium Glucose Lactate FiO2 Sodium 136 Potassium 4.0 Chloride 104 Carbon Dioxide 20 L Anion Gap 16 BUN 82 H Creatinine 4.7 H Est GFR ( Amer) 15 Est GFR (Non-Af Amer) 13 POC Glucose (mg/dL) 175 H Random Glucose 169 H Lactic Acid Calcium 8.6 Magnesium 1.7 Total Bilirubin 0.6 AST 25 ALT 17 Alkaline Phosphatase 78 Total Protein 7.5 Albumin 3.9 Globulin 3.6 Albumin/Globulin Ratio 1.1 Lipase 79 Venous Blood Potassium Urine Color Urine Appearance Urine pH Ur Specific [place] Urine Protein Urine Glucose (UA) Urine Ketones Urine Blood Urine Nitrate Urine Bilirubin Urine Urobilinogen Ur Leukocyte Esterase Urine RBC Urine WBC Ur Epithelial Cells Amorphous Sediment Urine Bacteria Hyaline Casts Fine Granular Casts Coarse Granular Casts 10/29/18 10/29/18 10/29/18 11:17 12:20 16:23 WBC RBC Hgb Hct MCV MCH MCHC RDW Plt Count MPV Neut % (Auto) Lymph % (Auto) Bay % (Auto) Eos % (Auto) Baso % (Auto) Lymph # (Auto) Bay # (Auto) Eos # (Auto) Baso # (Auto) Absolute Neuts (auto) pO2 24 L VBG pH 7.37 VBG pCO2 35.0 L VBG HCO3 20.2 L VBG Total CO2 21.3 L VBG O2 Sat (Calc) 51.0 VBG Base Excess -4.4 L VBG Potassium 4.1 Glucose 174 H Lactate 1.1 FiO2 21.0 Sodium 137.0 Potassium Chloride 109.0 H Carbon Dioxide Anion Gap BUN Creatinine Est GFR ( Amer) Est GFR (Non-Af Amer) POC Glucose (mg/dL) Random Glucose Lactic Acid 1.2 Calcium Magnesium Total Bilirubin AST ALT Alkaline Phosphatase Total Protein Albumin Globulin Albumin/Globulin Ratio Lipase Venous Blood Potassium 4.1 Urine Color Yellow Urine Appearance Clear Urine pH 6.0 Ur Specific [place] 1.025 Urine Protein >=300 H Urine Glucose (UA) 500 H Urine Ketones Trace H Urine Blood Large H Urine Nitrate Negative Urine Bilirubin Negative Urine Urobilinogen 0.2 Ur Leukocyte Esterase Negative Urine RBC 25 - 30 H Urine WBC 1 - 3 Ur Epithelial Cells 0 - 2 Amorphous Sediment Few Urine Bacteria Many Hyaline Casts 0 - 2 Fine Granular Casts 2 - 5 Coarse Granular Casts Small 10/29/18 16:33 WBC RBC Hgb Hct MCV MCH MCHC RDW Plt Count MPV Neut % (Auto) Lymph % (Auto) Bay % (Auto) Eos % (Auto) Baso % (Auto) Lymph # (Auto) Bay # (Auto) Eos # (Auto) Baso # (Auto) Absolute Neuts (auto) pO2 VBG pH VBG pCO2 VBG HCO3 VBG Total CO2 VBG O2 Sat (Calc) VBG Base Excess VBG Potassium Glucose Lactate FiO2 Sodium Potassium Chloride Carbon Dioxide Anion Gap BUN Creatinine Est GFR ( Amer) Est GFR (Non-Af Amer) POC Glucose (mg/dL) 114 H Random Glucose Lactic Acid Calcium Magnesium Total Bilirubin AST ALT Alkaline Phosphatase Total Protein Albumin Globulin Albumin/Globulin Ratio Lipase Venous Blood Potassium Urine Color Urine Appearance Urine pH Ur Specific [place] Urine Protein Urine Glucose (UA) Urine Ketones Urine Blood Urine Nitrate Urine Bilirubin Urine Urobilinogen Ur Leukocyte Esterase Urine RBC Urine WBC Ur Epithelial Cells Amorphous Sediment Urine Bacteria Hyaline Casts Fine Granular Casts Coarse Granular Casts Assessment & Plan - Assessment and Plan (Free Text) Assessment: 58 yo M with PMH of 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 Plan: Intractable nausea/vomiting/diarrhea May be 2/2 colitis vs prolonged viral gastroenteritis CTAP w/o PO or IV contrast to r/o colitis Since arrival to floor, patient has been persistently febrile with Tmax 102.1 However, patient has no leukocytosis or other SIRS Oliveira cx, including repeat blood, urine, stool cx C-diff, ova and parasites Hold home veltassa as patient may be losing K in stool Monitor and replete electrolytes PRN Continue zofran PRN, liquid diet Will monitor overnight and start abx if warranted ID consult placed, all recs appreciated LIBORIO on CKD Likely 2/2 pre-renal azotemia from dehydration due to diarrheal illness Will continue IVF resuscitation with LR at 100 cc/hr Encourage increased fluid intake Liquid diet Continue to monitor renal function parameters Hold home cozaar pending nephrology evaluation Nephrology consult placed, all recs appreciated DM2 Hold home anti-hyperglycemics ISS - medium Fingerstick glucose ACHS CAD Continue home ASA, plavix HTN Hold home cozaar May continue coreg with holding parameters monitoring for hypotension DVT/GI PPX: SC heparin/protonix Full Code Liquid diet Monitor on med/surg Case discussed with my attending Dr. Suresh Snider, D.O. IM Resident PGY-1
[2018-10-29] MEDS ORDERED: Vancomycin 1gm in NS 250ml 1 GM/250 ML BAG IVPB STA (18:23)
--- NOTE | 2018-10-29 18:39 | RAD ---
Date of service: 10/29/2018 HISTORY: febrile, r/o sepsis COMPARISON: Chest radiographs 09/04/2017. FINDINGS: LUNGS: No active pulmonary disease. PLEURA: No significant pleural effusion identified, no pneumothorax apparent. CARDIOVASCULAR: No aortic atherosclerotic calcification present. Normal cardiac size. No pulmonary vascular congestion. OSSEOUS STRUCTURES: No significant abnormalities. VISUALIZED UPPER ABDOMEN: Normal. OTHER FINDINGS: None. IMPRESSION: No interval acute cardiopulmonary disease appreciated.
[2018-10-29] MEDS: Cholecalciferol 1,000 INTLU TAB PO SCH (18:45)
[2018-10-29] MEDS: MEROPENEM 500 MG in NS 500 MG/50 ML BAG IVPB SCH (21:09)
[2018-10-29] MEDS: levoFLOXacin 250 mg in D5W 250 MG/50 ML BAG IVPB SCH (21:09)
--- NOTE | 2018-10-29 22:39 | CARD ---
APPROVED REPORT Date of service: 10/29/2018 EKG Measurement Heart [id number] <Conclusion> Poor data quality, interpretation may be adversely affected Normal sinus rhythm T wave abnormalities non specific Abnormal ECG
--- NOTE | 2018-10-30 02:38 | CP.PCM.PN ---
Subjective - Date & Time of Evaluation Date of Evaluation: 10/30/18 Time of Evaluation: 02:35 - Subjective Subjective: Patient was seen at bedside. He complains of diffuse abdominal pain. States that it is like spasm. Has diarrhoea. No other complaints. Denies nausea, vomiting. Medical record was renewed. This 58 year old white male was admitted with N/V/D. Has PMH of ESRD,DM II, CAD, polysubstance abuse. Objective - Vital Signs/Intake and Output Vital Signs (last 24 hours): Temp Pulse Resp BP Pulse Ox 99.2 F 92 H 18 125/71 95 10/29/18 18:04 10/29/18 16:00 10/29/18 16:00 10/29/18 18:34 10/29/18 16:00 Intake and Output: 10/29/18 10/30/18 18:59 06:59 Intake Total 540 Output Total 400 Balance 140 - Medications Medications: Current Medications Acetaminophen (Tylenol 325mg Tab) 650 mg PO Q6 PRN PRN Reason: TEMP>=99.5F Last Admin: 10/29/18 16:21 Dose: 650 mg Acetaminophen (Tylenol 650 Mg Supp) 650 mg RC Q6H PRN PRN Reason: TEMP>=99.5F Aspirin (Ecotrin) 81 mg PO DAILY [facility] Atorvastatin Calcium (Lipitor) 80 mg PO HS [facility] Last Admin: 10/29/18 21:10 Dose: 80 mg Carvedilol (Coreg) 6.25 mg PO BID [facility] Last Admin: 10/29/18 18:34 Dose: 6.25 mg Cholecalciferol (Vitamin D) 1,000 intlu PO Q7D [facility] Last Admin: 10/29/18 18:45 Dose: 1,000 intlu Clopidogrel Bisulfate (Plavix) 75 mg PO DAILY [facility] Dextrose (Dextrose 50% Inj) 0 ml IV STAT PRN; Protocol PRN Reason: Hypoglycemia Protocol Folic Acid (Folic Acid) 1 mg PO DAILY [facility] Heparin Sodium (Porcine) (Heparin) 5,000 units SC Q8 [facility]; Protocol Last Admin: 10/29/18 21:10 Dose: 5,000 units Hydralazine HCl (Apresoline) 25 mg PO BID [facility] Last Admin: 10/29/18 18:33 Dose: 25 mg Dextrose (Dextrose 5% In Water 1000 Ml) 1,000 mls @ 0 mls/hr IV .Q0M PRN; Protocol PRN Reason: Hypoglycemia Protocol Lactated Ringer's (Lactated Ringer's) 1,000 mls @ 100 mls/hr IV .Q10H [facility] Last Admin: 10/29/18 16:21 Dose: 100 mls/hr Levofloxacin/Dextrose (Levaquin 250mg) 250 mg in 50 mls @ 50 mls/hr IVPB 2000 [facility]; Protocol Last Admin: 10/29/18 21:09 Dose: 50 mls/hr Meropenem/Sodium Chloride (Merrem Iv 500 Mg/Ns 50 Ml) 500 mg in 50 mls @ 100 mls/hr IVPB 0900,2100 [facility]; Protocol Last Admin: 10/29/18 21:09 Dose: 100 mls/hr Insulin Human Lispro (Humalog Med) 0 units SC AC [facility]; Protocol Last Admin: 10/29/18 17:00 Dose: Not Given Losartan Potassium (Cozaar) 75 mg PO DAILY [facility] Ondansetron HCl (Zofran Inj) 4 mg IVP Q4H PRN PRN Reason: Nausea/Vomiting Last Admin: 10/29/18 20:34 Dose: 4 mg Pantoprazole Sodium (Protonix Inj) 40 mg IVP Q12 [facility] Last Admin: 10/29/18 21:10 Dose: 40 mg - Labs Labs: 10/29/18 11:15 10/29/18 11:15 - Constitutional Appears: Well, No Acute Distress - Head Exam Head Exam: ATRAUMATIC, NORMAL INSPECTION, NORMOCEPHALIC - Eye Exam Eye Exam: Normal appearance - ENT Exam ENT Exam: Normal External Ear Exam - Neck Exam Neck Exam: Normal Inspection - Respiratory Exam Respiratory Exam: NORMAL BREATHING PATTERN - Cardiovascular Exam Cardiovascular Exam: absent: JVD - GI/Abdominal Exam GI & Abdominal Exam: absent: Distended - Rectal Exam Rectal Exam: Deferred - Exam Additional comments: Deferred. - Extremities Exam Extremities Exam: Normal Inspection - Back Exam Back Exam: NORMAL INSPECTION - Neurological Exam Neurological Exam: Alert, Awake, Oriented x3 - Psychiatric Exam Psychiatric exam: Normal Affect, Normal Mood - Skin Skin Exam: Normal Color Assessment and Plan - Assessment and Plan (Free Text) Assessment: Intestinal colic. DM II. CAD. ESRD. Plan: Bentyl 10 mg PO x 1. Continue present management.
[2018-10-30 07:36] LABS: BASO # 0.03 K/mm3 (0.0-2.0); BASO % 0.4 % (0.0-3.0); EOS # 0.1 (0.0-0.7); EOS % 0.8 % (1.5-5.0); HEMOGLOBIN 9.5 g/dL (14.0-18.0); LYMPH # 2.1 (1.2-3.4); LYMPH % 25.7 % (22.0-35.0); MEAN CELL VOLUME 91.7 fl (80.0-105.0); MEAN CORPUSCULAR HEMOGLOBIN 30.4 pg (25.0-35.0); MEAN CORPUSCULAR HGB CONC 33.1 g/dl (31.0-37.0); MEAN PLATELET VOLUME 10.1 fl (7.0-11.0); MONO # 1.2 (0.1-0.6); MONO % 15.6 % (1.0-6.0); RBC 3.13 10^6/uL (3.5-6.1); RED CELL DISTRIBUTION WIDTH 12.8 % (11.5-14.5)
[2018-10-30 07:44] LABS: PARTIAL THROMBOPLASTIN TIME 30.9 Seconds (26.9-38.3)
[2018-10-30 07:48] LABS: ALB/GLOB RATIO 1.1 (1.1-1.8); ALBUMIN 3.7 g/dL (3.0-4.8); BILIRUBIN,DIRECT 0.3 mg/dL (0.0-0.4); CALCIUM 8.2 mg/dL (8.4-10.5); URIC ACID 6.8 mg/dL (3.5-8.5)
[2018-10-30 08:10] LABS: INR 1.16; PROTHROMBIN TIME 13.1 SECONDS (9.4-12.5)
[2018-10-30] MEDS: Insulin Lispro (humaLOG) MEDIUM Coverage SC SCH ×3 (08:37→16:30)
[2018-10-30] MEDS: MEROPENEM 500 MG in NS 500 MG/50 ML BAG IVPB SCH ×2 (09:38→21:30)
--- NOTE | 2018-10-30 09:54 | CT ---
Date of service: 10/30/2018 PROCEDURE: CT Abdomen and Pelvis without intravenous contrast HISTORY: r/o colitis, febrile, diarrheal illness COMPARISON: 02/01/2018 TECHNIQUE: Technique. Contrast dose: Radiation dose: Total exam DLP = 1304.18 mGy-cm. This CT exam was performed using one or more of the following dose reduction techniques: Automated exposure control, adjustment of the mA and/or kV according to patient size, and/or use of iterative reconstruction technique. FINDINGS: LOWER THORAX: Unremarkable. LIVER: Unremarkable. No gross lesion or ductal dilatation. GALLBLADDER AND BILE DUCTS: Unremarkable. PANCREAS: Unremarkable. No gross lesion or ductal dilatation. SPLEEN: Unremarkable. ADRENALS: Unremarkable. No mass. KIDNEYS AND URETERS: 1 centimeter left renal cyst. No hydronephrosis. No solid mass. VASCULATURE: Unremarkable. No aortic aneurysm. No aortic atherosclerotic calcification or mural plaque present. BOWEL: Unremarkable. No obstruction. No gross mural thickening. APPENDIX: Unremarkable. Normal appendix. PERITONEUM: Unremarkable. No free fluid. No free air. LYMPH NODES: Unremarkable. No enlarged lymph nodes. BLADDER: Unremarkable. REPRODUCTIVE: Unremarkable. BONES: Right hip arthroplasty. OTHER FINDINGS: None. IMPRESSION: Acute pathology. No significant change.
--- NOTE | 2018-10-30 10:54 | CP.PCM.CON ---
<Yahir Marcus - Last Filed: 10/30/18 12:14> History of Present Illness - History of Present Illness History of Present Illness: Yahir Marcus D.O. PGY-3, Internal Medicine Resident, Infectious Disease Consultation Note 58-year-old male with a past medical history end-stage renal disease nephropathy, diabetes, coronary artery disease status post 2 stents, and history of polysubstance abuse in the past who presents for persistent nausea and diarrhea worsening over approximately 1 week. Infectious disease consultation was requested for fever and possible colitis. Patient was seen and examiend at bedside. Patient at this time states that his symptoms are somewhat better. Patient is currently having [place] 5 stools which is improved from about a Char[place] 6-7. Patient denies any sick contacts that he can think of. Prior to his symptoms patient did recall eating a large bucket of fried chicken. Patient is unable to maintain p.o. intake since then and cannot quantify how many episodes of diarrhea he had. Patient's diarrhea at that time did not have any mucus or blood that he noticed. Patient states that he much every time he has a change in position he feels that he has to go again. Denies any fevers, chills, headaches, chest pain, shortness of breath or other concerning symptoms. Review of Systems - Review of Systems All systems: reviewed and no additional remarkable complaints except (as per HPI) Past Patient History - Infectious Disease Hx of Infectious Diseases: None - Tetanus Immunizations Tetanus Immunization: Unknown - Past Social History Smoking Status: Former Smoker - CARDIAC Hx Hypertension: Yes - PULMONARY Hx Respiratory Disorders: Yes Hx Pneumonia: Yes - NEUROLOGICAL Hx Neurological Disorder: No - HEENT Hx HEENT Problems: No - RENAL Hx Chronic Kidney Disease: Yes Other/Comment: membrane nephritis - ENDOCRINE/METABOLIC Hx Endocrine Disorders: Yes Hx Diabetes Mellitus Type 2: Yes - HEMATOLOGICAL/ONCOLOGICAL Hx Blood Disorders: Yes Hx Anemia: Yes (with blood transfusion) - INTEGUMENTARY Hx Dermatological Problems: No - MUSCULOSKELETAL/RHEUMATOLOGICAL Hx Musculoskeletal Disorders: Yes Hx Back Pain: Yes - GASTROINTESTINAL Hx Gastrointestinal Disorders: No - GENITOURINARY/GYNECOLOGICAL Hx Genitourinary Disorders: No - PSYCHIATRIC Hx Emotional Abuse: No Hx Physical Abuse: No Hx Substance Use: No - SURGICAL HISTORY Hx Appendectomy: Yes Hx Cardiac Catheterization: Yes (2 stents) Other/Comment: Right hip replacement. Vastectomy - ANESTHESIA Hx Anesthesia: Yes Hx Anesthesia Reactions: No Hx Malignant Hyperthermia: No Meds Home Medications: Home Medication List Medication Instructions Recorded Confirmed Type Ondansetron ODT [Zofran ODT] 8 mg PO Q8H PRN #9 odt 10/29/18 Rx Allergies/Adverse Reactions: Allergies Allergy/AdvReac Type Severity Reaction Status Date / Time rituximab Allergy Mild RASH Verified 10/29/18 10:43 - Medications Medications: Current Medications Acetaminophen (Tylenol 325mg Tab) 650 mg PO Q6 PRN PRN Reason: TEMP>=99.5F Last Admin: 10/29/18 16:21 Dose: 650 mg Acetaminophen (Tylenol 650 Mg Supp) 650 mg RC Q6H PRN PRN Reason: TEMP>=99.5F Aspirin (Ecotrin) 81 mg PO DAILY [facility] Last Admin: 10/30/18 09:37 Dose: 81 mg Atorvastatin Calcium (Lipitor) 80 mg PO HS [facility] Last Admin: 10/29/18 21:10 Dose: 80 mg Carvedilol (Coreg) 6.25 mg PO BID [facility] Last Admin: 10/30/18 09:37 Dose: 6.25 mg Cholecalciferol (Vitamin D) 1,000 intlu PO Q7D [facility] Last Admin: 10/29/18 18:45 Dose: 1,000 intlu Clopidogrel Bisulfate (Plavix) 75 mg PO DAILY [facility] Last Admin: 10/30/18 09:36 Dose: 75 mg Dextrose (Dextrose 50% Inj) 0 ml IV STAT PRN; Protocol PRN Reason: Hypoglycemia Protocol Folic Acid (Folic Acid) 1 mg PO DAILY [facility] Last Admin: 10/30/18 09:37 Dose: 1 mg Heparin Sodium (Porcine) (Heparin) 5,000 units SC Q8 [facility]; Protocol Last Admin: 10/30/18 05:22 Dose: 5,000 units Hydralazine HCl (Apresoline) 25 mg PO BID [facility] Last Admin: 10/30/18 09:37 Dose: 25 mg Dextrose (Dextrose 5% In Water 1000 Ml) 1,000 mls @ 0 mls/hr IV .Q0M PRN; Protocol PRN Reason: Hypoglycemia Protocol Lactated Ringer's (Lactated Ringer's) 1,000 mls @ 100 mls/hr IV .Q10H [facility] Last Admin: 10/29/18 16:21 Dose: 100 mls/hr Levofloxacin/Dextrose (Levaquin 250mg) 250 mg in 50 mls @ 50 mls/hr IVPB 2000 [facility]; Protocol Last Admin: 10/29/18 21:09 Dose: 50 mls/hr Meropenem/Sodium Chloride (Merrem Iv 500 Mg/Ns 50 Ml) 500 mg in 50 mls @ 100 mls/hr IVPB 0900,2100 [facility]; Protocol Last Admin: 10/30/18 09:38 Dose: 100 mls/hr Insulin Human Lispro (Humalog Med) 0 units SC AC [facility]; Protocol Last Admin: 10/30/18 08:37 Dose: Not Given Ondansetron HCl (Zofran Inj) 4 mg IVP Q4H PRN PRN Reason: Nausea/Vomiting Last Admin: 10/29/18 20:34 Dose: 4 mg Pantoprazole Sodium (Protonix Inj) 40 mg IVP Q12 [facility] Last Admin: 10/30/18 09:37 Dose: 40 mg Physical Exam - Constitutional Appears: Non-toxic, No Acute Distress - Head Exam Head Exam: ATRAUMATIC, NORMOCEPHALIC - Eye Exam Eye Exam: EOMI. absent: Scleral icterus - ENT Exam ENT Exam: Mucous Membranes Dry, Normal Oropharynx - Neck Exam Neck exam: Positive for: Normal Inspection. Negative for: Lymphadenopathy - Respiratory Exam Respiratory Exam: Clear to Auscultation Bilateral. absent: Rhonchi, Wheezes - Cardiovascular Exam Cardiovascular Exam: RRR, +S1, +S2, Systolic Murmur (2/6). absent: Rubs - GI/Abdominal Exam GI & Abdominal Exam: Hyperactive Bowel Sounds, Soft. absent: Distended (obese), Tenderness - Extremities Exam Extremities exam: Positive for: normal capillary refill. Negative for: pedal edema, tenderness - Neurological Exam Neurological exam: Alert, CN II-XII Intact, Oriented x3 - Psychiatric Exam Psychiatric exam: Normal Affect, Normal Mood - Skin Skin Exam: Dry, Warm Results - Vital Signs Recent Vital Signs: Last Vital Signs Temp 98.6 F 10/30/18 06:00 Pulse 66 10/30/18 06:00 Resp 20 10/30/18 06:00 BP 124/70 10/30/18 09:37 Pulse Ox 98 10/30/18 06:00 - Labs Result Diagrams: 10/30/18 07:00 10/30/18 07:00 Labs: Laboratory Results - last 24 hr 10/29/18 10/29/18 10/29/18 10:52 11:15 11:15 WBC 4.8 RBC 3.28 L Hgb 10.1 L Hct 30.4 L MCV 92.7 MCH 30.8 MCHC 33.2 RDW 12.5 Plt Count 188 MPV 10.0 Neut % (Auto) 57.2 Lymph % (Auto) 23.5 [place] % (Auto) 18.3 H Eos % (Auto) 0.4 L Baso % (Auto) 0.6 Lymph # (Auto) 1.1 L [place] # (Auto) 0.9 H Eos # (Auto) 0.0 Baso # (Auto) 0.03 Absolute Neuts (auto) 2.74 PT INR APTT pO2 VBG pH VBG pCO2 VBG HCO3 VBG Total CO2 VBG O2 Sat (Calc) VBG Base Excess VBG Potassium Glucose Lactate FiO2 Sodium 136 Potassium 4.0 Chloride 104 Carbon Dioxide 20 L Anion Gap 16 BUN 82 H Creatinine 4.7 H Est GFR ( Amer) 15 Est GFR (Non-Af Amer) 13 POC Glucose (mg/dL) 175 H Random Glucose 169 H Lactic Acid Uric Acid Calcium 8.6 Phosphorus Magnesium 1.7 Total Bilirubin 0.6 Direct Bilirubin AST 25 ALT 17 Alkaline Phosphatase 78 Total Protein 7.5 Albumin 3.9 Globulin 3.6 Albumin/Globulin Ratio 1.1 Lipase 79 Procalcitonin Venous Blood Potassium Urine Color Urine Appearance Urine pH Ur Specific [place] Urine Protein Urine Glucose (UA) Urine Ketones Urine Blood Urine Nitrate Urine Bilirubin Urine Urobilinogen Ur Leukocyte Esterase Urine RBC Urine WBC Ur Epithelial Cells Amorphous Sediment Urine Bacteria Hyaline Casts Fine Granular Casts Coarse Granular Casts 10/29/18 10/29/18 10/29/18 11:17 12:20 16:23 WBC RBC Hgb Hct MCV MCH MCHC RDW Plt Count MPV Neut % (Auto) Lymph % (Auto) [place] % (Auto) Eos % (Auto) Baso % (Auto) Lymph # (Auto) [place] # (Auto) Eos # (Auto) Baso # (Auto) Absolute Neuts (auto) PT INR APTT pO2 24 L VBG pH 7.37 VBG pCO2 35.0 L VBG HCO3 20.2 L VBG Total CO2 21.3 L VBG O2 Sat (Calc) 51.0 VBG Base Excess -4.4 L VBG Potassium 4.1 Glucose 174 H Lactate 1.1 FiO2 21.0 Sodium 137.0 Potassium Chloride 109.0 H Carbon Dioxide Anion Gap BUN Creatinine Est GFR ( Amer) Est GFR (Non-Af Amer) POC Glucose (mg/dL) Random Glucose Lactic Acid Uric Acid Calcium Phosphorus Magnesium Total Bilirubin Direct Bilirubin AST ALT Alkaline Phosphatase Total Protein Albumin Globulin Albumin/Globulin Ratio Lipase Procalcitonin 3.38 H Venous Blood Potassium 4.1 Urine Color Yellow Urine Appearance Clear Urine pH 6.0 Ur Specific [place] 1.025 Urine Protein >=300 H Urine Glucose (UA) 500 H Urine Ketones Trace H Urine Blood Large H Urine Nitrate Negative Urine Bilirubin Negative Urine Urobilinogen 0.2 Ur Leukocyte Esterase Negative Urine RBC 25 - 30 H Urine WBC 1 - 3 Ur Epithelial Cells 0 - 2 Amorphous Sediment Few Urine Bacteria Many Hyaline Casts 0 - 2 Fine Granular Casts 2 - 5 Coarse Granular Casts Small 10/29/18 10/29/18 10/29/18 16:23 16:33 21:44 WBC RBC Hgb Hct MCV MCH MCHC RDW Plt Count MPV Neut % (Auto) Lymph % (Auto) [place] % (Auto) Eos % (Auto) Baso % (Auto) Lymph # (Auto) [place] # (Auto) Eos # (Auto) Baso # (Auto) Absolute Neuts (auto) PT INR APTT pO2 VBG pH VBG pCO2 VBG HCO3 VBG Total CO2 VBG O2 Sat (Calc) VBG Base Excess VBG Potassium Glucose Lactate FiO2 Sodium Potassium Chloride Carbon Dioxide Anion Gap BUN Creatinine Est GFR ( Amer) Est GFR (Non-Af Amer) POC Glucose (mg/dL) 114 H 134 H Random Glucose Lactic Acid 1.2 Uric Acid Calcium Phosphorus Magnesium Total Bilirubin Direct Bilirubin AST ALT Alkaline Phosphatase Total Protein Albumin Globulin Albumin/Globulin Ratio Lipase Procalcitonin Venous Blood Potassium Urine Color Urine Appearance Urine pH Ur Specific [place] Urine Protein Urine Glucose (UA) Urine Ketones Urine Blood Urine Nitrate Urine Bilirubin Urine Urobilinogen Ur Leukocyte Esterase Urine RBC Urine WBC Ur Epithelial Cells Amorphous Sediment Urine Bacteria Hyaline Casts Fine Granular Casts Coarse Granular Casts 10/30/18 10/30/18 10/30/18 06:54 07:00 07:00 WBC 8.0 D RBC 3.13 L Hgb 9.5 L Hct 28.7 L MCV 91.7 MCH 30.4 MCHC 33.1 RDW 12.8 Plt Count 214 MPV 10.1 Neut % (Auto) 57.5 Lymph % (Auto) 25.7 [place] % (Auto) 15.6 H Eos % (Auto) 0.8 L Baso % (Auto) 0.4 Lymph # (Auto) 2.1 [place] # (Auto) 1.2 H Eos # (Auto) 0.1 Baso # (Auto) 0.03 Absolute Neuts (auto) 4.59 PT 13.1 H INR 1.16 APTT 30.9 pO2 VBG pH VBG pCO2 VBG HCO3 VBG Total CO2 VBG O2 Sat (Calc) VBG Base Excess VBG Potassium Glucose Lactate FiO2 Sodium Potassium Chloride Carbon Dioxide Anion Gap BUN Creatinine Est GFR ( Amer) Est GFR (Non-Af Amer) POC Glucose (mg/dL) 135 H Random Glucose Lactic Acid Uric Acid Calcium Phosphorus Magnesium Total Bilirubin Direct Bilirubin AST ALT Alkaline Phosphatase Total Protein Albumin Globulin Albumin/Globulin Ratio Lipase Procalcitonin Venous Blood Potassium Urine Color Urine Appearance Urine pH Ur Specific [place] Urine Protein Urine Glucose (UA) Urine Ketones Urine Blood Urine Nitrate Urine Bilirubin Urine Urobilinogen Ur Leukocyte Esterase Urine RBC Urine WBC Ur Epithelial Cells Amorphous Sediment Urine Bacteria Hyaline Casts Fine Granular Casts Coarse Granular Casts 10/30/18 07:00 WBC RBC Hgb Hct MCV MCH MCHC RDW Plt Count MPV Neut % (Auto) Lymph % (Auto) [place] % (Auto) Eos % (Auto) Baso % (Auto) Lymph # (Auto) [place] # (Auto) Eos # (Auto) Baso # (Auto) Absolute Neuts (auto) PT INR APTT pO2 VBG pH VBG pCO2 VBG HCO3 VBG Total CO2 VBG O2 Sat (Calc) VBG Base Excess VBG Potassium Glucose Lactate FiO2 Sodium 135 Potassium 4.0 Chloride 103 Carbon Dioxide 18 L Anion Gap 19 BUN 77 H Creatinine 5.7 H Est GFR ( Amer) 12 Est GFR (Non-Af Amer) 10 POC Glucose (mg/dL) Random Glucose 133 H Lactic Acid Uric Acid 6.8 Calcium 8.2 L Phosphorus 6.3 H Magnesium 1.7 Total Bilirubin 0.5 Direct Bilirubin 0.3 AST 25 ALT 18 Alkaline Phosphatase 74 Total Protein 7.1 Albumin 3.7 Globulin 3.4 Albumin/Globulin Ratio 1.1 Lipase Procalcitonin Venous Blood Potassium Urine Color Urine Appearance Urine pH Ur Specific [place] Urine Protein Urine Glucose (UA) Urine Ketones Urine Blood Urine Nitrate Urine Bilirubin Urine Urobilinogen Ur Leukocyte Esterase Urine RBC Urine WBC Ur Epithelial Cells Amorphous Sediment Urine Bacteria Hyaline Casts Fine Granular Casts Coarse Granular Casts Assessment & Plan - Assessment and Plan (Free Text) Assessment: 58-year-old male with a past medical history end-stage renal disease nephropat hy, diabetes, coronary artery disease status post 2 stents, and history of polysubstance abuse in the past who presents for persistent nausea and diarrhea worsening over approximately 1 week. Infectious disease consultation was requested for fever and possible colitis. Plan: Nausea and diarrhea SIRS 2/4 on presentation with tachycardia and fever of 100.6 HIV pending Cultures pending C. difficile and stool ova and parasites pending Legionella antigen pending On levofloxacin, meropenem day 2 Received vancomycin x1 Clinically improving CT abdomen and pelvis negative for acute pathology Chest x-ray negative for acute pathology We will follow Patient was seen and examined and case to be discussed with attending physician. Thank you for the pleasure participating in the care of this patient. - Date & Time Date: 10/30/18 Time: 06:50 <Brendon Walker - Last Filed: 10/30/18 15:23> Meds - Medications Medications: Current Medications Acetaminophen (Tylenol 325mg Tab) 650 mg PO Q6 PRN PRN Reason: TEMP>=99.5F Last Admin: 10/29/18 16:21 Dose: 650 mg Acetaminophen (Tylenol 650 Mg Supp) 650 mg RC Q6H PRN PRN Reason: TEMP>=99.5F Aspirin (Ecotrin) 81 mg PO DAILY [facility] Last Admin: 10/30/18 09:37 Dose: 81 mg Atorvastatin Calcium (Lipitor) 80 mg PO HS [facility] Last Admin: 10/29/18 21:10 Dose: 80 mg Carvedilol (Coreg) 6.25 mg PO BID [facility] Last Admin: 10/30/18 09:37 Dose: 6.25 mg Cholecalciferol (Vitamin D) 1,000 intlu PO Q7D [facility] Last Admin: 10/29/18 18:45 Dose: 1,000 intlu Clopidogrel Bisulfate (Plavix) 75 mg PO DAILY [facility] Last Admin: 10/30/18 09:36 Dose: 75 mg Dextrose (Dextrose 50% Inj) 0 ml IV STAT PRN; Protocol PRN Reason: Hypoglycemia Protocol Folic Acid (Folic Acid) 1 mg PO DAILY [facility] Last Admin: 10/30/18 09:37 Dose: 1 mg Heparin Sodium (Porcine) (Heparin) 5,000 units SC Q8 [facility]; Protocol Last Admin: 10/30/18 05:22 Dose: 5,000 units Hydralazine HCl (Apresoline) 25 mg PO BID [facility] Last Admin: 10/30/18 09:37 Dose: 25 mg Dextrose (Dextrose 5% In Water 1000 Ml) 1,000 mls @ 0 mls/hr IV .Q0M PRN; Protocol PRN Reason: Hypoglycemia Protocol Levofloxacin/Dextrose (Levaquin 250mg) 250 mg in 50 mls @ 50 mls/hr IVPB 2000 [facility]; Protocol Last Admin: 10/29/18 21:09 Dose: 50 mls/hr Meropenem/Sodium Chloride (Merrem Iv 500 Mg/Ns 50 Ml) 500 mg in 50 mls @ 100 mls/hr IVPB 0900,2100 [facility]; Protocol Last Admin: 10/30/18 09:38 Dose: 100 mls/hr Lactated Ringer's (Lactated Ringer's) 1,000 mls @ 125 mls/hr IV .Q8H [facility] Insulin Human Lispro (Humalog Med) 0 units SC AC [facility]; Protocol Last Admin: 10/30/18 11:21 Dose: Not Given Ondansetron HCl (Zofran Inj) 4 mg IVP Q4H PRN PRN Reason: Nausea/Vomiting Last Admin: 10/29/18 20:34 Dose: 4 mg Pantoprazole Sodium (Protonix Inj) 40 mg IVP Q12 [facility] Last Admin: 10/30/18 09:37 Dose: 40 mg Results - Vital Signs Recent Vital Signs: Last Vital Signs Temp 98.6 F 10/30/18 06:00 Pulse 66 10/30/18 06:00 Resp 20 10/30/18 06:00 BP 124/70 10/30/18 09:37 Pulse Ox 98 10/30/18 06:00 - Labs Result Diagrams: 10/30/18 07:00 10/30/18 07:00 Labs: Laboratory Results - last 24 hr 10/29/18 10/29/18 10/29/18 10:52 16:23 16:23 WBC RBC Hgb Hct MCV MCH MCHC RDW Plt Count MPV Neut % (Auto) Lymph % (Auto) [place] % (Auto) Eos % (Auto) Baso % (Auto) Lymph # (Auto) [place] # (Auto) Eos # (Auto) Baso # (Auto) Absolute Neuts (auto) PT INR APTT Sodium Potassium Chloride Carbon Dioxide Anion Gap BUN Creatinine Est GFR ( Amer) Est GFR (Non-Af Amer) POC Glucose (mg/dL) 175 H Random Glucose Hemoglobin A1c Fructosamine Lactic Acid 1.2 Uric Acid Calcium Phosphorus Magnesium Total Bilirubin Direct Bilirubin AST ALT Alkaline Phosphatase Total Protein Albumin Globulin Albumin/Globulin Ratio Procalcitonin 3.38 H Ur L.pneumophila Ag 10/29/18 10/29/18 10/29/18 16:23 16:33 21:44 WBC RBC Hgb Hct MCV MCH MCHC RDW Plt Count MPV Neut % (Auto) Lymph % (Auto) [place] % (Auto) Eos % (Auto) Baso % (Auto) Lymph # (Auto) [place] # (Auto) Eos # (Auto) Baso # (Auto) Absolute Neuts (auto) PT INR APTT Sodium Potassium Chloride Carbon Dioxide Anion Gap BUN Creatinine Est GFR ( Amer) Est GFR (Non-Af Amer) POC Glucose (mg/dL) 114 H 134 H Random Glucose Hemoglobin A1c Fructosamine 196 Lactic Acid Uric Acid Calcium Phosphorus Magnesium Total Bilirubin Direct Bilirubin AST ALT Alkaline Phosphatase Total Protein Albumin Globulin Albumin/Globulin Ratio Procalcitonin Ur L.pneumophila Ag 10/29/18 10/30/18 10/30/18 21:45 06:54 07:00 WBC 8.0 D RBC 3.13 L Hgb 9.5 L Hct 28.7 L MCV 91.7 MCH 30.4 MCHC 33.1 RDW 12.8 Plt Count 214 MPV 10.1 Neut % (Auto) 57.5 Lymph % (Auto) 25.7 [place] % (Auto) 15.6 H Eos % (Auto) 0.8 L Baso % (Auto) 0.4 Lymph # (Auto) 2.1 [place] # (Auto) 1.2 H Eos # (Auto) 0.1 Baso # (Auto) 0.03 Absolute Neuts (auto) 4.59 PT INR APTT Sodium Potassium Chloride Carbon Dioxide Anion Gap BUN Creatinine Est GFR ( Amer) Est GFR (Non-Af Amer) POC Glucose (mg/dL) 135 H Random Glucose Hemoglobin A1c Fructosamine Lactic Acid Uric Acid Calcium Phosphorus Magnesium Total Bilirubin Direct Bilirubin AST ALT Alkaline Phosphatase Total Protein Albumin Globulin Albumin/Globulin Ratio Procalcitonin Ur L.pneumophila Ag Negative 10/30/18 10/30/18 10/30/18 07:00 07:00 07:00 WBC RBC Hgb Hct MCV MCH MCHC RDW Plt Count MPV Neut % (Auto) Lymph % (Auto) [place] % (Auto) Eos % (Auto) Baso % (Auto) Lymph # (Auto) [place] # (Auto) Eos # (Auto) Baso # (Auto) Absolute Neuts (auto) PT 13.1 H INR 1.16 APTT 30.9 Sodium 135 Potassium 4.0 Chloride 103 Carbon Dioxide 18 L Anion Gap 19 BUN 77 H Creatinine 5.7 H Est GFR ( Amer) 12 Est GFR (Non-Af Amer) 10 POC Glucose (mg/dL) Random Glucose 133 H Hemoglobin A1c 6.9 H Fructosamine Lactic Acid Uric Acid 6.8 Calcium 8.2 L Phosphorus 6.3 H Magnesium 1.7 Total Bilirubin 0.5 Direct Bilirubin 0.3 AST 25 ALT 18 Alkaline Phosphatase 74 Total Protein 7.1 Albumin 3.7 Globulin 3.4 Albumin/Globulin Ratio 1.1 Procalcitonin Ur L.pneumophila Ag 10/30/18 11:20 WBC RBC Hgb Hct MCV MCH MCHC RDW Plt Count MPV Neut % (Auto) Lymph % (Auto) [place] % (Auto) Eos % (Auto) Baso % (Auto) Lymph # (Auto) [place] # (Auto) Eos # (Auto) Baso # (Auto) Absolute Neuts (auto) PT INR APTT Sodium Potassium Chloride Carbon Dioxide Anion Gap BUN Creatinine Est GFR ( Amer) Est GFR (Non-Af Amer) POC Glucose (mg/dL) 141 H Random Glucose Hemoglobin A1c Fructosamine Lactic Acid Uric Acid Calcium Phosphorus Magnesium Total Bilirubin Direct Bilirubin AST ALT Alkaline Phosphatase Total Protein Albumin Globulin Albumin/Globulin Ratio Procalcitonin Ur L.pneumophila Ag Attending/Attestation - Attestation I have personally seen and examined this patient.: Yes I have fully participated in the care of the patient.: Yes I have reviewed all pertinent clinical information: Yes Notes (Text): 10/30/18 15:22 sirs bianca ramona/lev ck ct of chest , stool cultures
--- NOTE | 2018-10-30 11:40 | PN ---
DATE: 10/30/2018 LOCATION: The patient is now in room 565, bed 2. SUBJECTIVE: Overnight nurse's notes were reviewed. The patient was unable to get the CAT scan of the abdomen, pelvis which was ordered yesterday evening due to unknown issues. REVIEW OF SYSTEMS: The patient's 14-system review from admission is positive for nausea, vomiting, diarrhea and abdominal pain which is resolving to resolved. OBJECTIVE: VITAL SIGNS: T-max is 102 degrees Fahrenheit, heart rate 66, blood pressure 126/73, respirations . HEENT: Head examination normocephalic, atraumatic. HEENT examination shows pinkish pale conjunctivae. Anicteric sclerae. No oropharyngeal lesion. No neck rigidity. CHEST: Kyphosis. LUNGS: Shows no audible crackle, rales or wheezing. CARDIOVASCULAR: S1 and S2, regular rhythm. No audible murmur, gallop or rub at this time. ABDOMEN: Morbidly obese, protuberant. No palpable hepatosplenomegaly. No guarding. No rigidity. No rebound tenderness noted. No costovertebral angle tenderness noted. Mild periumbilical diffuse voluntary guarding noted, but no rebound tenderness noted. GENITALIA: Male. RECTAL: Deferred. EXTREMITIES: Shows chronic pitting edema and venous stasis of the lower extremity. The patient has refused to wear SUSAN stockings and SCDs. MUSCULOSKELETAL: Shows elevated body mass index. DIAGNOSTICS: From October 30, WBC 8.0, hemoglobin and hematocrit 9.5 and 28.7, platelet 214. Sodium 35, potassium 4.0, chloride 103, CO2 of 18, BUN 77, creatinine 5.7, glucose 133, calcium 8.2, phosphorus 6.3, magnesium 1.7, uric acid 6.8. Procalcitonin level is 3.38. The patient's CAT scan of abdomen, pelvis results are pending, which was ordered without contrast. IMPRESSION: 1. Questionable gastroenteritis. 2. High-grade fever. 3. Hypercalcitoninemia. 4. Questionable systemic inflammatory response syndrome versus questionable sepsis with hypercalcitoninemia. 5. Anemia of chronic disease. 6. Chronic kidney disease stage IV with acute kidney injury. 7. Hyperphosphatemia. 8. Hyperuricemia. 9. Proteinuria. 10. Glycosuria. 11. Ketonuria. 12. Hematuria. 13. Bacteriuria. PLAN: At this time, the patient is to be continued on gentle IV fluid hydration. The patient has been started on broad-spectrum IV antibiotics as per Infectious Disease recommendation. We are awaiting Nephrology evaluation. The patient is to be continued on both pharmacological, non-pharmacological GI, DVT prophylaxis. The patient will be continued on clear liquid diet. The patient will be continued on all the therapeutic intervention as per the MAR. The patient is be continued on the insulin sliding scale. We will await further recommendations from all the physicians involved in the care of the patient. The patient has been ordered serial labs. The patient's CAT scan of the abdomen, pelvis results are pending, which will be reviewed when available. The patient's further management will depend upon the patient's clinical condition, hemodynamic status and as per the patient response to therapeutic intervention and as per recommendation by all the physician involved in the care of the patient. The patient's condition, diagnosis, treatment plan, need for inpatient hospitalization treatment, all discussed and explained to the patient and the patient's at length and all questions concerned answered. Dictated and electronically signed, not read. Signing off Kobe Prince MD. Kobe Prince MD
--- NOTE | 2018-10-30 13:31 | CP.PCM.CON ---
<Alexi Osborn - Last Filed: 10/30/18 18:25> History of Present Illness - History of Present Illness History of Present Illness: Nephrology Consultation (Dr. Moses's Service) HPI: Mr. 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 Patient reports that one week ago he cooked a hen at his home and several hours later began to experience abdominal comfort. One day later he started to become nauseous and had one episode of NBNB emesis. He then developed watery diarrhea several hours later and has continued to experience at least three episodes of this daily since that time. He endorses one episode of fevers and chills but denies any sick contacts. He reports poor PO intake during this period. Further 12 point ROS reviewed and unremarkable at this time. PMH: As stated above PSH: Right Hip Arthoplasty, Appendectomy Family History: Mother-Ovarian Cancer Social History: Denies tobacco, alcohol or illicit drug use Allergies: Rituximab Home Medications: As per MAR PMD: Dr. Prince [employer]: Dr. Moses Pharmacy: [facility] Review of Systems - Review of Systems Review of Systems: As stated in HPI, otherwise negative Past Patient History - Infectious Disease Hx of Infectious Diseases: None - Tetanus Immunizations Tetanus Immunization: Unknown - Past Social History Smoking Status: Former Smoker - CARDIAC Hx Hypertension: Yes - PULMONARY Hx Respiratory Disorders: Yes Hx Pneumonia: Yes - NEUROLOGICAL Hx Neurological Disorder: No - HEENT Hx HEENT Problems: No - RENAL Hx Chronic Kidney Disease: Yes Other/Comment: membrane nephritis - ENDOCRINE/METABOLIC Hx Endocrine Disorders: Yes Hx Diabetes Mellitus Type 2: Yes - HEMATOLOGICAL/ONCOLOGICAL Hx Blood Disorders: Yes Hx Anemia: Yes (with blood transfusion) - INTEGUMENTARY Hx Dermatological Problems: No - MUSCULOSKELETAL/RHEUMATOLOGICAL Hx Musculoskeletal Disorders: Yes Hx Back Pain: Yes - GASTROINTESTINAL Hx Gastrointestinal Disorders: No - GENITOURINARY/GYNECOLOGICAL Hx Genitourinary Disorders: No - PSYCHIATRIC Hx Emotional Abuse: No Hx Physical Abuse: No Hx Substance Use: No - SURGICAL HISTORY Hx Appendectomy: Yes Hx Cardiac Catheterization: Yes (2 stents) Other/Comment: Right hip replacement. Vastectomy - ANESTHESIA Hx Anesthesia: Yes Hx Anesthesia Reactions: No Hx Malignant Hyperthermia: No Meds Home Medications: Home Medication List Medication Instructions Recorded Confirmed Type Ondansetron ODT [Zofran ODT] 8 mg PO Q8H PRN #9 odt 10/29/18 Rx Allergies/Adverse Reactions: Allergies Allergy/AdvReac Type Severity Reaction Status Date / Time rituximab Allergy Mild RASH Verified 10/29/18 10:43 - Medications Medications: Current Medications Acetaminophen (Tylenol 325mg Tab) 650 mg PO Q6 PRN PRN Reason: TEMP>=99.5F Last Admin: 10/29/18 16:21 Dose: 650 mg Acetaminophen (Tylenol 650 Mg Supp) 650 mg RC Q6H PRN PRN Reason: TEMP>=99.5F Aspirin (Ecotrin) 81 mg PO DAILY [facility] Last Admin: 10/30/18 09:37 Dose: 81 mg Atorvastatin Calcium (Lipitor) 80 mg PO HS [facility] Last Admin: 10/29/18 21:10 Dose: 80 mg Carvedilol (Coreg) 6.25 mg PO BID [facility] Last Admin: 10/30/18 09:37 Dose: 6.25 mg Cholecalciferol (Vitamin D) 1,000 intlu PO Q7D [facility] Last Admin: 10/29/18 18:45 Dose: 1,000 intlu Clopidogrel Bisulfate (Plavix) 75 mg PO DAILY [facility] Last Admin: 10/30/18 09:36 Dose: 75 mg Dextrose (Dextrose 50% Inj) 0 ml IV STAT PRN; Protocol PRN Reason: Hypoglycemia Protocol Folic Acid (Folic Acid) 1 mg PO DAILY [facility] Last Admin: 10/30/18 09:37 Dose: 1 mg Heparin Sodium (Porcine) (Heparin) 5,000 units SC Q8 [facility]; Protocol Last Admin: 10/30/18 05:22 Dose: 5,000 units Hydralazine HCl (Apresoline) 25 mg PO BID [facility] Last Admin: 10/30/18 09:37 Dose: 25 mg Dextrose (Dextrose 5% In Water 1000 Ml) 1,000 mls @ 0 mls/hr IV .Q0M PRN; Protocol PRN Reason: Hypoglycemia Protocol Levofloxacin/Dextrose (Levaquin 250mg) 250 mg in 50 mls @ 50 mls/hr IVPB 2000 [facility]; Protocol Last Admin: 10/29/18 21:09 Dose: 50 mls/hr Meropenem/Sodium Chloride (Merrem Iv 500 Mg/Ns 50 Ml) 500 mg in 50 mls @ 100 mls/hr IVPB 0900,2100 [facility]; Protocol Last Admin: 10/30/18 09:38 Dose: 100 mls/hr Lactated Ringer's (Lactated Ringer's) 1,000 mls @ 125 mls/hr IV .Q8H [facility] Insulin Human Lispro (Humalog Med) 0 units SC AC [facility]; Protocol Last Admin: 10/30/18 11:21 Dose: Not Given Ondansetron HCl (Zofran Inj) 4 mg IVP Q4H PRN PRN Reason: Nausea/Vomiting Last Admin: 10/29/18 20:34 Dose: 4 mg Pantoprazole Sodium (Protonix Inj) 40 mg IVP Q12 [facility] Last Admin: 10/30/18 09:37 Dose: 40 mg Physical Exam - Constitutional Appears: Non-toxic, No Acute Distress - Head Exam Head Exam: ATRAUMATIC, NORMOCEPHALIC - Eye Exam Eye Exam: EOMI, Normal appearance - ENT Exam ENT Exam: Mucous Membranes Dry - Neck Exam Neck exam: Positive for: Full Rom - Respiratory Exam Respiratory Exam: Clear to Auscultation Bilateral, NORMAL BREATHING PATTERN. absent: Accessory Muscle Use, Chest Wall Tenderness, Decreased Breath Sounds, Prolonged Expiratory Phase, Rales, Rhonchi, Wheezes, Respiratory Distress, Stridor - Cardiovascular Exam Cardiovascular Exam: REGULAR RHYTHM, RRR - GI/Abdominal Exam GI & Abdominal Exam: Normal Bowel Sounds, Soft, Tenderness (Mild diffuse TTP) - Extremities Exam Extremities exam: Negative for: pedal edema - Neurological Exam Neurological exam: Alert, CN II-XII Intact, Oriented x3 - Psychiatric Exam Psychiatric exam: Normal Affect, Normal Mood - Skin Skin Exam: Dry, Warm Results - Vital Signs Recent Vital Signs: Last Vital Signs Temp 98.6 F 10/30/18 06:00 Pulse 66 10/30/18 06:00 Resp 20 10/30/18 06:00 BP 124/70 10/30/18 09:37 Pulse Ox 98 10/30/18 06:00 - Labs Result Diagrams: 10/30/18 07:00 10/30/18 07:00 Labs: Laboratory Results - last 24 hr 10/29/18 10/29/18 10/29/18 10:52 16:23 16:23 WBC RBC Hgb Hct MCV MCH MCHC RDW Plt Count MPV Neut % (Auto) Lymph % (Auto) Calloway % (Auto) Eos % (Auto) Baso % (Auto) Lymph # (Auto) Calloway # (Auto) Eos # (Auto) Baso # (Auto) Absolute Neuts (auto) PT INR APTT Sodium Potassium Chloride Carbon Dioxide Anion Gap BUN Creatinine Est GFR ( Amer) Est GFR (Non-Af Amer) POC Glucose (mg/dL) 175 H Random Glucose Hemoglobin A1c Lactic Acid 1.2 Uric Acid Calcium Phosphorus Magnesium Total Bilirubin Direct Bilirubin AST ALT Alkaline Phosphatase Total Protein Albumin Globulin Albumin/Globulin Ratio Procalcitonin 3.38 H Ur L.pneumophila Ag 10/29/18 10/29/18 10/29/18 16:33 21:44 21:45 WBC RBC Hgb Hct MCV MCH MCHC RDW Plt Count MPV Neut % (Auto) Lymph % (Auto) Calloway % (Auto) Eos % (Auto) Baso % (Auto) Lymph # (Auto) Calloway # (Auto) Eos # (Auto) Baso # (Auto) Absolute Neuts (auto) PT INR APTT Sodium Potassium Chloride Carbon Dioxide Anion Gap BUN Creatinine Est GFR ( Amer) Est GFR (Non-Af Amer) POC Glucose (mg/dL) 114 H 134 H Random Glucose Hemoglobin A1c Lactic Acid Uric Acid Calcium Phosphorus Magnesium Total Bilirubin Direct Bilirubin AST ALT Alkaline Phosphatase Total Protein Albumin Globulin Albumin/Globulin Ratio Procalcitonin Ur L.pneumophila Ag Negative 10/30/18 10/30/18 10/30/18 06:54 07:00 07:00 WBC 8.0 D RBC 3.13 L Hgb 9.5 L Hct 28.7 L MCV 91.7 MCH 30.4 MCHC 33.1 RDW 12.8 Plt Count 214 MPV 10.1 Neut % (Auto) 57.5 Lymph % (Auto) 25.7 Calloway % (Auto) 15.6 H Eos % (Auto) 0.8 L Baso % (Auto) 0.4 Lymph # (Auto) 2.1 Calloway # (Auto) 1.2 H Eos # (Auto) 0.1 Baso # (Auto) 0.03 Absolute Neuts (auto) 4.59 PT 13.1 H INR 1.16 APTT 30.9 Sodium Potassium Chloride Carbon Dioxide Anion Gap BUN Creatinine Est GFR ( Amer) Est GFR (Non-Af Amer) POC Glucose (mg/dL) 135 H Random Glucose Hemoglobin A1c Lactic Acid Uric Acid Calcium Phosphorus Magnesium Total Bilirubin Direct Bilirubin AST ALT Alkaline Phosphatase Total Protein Albumin Globulin Albumin/Globulin Ratio Procalcitonin Ur L.pneumophila Ag 10/30/18 10/30/18 10/30/18 07:00 07:00 11:20 WBC RBC Hgb Hct MCV MCH MCHC RDW Plt Count MPV Neut % (Auto) Lymph % (Auto) Calloway % (Auto) Eos % (Auto) Baso % (Auto) Lymph # (Auto) Calloway # (Auto) Eos # (Auto) Baso # (Auto) Absolute Neuts (auto) PT INR APTT Sodium 135 Potassium 4.0 Chloride 103 Carbon Dioxide 18 L Anion Gap 19 BUN 77 H Creatinine 5.7 H Est GFR ( Amer) 12 Est GFR (Non-Af Amer) 10 POC Glucose (mg/dL) 141 H Random Glucose 133 H Hemoglobin A1c 6.9 H Lactic Acid Uric Acid 6.8 Calcium 8.2 L Phosphorus 6.3 H Magnesium 1.7 Total Bilirubin 0.5 Direct Bilirubin 0.3 AST 25 ALT 18 Alkaline Phosphatase 74 Total Protein 7.1 Albumin 3.7 Globulin 3.4 Albumin/Globulin Ratio 1.1 Procalcitonin Ur L.pneumophila Ag Assessment & Plan - Assessment and Plan (Free Text) Assessment: 58 year old male with past medical history significant for 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 Plan: 1. LIBORIO on CKD Stage IV -See BUN/Creatinine; Baseline creatinine approximately 3.0 -Will obtain urine creatinine and electrolytes -Increase LR from 100 to 125mls/hr -Continue to monitor I/O's -Avoid nephrotoxic agents and renally dose medications when indicated -Continue to monitor BUN/Creatinine with daily BMP's 2. Anemia in CKD -Will give one dose of Aranesp 60mcg prior to discharge once acute illness resolves -Continue to monitor with daily CBC's 3. ?Gastroenteritis/Colitis -Continue IV antibiotics as per ID -Continue with IVF as ordered Patient seen and case discussed with attending, Dr. Moses. Alexi Osborn PGY2 - Date & Time Date: 10/30/18 Time: 13:27 <Stu Moses - Last Filed: 10/31/18 08:34> Meds - Medications Medications: Current Medications Acetaminophen (Tylenol 325mg Tab) 650 mg PO Q6 PRN PRN Reason: TEMP>=99.5F Last Admin: 10/29/18 16:21 Dose: 650 mg Acetaminophen (Tylenol 650 Mg Supp) 650 mg RC Q6H PRN PRN Reason: TEMP>=99.5F Aspirin (Ecotrin) 81 mg PO DAILY [facility] Last Admin: 10/30/18 09:37 Dose: 81 mg Atorvastatin Calcium (Lipitor) 80 mg PO HS [facility] Last Admin: 10/30/18 23:33 Dose: 80 mg Carvedilol (Coreg) 6.25 mg PO BID [facility] Last Admin: 10/30/18 17:42 Dose: 6.25 mg Cholecalciferol (Vitamin D) 1,000 intlu PO Q7D [facility] Last Admin: 10/29/18 18:45 Dose: 1,000 intlu Clopidogrel Bisulfate (Plavix) 75 mg PO DAILY [facility] Last Admin: 10/30/18 09:36 Dose: 75 mg Darbepoetin Richar (Aranesp) 60 mcg SC ONCE ONE Stop: 10/31/18 08:16 Dextrose (Dextrose 50% Inj) 0 ml IV STAT PRN; Protocol PRN Reason: Hypoglycemia Protocol Folic Acid (Folic Acid) 1 mg PO DAILY [facility] Last Admin: 10/30/18 09:37 Dose: 1 mg Heparin Sodium (Porcine) (Heparin) 5,000 units SC Q8 [facility]; Protocol Last Admin: 10/31/18 05:11 Dose: 5,000 units Hydralazine HCl (Apresoline) 25 mg PO BID [facility] Last Admin: 10/30/18 17:41 Dose: 25 mg Dextrose (Dextrose 5% In Water 1000 Ml) 1,000 mls @ 0 mls/hr IV .Q0M PRN; Protocol PRN Reason: Hypoglycemia Protocol Levofloxacin/Dextrose (Levaquin 250mg) 250 mg in 50 mls @ 50 mls/hr IVPB 2000 [facility]; Protocol Last Admin: 10/30/18 21:34 Dose: 50 mls/hr Meropenem/Sodium Chloride (Merrem Iv 500 Mg/Ns 50 Ml) 500 mg in 50 mls @ 100 mls/hr IVPB 0900,2100 [facility]; Protocol Last Admin: 10/30/18 21:30 Dose: 100 mls/hr Lactated Ringer's (Lactated Ringer's) 1,000 mls @ 125 mls/hr IV .Q8H [facility] Last Admin: 10/31/18 05:15 Dose: 125 mls/hr Insulin Human Lispro (Humalog Med) 0 units SC AC [facility]; Protocol Last Admin: 10/30/18 16:30 Dose: Not Given Ondansetron HCl (Zofran Inj) 4 mg IVP Q4H PRN PRN Reason: Nausea/Vomiting Last Admin: 10/30/18 21:19 Dose: 4 mg Pantoprazole Sodium (Protonix Inj) 40 mg IVP Q12 [facility] Last Admin: 10/30/18 22:35 Dose: 40 mg Results - Vital Signs Recent Vital Signs: Last Vital Signs Temp 99.2 F 10/30/18 21:16 Pulse 90 10/30/18 21:16 Resp 18 10/30/18 21:16 BP 116/74 10/30/18 21:16 Pulse Ox 98 10/30/18 21:16 - Labs Result Diagrams: 10/31/18 06:30 10/31/18 06:30 Labs: Laboratory Results - last 24 hr 10/29/18 10/29/18 10/30/18 16:23 21:45 07:00 WBC RBC Hgb Hct MCV MCH MCHC RDW Plt Count MPV Neut % (Auto) Lymph % (Auto) Calloway % (Auto) Eos % (Auto) Baso % (Auto) Lymph # (Auto) Calloway # (Auto) Eos # (Auto) Baso # (Auto) Absolute Neuts (auto) Sodium Potassium Chloride Carbon Dioxide Anion Gap BUN Creatinine Est GFR ( Amer) Est GFR (Non-Af Amer) POC Glucose (mg/dL) Random Glucose Hemoglobin A1c 6.9 H Fructosamine 196 Calcium Phosphorus Magnesium Total Bilirubin Direct Bilirubin AST ALT Alkaline Phosphatase Total Protein Albumin Globulin Albumin/Globulin Ratio Ur Random Creatinine Ur Random Sodium Ur Random Potassium Ur L.pneumophila Ag Negative 10/30/18 10/30/18 10/30/18 11:20 16:20 19:44 WBC RBC Hgb Hct MCV MCH MCHC RDW Plt Count MPV Neut % (Auto) Lymph % (Auto) Calloway % (Auto) Eos % (Auto) Baso % (Auto) Lymph # (Auto) Calloway # (Auto) Eos # (Auto) Baso # (Auto) Absolute Neuts (auto) Sodium Potassium Chloride Carbon Dioxide Anion Gap BUN Creatinine Est GFR ( Amer) Est GFR (Non-Af Amer) POC Glucose (mg/dL) 141 H 119 H Random Glucose Hemoglobin A1c Fructosamine Calcium Phosphorus Magnesium Total Bilirubin Direct Bilirubin AST ALT Alkaline Phosphatase Total Protein Albumin Globulin Albumin/Globulin Ratio Ur Random Creatinine 119 Ur Random Sodium 20 Ur Random Potassium 34.3 Ur L.pneumophila Ag 10/30/18 10/31/18 10/31/18 21:42 03:24 06:23 WBC RBC Hgb Hct MCV MCH MCHC RDW Plt Count MPV Neut % (Auto) Lymph % (Auto) Calloway % (Auto) Eos % (Auto) Baso % (Auto) Lymph # (Auto) Calloway # (Auto) Eos # (Auto) Baso # (Auto) Absolute Neuts (auto) Sodium Potassium Chloride Carbon Dioxide Anion Gap BUN Creatinine Est GFR ( Amer) Est GFR (Non-Af Amer) POC Glucose (mg/dL) 123 H 87 98 Random Glucose Hemoglobin A1c Fructosamine Calcium Phosphorus Magnesium Total Bilirubin Direct Bilirubin AST ALT Alkaline Phosphatase Total Protein Albumin Globulin Albumin/Globulin Ratio Ur Random Creatinine Ur Random Sodium Ur Random Potassium Ur L.pneumophila Ag 10/31/18 10/31/18 06:30 06:30 WBC 6.5 RBC 2.90 L Hgb 8.8 L Hct 26.0 L MCV 89.7 MCH 30.3 MCHC 33.8 RDW 12.6 Plt Count 171 MPV 9.8 Neut % (Auto) 56.4 Lymph % (Auto) 28.2 Calloway % (Auto) 11.8 H Eos % (Auto) 3.1 Baso % (Auto) 0.5 Lymph # (Auto) 1.8 Calloway # (Auto) 0.8 H Eos # (Auto) 0.2 Baso # (Auto) 0.03 Absolute Neuts (auto) 3.67 Sodium 137 Potassium 3.4 L Chloride 102 Carbon Dioxide 20 L Anion Gap 18 BUN 79 H Creatinine 6.4 H Est GFR ( Amer) 11 Est GFR (Non-Af Amer) 9 POC Glucose (mg/dL) Random Glucose 98 Hemoglobin A1c Fructosamine Calcium 8.4 Phosphorus 6.7 H Magnesium 1.9 Total Bilirubin 0.2 Direct Bilirubin 0.2 AST 26 ALT 21 Alkaline Phosphatase 73 Total Protein 6.4 Albumin 3.3 Globulin 3.1 Albumin/Globulin Ratio 1.0 L Ur Random Creatinine Ur Random Sodium Ur Random Potassium Ur L.pneumophila Ag Attending/Attestation - Attestation I have personally seen and examined this patient.: Yes I have fully participated in the care of the patient.: Yes I have reviewed all pertinent clinical information: Yes Notes (Text): Patient seen and examined; I agree with the resident's note as above with the following additions/edits: 58 yo M w/ membranous nephropathy w/ nephrotic syndrome (s/p cytoxan, anaphylactic reaction with rituxan, currently off all immunosuppresive agents), htn, dm, CAD s/p stent (~12 yrs ago), CHF w/ diastolic dysfunction, admitted with persistent diarrhea, acute renal failure; Patient well known to our outpatient service; has been having persistent diarrhea for about 1 week, possibly due to food poisoning; has lost significant fluid weight on exam (usually has markedly edematous lower legs, almost no edema today); BP also lower than usual; Acute renal failure on CKD IV; consistent with pre-renal etiology, however, concern for extension to ATN, especially with serum creatinine continuing to i ncrease despite being on IVF; patient has underlying nephrotic syndrome and is more prone to intravascular volume depletion; furthermore, patient had continued to take diuretics at home (bumex 2 mg bid) while having diarrhea, losartan had been held; otherwise relatively stable electrolytes; Anemia of CKD, recently restarted on epogen at home 4,000 u every other week; iron replete per recent labs; will give dose of aranesp this week; CKD mineral bone disorder; on phoslo 1 tab bid w/ meals, will continue once on regular diet; -Continue IVF w/ LR at 125 cc/hr; -f/u with ID regarding antibiotics; dose for CrCl < 20 ml/min; -continue to hold diuretics and ARB; continue with rest of anti-htn regimen; -avoid nephrotoxic agents;
[2018-10-30] MEDS: Lactated Ringer's 1,000 ML IV SCH (17:46)
--- NOTE | 2018-10-30 19:07 | CT ---
Date of service: 10/30/2018 PROCEDURE: CT Chest without contrast HISTORY: sepsis, suspected PNA COMPARISON: None available. TECHNIQUE: Contiguous axial images were obtained through the chest without intravenous contrast enhancement. Sagittal and coronal reconstructions were performed. Radiation dose: Total exam DLP = 788.24 mGy-cm. This CT exam was performed using one or more of the following dose reduction techniques: Automated exposure control, adjustment of the mA and/or kV according to patient size, and/or use of iterative reconstruction technique. FINDINGS: LUNGS: No suspicious pulmonary nodules, masses or infiltrates. MEDIASTINUM: Unremarkable thoracic aorta. No aneurysm. Normal sized heart. Main pulmonary artery unremarkable. No vascular congestion. No lymphadenopathy. No aortic atherosclerotic calcification. PLEURA: No pleural fluid. No pneumothorax. BONES: No fracture. No destructive lesion. Marginal and non marginal osteophytes identified projecting off the anterior aspect of thoracic vertebral bodies. UPPER ABDOMEN: Grossly unremarkable. OTHER FINDINGS: None. IMPRESSION: No significant or acute findings to account for/ related to the clinical presentation.
[2018-10-30] MEDS: levoFLOXacin 250 mg in D5W 250 MG/50 ML BAG IVPB SCH (21:34)
[2018-10-31] MEDS: Lactated Ringer's 1,000 ML IV SCH ×2 (05:15→17:11)
[2018-10-31 07:04] LABS: BASO # 0.03 K/mm3 (0.0-2.0); BASO % 0.5 % (0.0-3.0); EOS # 0.2 (0.0-0.7); EOS % 3.1 % (1.5-5.0); HEMOGLOBIN 8.8 g/dL (14.0-18.0); LYMPH # 1.8 (1.2-3.4); LYMPH % 28.2 % (22.0-35.0); MEAN CELL VOLUME 89.7 fl (80.0-105.0); MEAN CORPUSCULAR HEMOGLOBIN 30.3 pg (25.0-35.0); MEAN CORPUSCULAR HGB CONC 33.8 g/dl (31.0-37.0); MEAN PLATELET VOLUME 9.8 fl (7.0-11.0); MONO # 0.8 (0.1-0.6); MONO % 11.8 % (1.0-6.0); RBC 2.9 10^6/uL (3.5-6.1); RED CELL DISTRIBUTION WIDTH 12.6 % (11.5-14.5); WHITE BLOOD COUNT 6.5 10^3/uL (4.5-11.0)
[2018-10-31 07:20] LABS: ALBUMIN 3.3 g/dL (3.0-4.8); BILIRUBIN,DIRECT 0.2 mg/dL (0.0-0.4); CALCIUM 8.4 mg/dL (8.4-10.5)
[2018-10-31] MEDS ORDERED: Potassium Chloride 40 mEq/30 ml LIQ UD PO ONE (07:26)
[2018-10-31] MEDS ORDERED: Darbepoetin Alfa 60 mcg/ml Inj SC ONE (08:15)
[2018-10-31] MEDS: Insulin Lispro (humaLOG) MEDIUM Coverage SC SCH ×3 (10:08→16:59)
[2018-10-31] MEDS: Cholecalciferol 1,000 INTLU TAB PO SCH (10:08)
--- NOTE | 2018-10-31 10:30 | CP.PCM.PN ---
Subjective - Date & Time of Evaluation Date of Evaluation: 10/31/18 Time of Evaluation: 10:00 - Subjective Subjective: Medicine progress note for. Dr. Suresh Hawley, PGY - 2 Patient seen and examined at bedside. No acute overnight events, no acute co mplaints. Had 2 bowel movements overnight with green, unformed stool; 5 total for yesterday Objective - Vital Signs/Intake and Output Vital Signs (last 24 hours): Temp Pulse Resp BP Pulse Ox 98 F 56 L 16 116/74 95 10/31/18 06:00 10/31/18 06:00 10/31/18 06:00 10/30/18 21:16 10/31/18 06:00 Intake and Output: 10/31/18 10/31/18 06:59 18:59 Intake Total 780 Output Total 800 Balance -20 - Medications Medications: Current Medications Acetaminophen (Tylenol 325mg Tab) 650 mg PO Q6 PRN PRN Reason: TEMP>=99.5F Last Admin: 10/29/18 16:21 Dose: 650 mg Acetaminophen (Tylenol 650 Mg Supp) 650 mg RC Q6H PRN PRN Reason: TEMP>=99.5F Aspirin (Ecotrin) 81 mg PO DAILY [facility] Last Admin: 10/30/18 09:37 Dose: 81 mg Atorvastatin Calcium (Lipitor) 80 mg PO HS [facility] Last Admin: 10/30/18 23:33 Dose: 80 mg Calcium Acetate (Phoslo) 1,334 mg PO WM [facility] Carvedilol (Coreg) 6.25 mg PO BID [facility] Last Admin: 10/30/18 17:42 Dose: 6.25 mg Cholecalciferol (Vitamin D) 1,000 intlu PO Q7D [facility] Last Admin: 10/29/18 18:45 Dose: 1,000 intlu Clopidogrel Bisulfate (Plavix) 75 mg PO DAILY [facility] Last Admin: 10/30/18 09:36 Dose: 75 mg Dextrose (Dextrose 50% Inj) 0 ml IV STAT PRN; Protocol PRN Reason: Hypoglycemia Protocol Folic Acid (Folic Acid) 1 mg PO DAILY [facility] Last Admin: 10/30/18 09:37 Dose: 1 mg Heparin Sodium (Porcine) (Heparin) 5,000 units SC Q8 [facility]; Protocol Last Admin: 10/31/18 05:11 Dose: 5,000 units Hydralazine HCl (Apresoline) 25 mg PO BID [facility] Last Admin: 10/30/18 17:41 Dose: 25 mg Dextrose (Dextrose 5% In Water 1000 Ml) 1,000 mls @ 0 mls/hr IV .Q0M PRN; Protocol PRN Reason: Hypoglycemia Protocol Levofloxacin/Dextrose (Levaquin 250mg) 250 mg in 50 mls @ 50 mls/hr IVPB 2000 [facility]; Protocol Last Admin: 10/30/18 21:34 Dose: 50 mls/hr Meropenem/Sodium Chloride (Merrem Iv 500 Mg/Ns 50 Ml) 500 mg in 50 mls @ 100 mls/hr IVPB 0900,2100 [facility]; Protocol Last Admin: 10/30/18 21:30 Dose: 100 mls/hr Lactated Ringer's (Lactated Ringer's) 1,000 mls @ 125 mls/hr IV .Q8H [facility] Last Admin: 10/31/18 05:15 Dose: 125 mls/hr Insulin Human Lispro (Humalog Med) 0 units SC AC [facility]; Protocol Last Admin: 10/30/18 16:30 Dose: Not Given Ondansetron HCl (Zofran Inj) 4 mg IVP Q4H PRN PRN Reason: Nausea/Vomiting Last Admin: 10/30/18 21:19 Dose: 4 mg Pantoprazole Sodium (Protonix Inj) 40 mg IVP Q12 [facility] Last Admin: 10/30/18 22:35 Dose: 40 mg - Labs Labs: 10/31/18 06:30 10/31/18 06:30 PT 13.1 SECONDS (9.4-12.5) H 10/30/18 07:00 INR 1.16 10/30/18 07:00 APTT 30.9 Seconds (26.9-38.3) 10/30/18 07:00 - Constitutional Appears: Well - Head Exam Head Exam: ATRAUMATIC, NORMAL INSPECTION, NORMOCEPHALIC - Eye Exam Eye Exam: EOMI, Normal appearance, PERRL Pupil Exam: NORMAL ACCOMODATION, PERRL - ENT Exam ENT Exam: Mucous Membranes Moist, Normal Exam - Neck Exam Neck Exam: Full ROM, Normal Inspection. absent: Lymphadenopathy - Respiratory Exam Respiratory Exam: Clear to Ausculation Bilateral, NORMAL BREATHING PATTERN - Cardiovascular Exam Cardiovascular Exam: REGULAR RHYTHM, +S1, +S2. absent: Murmur - GI/Abdominal Exam GI & Abdominal Exam: Soft, Normal Bowel Sounds. absent: Tenderness - Extremities Exam Extremities Exam: Full ROM, Normal Capillary Refill, Normal Inspection. absent: Joint Swelling, Pedal Edema - Back Exam Back Exam: NORMAL INSPECTION - Neurological Exam Neurological Exam: Alert, Awake, CN II-XII Intact, Normal Gait, Oriented x3 - Psychiatric Exam Psychiatric exam: Normal Affect, Normal Mood - Skin Skin Exam: Dry, Intact, Normal Color, Warm Assessment and Plan - Assessment and Plan (Free Text) Assessment: 58 yo M with PMH of 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 Plan: Sepsis, likely 2/2 Viral Gastroenteritis - Resolved - IVF resuscitation - See below LIBORIO on CKD Stage IV - Likely 2/2 pre-renal azotemia from dehydration due to di arrheal illness GFR on this admission is 11-12, but previously at 21 on recent admission. Patient had full work up done with complements, RICK, and protein analysis to rule out glomerular diseases; it was determined that CKD and Nephrotic Syndrome are 2/2 membranous nephropathy. FeNA of .8% consistent with pre-renal etiology; however, given increasing CR despite fluid challenge, might have progressed to ATN. Will defer to nephrology. - Continue IVF resuscitation with LR at 125 cc/hr - Encourage increased po fluid intake - Continue to monitor renal function parameters - Hold home cozaar pending nephrology evaluation - Nephrology Consultation - recommend IVF resuscitation Intractable nausea/vomiting/diarrhea, likely 2/2 prolonged viral gastroenteritis Patient afebrile today, without other SIRS criteria, further supporting that patient has viral gastroenteritis. In addition, micro for blood cx, c diff, and ova/parasites are all negative. Urine legionella antigen is also negative. Initial presentation showed patient in sepsis without EOD; - Continue to hold home veltassa as patient may be losing K in stool - Continue IV hydration with LR, patient had sepsis on presentation - Continue zofran PRN, liquid diet - ID Consultation - recommend to continue levaquin and merrem Nephrotic Syndrome - Currently holding Cozaar - Nephrology Consulation DM2 - Hold home anti-hyperglycemics - ISS - medium with FS ACHS CAD - Continue home ASA, plavix - Continue with home Lipitor HTN - Hold home cozaar - May continue coreg with holding parameters monitoring for hypotension DVT/GI PPX: SC heparin/protonix Full Code Liquid diet Monitor on med/surg
--- NOTE | 2018-10-31 10:52 | CP.PCM.PN ---
<Alexi Osborn - Last Filed: 10/31/18 14:07> Subjective - Date & Time of Evaluation Date of Evaluation: 10/31/18 Time of Evaluation: 10:52 - Subjective Subjective: Nephrology Progress Note (Dr. Moses's Service): Patient seen and assessed at bedside. No acute events noted overnight. Patient reports that he is feeling subjectively better and has not had any further episodes of vomiting or diarrhea. Further 12 point ROS grossly unremarkable. Objective - Vital Signs/Intake and Output Vital Signs (last 24 hours): Temp Pulse Resp BP Pulse Ox 98 F 56 L 16 116/74 95 10/31/18 06:00 10/31/18 06:00 10/31/18 06:00 10/30/18 21:16 10/31/18 06:00 Intake and Output: 10/31/18 10/31/18 06:59 18:59 Intake Total 780 Output Total 800 Balance -20 - Medications Medications: Current Medications Acetaminophen (Tylenol 325mg Tab) 650 mg PO Q6 PRN PRN Reason: TEMP>=99.5F Last Admin: 10/29/18 16:21 Dose: 650 mg Acetaminophen (Tylenol 650 Mg Supp) 650 mg RC Q6H PRN PRN Reason: TEMP>=99.5F Aspirin (Ecotrin) 81 mg PO DAILY [facility] Last Admin: 10/31/18 10:08 Dose: 81 mg Atorvastatin Calcium (Lipitor) 80 mg PO HS [facility] Last Admin: 10/30/18 23:33 Dose: 80 mg Calcium Acetate (Phoslo) 1,334 mg PO [facility] Carvedilol (Coreg) 6.25 mg PO BID [facility] Last Admin: 10/31/18 10:08 Dose: 6.25 mg Cholecalciferol (Vitamin D) 1,000 intlu PO Q7D [facility] Last Admin: 10/31/18 10:08 Dose: 1,000 intlu Clopidogrel Bisulfate (Plavix) 75 mg PO DAILY [facility] Last Admin: 10/31/18 10:08 Dose: 75 mg Dextrose (Dextrose 50% Inj) 0 ml IV STAT PRN; Protocol PRN Reason: Hypoglycemia Protocol Folic Acid (Folic Acid) 1 mg PO DAILY [facility] Last Admin: 10/31/18 10:08 Dose: 1 mg Heparin Sodium (Porcine) (Heparin) 5,000 units SC Q8 [facility]; Protocol Last Admin: 10/31/18 05:11 Dose: 5,000 units Hydralazine HCl (Apresoline) 25 mg PO BID [facility] Last Admin: 10/30/18 17:41 Dose: 25 mg Dextrose (Dextrose 5% In Water 1000 Ml) 1,000 mls @ 0 mls/hr IV .Q0M PRN; Protocol PRN Reason: Hypoglycemia Protocol Levofloxacin/Dextrose (Levaquin 250mg) 250 mg in 50 mls @ 50 mls/hr IVPB 2000 [facility]; Protocol Last Admin: 10/30/18 21:34 Dose: 50 mls/hr Meropenem/Sodium Chloride (Merrem Iv 500 Mg/Ns 50 Ml) 500 mg in 50 mls @ 100 mls/hr IVPB 0900,2100 [facility]; Protocol Last Admin: 10/30/18 21:30 Dose: 100 mls/hr Lactated Ringer's (Lactated Ringer's) 1,000 mls @ 125 mls/hr IV .Q8H [facility] Last Admin: 10/31/18 05:15 Dose: 125 mls/hr Insulin Human Lispro (Humalog Med) 0 units SC AC [facility]; Protocol Last Admin: 10/31/18 10:08 Dose: Not Given Ondansetron HCl (Zofran Inj) 4 mg IVP Q4H PRN PRN Reason: Nausea/Vomiting Last Admin: 10/30/18 21:19 Dose: 4 mg Pantoprazole Sodium (Protonix Inj) 40 mg IVP Q12 [facility] Last Admin: 10/31/18 10:12 Dose: 40 mg - Labs Labs: 10/31/18 06:30 10/31/18 06:30 PT 13.1 SECONDS (9.4-12.5) H 10/30/18 07:00 INR 1.16 10/30/18 07:00 APTT 30.9 Seconds (26.9-38.3) 10/30/18 07:00 - Constitutional Appears: Non-toxic, No Acute Distress - Head Exam Head Exam: ATRAUMATIC, NORMOCEPHALIC - Eye Exam Eye Exam: EOMI - Neck Exam Neck Exam: Full ROM - Respiratory Exam Respiratory Exam: Clear to Ausculation Bilateral, NORMAL BREATHING PATTERN. absent: Wheezes, Respiratory Distress - Cardiovascular Exam Cardiovascular Exam: REGULAR RHYTHM, RRR - GI/Abdominal Exam GI & Abdominal Exam: Soft, Normal Bowel Sounds. 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 Plan: 1. LIBORIO on CKD Stage IV -Creatinine continues to rise and currently at 6.4; Baseline creatinine approximately 3.0 -Likely pre-renal in setting of prolonged course of emesis/diarrhea and FENa of 0.8% -Less likely underlying ATN with urine sodium of 20 but still in the differential given continued rising of creatinine -Will decrease LR to 60mls/hr; Will obtain repeat Chest X-Ray to r/o vascular congestion -Continue holding diuretics and ARB; May continue with rest of antihypertensive medication regimen -Continue to monitor I/O's -Avoid nephrotoxic agents and renally dose medications when indicated -Continue to monitor BUN/Creatinine with daily BMP's 2. Anemia in CKD -Stable s/p one dose of Aranesp 60mcg -Continue to monitor with daily CBC's -Will continue with Epogen 4000u every other week upon discharge -No indication for blood transfusion at this time 3. Gastroenteritis/Colitis -Improving -Continue IV antibiotics as per ID -Dose antibiotics for CrCl<20ml/min -Continue with IVF as ordered 4. CKD Mineral Bone Disease -Continue home Phoslo with resumption of regular diet Patient seen and case discussed with attending, Dr. Moses. Alexi Osborn PGY2 <Stu Moses - Last Filed: 11/01/18 08:05> Objective - Vital Signs/Intake and Output Vital Signs (last 24 hours): Temp Pulse Resp BP Pulse Ox 98 F 54 L 20 129/76 96 10/31/18 22:34 10/31/18 22:34 10/31/18 22:34 10/31/18 22:34 10/31/18 22:34 Intake and Output: 11/01/18 11/01/18 06:59 18:59 Intake Total 1320 Output Total 900 Balance 420 - Medications Medications: Current Medications Acetaminophen (Tylenol 325mg Tab) 650 mg PO Q6 PRN PRN Reason: TEMP>=99.5F Last Admin: 10/29/18 16:21 Dose: 650 mg Acetaminophen (Tylenol 650 Mg Supp) 650 mg RC Q6H PRN PRN Reason: TEMP>=99.5F Aspirin (Ecotrin) 81 mg PO DAILY [facility] Last Admin: 10/31/18 10:08 Dose: 81 mg Atorvastatin Calcium (Lipitor) 80 mg PO HS [facility] Last Admin: 10/31/18 21:24 Dose: 80 mg Calcium Acetate (Phoslo) 1,334 mg PO WM [facility] Last Admin: 10/31/18 17:06 Dose: 1,334 mg Carvedilol (Coreg) 6.25 mg PO BID [facility] Last Admin: 10/31/18 17:06 Dose: 6.25 mg Cholecalciferol (Vitamin D) 1,000 intlu PO Q7D [facility] Last Admin: 10/31/18 10:08 Dose: 1,000 intlu Clopidogrel Bisulfate (Plavix) 75 mg PO DAILY [facility] Last Admin: 10/31/18 10:08 Dose: 75 mg Dextrose (Dextrose 50% Inj) 0 ml IV STAT PRN; Protocol PRN Reason: Hypoglycemia Protocol Folic Acid (Folic Acid) 1 mg PO DAILY [facility] Last Admin: 10/31/18 10:08 Dose: 1 mg Heparin Sodium (Porcine) (Heparin) 5,000 units SC Q8 [facility]; Protocol Last Admin: 11/01/18 05:29 Dose: 5,000 units Hydralazine HCl (Apresoline) 25 mg PO BID [facility] Last Admin: 10/31/18 17:06 Dose: 25 mg Dextrose (Dextrose 5% In Water 1000 Ml) 1,000 mls @ 0 mls/hr IV .Q0M PRN; Protocol PRN Reason: Hypoglycemia Protocol Lactated Ringer's (Lactated Ringer's) 1,000 mls @ 60 mls/hr IV .[id number] [facility] Last Admin: 10/31/18 17:11 Dose: 60 mls/hr Insulin Human Lispro (Humalog Med) 0 units SC AC [facility]; Protocol Last Admin: 10/31/18 16:59 Dose: Not Given Levofloxacin (Levaquin) 250 mg PO DAILY [facility]; Protocol Ondansetron HCl (Zofran Inj) 4 mg IVP Q4H PRN PRN Reason: Nausea/Vomiting Last Admin: 10/30/18 21:19 Dose: 4 mg Pantoprazole Sodium (Protonix Inj) 40 mg IVP Q12 [facility] Last Admin: 10/31/18 23:16 Dose: 40 mg - Labs Labs: 11/01/18 06:30 11/01/18 06:30 PT 13.1 SECONDS (9.4-12.5) H 10/30/18 07:00 INR 1.16 10/30/18 07:00 APTT 30.9 Seconds (26.9-38.3) 10/30/18 07:00 Attending/Attestation - Attestation I have personally seen and examined this patient.: Yes I have fully participated in the care of the patient.: Yes I have reviewed all pertinent clinical information, including history, physical exam and plan: Yes Notes (Text): Patient seen and examined; I agree with the resident's note as above with the following additions/edits: Patient with htn, DM, CKD IV due to primary membranous nephropathy, admitted with persistent persistent diarrhea, acute renal failure; LIBORIO consistent with extension to ATN at this point as diarrhea has resolved but serum creatinine continues to rise despite being on aggressive intravascular vo lume repletion; will cut back LR to 60 cc/hr to avoid volume overload (no signs/symptoms currently and CXR today is clear); otherwise, relatively stable lytes (mild hypokalemia noted, one time small supplement given); no indication for dialysis at this time; will monitor closely; Anemia of CKD, restarted recently on EPO as outpatient; current drop in hgb partly dilutional due to aggressive IVF; patient otherwise hemodynamically stable; should avoid blood transfusions unless absolutely necessary (hemodynamic instability, CAD symptoms, etc) to avoid formation of antibodies that will reduce chances of crossmatch for future renal transplant; -IVF as above; -continue to hold diuretics, ARB; -BP controlled, continue current meds; -avoid nephrotoxic agents; -giving dose of aranesp 60 mcg today; -continue phoslo 2 tabs w/ meals for now;
--- NOTE | 2018-10-31 11:34 | CP.PCM.PN ---
<Yahir Marcus - Last Filed: 10/31/18 11:29> Subjective - Date & Time of Evaluation Date of Evaluation: 10/31/18 Time of Evaluation: 09:50 - Subjective Subjective: Yahir Marcus D.O. PGY-3, Internal Medicine Resident, Infectious Disease Progress Note 58-year-old male with a past medical history end-stage renal disease nephropathy, diabetes, coronary artery disease status post 2 stents, and history of polysubstance abuse in the past who presents for persistent nausea and diarrhea worsening over approximately 1 week. Infectious disease consultation was requested for fever and possible colitis. Patient was seen and examiend at bedside. Feeling much better overall. Able to tolerate PO. Objective - Vital Signs/Intake and Output Vital Signs (last 24 hours): Temp Pulse Resp BP Pulse Ox 98 F 56 L 16 116/74 95 10/31/18 06:00 10/31/18 06:00 10/31/18 06:00 10/30/18 21:16 10/31/18 06:00 Intake and Output: 10/31/18 10/31/18 06:59 18:59 Intake Total 780 Output Total 800 Balance -20 - Medications Medications: Current Medications Acetaminophen (Tylenol 325mg Tab) 650 mg PO Q6 PRN PRN Reason: TEMP>=99.5F Last Admin: 10/29/18 16:21 Dose: 650 mg Acetaminophen (Tylenol 650 Mg Supp) 650 mg RC Q6H PRN PRN Reason: TEMP>=99.5F Aspirin (Ecotrin) 81 mg PO DAILY [facility] Last Admin: 10/31/18 10:08 Dose: 81 mg Atorvastatin Calcium (Lipitor) 80 mg PO HS [facility] Last Admin: 10/30/18 23:33 Dose: 80 mg Calcium Acetate (Phoslo) 1,334 mg PO WM [facility] Carvedilol (Coreg) 6.25 mg PO BID [facility] Last Admin: 10/31/18 10:08 Dose: 6.25 mg Cholecalciferol (Vitamin D) 1,000 intlu PO Q7D [facility] Last Admin: 10/31/18 10:08 Dose: 1,000 intlu Clopidogrel Bisulfate (Plavix) 75 mg PO DAILY [facility] Last Admin: 10/31/18 10:08 Dose: 75 mg Dextrose (Dextrose 50% Inj) 0 ml IV STAT PRN; Protocol PRN Reason: Hypoglycemia Protocol Folic Acid (Folic Acid) 1 mg PO DAILY [facility] Last Admin: 10/31/18 10:08 Dose: 1 mg Heparin Sodium (Porcine) (Heparin) 5,000 units SC Q8 [facility]; Protocol Last Admin: 10/31/18 05:11 Dose: 5,000 units Hydralazine HCl (Apresoline) 25 mg PO BID [facility] Last Admin: 10/30/18 17:41 Dose: 25 mg Dextrose (Dextrose 5% In Water 1000 Ml) 1,000 mls @ 0 mls/hr IV .Q0M PRN; Protocol PRN Reason: Hypoglycemia Protocol Levofloxacin/Dextrose (Levaquin 250mg) 250 mg in 50 mls @ 50 mls/hr IVPB 2000 [facility]; Protocol Last Admin: 10/30/18 21:34 Dose: 50 mls/hr Meropenem/Sodium Chloride (Merrem Iv 500 Mg/Ns 50 Ml) 500 mg in 50 mls @ 100 mls/hr IVPB 0900,2100 [facility]; Protocol Last Admin: 10/30/18 21:30 Dose: 100 mls/hr Lactated Ringer's (Lactated Ringer's) 1,000 mls @ 125 mls/hr IV .Q8H [facility] Last Admin: 10/31/18 05:15 Dose: 125 mls/hr Insulin Human Lispro (Humalog Med) 0 units SC AC [facility]; Protocol Last Admin: 10/31/18 10:08 Dose: Not Given Ondansetron HCl (Zofran Inj) 4 mg IVP Q4H PRN PRN Reason: Nausea/Vomiting Last Admin: 10/30/18 21:19 Dose: 4 mg Pantoprazole Sodium (Protonix Inj) 40 mg IVP Q12 [facility] Last Admin: 10/31/18 10:12 Dose: 40 mg - Labs Labs: 10/31/18 06:30 10/31/18 06:30 PT 13.1 SECONDS (9.4-12.5) H 10/30/18 07:00 INR 1.16 10/30/18 07:00 APTT 30.9 Seconds (26.9-38.3) 10/30/18 07:00 - Constitutional Appears: Non-toxic, No Acute Distress - Head Exam Head Exam: ATRAUMATIC, NORMOCEPHALIC - Eye Exam Eye Exam: EOMI. absent: Scleral icterus - ENT Exam ENT Exam: Mucous Membranes Dry, Normal Oropharynx - Neck Exam Neck exam: Positive for: Normal Inspection. Negative for: Lymphadenopathy - Respiratory Exam Respiratory Exam: Clear to Auscultation Bilateral. absent: Rhonchi, Wheezes - Cardiovascular Exam Cardiovascular Exam: RRR, +S1, +S2, Systolic Murmur (2/6). absent: Rubs - GI/Abdominal Exam GI & Abdominal Exam: Hyperactive Bowel Sounds, Soft. absent: Distended (obese), Tenderness - Extremities Exam Extremities exam: Positive for: normal capillary refill. Negative for: pedal edema, tenderness - Neurological Exam Neurological exam: Alert, CN II-XII Intact, Oriented x3 - Psychiatric Exam Psychiatric exam: Normal Affect, Normal Mood - Skin Skin Exam: Dry, Warm Assessment and Plan - Assessment and Plan (Free Text) Assessment: 58-year-old male with a past medical history end-stage renal disease nephropathy, diabetes, coronary artery disease status post 2 stents, and history of polysubstance abuse in the past who presents for persistent nausea and diarrhea worsening over approximately 1 week. Infectious disease consultation was requested for fever and possible colitis. Plan: Nausea and diarrhea SIRS 2/4 LIBORIO on CKD HIV pending BCxs negative 2/2 day 2 UCxs negative C diff negative O&P negative MRSA naris negative Legionella antigen negative Continue levo/meropenem day [address] abdomen and pelvis negative for acute pathology CT chest negative Chest x-ray negative for acute pathology Pending stool cultures We will follow Patient was seen and examined and case to be discussed with attending physician. Thank you for the pleasure participating in the care of this patient. <Brendon Walker - Last Filed: 10/31/18 12:59> Objective - Vital Signs/Intake and Output Vital Signs (last 24 hours): Temp Pulse Resp BP Pulse Ox 98 F 56 L 16 116/74 95 10/31/18 06:00 10/31/18 06:00 10/31/18 06:00 10/30/18 21:16 10/31/18 06:00 Intake and Output: 10/31/18 10/31/18 06:59 18:59 Intake Total 780 Output Total 800 Balance -20 - Medications Medications: Current Medications Acetaminophen (Tylenol 325mg Tab) 650 mg PO Q6 PRN PRN Reason: TEMP>=99.5F Last Admin: 10/29/18 16:21 Dose: 650 mg Acetaminophen (Tylenol 650 Mg Supp) 650 mg RC Q6H PRN PRN Reason: TEMP>=99.5F Aspirin (Ecotrin) 81 mg PO DAILY [facility] Last Admin: 10/31/18 10:08 Dose: 81 mg Atorvastatin Calcium (Lipitor) 80 mg PO HS [facility] Last Admin: 10/30/18 23:33 Dose: 80 mg Calcium Acetate (Phoslo) 1,334 mg PO WM [facility] Last Admin: 10/31/18 11:53 Dose: 1,334 mg Carvedilol (Coreg) 6.25 mg PO BID [facility] Last Admin: 10/31/18 10:08 Dose: 6.25 mg Cholecalciferol (Vitamin D) 1,000 intlu PO Q7D [facility] Last Admin: 10/31/18 10:08 Dose: 1,000 intlu Clopidogrel Bisulfate (Plavix) 75 mg PO DAILY [facility] Last Admin: 10/31/18 10:08 Dose: 75 mg Dextrose (Dextrose 50% Inj) 0 ml IV STAT PRN; Protocol PRN Reason: Hypoglycemia Protocol Folic Acid (Folic Acid) 1 mg PO DAILY [facility] Last Admin: 10/31/18 10:08 Dose: 1 mg Heparin Sodium (Porcine) (Heparin) 5,000 units SC Q8 [facility]; Protocol Last Admin: 10/31/18 05:11 Dose: 5,000 units Hydralazine HCl (Apresoline) 25 mg PO BID [facility] Last Admin: 10/30/18 17:41 Dose: 25 mg Dextrose (Dextrose 5% In Water 1000 Ml) 1,000 mls @ 0 mls/hr IV .Q0M PRN; Protocol PRN Reason: Hypoglycemia Protocol Levofloxacin/Dextrose (Levaquin 250mg) 250 mg in 50 mls @ 50 mls/hr IVPB 2000 [facility]; Protocol Last Admin: 10/30/18 21:34 Dose: 50 mls/hr Meropenem/Sodium Chloride (Merrem Iv 500 Mg/Ns 50 Ml) 500 mg in 50 mls @ 100 mls/hr IVPB 0900,2100 [facility]; Protocol Last Admin: 10/31/18 11:53 Dose: 100 mls/hr Lactated Ringer's (Lactated Ringer's) 1,000 mls @ 125 mls/hr IV .Q8H [facility] Last Admin: 10/31/18 05:15 Dose: 125 mls/hr Insulin Human Lispro (Humalog Med) 0 units SC AC [facility]; Protocol Last Admin: 10/31/18 10:08 Dose: Not Given Ondansetron HCl (Zofran Inj) 4 mg IVP Q4H PRN PRN Reason: Nausea/Vomiting Last Admin: 10/30/18 21:19 Dose: 4 mg Pantoprazole Sodium (Protonix Inj) 40 mg IVP Q12 [facility] Last Admin: 10/31/18 10:12 Dose: 40 mg - Labs Labs: 10/31/18 06:30 10/31/18 06:30 PT 13.1 SECONDS (9.4-12.5) H 10/30/18 07:00 INR 1.16 10/30/18 07:00 APTT 30.9 Seconds (26.9-38.3) 10/30/18 07:00 Attending/Attestation - Attestation I have personally seen and examined this patient.: Yes I have fully participated in the care of the patient.: Yes I have reviewed all pertinent clinical information, including history, physical exam and plan: Yes
[2018-10-31] MEDS: MEROPENEM 500 MG in NS 500 MG/50 ML BAG IVPB SCH ×2 (11:53→21:25)
[2018-10-31 13:54] LABS: GLYCOMARK(R) 1.4 mcg/mL (7.3-36.6)
--- NOTE | 2018-10-31 15:41 | RAD ---
Date of service: 10/31/2018 HISTORY: r/o pvc COMPARISON: 10/29/2018. FINDINGS: LUNGS: The lungs are hyperinflated and there is peribronchial thickening with chronic changes in both lungs. There is linear scarring in the left lower lobe. No focal consolidation. PLEURA: No pleural effusions or pneumothorax. CARDIOVASCULAR: The heart is normal in size. No aortic atherosclerotic calcifications present. OSSEOUS STRUCTURES: Within normal limits for the patient's age. VISUALIZED UPPER ABDOMEN: Normal. OTHER FINDINGS: None. IMPRESSION: No active pulmonary disease. COPD.
[2018-10-31] MEDS: levoFLOXacin 250 mg in D5W 250 MG/50 ML BAG IVPB SCH (21:23)
[2018-10-31 22:35] VITALS: TEMP 98
[2018-11-01 07:05] LABS: BASO # 0.01 K/mm3 (0.0-2.0); BASO % 0.2 % (0.0-3.0); EOS # 0.2 (0.0-0.7); EOS % 3.9 % (1.5-5.0); HEMOGLOBIN 8.5 g/dL (14.0-18.0); LYMPH # 1.9 (1.2-3.4); LYMPH % 32.3 % (22.0-35.0); MEAN CELL VOLUME 89.5 fl (80.0-105.0); MEAN CORPUSCULAR HEMOGLOBIN 30.7 pg (25.0-35.0); MEAN CORPUSCULAR HGB CONC 34.3 g/dl (31.0-37.0); MEAN PLATELET VOLUME 10.1 fl (7.0-11.0); MONO # 0.5 (0.1-0.6); MONO % 7.9 % (1.0-6.0); RBC 2.77 10^6/uL (3.5-6.1); RED CELL DISTRIBUTION WIDTH 12.4 % (11.5-14.5)
[2018-11-01 07:14] LABS: ALBUMIN 3.1 g/dL (3.0-4.8); BILIRUBIN,DIRECT 0.2 mg/dL (0.0-0.4); CALCIUM 8.5 mg/dL (8.4-10.5)
[2018-11-01 08:04] VITALS: BP 163/82; PULSE 59; RESP 18; O2SAT 99
--- NOTE | 2018-11-01 08:41 | PN ---
DATE: 10/31/2018 SUBJECTIVE: The patient seen in room 564, bed 1. The patient is seen lying in the bed. The patient states that his nausea, vomiting and diarrhea have significantly subsided. The patient denies any abdominal cramps. REVIEW OF SYSTEMS: A 14-system review was done, pertinent positives and negatives dictated above. PHYSICAL EXAMINATION: Vital signs: T-max 97.4, heart rate 67, blood pressure 148/81, respiration 18, O2 sat 98%. HEAD: Normocephalic, atraumatic. HEENT examination shows pinkish, pale conjunctivae. Anicteric sclerae. No oropharyngeal lesion. No neck rigidity. CHEST: Kyphosis. LUNGS: Shows no audible crackle, rales or wheezing. CARDIOVASCULAR: S1, S2. Regular rhythm. ABDOMEN: Morbidly obese, protuberant. Positive bowel sound. No palpable hepatosplenomegaly. GENITALIA: Male. RECTAL: Deferred. EXTREMITY: Shows chronic swelling and pitting edema of the lower extremity. MUSCULOSKELETAL: Examination shows an elevated body mass index. NEUROLOGIC: The patient is alert, awake, oriented x3. Cranial nerves II-XII grossly intact. Gait exam not tested. DIAGNOSTICS: CT scan of the chest, abdomen and pelvis shows a cyst. CT chest was negative. Hemoglobin today is 8.8, hematocrit 26, potassium is 3.4, BUN and creatinine is 79 and 6.4, phosphorus is 6.8. IMPRESSION AND PLAN: 1. Systemic inflammatory response syndrome. 2. Acute kidney injury with underlying chronic kidney disease stage IV. 3. Questionable gastroenteritis versus questionable colitis. 4. Left renal cyst. 5. Hypertension. 6. Morbid obesity. 7 Nephrotic syndrome. 8. Insulin-requiring diabetes mellitus. 9. Anemia with decreasing hemoglobin/hematocrit. 10. Hypokalemia. 11. Hyperphosphatemia. 12. Worsening acute kidney injury. 13. History of coronary artery disease, coronary angioplasty. 14. History of hypertension. 15. History of vitamin B12 deficiency. 16 Severe dietary noncompliance. 17. Bilateral lower extremity venous stasis. 18. Severe proteinuria. 19.. Hypovitaminosis D. 20. Hyperuricemia. 21. Hyperprolactinemia. 22. Glycosuria. 23. Ketonuria. 24. Microscopic hematuria. 25. Bacteriuria. 1. Questionable gastroenteritis. 2. High-grade fever. 3. Hypercalcitoninemia. 4. Questionable systemic inflammatory response syndrome versus questionable sepsis with hypercalcitoninemia. 5. Anemia of chronic disease. 6. Chronic kidney disease stage IV with acute kidney injury. 7. Hyperphosphatemia. 8. Hyperuricemia. 9. Proteinuria. 10. Glycosuria. 11. Ketonuria. 12. Hematuria. 13. Bacteriuria. Plan at this time, the patient is to be continued on therapeutic intervention as per the MAR. The patient's internet sales consultant does not recommend any PRBC transfusion. The patient was given Aranesp by the internet sales consultant. The patient currently is being consulted with Infectious Disease, Nephrology. The patient is continued on IV antibiotics as per Infectious Disease. The patient's IV antibiotics will be continued as per the Infectious Disease recommendation. The patient is also ordered out of bed to chair, increase activity, SUSAN stockings, SCDs both pharmacological, non-pharmacological DVT, GI prophylaxis. The patient has been updated about his condition, diagnosis, test results, all recommendation from the respective specialties has been directly explained to the patient, which he acknowledges and understands. The patient at present is to be continued on above therapeutic interventions. The patient will be considered for discharge once cleared by all subspecialty. Dictated and electronically signed, not read. Kobe Prince MD MTDD
--- NOTE | 2018-11-01 09:08 | CP.PCM.PN ---
Subjective - Date & Time of Evaluation Date of Evaluation: 11/01/18 Time of Evaluation: 09:03 - Subjective Subjective: Nephrology Progress Note (Dr. Moses's Service): Patient seen and assessed at bedside. No acute events noted overnight. Patient denies any complaints at this time. 12 point ROS grossly unremarkable. Objective - Vital Signs/Intake and Output Vital Signs (last 24 hours): Temp Pulse Resp BP Pulse Ox 98 F 59 L 18 163/82 H 99 11/01/18 06:00 11/01/18 06:00 11/01/18 06:00 11/01/18 06:00 11/01/18 06:00 Intake and Output: 11/01/18 11/01/18 06:59 18:59 Intake Total 1320 Output Total 900 Balance 420 - Medications Medications: Current Medications Acetaminophen (Tylenol 325mg Tab) 650 mg PO Q6 PRN PRN Reason: TEMP>=99.5F Last Admin: 10/29/18 16:21 Dose: 650 mg Acetaminophen (Tylenol 650 Mg Supp) 650 mg RC Q6H PRN PRN Reason: TEMP>=99.5F Aspirin (Ecotrin) 81 mg PO DAILY [facility] Last Admin: 10/31/18 10:08 Dose: 81 mg Atorvastatin Calcium (Lipitor) 80 mg PO HS [facility] Last Admin: 10/31/18 21:24 Dose: 80 mg Calcium Acetate (Phoslo) 1,334 mg PO WM [facility] Last Admin: 10/31/18 17:06 Dose: 1,334 mg Carvedilol (Coreg) 6.25 mg PO BID [facility] Last Admin: 10/31/18 17:06 Dose: 6.25 mg Cholecalciferol (Vitamin D) 1,000 intlu PO Q7D [facility] Last Admin: 10/31/18 10:08 Dose: 1,000 intlu Clopidogrel Bisulfate (Plavix) 75 mg PO DAILY [facility] Last Admin: 10/31/18 10:08 Dose: 75 mg Dextrose (Dextrose 50% Inj) 0 ml IV STAT PRN; Protocol PRN Reason: Hypoglycemia Protocol Folic Acid (Folic Acid) 1 mg PO DAILY [facility] Last Admin: 10/31/18 10:08 Dose: 1 mg Heparin Sodium (Porcine) (Heparin) 5,000 units SC Q8 [facility]; Protocol Last Admin: 11/01/18 05:29 Dose: 5,000 units Hydralazine HCl (Apresoline) 25 mg PO BID [facility] Last Admin: 10/31/18 17:06 Dose: 25 mg Dextrose (Dextrose 5% In Water 1000 Ml) 1,000 mls @ 0 mls/hr IV .Q0M PRN; Protocol PRN Reason: Hypoglycemia Protocol Lactated Ringer's (Lactated Ringer's) 1,000 mls @ 60 mls/hr IV .[id number] [facility] Last Admin: 10/31/18 17:11 Dose: 60 mls/hr Insulin Human Lispro (Humalog Med) 0 units SC AC [facility]; Protocol Last Admin: 10/31/18 16:59 Dose: Not Given Levofloxacin (Levaquin) 250 mg PO DAILY [facility]; Protocol Ondansetron HCl (Zofran Inj) 4 mg IVP Q4H PRN PRN Reason: Nausea/Vomiting Last Admin: 10/30/18 21:19 Dose: 4 mg Pantoprazole Sodium (Protonix Inj) 40 mg IVP Q12 [facility] Last Admin: 10/31/18 23:16 Dose: 40 mg - Labs Labs: 11/01/18 06:30 11/01/18 06:30 PT 13.1 SECONDS (9.4-12.5) H 10/30/18 07:00 INR 1.16 10/30/18 07:00 APTT 30.9 Seconds (26.9-38.3) 10/30/18 07:00 - Additional Findings Additional findings: - Constitutional Appears: Non-toxic, No Acute Distress - Head Exam Head Exam: ATRAUMATIC, NORMOCEPHALIC - Eye Exam Eye Exam: EOMI - Neck Exam Neck Exam: Full ROM - Respiratory Exam Respiratory Exam: Clear to Ausculation Bilateral, NORMAL BREATHING PATTERN. absent: Wheezes, Respiratory Distress - Cardiovascular Exam Cardiovascular Exam: REGULAR RHYTHM, RRR - GI/Abdominal Exam GI & Abdominal Exam: Soft, Normal Bowel Sounds. 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 Patient currently being treated for LIBORIO, likely multifactorial in etiology with some component of hypotension and underlying ATN. Plan: 1. LIBORIO on CKD Stage IV -Resolving -Likely multifactorial with some element of pre-renal in setting of prolonged course of emesis/diarrhea and FENa of 0.8% but also with extension to ATN -Creatinine improving to 5.5 from 6.4; Baseline creatinine approximately 3.0 -Discontinue IVF -Continue holding diuretics and ARB; May continue with rest of antihypertensive medication regimen -Continue to monitor I/O's -Avoid nephrotoxic agents and renally dose medications when indicated -Continue to monitor BUN/Creatinine with daily BMP's -No indication for HD at this time -Should patient be discharged, he should follow up in Dr. Moses's office of Tuesday (11/03/2018) for labs to be drawn and he should hold his ARB and diuretics until that time 2. Anemia in CKD -Stable s/p one dose of Aranesp 60mcg -Continue to monitor with daily CBC's -Will continue with Epogen 4000u every other week upon discharge -No indication for blood transfusion at this time -Should avoid blood transfusions unless absolutely necessary to avoid formation of antibodies that will reduce chances of crossmatch for possible future renal transplant 3. Gastroenteritis/Colitis -Improving -Continue antibiotics as per ID -Dose antibiotics for CrCl<20ml/min 4. CKD Mineral Bone Disease -Continue home Phoslo with resumption of regular diet Patient seen and case discussed with attending, Dr. Moses. Alexi Osborn PGY2
--- NOTE | 2018-11-01 09:39 | CARD ---
APPROVED REPORT Date of service: 10/31/2018 EXAM: Two-dimensional and M-mode echocardiogram with Doppler and color Doppler. INDICATION LVFX/ PREVIOUS ECHO SHOWS GRADE 1 ABN 2D DIMENSIONS Left Atrium (2D)4.9 (1.6-4.0cm)IVSd1.4 (0.7-1.1cm) LVDd4.9 (3.9-5.9cm)LVOT Diameter2.0 (1.8-2.4cm) PWd1.6 (0.7-1.1cm)LVDs3.3 (2.5-4.0cm) FS (%) 32.4 %LVEF (%)60.5 (>50%) M-Mode DIMENSIONS Aortic Root3.50 (2.2-3.7cm)Aortic Cusp Exc.1.20 (1.5-2.0cm) Aortic Valve AoV Peak Zxddymxt185.0cm/sAoV VTI68.3cmAO Peak GR.35mmHg LVOT Peak Pqnnlwlk800.0cm/sLVOT VTI25.30cmAO Mean GR.19mmHg NIKO (VMAX)1.73ln3JDM (VTI)1.16cm2 Mitral Valve MV E Txuihckv042.0cm/sMV A Owjdmrgo125.0cm/sE/A ratio0.9 TDI Lateral E' Peak V8.48cm/sMedial E' Peak V6.92cm/sE/Lateral E'13.7 E/Medial E'16.8 Pulmonary Valve PV Peak Udmcbguv83.3cm/sPV Peak Grad.3mmHg Tricuspid Valve TR Peak Jpewfnph846pl/sRAP [id number] Peak Gr.15mmHg [id number] LEFT VENTRICLE The left ventricle is normal size. There is mild to moderate concentric left ventricular hypertrophy. The left ventricular function is normal. The left ventricular ejection fraction is within the normal range. There is normal LV segmental wall motion. RIGHT VENTRICLE The right ventricle is normal size. The right ventricular systolic function is normal. ATRIA The left atrium is moderately dilated. The right atrium is mildly dilated. The interatrial septum is intact with no evidence for an atrial septal defect. AORTIC VALVE The aortic valve is moderately calcified. There is trace aortic regurgitation. There is mild to moderate valvular aortic stenosis. MITRAL VALVE The mitral valve is mildly thickened. Mitral regurgitation is mild. TRICUSPID VALVE The tricuspid valve is normal in structure. There is mild tricuspid regurgitation. PULMONIC VALVE The pulmonary valve is normal in structure. GREAT VESSELS The aortic root is normal in size. The IVC is normal in size and collapses >50% with inspiration. PERICARDIAL EFFUSION There is no pleural effusion. There is no pericardial effusion. <Conclusion> Biatrial enlargement. Normal LV size and systolic function. Mild to moderate concentric LVH. Mild to moderate . Mild MR. Mild TR.
[2018-11-01] MEDS: Lactated Ringer's 1,000 ML IV SCH (09:44)
[2018-11-01] MEDS: Insulin Lispro (humaLOG) MEDIUM Coverage SC SCH (09:44)
--- NOTE | 2018-11-01 14:53 | CP.PCM.PN ---
<Yahir Marcus - Last Filed: 11/01/18 14:45> Subjective - Date & Time of Evaluation Date of Evaluation: 11/01/18 Time of Evaluation: 07:50 - Subjective Subjective: Yahir Marcus D.O. PGY-3, Internal Medicine Resident, Infectious Disease Progress Note 58-year-old male with a past medical history end-stage renal disease nephropathy, diabetes, coronary artery disease status post 2 stents, and history of polysubstance abuse in the past who presents for persistent nausea and diarrhea worsening over approximately 1 week. Infectious disease consultation was requested for fever and possible colitis. Patient was seen and examiend at bedside. Soft stool yesterday but no discomfort or nausea. Feeling much better. Objective - Vital Signs/Intake and Output Vital Signs (last 24 hours): Temp Pulse Resp BP Pulse Ox 98 F 59 L 18 163/82 H 99 11/01/18 06:00 11/01/18 09:43 11/01/18 06:00 11/01/18 09:43 11/01/18 06:00 Intake and Output: 11/01/18 11/01/18 06:59 18:59 Intake Total 1320 Output Total 900 Balance 420 - Labs Labs: 11/01/18 06:30 11/01/18 06:30 PT 13.1 SECONDS (9.4-12.5) H 10/30/18 07:00 INR 1.16 10/30/18 07:00 APTT 30.9 Seconds (26.9-38.3) 10/30/18 07:00 - Constitutional Appears: Non-toxic, No Acute Distress - Head Exam Head Exam: ATRAUMATIC, NORMOCEPHALIC - Eye Exam Eye Exam: EOMI. absent: Scleral icterus - ENT Exam ENT Exam: Mucous Membranes Dry, Normal Oropharynx - Neck Exam Neck exam: Positive for: Normal Inspection. Negative for: Lymphadenopathy - Respiratory Exam Respiratory Exam: Clear to Auscultation Bilateral. absent: Rhonchi, Wheezes - Cardiovascular Exam Cardiovascular Exam: RRR, +S1, +S2, Systolic Murmur (2/6). absent: Rubs - GI/Abdominal Exam GI & Abdominal Exam: Soft. absent: Distended (obese), Tenderness - Extremities Exam Extremities exam: Positive for: normal capillary refill. Negative for: pedal edema, tenderness - Neurological Exam Neurological exam: Alert, CN II-XII Intact, Oriented x3 - Psychiatric Exam Psychiatric exam: Normal Affect, Normal Mood - Skin Skin Exam: Dry, Warm Assessment and Plan - Assessment and Plan (Free Text) Assessment: 58-year-old male with a past medical history end-stage renal disease nephropathy, diabetes, coronary artery disease status post 2 stents, and history of polysubstance abuse in the past who presents for persistent nausea and diarrhea worsening over approximately 1 week. Infectious disease consultation was requested for fever and possible colitis. Plan: Nausea and diarrhea SIRS 2/4 LIBORIO on CKD Workup thus far has been completely negative Stool cultures came back as negative Having further dropped into the history and revealed that the patient had a fresh killed chicken, Salmonella as a high likelihood although the not come back in a stool culture Advised to continue levofloxacin p.o. upon discharge for a total course of 7 days Patient was seen and examined and case to be discussed with attending physician. Thank you for the pleasure participating in the care of this patient. <Brendon Walker - Last Filed: 11/01/18 21:23> Objective - Vital Signs/Intake and Output Vital Signs (last 24 hours): Temp Pulse Resp BP Pulse Ox 98 F 59 L 18 163/82 H 99 11/01/18 06:00 11/01/18 09:43 11/01/18 06:00 11/01/18 09:43 11/01/18 06:00 - Labs Labs: 11/01/18 06:30 11/01/18 06:30 PT 13.1 SECONDS (9.4-12.5) H 10/30/18 07:00 INR 1.16 10/30/18 07:00 APTT 30.9 Seconds (26.9-38.3) 10/30/18 07:00 Attending/Attestation - Attestation I have personally seen and examined this patient.: Yes I have fully participated in the care of the patient.: Yes I have reviewed all pertinent clinical information, including history, physical exam and plan: Yes
--- NOTE | 2018-11-02 03:40 | DS ---
FINAL PROGRESS NOTE AND DISCHARGE SUMMARY HISTORY OF PRESENT ILLNESS: The patient was seen and evaluated in room 561, bed 1. The patient is in bed 2. The patient is out of bed to chair. The patient denies any nausea, vomiting, or diarrhea. Denies constipation. Denies hemoptysis, hematemesis, or melena. Denies hematochezia. The patient is tolerating the diet. PHYSICAL EXAMINATION: VITAL SIGNS: T-max 98, heart rate 59, 54, and 67, blood pressure 163/82, respirations 18, and O2 sat 99%. GENERAL: The patient is seen ambulating in the room. HEAD: Normocephalic and atraumatic. HEENT: Shows pinkish pale conjunctivae. Anicteric sclerae. No oropharyngeal lesions. NECK: No neck rigidity. CHEST: Kyphosis. LUNGS: Show no audible crackle, rales, or wheezing. CARDIOVASCULAR: S1 and S2, regular rhythm. ABDOMEN: Obese and protuberant. Positive bowel sounds. No palpable hepatosplenomegaly. GENITALIA: Male. RECTAL: Deferred. EXTREMITIES: Show chronic pitting edema of the lower extremity. MUSCULOSKELETAL: Shows body mass index of 36. NEUROLOGIC: The patient is alert, awake, responsive, and is able to move upper and lower extremity without assistance. Gait examination is dependent. VASCULAR: Palpable pulses. Cranial nerves II through XII are intact. DIAGNOSTIC DATA: On 11/01/2018; WBC 6, hemoglobin and hematocrit 8.4 and 25, and platelets 169. Sodium 137, potassium 3.7, chloride 105, CO2 of 21, anion gap 15, BUN 76, creatinine 5.5, GFR 13, glucose 99, calcium 8.5, phosphorous 6.9, and magnesium 2. LFTs are within normal limit. PTH is 109. Urinalysis noted. HIV urine Legionella negative. MRSA nondetected. Urine culture, stool ova and parasite, stool C. diff, stool cultures, and blood cultures negative. Chest x-ray, CT chest, and abdomen pelvis CAT scan was reviewed. Echocardiogram results were reviewed and explained to the patient. FINAL IMPRESSION, PLAN AND DISCHARGE DIAGNOSES: 1. Systemic inflammatory response syndrome. 2. Gastroenteritis. 3. Acute kidney injury with underlying chronic kidney disease stage IV. 4. Anemia of decreasing hemoglobin probably secondary to anemia of chronic kidney disease. 5. Hypertension. 6. Normocytic anemia. 7. Hypercalcitoninemia. 8. Secondary hyperparathyroidism with elevated PTH level of greater than 100 and hyperphosphatemia. 9. Well-controlled insulin-requiring diabetes mellitus with hemoglobin A1c of 6.9. 10. Morbid obesity with body mass index of 35. 11. Transient hypokalemia. 12. Proteinuria, glycosuria, ketonuria, microscopic hematuria, pyuria, and bacteriuria. 13. Bilateral lower extremity venous stasis. 14. O positive blood type. 15. Thoracic vertebral body marginal and non-marginal osteophytes. 16. Left renal cyst. 17. Right hip arthroplasty. 18. Left ventricular ejection fraction of 60%. 19. Hypertensive cardiovascular disease and left ventricular hypertrophy. 20. Moderately dilated left and right atrium. 21. Moderately calcified aortic valve with moderate valvular aortic stenosis. 22. Mildly thickened mitral valve with mild mitral regurgitation and mild tricuspid regurgitation. 23. Bilateral peribronchial thickening and pulmonary hyperinflation and chronic changes of both lungs. 24. Morbid obesity. 25. Chronic kidney disease stage IV with acute kidney injury. 26. Questionable gastroenteritis versus colitis. 1. Systemic inflammatory response syndrome. 2. Acute kidney injury with underlying chronic kidney disease stage IV. 3. Questionable gastroenteritis versus questionable colitis. 4. Left renal cyst. 5. Hypertension. 6. Morbid obesity. 7 Nephrotic syndrome. 8. Insulin-requiring diabetes mellitus. 9. Anemia with decreasing hemoglobin/hematocrit. 10. Hypokalemia. 11. Hyperphosphatemia. 12. Worsening acute kidney injury. 13. History of coronary artery disease, coronary angioplasty. 14. History of hypertension. 15. History of vitamin B12 deficiency. 16 Severe dietary noncompliance. 17. Bilateral lower extremity venous stasis. 18. Severe proteinuria. 19.. Hypovitaminosis D. 20. Hyperuricemia. 21. Hyperprolactinemia. 22. Glycosuria. 23. Ketonuria. 24. Microscopic hematuria. 25. Bacteriuria. 1. Questionable gastroenteritis. 2. High-grade fever. 3. Hypercalcitoninemia. 4. Questionable systemic inflammatory response syndrome versus questionable sepsis with hypercalcitoninemia. 5. Anemia of chronic disease. 6. Chronic kidney disease stage IV with acute kidney injury. 7. Hyperphosphatemia. 8. Hyperuricemia. 9. Proteinuria. 10. Glycosuria. 11. Ketonuria. 12. Hematuria. 13. Bacteriuria. The patient has been cleared for discharge by all subspecialty. The patient's IV antibiotics have been stopped. The patient will be discharged home on p.o. antibiotic recommended by Infectious Disease Levaquin 500 mg daily for 5 days. The patient is to resume PhosLo 667 mg with dinner, Cozaar 75 mg daily after cleared by Nephrology, hydralazine 25 mg twice a day, Uloric 40 mg daily, Procrit 4000 units subcutaneously weekly, Lantus 15 units twice a day, Bumex 2 mg daily to be cleared by Nephrology, Coreg 6.125 twice a day, sodium bicarbonate 650 mg twice a day, Veltassa 16.8 g daily, Victoza 1.8 mg once a day, folic acid 1 mg daily, Crestor 20 mg daily, Drisdol 50,000 units weekly, Plavix 75 mg daily, and aspirin 81 mg daily. The patient was advised discharge follow up with Dr. Prince within one week. The patient was advised to follow up with Dr. Moses within 1 week. The patient is to contact Dr. Moses, the lapel stitcher regarding resumption of Cozaar and Bumex. During this hospitalization, the patient was extensively explained about the details of his medical condition, diagnoses, test results, all details were explained to the patient at length and all questions concern answered. Time spent at the discharge process 45 minutes. Dictated and electronically signed, not read. Kobe Prince MD [email or web address]
== END 2018-11-01 13:49 | disposition home or self-care (01) | DRG 391 ==
LOC: ED 10:33 → ERH 14:56 → 5RNO 15:47 → OBSVTOIN 10-30 08:03 → 5RNO 10-30 14:25
PROVIDERS: ADMIT Internal Medicine; ATTEND Internal Medicine
DX: K52.9 Noninfective gastroenteritis and colitis, unspecified (principal); N17.0 Acute kidney failure with tubular necrosis; R65.10 Systemic inflammatory response syndrome (SIRS) of non-infectious origin without acute organ dysfunction; E22.1 Hyperprolactinemia; I13.2 Hypertensive heart and chronic kidney disease with heart failure and with stage 5 chronic kidney disease, or end stage renal disease; I50.30 Unspecified diastolic (congestive) heart failure; N02.2 Recurrent and persistent hematuria with diffuse membranous glomerulonephritis; N25.81 Secondary hyperparathyroidism of renal origin; N39.0 Urinary tract infection, site not specified; N18.4 Chronic kidney disease, stage 4 (severe); D63.1 Anemia in chronic kidney disease; E11.21 Type 2 diabetes mellitus with diabetic nephropathy; E11.22 Type 2 diabetes mellitus with diabetic chronic kidney disease; E55.9 Vitamin D deficiency, unspecified; E66.01 Morbid (severe) obesity due to excess calories; Z68.35 Body mass index [BMI] 35.0-35.9, adult; E87.6 Hypokalemia; I25.10 Atherosclerotic heart disease of native coronary artery without angina pectoris; I35.0 Nonrheumatic aortic (valve) stenosis; I87.8 Other specified disorders of veins; M89.9 Disorder of bone, unspecified; N28.1 Cyst of kidney, acquired; Z79.02 Long term (current) use of antithrombotics/antiplatelets; Z79.4 Long term (current) use of insulin; Z79.82 Long term (current) use of aspirin; Z79.899 Other long term (current) drug therapy; Z87.01 Personal history of pneumonia (recurrent); Z87.891 Personal history of nicotine dependence; Z90.49 Acquired absence of other specified parts of digestive tract; Z91.11 Patient's noncompliance with dietary regimen; Z95.5 Presence of coronary angioplasty implant and graft; Z96.641 Presence of right artificial hip joint; Z87.441 Personal history of nephrotic syndrome; E79.0 Hyperuricemia without signs of inflammatory arthritis and tophaceous disease

== ENCOUNTER → 2018-11-03 | Outpatient (CLI) | payer OTHER | LOC: LAB 11:24 ==

== ENCOUNTER 2018-11-08 14:46 | Outpatient (CLI) | payer OTHER | END 2018-11-08 14:47 | disposition home or self-care (01) | LOC: LAB 14:46 ==

== ENCOUNTER 2018-11-21 15:01 | Outpatient (CLI) | payer OTHER | END 2018-11-21 15:02 | disposition home or self-care (01) | LOC: LAB 15:01 ==

== ENCOUNTER 2018-12-04 12:51 | Outpatient (CLI) | payer OTHER | END 2018-12-04 12:52 | disposition home or self-care (01) | LOC: LAB 12:51 ==

== ENCOUNTER 2019-01-08 16:16 | Outpatient (CLI) | payer OTHER | END 2019-01-08 16:17 | disposition home or self-care (01) | LOC: LAB 16:16 ==